=== PATIENT | male | born 1935 | race Caucasian/White ===

== ENCOUNTER 2017-07-21 14:27 | Inpatient (IN) | payer OTHER ==
[2017-07-21] MEDS ORDERED: SODIUM CHLORIDE 1,000 ML IV STA (14:43)
--- NOTE | 2017-07-21 14:44 | PDOC ---
History of Present Illness - General Stated Complaint: HIGH BLOOD SUGAR Time Seen by Provider: 07/21/17 14:38 History Source: EMS Exam Limitations: No Limitations - History of Present Illness Initial Comments: 07/21/17 14:42 81 y/o M with history of DM II, HTN, CAD, NSTEMI 4 years ago presenting with "high" glucose on fingerstick and AMS. "social work professor called ambulance" 07/21/17 15:08 07/21/17 15:[address] patient's PCp Dr. Debbie Velasquez to call back. Past History - Past Medical History Allergies/Adverse Reactions: Allergies Allergy/AdvReac Type Severity Reaction Status Date / Time No Known Drug Allergies Allergy Verified 09/30/13 08:39 Home Medications: Ambulatory Orders Amlodipine Besylate [Norvasc -] 5 mg PO DAILY #0 tablet 10/01/13 Aspirin [ASA -] 81 mg PO DAILY #0 tab.chew 10/01/13 Atorvastatin Ca [Lipitor] 40 mg PO HS #0 tablet 10/01/13 Clopidogrel Bisulfate [Plavix -] 75 mg PO DAILY #0 tablet 10/01/13 Heparin Infusion - 500 ml IVPB TITR #0 infus.bag 10/01/13 Insulin (Levemir) [Levemir Flexpen -] 10 units SQ HS #0 pen 10/01/13 Insulin (Novolog) [Novolog Flexpen -] 3 units SQ TIDAC #0 pen 10/01/13 Metoprolol Tartrate [Lopressor -] 25 mg PO BID #0 tab 10/01/13 Morphine Injection - [Morphine Injection 4 mg/1 mL -] 4 mg IVPUSH Q6H PRN #0 disp.syrin 10/01/13 Anemia: No Asthma: No Cancer: No Cardiac Disorders: No CVA: No COPD: No CHF: No Dementia: No Diabetes: Yes GI Disorders: No Disorders: No HTN: Yes Hypercholesterolemia: No Liver Disease: No Seizures: No Thyroid Disease: No - Suicide/Smoking/Psychosocial Hx Smoking History: Never smoked Have you smoked in the past 12 months: No Hx Alcohol Use: No Drug/Substance Use Hx: No Substance Use Type: None Hx Substance Use Treatment: No Review of Systems - Review of Systems Able to Perform ROS?: No (Altered mental status) *Physical Exam - Physical Exam General Appearance: Yes: Disheveled, Mild Distress HEENT: positive: EOMI, LIVIA Respiratory/Chest: negative: Chest Tender Cardiovascular: positive: Regular Rhythm, Regular Rate, S1, S2, Bradycardia Neurologic: positive: Confused, Disoriented. negative: Fully Oriented, Alert ED Treatment Course - LABORATORY CBC & Chemistry Diagram: 07/21/17 15:33 07/21/17 17:05 Medical Decision Making - Medical Decision Making 07/21/17 16:00 cbc, cmp, ua started the patient on fluids with labetalol for pressure control (in the 200's) 07/21/17 18:11 Glucose 498. Corrected sodium 138 07/21/17 18:13 07/21/17 18:42 BP: 216/79 HR:59 Repeated Bolus of NS and added Cardene 10mg. Will reevaluate vitals 07/21/17 19:12 Patient signed out to dr. Alexander *DC/Admit/Observation/Transfer Diagnosis at time of Disposition: Hyperglycemia, Hypertensive emergency - Referrals - Patient Instructions - Post Discharge Activity
[2017-07-21] MEDS ORDERED: LABETALOL HCL 5 MG/1 ML (100MG/20 ML VIAL) IVPUSH ONE (15:32)
[2017-07-21 15:39] LABS: BASO % 0.7 % (0-2.0); EOS % 3.4 % (0-4.5); LYMPH % 26.2 % (8-40); MCH 29.2 pg (25.7-33.7); MCHC 33.4 g/dl (32.0-35.9); MEAN CELL VOLUME 87.4 fl (80-96); MEAN PLT VOLUME 9.8 fl (7.5-11.1); MONO % 9.5 % (3.8-10.2); NEUT % 60.2 % (42.8-82.8); PLATELET COUNT 166 K/MM3 (134-434); RBC 4.46 M/mm3 (4.00-5.60); RDW 13.7 % (11.9-15.9); WHITE BLOOD COUNT 5.8 K/mm3 (4.0-10.0)
[2017-07-21] MEDS ORDERED: LABETALOL HCL 5 MG/1 ML (200MG/40ML VIAL) IVPB ONE (15:43)
[2017-07-21 15:45] LABS: VENOUS PC02 47.2 mmHg (38-52); VENOUS PH 7.36 (7.32-7.42); VENOUS PO2 28.1 mmHg (28-48)
[2017-07-21 16:00] LABS: INR 0.89 (0.82-1.09); PROTHROMBIN TIME (PATIENT) 10.1 SEC (9.98-11.88)
--- NOTE | 2017-07-21 16:02 | EKG ---
Test Reason : Blood Pressure : / mmHG Vent. Rate : 051 BPM Atrial Rate : 051 BPM P-R Int : 174 ms QRS Dur : 082 ms QT Int : 414 ms P-R-T Axes : 029 -18 083 degrees QTc Int : 381 ms SINUS BRADYCARDIA NONSPECIFIC T WAVE ABNORMALITY ABNORMAL ECG WHEN COMPARED WITH ECG OF 01-OCT-2013 09:05, ST NO LONGER DEPRESSED IN ANTEROLATERAL LEADS T WAVE INVERSION NO LONGER EVIDENT IN INFERIOR LEADS T WAVE INVERSION NO LONGER EVIDENT IN LATERAL LEADS Confirmed by ARIADNA ROPER MD ([id number]) on 07/21/2017 4:01:42 PM Referred By: Confirmed By:ARIADNA ROPER MD
[2017-07-21 16:03] LABS: ACTIVATED PTT 25.7 SECONDS (26.9-34.4)
[2017-07-21 17:04] LABS: MAGNESIUM 2.8 mg/dL (1.8-2.4)
[2017-07-21 17:14] LABS: PHOSPHOROUS 3.2 mg/dL (2.5-4.9)
[2017-07-21 18:00] LABS: ALBUMIN 3.6 g/dl (3.4-5.0); ANION GAP 5 (8-16); BILIRUBIN,TOTAL 1.3 mg/dL (0.2-1.0); BLOOD UREA NITROGEN 46 mg/dL (7-18); CALCIUM 8.4 mg/dL (8.5-10.1); CHLORIDE 100 mmol/L (98-107); CO2 27 mmol/L (21-32); CREATININE 2.5 mg/dL (0.7-1.3); POTASSIUM 5.2 mmol/L (3.5-5.1); SGOT/AST 14 U/L (15-37); SGPT/ALT 16 U/L (12-78); SODIUM 132 mmol/L (136-145); TOT PROT 6.7 g/dl (6.4-8.2)
[2017-07-21 18:01] LABS: ALK PHOS 104 U/L (45-117)
--- NOTE | 2017-07-21 18:01 | PDOC ---
Attending Attestation - Resident Resident Name: Erich Camp - ED Attending Attestation I have performed the following: I have examined & evaluated the patient, The case was reviewed & discussed with the resident, I agree w/resident's findings & plan, Exceptions are as noted - HPI HPI: 07/21/17 18:00 81-year-old male with history of hypertension presents with confusion/altered mental status in the setting of very elevated blood pressures - Physicial Exam PE: 07/21/17 18:00 Blood pressure over 200 systolic Mental status slightly improved after labetalol Neurological exam is nonfocal - Medical Decision Making 07/21/17 18:01 Patient seen and evaluated with the resident. I agree with the overall evaluation, assessment, and management with the following summary of visit: 81-year-old male with elevated blood pressures and confusion, possible encephalopathy, rule out bleed. CT head Blood pressure control Labs Admission 07/21/17 18:38 persistent elevated BP receiving iv meds. hyperglycemia without AG. GENE with Cr 2.5.
[2017-07-21 18:11] LABS: GLUCOSE,RANDOM 498 mg/dL (74-106)
[2017-07-21] MEDS ORDERED: INSULIN REGULAR HUMAN 100 UNITS/ML *VIAL IVPUSH ONE (18:21)
[2017-07-21] MEDS ORDERED: SODIUM CHLORIDE 1,000 ML IV SCH (18:30)
[2017-07-21] MEDS ORDERED: INSULIN REGULAR HUMAN 100 UNITS/ML *VIAL ONE (18:34)
[2017-07-21] MEDS ORDERED: dilTIAZem HCL 50 MG/10 ML - 10 ML VIAL IVPUSH ONE (18:42)
[2017-07-21] MEDS ORDERED: niCARdipine HCL 25 MG/10 ML - 10 ML VIAL IV ONE (18:49)
--- NOTE | 2017-07-21 19:29 | PDOC ---
*Physical Exam - Vital Signs Last Vital Signs Temp Pulse Resp BP Pulse Ox 98.4 F 57 L 18 212/76 100 07/21/17 15:28 07/21/17 18:48 07/21/17 15:28 07/21/17 18:48 07/21/17 18:48 ED Treatment Course - LABORATORY CBC & Chemistry Diagram: 07/21/17 15:33 07/21/17 17:05 - ADDITIONAL ORDERS Additional order review: Laboratory Results 07/21/17 07/21/17 07/21/17 17:05 15:33 15:33 PT with INR INR PTT (Actin FS) VBG pH POC VBG pCO2 POC VBG pO2 Mixed VBG HCO3 Sodium 132 L Potassium 5.2 H D Chloride 100 Carbon Dioxide 27 Anion Gap 5 L BUN 46 H D Creatinine 2.5 H D Creat Clearance w eGFR 24.97 Random Glucose 498 H* D Lactic Acid 1.5 Calcium 8.4 L Phosphorus Magnesium Total Bilirubin 1.3 H AST 14 L D ALT 16 D Alkaline Phosphatase 104 D Total Protein 6.7 Albumin 3.6 Blood Type Cancelled Antibody Screen Cancelled 07/21/17 07/21/17 07/21/17 15:33 15:33 15:33 PT with INR 10.10 INR 0.89 PTT (Actin FS) 25.7 L D VBG pH 7.36 POC VBG pCO2 47.2 POC VBG pO2 28.1 Mixed VBG HCO3 26.1 H Sodium Potassium Chloride Carbon Dioxide Anion Gap BUN Creatinine Creat Clearance w eGFR Random Glucose Lactic Acid Calcium Phosphorus 3.2 D Magnesium 2.8 H D Total Bilirubin AST ALT Alkaline Phosphatase Total Protein Albumin Blood Type Antibody Screen 07/21/17 15:33 PT with INR INR PTT (Actin FS) VBG pH POC VBG pCO2 POC VBG pO2 Mixed VBG HCO3 Sodium Cancelled Potassium Cancelled Chloride Cancelled Carbon Dioxide Cancelled Anion Gap Cancelled BUN Cancelled Creatinine Cancelled Creat Clearance w eGFR Cancelled Random Glucose Cancelled Lactic Acid Calcium Cancelled Phosphorus Magnesium Total Bilirubin Cancelled AST Cancelled ALT Cancelled Alkaline Phosphatase Cancelled Total Protein Cancelled Albumin Cancelled Blood Type Antibody Screen 07/21/17 15:33 RBC 4.46 MCV 87.4 MCHC 33.4 RDW 13.7 MPV 9.8 D Neutrophils % 60.2 Lymphocytes % 26.2 Monocytes % 9.5 Eosinophils % 3.4 Basophils % 0.7 - Medications Given in the ED: ED Medications Discontinued Medications Generic Name Dose Route Start Last Admin Trade Name Freq PRN Reason Stop Dose Admin Sodium Chloride 1,000 mls @ 1,000 mls/hr 07/21/17 14:43 07/21/17 15:18 Normal Saline - IV 07/21/17 15:42 1,000 mls/hr ASDIR STA Administration Insulin Human Regular 4 units 07/21/17 18:21 07/21/17 18:37 Novolin R Vial *For Ivpush Or Iv Drip Only* IVPUSH 07/21/17 18:22 4 unit ONCE ONE Administration Labetalol HCl 20 mg 07/21/17 15:32 07/21/17 15:50 Normodyne Injection - IVPUSH 07/21/17 15:33 20 mg ONCE ONE Administration *DC/Admit/Observation/Transfer Diagnosis at time of Disposition: Hyperglycemia, Hypertensive emergency - Discharge Dispostion Admit: Yes - Referrals - Patient Instructions - Post Discharge Activity
--- NOTE | 2017-07-21 19:40 | HP ---
PCP: Name unknown ([facility]) HISTORY OF PRESENT ILLNESS: Poor historian. History obtained from patients son and ED resident. Patient is an 81-year-old Dominican speaking male was brought in via 911 after his aid noticed him having "Altered Mental Status". When EMS arrived, his finger stick glucose was undetectable (likely >400). As per the patient's son, he hasn't been acting normal since few days. Patient lives alone, has health aid for few hrs during the day, walks without a cane at baseline. Son is unable to give detailed history about his medical condition and his medication list. During the interrogation, patient kept repeating he wants a nasal drop which he uses it daily for his nasal congestion. Patient complaints of headache with dizziness but no blurring of vision, visual loss. Patient denies chest pain, sob, cough, palpitation, abdominal pain, nausea or vomiting. Bowel/Bladder habit normal/ Sleep/Appetite normal as per patients son. Patient was admitted at [facility] on 09/30/13 for NSTEMI, was transferred out for cath but has no obstruction as per the note. ER course was notable for: (1) Afebrile. BP: 215/75mm Hg; P-54 bpm, blood sugar 498 (2) EKG: NSR with bradycardia (3) IV Labetolol 20mg Recent Travel: None PAST MEDICAL HISTORY: Hypertension and Diabetes diagnosed in 1956, non obstructing CAD, Early dementia, disc herniation, Vertigo PAST SURGICAL HISTORY: Unknown Social History: Smoking: Denies Alcohol: Denies Drugs: Denies Family History: Non contributory. Allergies No Known Drug Allergies Allergy (Verified 09/30/13 08:39) HOME MEDICATIONS: Home Medications Medication Instructions Recorded Amlodipine Besylate [Norvasc -] 5 mg PO DAILY #0 tablet 10/01/13 Aspirin [ASA -] 81 mg PO DAILY #0 tab.chew 10/01/13 Atorvastatin Ca [Lipitor] 40 mg PO HS #0 tablet 10/01/13 Clopidogrel Bisulfate [Plavix -] 75 mg PO DAILY #0 tablet 10/01/13 Heparin Infusion - 500 ml IVPB TITR #0 infus.bag 10/01/13 Insulin (Levemir) [Levemir Flexpen 10 units SQ HS #0 pen 10/01/13 -] Insulin (Novolog) [Novolog Flexpen 3 units SQ TIDAC #0 pen 10/01/13 -] Metoprolol Tartrate [Lopressor -] 25 mg PO BID #0 tab 10/01/13 Morphine Injection - [Morphine 4 mg IVPUSH Q6H PRN #0 disp.syrin 10/01/13 Injection 4 mg/1 mL -] REVIEW OF SYSTEMS CONSTITUTIONAL: Absent: fever, chills, diaphoresis, generalized weakness, malaise, loss of appetite, weight change HEENT: Absent: rhinorrhea, nasal congestion, throat pain, throat swelling, difficulty swallowing, mouth swelling, ear pain, eye pain, visual changes CARDIOVASCULAR: Absent: chest pain, syncope, palpitations, irregular heart rate, lightheadedness , peripheral edema RESPIRATORY: Absent: cough, shortness of breath, dyspnea with exertion, orthopnea, wheezing, stridor, hemoptysis GASTROINTESTINAL: Absent: abdominal pain, abdominal distension, nausea, vomiting, diarrhea, constipation, melena, hematochezia GENITOURINARY: Absent: dysuria, frequency, urgency, hesitancy, hematuria, flank pain, genital pain MUSCULOSKELETAL: Absent: myalgia, arthralgia, joint swelling, back pain, neck pain SKIN: Absent: rash, itching, pallor HEMATOLOGIC/IMMUNOLOGIC: Absent: easy bleeding, easy bruising, lymphadenopathy, frequent infections ENDOCRINE: Absent: unexplained weight gain, unexplained weight loss, heat intolerance, cold intolerance NEUROLOGIC: Present: headache, AMS Absent: focal weakness or paresthesias, dizziness, unsteady gait, seizure, bladder or bowel incontinence PSYCHIATRIC: Absent: anxiety, depression, suicidal or homicidal ideation, hallucinations. PHYSICAL EXAMINATION Vital Signs - 24 hr 07/21/17 07/21/17 15:28 18:48 Temperature 98.4 F Pulse Rate 54 L Pulse Rate [ 57 L Apical] Respiratory 18 Rate Blood Pressure 215/75 Blood Pressure 212/76 [Left Arm] O2 Sat by Pulse 100 100 Oximetry (%) GENERAL: Elderly male, Awake, alert, and oriented x 1, in no acute distress. HEAD: Normal with no signs of trauma. EYES: EOM intact, no pallor or icterus. EARS, NOSE, THROAT: Ears normal. Moist mucous membranes. NECK: Supple. LUNGS: B/L Breath sounds equal, clear to auscultation bilaterally. No wheezes, and no crackles. No accessory muscle use. HEART: Regular rate and rhythm, normal S1 and S2 with soft systolic murmur. ABDOMEN: Soft, nontender, not distended, normoactive bowel sounds, no guarding, no rebound, no masses. No hepatomegaly or splenomegaly. MUSCULOSKELETAL: Normal range of motion at all joints. No bony deformities or tenderness. No CVA tenderness. UPPER EXTREMITIES: 2+ pulses, warm, well-perfused. No cyanosis. No clubbing. No peripheral edema. LOWER EXTREMITIES: 2+ pulses, warm, well-perfused. No calf tenderness. No peripheral edema. NEUROLOGICAL: No facial droop, not obeying commands. Normal speech. Gait not observed. PSYCHIATRIC: Uncooperative. Good eye contact. Appropriate mood and affect. SKIN: Warm, dry, normal turgor, no rashes or lesions noted, normal capillary refill. Laboratory Results - last 24 hr 07/21/17 07/21/17 07/21/17 15:33 15:33 15:33 WBC 5.8 D RBC 4.46 Hgb 13.0 Hct 39.0 MCV 87.4 MCH 29.2 MCHC 33.4 RDW 13.7 Plt Count 166 MPV 9.8 D Neutrophils % 60.2 Lymphocytes % 26.2 Monocytes % 9.5 Eosinophils % 3.4 Basophils % 0.7 PT with INR 10.10 INR 0.89 PTT (Actin FS) 25.7 L D VBG pH POC VBG pCO2 POC VBG pO2 Mixed VBG HCO3 Sodium Cancelled Potassium Cancelled Chloride Cancelled Carbon Dioxide Cancelled Anion Gap Cancelled BUN Cancelled Creatinine Cancelled Creat Clearance w eGFR Cancelled Random Glucose Cancelled Lactic Acid Calcium Cancelled Phosphorus Magnesium Total Bilirubin Cancelled AST Cancelled ALT Cancelled Alkaline Phosphatase Cancelled Total Protein Cancelled Albumin Cancelled Blood Type Antibody Screen 07/21/17 07/21/17 07/21/17 15:33 15:33 15:33 WBC RBC Hgb Hct MCV MCH MCHC RDW Plt Count MPV Neutrophils % Lymphocytes % Monocytes % Eosinophils % Basophils % PT with INR INR PTT (Actin FS) VBG pH 7.36 POC VBG pCO2 47.2 POC VBG pO2 28.1 Mixed VBG HCO3 26.1 H Sodium Potassium Chloride Carbon Dioxide Anion Gap BUN Creatinine Creat Clearance w eGFR Random Glucose Lactic Acid 1.5 Calcium Phosphorus 3.2 D Magnesium 2.8 H D Total Bilirubin AST ALT Alkaline Phosphatase Total Protein Albumin Blood Type Antibody Screen 07/21/17 07/21/17 15:33 17:05 WBC RBC Hgb Hct MCV MCH MCHC RDW Plt Count MPV Neutrophils % Lymphocytes % Monocytes % Eosinophils % Basophils % PT with INR INR PTT (Actin FS) VBG pH POC VBG pCO2 POC VBG pO2 Mixed VBG HCO3 Sodium 132 L Potassium 5.2 H D Chloride 100 Carbon Dioxide 27 Anion Gap 5 L BUN 46 H D Creatinine 2.5 H D Creat Clearance w eGFR 24.97 Random Glucose 498 H* D Lactic Acid Calcium 8.4 L Phosphorus Magnesium Total Bilirubin 1.3 H AST 14 L D ALT 16 D Alkaline Phosphatase 104 D Total Protein 6.7 Albumin 3.6 Blood Type Cancelled Antibody Screen Cancelled ASSESSMENT/PLAN: Patient is an 81-year-old Dominican speaking male with significant past medical history of Hypertension and Diabetes diagnosed in 195, non obstructing CAD, Early dementia, disc herniation was brought in via 911 after his aid noticed him having "Altered Mental Status". # Altered mental status likely due to Hypertensive Emergency with end organ damage Aid noticed AMS prompting to call 911 was found to be hypertensive. On arrival, BP was 215/75mm Hg; P-54 bpm Has end organ damage-creatinine increased to 2.5 from his baseline and AMS. Admitted in ICU (spoke with EDWIN Thomas who accepted the patient) Was given IV Labetolol 20mg and Hydralazine 5 mg once in the ED with only slight improvement. Started IV Nicardipine drip, titrate as needed ECHO in AM. Last echo 2012: Normal, Mild to mod MR Lipid, A1c in AM Cardiology consult requested CT head without contrast pending Troponin x 1 negative---> 12:30 am. # SOBIA on CKD Creatinine 2.5, baseline creatinine on file is 1.5 Cannot give him hydration due to high blood pressure Avoid Nephrotoxic drugs. Repeat BMP in AM # Dizziness likely secondary to Hypertensive emergency # Uncontrolled blood sugar On arrival, blood sugar was 498, AG normal Continue Insulin sliding scale confirm his meds with pharmacy in AM and start Levemir Finger stick glucose monitoring Watch for hypoglycemic episodes # FEN Not on IV fluids Electrolytes to be repeated in AM Sodium controlled diet # Prophylaxis For DVT: On heparin 5000 IU TID For GI: Not indicated # Code Status: Full Code # Dispo: Admitted in ICU. Duration of stay unknown. Illness, Investigation and Plan of care explained to the patients son. He verbalized understanding. Case discussed with Dr. Brenner. Visit type - Emergency Visit Emergency Visit: Yes ED Registration Date: 07/21/17 Care time: The patient presented to the Emergency Department on the above date and was hospitalized for further evaluation of their emergent condition. - New Patient This patient is new to me today: Yes Date on this admission: 07/21/17 - Critical Care Critical Care patient: No
--- NOTE | 2017-07-21 19:46 | PN ---
Teaching Attending Note Name of Resident: Debbie Aguirre ATTENDING PHYSICIAN STATEMENT I saw and evaluated the patient. I reviewed the resident's note and discussed the case with the resident. I agree with the resident's findings and plan as documented. SUBJECTIVE: 81 yo M hx. of Dm II, HTN, CAD, NSTEMI 4 years ago who presents with high glucose. and AMS. As per chart notes the social sciences research scientist called ambulance. Pt. states he feels well and denies any chest pain, pressure or shortness of breath. Does not know why he is at the hospital. Denies any headache, fevers, or chills. OBJECTIVE: Physical: VS: Vital Signs Period Temp Pulse Resp BP Sys/Charles Pulse Ox Last 24 Hr 98.4 F 54-57 18 212-215/75-76 100-100 GEN: NAD, Resting in bed, [id number](Person/Place) HEENT: NCAT, PERRL, throat without erythema or exudates CARD: RRR S1, S2 RESP: CTAB ABD: BSx4, NTD to palpation EXT: - C/C/E CBCD WBC 5.8 K/mm3 (4.0-10.0) D 07/21/17 15:33 RBC 4.46 M/mm3 (4.00-5.60) 07/21/17 15:33 Hgb 13.0 GM/dL (11.7-16.9) 07/21/17 15:33 Hct 39.0 % (35.4-49) 07/21/17 15:33 MCV 87.4 fl (80-96) 07/21/17 15:33 MCHC 33.4 g/dl (32.0-35.9) 07/21/17 15:33 RDW 13.7 % (11.9-15.9) 07/21/17 15:33 Plt Count 166 K/MM3 (134-434) 07/21/17 15:33 MPV 9.8 fl (7.5-11.1) D 07/21/17 15:33 CMP Sodium 132 mmol/L (136-145) L 07/21/17 17:05 Potassium 5.2 mmol/L (3.5-5.1) H D 07/21/17 17:05 Chloride 100 mmol/L (98-107) 07/21/17 17:05 Carbon Dioxide 27 mmol/L (21-32) 07/21/17 17:05 Anion Gap 5 (8-16) L 07/21/17 17:05 BUN 46 mg/dL (7-18) H D 07/21/17 17:05 Creatinine 2.5 mg/dL (0.7-1.3) H D 07/21/17 17:05 Creat Clearance w eGFR 24.97 (>60) 07/21/17 17:05 Random Glucose 498 mg/dL (74-106) H* D 07/21/17 17:05 Calcium 8.4 mg/dL (8.5-10.1) L 07/21/17 17:05 Total Bilirubin 1.3 mg/dL (0.2-1.0) H 07/21/17 17:05 AST 14 U/L (15-37) L D 07/21/17 17:05 ALT 16 U/L (12-78) D 07/21/17 17:05 Alkaline Phosphatase 104 U/L (45-117) D 07/21/17 17:05 Total Protein 6.7 g/dl (6.4-8.2) 07/21/17 17:05 Albumin 3.6 g/dl (3.4-5.0) 07/21/17 17:05 CARDIAC ENZYMES Creatine Kinase 88 IU/L (39-308) 07/21/17 18:45 Troponin I < 0.02 ng/ml (0.00-0.05) D 07/21/17 18:45 Ambulatory Orders Amlodipine Besylate [Norvasc -] 5 mg PO DAILY #0 tablet 10/01/13 Aspirin [ASA -] 81 mg PO DAILY #0 tab.chew 10/01/13 Atorvastatin Ca [Lipitor] 40 mg PO HS #0 tablet 10/01/13 Clopidogrel Bisulfate [Plavix -] 75 mg PO DAILY #0 tablet 10/01/13 Heparin Infusion - 500 ml IVPB TITR #0 infus.bag 10/01/13 Insulin (Levemir) [Levemir Flexpen -] 10 units SQ HS #0 pen 10/01/13 Insulin (Novolog) [Novolog Flexpen -] 3 units SQ TIDAC #0 pen 10/01/13 Metoprolol Tartrate [Lopressor -] 25 mg PO BID #0 tab 10/01/13 Morphine Injection - [Morphine Injection 4 mg/1 mL -] 4 mg IVPUSH Q6H PRN #0 disp.syrin 10/01/13 EKG: SBrady [address] HEAD: Negative for acute process ASSESSMENT AND PLAN: 81 yo M hx. of Dm II, HTN, CAD, NSTEMI 4 years ago who presents with AMS and hyperglycemia, found to have htn emergency 1.) HTN Emergency - Nicardapine gtt - Echo - Trend Trop/ekg - Not to reduce >30% over several hrs 2.) AMS - CT HEAD- negative - Check. UA, Ucx 3.) CAD - C/W Home meds - ASA, Statin, Plavix (IF CT Head negative) 4.) SOBIA on CKD - Last Cr 1.6 - Ulytes - Avoid Nephrotoxins - Nephro consult - Renal Us 5.) Dvt PPx - Heparin [address] in ICU Accepted by Mail Teller CC Time: 40 Minutes
[2017-07-21] MEDS ORDERED: niCARdipine HCL 25 MG/10 ML AMPUL IVPB ONE ×2 (19:57→22:15)
[2017-07-21] MEDS ORDERED: hydrALAZINE HCL 20 MG/ML VIAL IVPUSH ONE (20:00)
[2017-07-21] MEDS ORDERED: hydrALAZINE HCL 20 MG/ML VIAL ONE (20:03)
[2017-07-21] MEDS ORDERED: NICARDIPINE 25 MG in DEXTROSE 5%-WATER - 240 ML IVPB SCH (20:30)
[2017-07-21] MEDS ORDERED: SODIUM CHLORIDE NASAL SPRAY 44 ML BOTTLE NS PRN (20:51)
[2017-07-21] MEDS ORDERED: ATORVASTATIN CA 40 MG TABLET (FP) PO SCH (22:00)
[2017-07-21] MEDS ORDERED: ASPIRIN 81 MG CHEWABLE TABLETS ONE (22:15)
[2017-07-21] MEDS ORDERED: CLOPIDOGREL BISULFATE 75 MG TABLET (FP) ONE (22:16)
[2017-07-21] MEDS ORDERED: ATORVASTATIN CA 40 MG TABLET (FP) ONE (22:16)
[2017-07-21] MEDS: CLOPIDOGREL BISULFATE 75 MG TABLET (FP) PO SCH (22:22)
[2017-07-21] MEDS: ASPIRIN 81 MG CHEWABLE TABLETS PO SCH (22:22)
--- NOTE | 2017-07-21 23:15 | CONSULT ---
Consult - text type - Consultation Consultation Note: Pulm/CCM Pt seen and examined CC: AMS HPI: Briefly Mr Kuldeep is an 81-year-old [place] speaking man with hx of CAD on plavix and asa, HTN who noted to have mental status changes by home health aid , prompting 911 activation. EMS noted pt to be hyperglycemic and mildly confused , and hypertensive. Patient lives alone, has health aid for few hrs during the day, walks without a cane at baseline. His Son has noted him to have AMS for last few days but is unable to give detailed history about his medical condition and his medication list. In ED pt was afebrile, slightly altered (perseverating about nasal spray), hypertensive at 215/75, with HR 60s. CT head showed no acute infarct or bleed. Multiple IV push antihypertensive meds were given with some improvement, however pt had rebound htn and pt was started on cardene gtt. Labs notabe for Cr 2.5 increased from 1.6 > 12months ago. K was 5.2. CK and Trop were negative. WBC was normal. There was no localizing signs of infection. 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 Past Medical History Cardio/Vascular CAD Social History Smoking history Never smoked Have you smoked in the past 12 No months Hx Alcohol Use No History of Substance Use None Home Medications Medication Instructions Recorded Amlodipine Besylate [Norvasc -] 5 mg PO DAILY #0 tablet 10/01/13 Aspirin [ASA -] 81 mg PO DAILY #0 tab.chew 10/01/13 Atorvastatin Ca [Lipitor] 40 mg PO HS #0 tablet 10/01/13 Clopidogrel Bisulfate [Plavix -] 75 mg PO DAILY #0 tablet 10/01/13 Heparin Infusion - 500 ml IVPB TITR #0 infus.bag 10/01/13 Insulin (Levemir) [Levemir Flexpen 10 units SQ HS #0 pen 10/01/13 -] Insulin (Novolog) [Novolog Flexpen 3 units SQ TIDAC #0 pen 10/01/13 -] Metoprolol Tartrate [Lopressor -] 25 mg PO BID #0 tab 10/01/13 Morphine Injection - [Morphine 4 mg IVPUSH Q6H PRN #0 disp.syrin 10/01/13 Injection 4 mg/1 mL -] Vital Signs Temp 98.4 F 07/21/17 15:28 Pulse 65 07/21/17 23:16 Resp 19 07/21/17 23:16 BP 166/69 07/21/17 23:16 Pulse Ox 99 07/21/17 23:16 Intake & Output 07/20/17 07/21/17 07/21/17 23:59 11:59 23:59 Weight 77.111 kg Other: Height 5 ft 6 in Body Mass Index (BMI) 27.4 Weight Measurement Method Estimated by Staff CBCD WBC 5.8 K/mm3 (4.0-10.0) D 07/21/17 15:33 RBC 4.46 M/mm3 (4.00-5.60) 07/21/17 15:33 Hgb 13.0 GM/dL (11.7-16.9) 07/21/17 15:33 Hct 39.0 % (35.4-49) 07/21/17 15:33 MCV 87.4 fl (80-96) 07/21/17 15:33 MCHC 33.4 g/dl (32.0-35.9) 07/21/17 15:33 RDW 13.7 % (11.9-15.9) 07/21/17 15:33 Plt Count 166 K/MM3 (134-434) 07/21/17 15:33 MPV 9.8 fl (7.5-11.1) D 07/21/17 15:33 CMP Sodium 132 mmol/L (136-145) L 07/21/17 17:05 Potassium 5.2 mmol/L (3.5-5.1) H D 07/21/17 17:05 Chloride 100 mmol/L (98-107) 07/21/17 17:05 Carbon Dioxide 27 mmol/L (21-32) 07/21/17 17:05 Anion Gap 5 (8-16) L 07/21/17 17:05 BUN 46 mg/dL (7-18) H D 07/21/17 17:05 Creatinine 2.5 mg/dL (0.7-1.3) H D 07/21/17 17:05 Creat Clearance w eGFR 24.97 (>60) 07/21/17 17:05 Random Glucose 498 mg/dL (74-106) H* D 07/21/17 17:05 Calcium 8.4 mg/dL (8.5-10.1) L 07/21/17 17:05 Total Bilirubin 1.3 mg/dL (0.2-1.0) H 07/21/17 17:05 AST 14 U/L (15-37) L D 07/21/17 17:05 ALT 16 U/L (12-78) D 07/21/17 17:05 Alkaline Phosphatase 104 U/L (45-117) D 07/21/17 17:05 Total Protein 6.7 g/dl (6.4-8.2) 07/21/17 17:05 Albumin 3.6 g/dl (3.4-5.0) 07/21/17 17:05 CARDIAC ENZYMES Creatine Kinase 88 IU/L (39-308) 07/21/17 18:45 Troponin I < 0.02 ng/ml (0.00-0.05) D 07/21/17 18:45 REVIEW OF SYSTEMS CONSTITUTIONAL: Absent: fever, chills, diaphoresis, generalized weakness, malaise, loss of appetite, weight change HEENT: Absent: rhinorrhea, nasal congestion, throat pain, throat swelling, difficulty swallowing, mouth swelling, ear pain, eye pain, visual changes CARDIOVASCULAR: Absent: chest pain, syncope, palpitations, irregular heart rate, lightheadedness , peripheral edema RESPIRATORY: Absent: cough, shortness of breath, dyspnea with exertion, orthopnea, wheezing, stridor, hemoptysis GASTROINTESTINAL: Absent: abdominal pain, abdominal distension, nausea, vomiting, diarrhea, constipation, melena, hematochezia GENITOURINARY: Absent: dysuria, frequency, urgency, hesitancy, hematuria, flank pain, genital pain MUSCULOSKELETAL: Absent: myalgia, arthralgia, joint swelling, back pain, neck pain SKIN: Absent: rash, itching, pallor HEMATOLOGIC/IMMUNOLOGIC: Absent: easy bleeding, easy bruising, lymphadenopathy, frequent infections ENDOCRINE: Absent: unexplained weight gain, unexplained weight loss, heat intolerance, cold intolerance NEUROLOGIC: Present: headache, AMS Absent: focal weakness or paresthesias, dizziness, unsteady gait, seizure, bladder or bowel incontinence PSYCHIATRIC: Absent: anxiety, depression, suicidal or homicidal ideation, hallucinations. PHYSICAL EXAMINATION GENERAL: Elderly male, Awake, alert, and oriented x 1, in no acute distress. ( per family this is not far from baseline) HEAD: atruamatic EYES: EOMI, NECK: Supple, no JVP LUNGS: clear anterior, no distress HEART: RRR, no mr/r/g appreciated ABDOMEN: soft, NT, + BS MUSCULOSKELETAL: WNL UPPER EXTREMITIES: 2+ pulses no edema LOWER EXTREMITIES: 2+ pulses no edema NEUROLOGICAL: no pronator drift, no facial droop, no aphasia ect. SKIN: Warm, dry, normal turgor, no rashes CXR: reviewed, no infiltrate EKG: Sinus josh, no ischemic ST changes, normal axis, intervals CT head without acute pathology. 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 William Henderson ACNP [phone] [id number] CCT
[2017-07-22 00:33] VITALS: BMI 25.6
[2017-07-22] MEDS: INSULIN SLIDING SCALE (NOVOLOG) 1 VIAL SQ SCH ×4 (00:41→17:47)
[2017-07-22] MEDS ORDERED: HEPARIN NA (PORCINE) 5,000 UNITS/ML 1ML VIAL SQ SCH (06:00)
[2017-07-22 06:14] LABS: BASO % 0.7 % (0-2.0); EOS % 5.4 % (0-4.5); HEMATOCRIT 36.6 % (35.4-49); HEMOGLOBIN 12.4 GM/dL (11.7-16.9); MCH 29.2 pg (25.7-33.7); MEAN CELL VOLUME 85.8 fl (80-96); MEAN PLT VOLUME 9.3 fl (7.5-11.1); NEUT % 66.9 % (42.8-82.8); PLATELET COUNT 172 K/MM3 (134-434); RBC 4.26 M/mm3 (4.00-5.60); RDW 13.3 % (11.9-15.9); WHITE BLOOD COUNT 6.6 K/mm3 (4.0-10.0)
[2017-07-22 06:43] LABS: ALBUMIN 3.3 g/dl (3.4-5.0); ANION GAP 12 (8-16); BLOOD UREA NITROGEN 34 mg/dL (7-18); CALCIUM 8.5 mg/dL (8.5-10.1); CHLORIDE 102 mmol/L (98-107); CO2 24 mmol/L (21-32); CREATININE 1.6 mg/dL (0.7-1.3); GLUCOSE,RANDOM 84 mg/dL (74-106); POTASSIUM 3.6 mmol/L (3.5-5.1); SGOT/AST 20 U/L (15-37); SGPT/ALT 12 U/L (12-78); SODIUM 138 mmol/L (136-145)
[2017-07-22 06:46] LABS: ALK PHOS 71 U/L (45-117); BILIRUBIN,TOTAL 1.3 mg/dL (0.2-1.0); TOT PROT 6.1 g/dl (6.4-8.2)
--- NOTE | 2017-07-22 06:57 | PN ---
Physical Exam: SUBJECTIVE: Patient seen and examined. No WALKER, chest pain/discomfort, fever or chills. OBJECTIVE: Vital Signs Period Temp Pulse Resp BP Sys/Charles Pulse Ox Last 24 Hr 98.3 F-99.2 F 54-70 14-20 132-215/65-108 98-100 GENERAL: awake, alert, aaox3 EYES: PERRLA, EOMI, sclera anicteric, conjunctiva clear ENT: oropharynx clear without exudates, mmm. LUNGS: CTAB HEART: rrr, normal s1/s2, no m/r/g ABDOMEN: Soft, ntnd, normoactive BS EXTREMITIES: 2+ pulses, wwp, no mary alice NEUROLOGICAL: CN II-XII intact. Normal speech, motor strength 5/5 in all 4 extremities, sensation intact CBC, BMP 07/22/17 05:00 07/22/17 05:00 Hepatic Panel Total Bilirubin 1.3 mg/dL (0.2-1.0) H 07/22/17 05:00 AST 20 U/L (15-37) D 07/22/17 05:00 ALT 12 U/L (12-78) D 07/22/17 05:00 Alkaline Phosphatase 71 U/L (45-117) D 07/22/17 05:00 Albumin 3.3 g/dl (3.4-5.0) L 07/22/17 05:00 Active Medications Amlodipine Besylate (Norvasc -) 5 mg PO DAILY [facility] Aspirin (Asa -) 81 mg PO DAILY [facility] Atorvastatin Calcium (Lipitor -) 40 mg PO HS [facility] Carvedilol (Coreg -) 12.5 mg PO BID [facility] Chlorhexidine Gluconate (Hibiclens For Decolonization -) 1 applic TP HS [facility] Clopidogrel Bisulfate (Plavix -) 75 mg PO DAILY [facility] Heparin Sodium (Porcine) (Heparin -) 5,000 unit SQ TID [facility] Last Admin: 07/22/17 14:00 Dose: 5,000 unit Insulin Aspart (Novolog Vial Sliding Scale -) 1 vial SQ TIDAC [facility] PRN Reason: Protocol Last Admin: 07/22/17 17:47 Dose: 4 units Insulin Detemir (Levemir Vial) 20 units SQ HS ISAMAR Mupirocin (Bactroban Ointment (For Decolonization) -) 1 applic NS BID [facility] Stop: 07/27/17 09:59 Sodium Chloride ([place] -) 2 spray NS BID PRN PRN Reason: NASAL CONGESTION ASSESSMENT/PLAN: 81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 #Hypertensive Emergency, resolved -titrate off Nicardipine gtt and switch to home Amlodipine 5mg and Coreg 12.5mg BID -continue telemetry monitoring # SOBIA likely 2/2 to hypertensive emergency, resolved and now at baseline -will d/c IVFs #DM, poorly controlled, Alc 11% -ISS & BGM TIDAC -Will add 20U levemir HS converage #CAD: c/w home ASA, Plavix, Lipitor # FEN: PO hydration / lytes wnl / Na controlled diet #DVT PPX - Heparin TID #Dispo: transfer to tele FULL code d/w Dr. Christopher Cisneros MD PGY1 - Internal Medicine Visit type - Emergency Visit Emergency Visit: No - New Patient This patient is new to me today: Yes Date on this admission: 07/22/17 - Critical Care Critical Care patient: Yes Total Critical Care Time (in minutes): 35 Critical Care Statement: The care of this patient involved high complexity decision making to prevent further life threatening deterioration of the patient 's condition and/or to evaluate & treat vital organ system(s) failure or risk of failure.
--- NOTE | 2017-07-22 08:26 | PN ---
Physical Exam: SUBJECTIVE: Patient seen and examined OBJECTIVE: Vital Signs Period Temp Pulse Resp BP Sys/Charles Pulse Ox Last 24 Hr 98.3 F-99.2 F 54-70 14-20 120-215/62-108 98-100 GENERAL: The patient is awake, alert, and fully oriented, in no acute distress. HEAD: Normal with no signs of trauma. EYES: PERRL, extraocular movements intact, sclera anicteric, conjunctiva clear. No ptosis. ENT: Ears normal, nares patent, oropharynx clear without exudates, moist mucous membranes. NECK: Trachea midline, full range of motion, supple. LUNGS: Breath sounds equal, clear to auscultation bilaterally, no wheezes, no crackles, no accessory muscle use. HEART: Regular rate and rhythm, S1, S2 without murmur, rub or gallop. ABDOMEN: Soft, nontender, nondistended, normoactive bowel sounds, no guarding, no rebound, no hepatosplenomegaly, no masses. EXTREMITIES: 2+ pulses, warm, well-perfused, no edema. NEUROLOGICAL: Cranial nerves II through XII grossly intact. Normal speech, gait not observed. PSYCH: Normal mood, normal affect. SKIN: Warm, dry, normal turgor, no rashes or lesions noted Laboratory Results - last 24 hr 07/21/17 07/21/17 07/21/17 15:33 15:33 15:33 WBC 5.8 D RBC 4.46 Hgb 13.0 Hct 39.0 MCV 87.4 MCH 29.2 MCHC 33.4 RDW 13.7 Plt Count 166 MPV 9.8 D Neutrophils % 60.2 Lymphocytes % 26.2 Monocytes % 9.5 Eosinophils % 3.4 Basophils % 0.7 PT with INR 10.10 INR 0.89 PTT (Actin FS) 25.7 L D VBG pH POC VBG pCO2 POC VBG pO2 Mixed VBG HCO3 Sodium Cancelled Potassium Cancelled Chloride Cancelled Carbon Dioxide Cancelled Anion Gap Cancelled BUN Cancelled Creatinine Cancelled Creat Clearance w eGFR Cancelled POC Glucometer Random Glucose Cancelled Lactic Acid Calcium Cancelled Phosphorus Magnesium Total Bilirubin Cancelled AST Cancelled ALT Cancelled Alkaline Phosphatase Cancelled Creatine Kinase Troponin I Total Protein Cancelled Albumin Cancelled Blood Type Antibody Screen 07/21/17 07/21/17 07/21/17 15:33 15:33 15:33 WBC RBC Hgb Hct MCV MCH MCHC RDW Plt Count MPV Neutrophils % Lymphocytes % Monocytes % Eosinophils % Basophils % PT with INR INR PTT (Actin FS) VBG pH 7.36 POC VBG pCO2 47.2 POC VBG pO2 28.1 Mixed VBG HCO3 26.1 H Sodium Potassium Chloride Carbon Dioxide Anion Gap BUN Creatinine Creat Clearance w eGFR POC Glucometer Random Glucose Lactic Acid 1.5 Calcium Phosphorus 3.2 D Magnesium 2.8 H D Total Bilirubin AST ALT Alkaline Phosphatase Creatine Kinase Troponin I Total Protein Albumin Blood Type Antibody Screen 07/21/17 07/21/17 07/21/17 15:33 17:05 18:45 WBC RBC Hgb Hct MCV MCH MCHC RDW Plt Count MPV Neutrophils % Lymphocytes % Monocytes % Eosinophils % Basophils % PT with INR INR PTT (Actin FS) VBG pH POC VBG pCO2 POC VBG pO2 Mixed VBG HCO3 Sodium 132 L Potassium 5.2 H D Chloride 100 Carbon Dioxide 27 Anion Gap 5 L BUN 46 H D Creatinine 2.5 H D Creat Clearance w eGFR 24.97 POC Glucometer Random Glucose 498 H* D Lactic Acid Calcium 8.4 L Phosphorus Magnesium Total Bilirubin 1.3 H AST 14 L D ALT 16 D Alkaline Phosphatase 104 D Creatine Kinase 88 Troponin I < 0.02 D Total Protein 6.7 Albumin 3.6 Blood Type Cancelled Antibody Screen Cancelled 07/22/17 07/22/17 07/22/17 00:13 05:00 05:00 WBC 6.6 RBC 4.26 Hgb 12.4 Hct 36.6 MCV 85.8 MCH 29.2 MCHC 34.0 RDW 13.3 Plt Count 172 MPV 9.3 Neutrophils % 66.9 Lymphocytes % 19.0 D Monocytes % 8.0 Eosinophils % 5.4 H Basophils % 0.7 PT with INR INR PTT (Actin FS) VBG pH POC VBG pCO2 POC VBG pO2 Mixed VBG HCO3 Sodium 138 Potassium 3.6 D Chloride 102 Carbon Dioxide 24 Anion Gap 12 BUN 34 H D Creatinine 1.6 H D Creat Clearance w eGFR 41.80 POC Glucometer [phone] Random Glucose 84 D Lactic Acid Calcium 8.5 Phosphorus Magnesium Total Bilirubin 1.3 H AST 20 D ALT 12 D Alkaline Phosphatase 71 D Creatine Kinase Troponin I Total Protein 6.1 L Albumin 3.3 L Blood Type Antibody Screen 07/22/17 06:33 WBC RBC Hgb Hct MCV MCH MCHC RDW Plt Count MPV Neutrophils % Lymphocytes % Monocytes % Eosinophils % Basophils % PT with INR INR PTT (Actin FS) VBG pH POC VBG pCO2 POC VBG pO2 Mixed VBG HCO3 Sodium Potassium Chloride Carbon Dioxide Anion Gap BUN Creatinine Creat Clearance w eGFR POC Glucometer [phone] Random Glucose Lactic Acid Calcium Phosphorus Magnesium Total Bilirubin AST ALT Alkaline Phosphatase Creatine Kinase Troponin I Total Protein Albumin Blood Type Antibody Screen Active Medications Generic Name Dose Route Start Last Admin Trade Name Renatoq PRN Reason Stop Dose Admin Aspirin 81 mg 07/21/17 20:30 07/21/17 22:22 Asa - PO 81 mg DAILY ISAMAR Administration Atorvastatin Calcium 40 mg 07/21/17 22:00 07/21/17 22:22 Lipitor - PO 40 mg HS ISAMAR Administration Chlorhexidine Gluconate 1 applic 07/22/17 22:00 Hibiclens For Decolonization - TP HS [facility]AR Clopidogrel Bisulfate 75 mg 07/21/17 20:30 07/21/17 22:22 Plavix - PO 75 mg DAILY ISAMAR Administration Heparin Sodium (Porcine) 5,000 unit 07/22/17 06:00 07/22/17 06:40 Heparin - SQ 5,000 unit TID ISAMAR Administration Sodium Chloride 1,000 mls @ 100 mls/hr 07/21/17 18:30 07/21/17 18:46 Normal Saline - IV 100 mls/hr ASDIR ISAMAR Administration Nicardipine HCl 25 mg/ 250 mls @ 25 mls/hr 07/21/17 20:30 07/22/17 02:11 Dextrose IVPB 1 mg/hr TITR ISAMAR 10 mls/hr Protocol Titration 2.5 MG/HR Insulin Aspart 1 vial 07/21/17 22:00 07/22/17 06:40 Novolog Vial Sliding Scale - SQ Not Given ACHS [facility] Protocol Mupirocin 1 applic 07/22/17 10:00 Bactroban Ointment (For Decolonization) - NS 07/27/17 09:59 BID ISAMAR Sodium Chloride 2 spray 07/21/17 20:51 [place] Nasal [place] - NS BID PRN NASAL CONGESTION ASSESSMENT/PLAN: 81 year old Citizen Of [place] speaking man with hx of DM, CAD on plavix and asa, HTN presenting to hyperglycemic, mildly confused, and hypertensive to the ED admitted to the ICU for hypertensive emergency currently with pressures WNL and no focal neurologic deficit and a normal mental status. Neuro: Confusion: reported to be altered on presentation, likely due to hypertension - per palliative care nurse practitioner at bedside, he is now at his baseline - Has a few hours of home health aid daily - no focal sign so not likely stroke CV: HTN Emergency: Presented with pressures 215 systolics. Cause unsure but patient did have high sugars. Has a home health aid who helps administer medications but he has some baseline confusion so would investigate if non-compliance is the driving factor. - resolved on cardeine drip - transition to PO meds today - troponemia resolved Renal: SOBIA: - likely secondary to HTN - resolving - CTM GI: - Elevated t-bili, possibly due to HTN Endo: DM: - SSI FEN: - Sodium controlled diet Dispo: - No longer requires anti-htn drip so can be transferred to tele unit Visit type - Emergency Visit Emergency Visit: No - New Patient This patient is new to me today: Yes Date on this admission: 07/22/17 - Critical Care Critical Care patient: Yes Total Critical Care Time (in minutes): 35 Critical Care Statement: The care of this patient involved high complexity decision making to prevent further life threatening deterioration of the patient 's condition and/or to evaluate & treat vital organ system(s) failure or risk of failure. - Discharge Referral Referred to [facility] No
[2017-07-22] MEDS: CLOPIDOGREL BISULFATE 75 MG TABLET (FP) PO SCH (09:58)
[2017-07-22] MEDS: ASPIRIN 81 MG CHEWABLE TABLETS PO SCH (09:59)
[2017-07-22] MEDS ORDERED: METOPROLOL TARTRATE 25 MG TABLET (FP) PO SCH (10:00)
[2017-07-22] MEDS ORDERED: amLODIPine BESYLATE 10 MG TABLET (FP) PO SCH (10:00)
[2017-07-22] MEDS ORDERED: MUPIROCIN 2% TOPICAL OINTMENT FOR DECOLONIZATION NS SCH ×2 (10:00→22:00)
[2017-07-22] MEDS ORDERED: amLODIPine BESYLATE 5 MG TABLET (FP) PO SCH (10:58)
[2017-07-22] MEDS ORDERED: METOPROLOL TARTRATE 25 MG TABLET (FP) ONE (11:01)
[2017-07-22] MEDS ORDERED: amLODIPine BESYLATE 5 MG TABLET (FP) ONE (11:02)
[2017-07-22 11:19] LABS: URINE APPEARANCE CLEAR; URINE BILIRUBIN NEGATIVE (NEGATIVE); URINE BLOOD NEGATIVE (NEGATIVE); URINE COLOR STRAW; URINE GLUCOSE (UA) 2+ (NEGATIVE); URINE KETONE NEGATIVE (NEGATIVE); URINE LEUK ESTERASE NEGATIVE (NEGATIVE); URINE NITRITE NEGATIVE (NEGATIVE); URINE UROBILINOGEN NEGATIVE mg/dL (0.2-1.0)
[2017-07-22 11:25] LABS: URINE PROTEIN 1+ (NEGATIVE)
--- NOTE | 2017-07-22 11:49 | PN ---
Teaching Attending Note Name of Resident: Davey Richards ATTENDING PHYSICIAN STATEMENT I saw and evaluated the patient. I reviewed the resident's note and discussed the case with the resident. I agree with the resident's findings and plan as documented. SUBJECTIVE: Patient seen and examined in the ICU. Awake and alert. Remains on IV Cardene for BP control. Reports breathing is better today. Intake & Output 07/19/17 07/20/17 07/21/17 07/22/17 23:59 23:59 23:59 23:59 Intake Total 100 Output Total 700 Balance -600 Weight 170 lb 149 lb 4.047 oz Active Medications Amlodipine Besylate (Norvasc -) 5 mg PO DAILY REPLACED BY [facility] Last Admin: 07/22/17 11:07 Dose: 5 mg Aspirin (Asa -) 81 mg PO DAILY REPLACED BY [facility] Last Admin: 07/22/17 09:59 Dose: 81 mg Atorvastatin Calcium (Lipitor -) 40 mg PO HS REPLACED BY [facility] Last Admin: 07/21/17 22:22 Dose: 40 mg Chlorhexidine Gluconate (Hibiclens For Decolonization -) 1 applic TP HS REPLACED BY [facility] Clopidogrel Bisulfate (Plavix -) 75 mg PO DAILY REPLACED BY [facility] Last Admin: 07/22/17 09:58 Dose: 75 mg Heparin Sodium (Porcine) (Heparin -) 5,000 unit SQ TID REPLACED BY [facility] Last Admin: 07/22/17 06:40 Dose: 5,000 unit Nicardipine HCl 25 mg/ (Dextrose) 250 mls @ 25 mls/hr IVPB TITR ISAMAR; 2.5 MG/HR PRN Reason: Protocol Last Titration: 07/22/17 02:11 Dose: 1 mg/hr, 10 mls/hr Insulin Aspart (Novolog Vial Sliding Scale -) 1 vial SQ ACHS ISAMAR PRN Reason: Protocol Last Admin: 07/22/17 11:06 Dose: 10 units Metoprolol Tartrate (Lopressor -) 12.5 mg PO DAILY REPLACED BY [facility] Last Admin: 07/22/17 11:05 Dose: 12.5 mg Mupirocin (Bactroban Ointment (For Decolonization) -) 1 applic NS BID ISAMAR Stop: 07/27/17 09:59 Last Admin: 07/22/17 09:57 Dose: 1 applic Sodium Chloride ([place] Nasal [place] -) 2 spray NS BID PRN PRN Reason: NASAL CONGESTION GENERAL: Awake, alert, oriented, in no acute distress HEAD: atruamatic EYES: EOMI, NECK: Supple, no JVP LUNGS: clear anterior HEART: RRR, (-) ESM ABDOMEN: soft, NT, + BS MUSCULOSKELETAL: WNL UPPER EXTREMITIES: 2+ pulses no edema LOWER EXTREMITIES: 2+ pulses no edema NEUROLOGICAL: Non-focal SKIN: Warm, dry, normal turgor, no rashes Laboratory Results - last 24 hr 07/21/17 07/21/17 07/21/17 15:33 15:33 15:33 WBC 5.8 D RBC 4.46 Hgb 13.0 Hct 39.0 MCV 87.4 MCH 29.2 MCHC 33.4 RDW 13.7 Plt Count 166 MPV 9.8 D Neutrophils % 60.2 Lymphocytes % 26.2 Monocytes % 9.5 Eosinophils % 3.4 Basophils % 0.7 PT with INR 10.10 INR 0.89 PTT (Actin FS) 25.7 L D VBG pH POC VBG pCO2 POC VBG pO2 Mixed VBG HCO3 Sodium Cancelled Potassium Cancelled Chloride Cancelled Carbon Dioxide Cancelled Anion Gap Cancelled BUN Cancelled Creatinine Cancelled Creat Clearance w eGFR Cancelled POC Glucometer Random Glucose Cancelled Hemoglobin A1c % Lactic Acid Calcium Cancelled Phosphorus Magnesium Total Bilirubin Cancelled AST Cancelled ALT Cancelled Alkaline Phosphatase Cancelled Creatine Kinase Troponin I Total Protein Cancelled Albumin Cancelled Urine Color Urine Appearance Urine pH Ur Specific [place] Urine Protein Urine Glucose (UA) Urine Ketones Urine Blood Urine Nitrite Urine Bilirubin Urine Urobilinogen Ur Leukocyte Esterase Urine WBC (Auto) Urine RBC (Auto) Blood Type Antibody Screen 07/21/17 07/21/17 07/21/17 15:33 15:33 15:33 WBC RBC Hgb Hct MCV MCH MCHC RDW Plt Count MPV Neutrophils % Lymphocytes % Monocytes % Eosinophils % Basophils % PT with INR INR PTT (Actin FS) VBG pH 7.36 POC VBG pCO2 47.2 POC VBG pO2 28.1 Mixed VBG HCO3 26.1 H Sodium Potassium Chloride Carbon Dioxide Anion Gap BUN Creatinine Creat Clearance w eGFR POC Glucometer Random Glucose Hemoglobin A1c % Lactic Acid 1.5 Calcium Phosphorus 3.2 D Magnesium 2.8 H D Total Bilirubin AST ALT Alkaline Phosphatase Creatine Kinase Troponin I Total Protein Albumin Urine Color Urine Appearance Urine pH Ur Specific [place] Urine Protein Urine Glucose (UA) Urine Ketones Urine Blood Urine Nitrite Urine Bilirubin Urine Urobilinogen Ur Leukocyte Esterase Urine WBC (Auto) Urine RBC (Auto) Blood Type Antibody Screen 07/21/17 07/21/17 07/21/17 15:33 17:05 18:45 WBC RBC Hgb Hct MCV MCH MCHC RDW Plt Count MPV Neutrophils % Lymphocytes % Monocytes % Eosinophils % Basophils % PT with INR INR PTT (Actin FS) VBG pH POC VBG pCO2 POC VBG pO2 Mixed VBG HCO3 Sodium 132 L Potassium 5.2 H D Chloride 100 Carbon Dioxide 27 Anion Gap 5 L BUN 46 H D Creatinine 2.5 H D Creat Clearance w eGFR 24.97 POC Glucometer Random Glucose 498 H* D Hemoglobin A1c % Lactic Acid Calcium 8.4 L Phosphorus Magnesium Total Bilirubin 1.3 H AST 14 L D ALT 16 D Alkaline Phosphatase 104 D Creatine Kinase 88 Troponin I < 0.02 D Total Protein 6.7 Albumin 3.6 Urine Color Urine Appearance Urine pH Ur Specific [place] Urine Protein Urine Glucose (UA) Urine Ketones Urine Blood Urine Nitrite Urine Bilirubin Urine Urobilinogen Ur Leukocyte Esterase Urine WBC (Auto) Urine RBC (Auto) Blood Type Cancelled Antibody Screen Cancelled 07/22/17 07/22/17 07/22/17 00:13 00:30 05:00 WBC 6.6 RBC 4.26 Hgb 12.4 Hct 36.6 MCV 85.8 MCH 29.2 MCHC 34.0 RDW 13.3 Plt Count 172 MPV 9.3 Neutrophils % 66.9 Lymphocytes % 19.0 D Monocytes % 8.0 Eosinophils % 5.4 H Basophils % 0.7 PT with INR INR PTT (Actin FS) VBG pH POC VBG pCO2 POC VBG pO2 Mixed VBG HCO3 Sodium Potassium Chloride Carbon Dioxide Anion Gap BUN Creatinine Creat Clearance w eGFR POC Glucometer [id number] Random Glucose Hemoglobin A1c % Lactic Acid Calcium Phosphorus Magnesium Total Bilirubin AST ALT Alkaline Phosphatase Creatine Kinase Troponin I Total Protein Albumin Urine Color Straw Urine Appearance Clear Urine pH 8.0 D Ur Specific [place] 1.011 Urine Protein 1+ H Urine Glucose (UA) 2+ H Urine Ketones Negative Urine Blood Negative Urine Nitrite Negative Urine Bilirubin Negative Urine Urobilinogen Negative Ur Leukocyte Esterase Negative Urine WBC (Auto) <1 Urine RBC (Auto) 1 Blood Type Antibody Screen 07/22/17 07/22/17 07/22/17 05:00 05:00 06:33 WBC RBC Hgb Hct MCV MCH MCHC RDW Plt Count MPV Neutrophils % Lymphocytes % Monocytes % Eosinophils % Basophils % PT with INR INR PTT (Actin FS) VBG pH POC VBG pCO2 POC VBG pO2 Mixed VBG HCO3 Sodium 138 Potassium 3.6 D Chloride 102 Carbon Dioxide 24 Anion Gap 12 BUN 34 H D Creatinine 1.6 H D Creat Clearance w eGFR 41.80 POC Glucometer [phone] Random Glucose 84 D Hemoglobin A1c % 11.4 H D Lactic Acid Calcium 8.5 Phosphorus Magnesium Total Bilirubin 1.3 H AST 20 D ALT 12 D Alkaline Phosphatase 71 D Creatine Kinase Troponin I Total Protein 6.1 L Albumin 3.3 L Urine Color Urine Appearance Urine pH Ur Specific [place] Urine Protein Urine Glucose (UA) Urine Ketones Urine Blood Urine Nitrite Urine Bilirubin Urine Urobilinogen Ur Leukocyte Esterase Urine WBC (Auto) Urine RBC (Auto) Blood Type Antibody Screen 07/22/17 10:51 WBC RBC Hgb Hct MCV MCH MCHC RDW Plt Count MPV Neutrophils % Lymphocytes % Monocytes % Eosinophils % Basophils % PT with INR INR PTT (Actin FS) VBG pH POC VBG pCO2 POC VBG pO2 Mixed VBG HCO3 Sodium Potassium Chloride Carbon Dioxide Anion Gap BUN Creatinine Creat Clearance w eGFR POC Glucometer [phone] Random Glucose Hemoglobin A1c % Lactic Acid Calcium Phosphorus Magnesium Total Bilirubin AST ALT Alkaline Phosphatase Creatine Kinase Troponin I Total Protein Albumin Urine Color Urine Appearance Urine pH Ur Specific [place] Urine Protein Urine Glucose (UA) Urine Ketones Urine Blood Urine Nitrite Urine Bilirubin Urine Urobilinogen Ur Leukocyte Esterase Urine WBC (Auto) Urine RBC (Auto) Blood Type Antibody Screen ASSESSMENT/PLAN: Hypertensive Emergency Evidence of end organ damage Hypertension DM CAD History of early dementia Taper Cardene Titrate PO home meds Follow renal function ECHO Cardiology evaluation Follow LFTs Cardiac Telemetry monitoring Dr Joyce Critical care time spent in reviewing chart, evaluating patient and formulating plan - 36 minutes.
--- NOTE | 2017-07-22 12:21 | CON.CARD ---
Cardiology Consult (text) - Consultation Consultation Note: cc: elevated bp hpi: 81 m hx cad s/p nstemi and pci (09/2013, doni rca, doni om1; residual 50-60 mrca, 30-50 d1), dm, htn, hld, ckd, venous insuff/le edema here with elevated bp. 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 Found elevated bp and started nicardipine gtt. Pt denies cp, sob, palps, dizzy, loc, pnd, orthopnea, le edema (improved lately). Sees dr chan for cardio. pmh: per hpi psh: nc social: no tob fam: no premature cad, scd ros: per hpi; no nvd, fever, cough, velazquez, vision changes wt loss, muscle pain, gib , hematuria meds: Home Medications Medication Instructions Recorded Amlodipine Besylate [Norvasc -] 5 mg PO DAILY #0 tablet 10/01/13 Aspirin [ASA -] 81 mg PO DAILY #0 tab.chew 10/01/13 Atorvastatin Ca [Lipitor] 40 mg PO HS #0 tablet 10/01/13 Clopidogrel Bisulfate [Plavix -] 75 mg PO DAILY #0 tablet 10/01/13 Heparin Infusion - 500 ml IVPB TITR #0 infus.bag 10/01/13 Insulin (Levemir) [Levemir Flexpen 10 units SQ HS #0 pen 10/01/13 -] Insulin (Novolog) [Novolog Flexpen 3 units SQ TIDAC #0 pen 10/01/13 -] Metoprolol Tartrate [Lopressor -] 25 mg PO BID #0 tab 10/01/13 Morphine Injection - [Morphine 4 mg IVPUSH Q6H PRN #0 disp.syrin 10/01/13 Injection 4 mg/1 mL -] pe: Vital Signs Period Temp Pulse Resp BP Sys/Charles Pulse Ox Last 24 Hr 97.9 F-99.2 F 54-70 14-22 120-215/59-108 98-100 nad no jvd rrr s1s2 no mrg cta bl nl eff aaox3 trace le edema, no c/c abd nt nd pos bs no jaundice diaphoresis pos dp pt no carotid bruits Laboratory Last Values WBC 6.6 K/mm3 (4.0-10.0) 07/22/17 05:00 RBC 4.26 M/mm3 (4.00-5.60) 07/22/17 05:00 Hgb 12.4 GM/dL (11.7-16.9) 07/22/17 05:00 Hct 36.6 % (35.4-49) 07/22/17 05:00 MCV 85.8 fl (80-96) 07/22/17 05:00 MCH 29.2 pg (25.7-33.7) 07/22/17 05:00 MCHC 34.0 g/dl (32.0-35.9) 07/22/17 05:00 RDW 13.3 % (11.9-15.9) 07/22/17 05:00 Plt Count 172 K/MM3 (134-434) 07/22/17 05:00 MPV 9.3 fl (7.5-11.1) 07/22/17 05:00 Neutrophils % 66.9 % (42.8-82.8) 07/22/17 05:00 Lymphocytes % 19.0 % (8-40) D 07/22/17 05:00 Monocytes % 8.0 % (3.8-10.2) 07/22/17 05:00 Eosinophils % 5.4 % (0-4.5) H 07/22/17 05:00 Basophils % 0.7 % (0-2.0) 07/22/17 05:00 PT with INR 10.10 SEC (9.98-11.88) 07/21/17 15:33 INR 0.89 (0.82-1.09) 07/21/17 15:33 PTT (Actin FS) 25.7 SECONDS (26.9-34.4) L D 07/21/17 15:33 VBG pH 7.36 (7.32-7.42) 07/21/17 15:33 POC VBG pCO2 47.2 mmHg (38-52) 07/21/17 15:33 POC VBG pO2 28.1 mmHg (28-48) 07/21/17 15:33 Mixed VBG HCO3 26.1 meq/L (19-25) H 07/21/17 15:33 Sodium 138 mmol/L (136-145) 07/22/17 05:00 Potassium 3.6 mmol/L (3.5-5.1) D 07/22/17 05:00 Chloride 102 mmol/L (98-107) 07/22/17 05:00 Carbon Dioxide 24 mmol/L (21-32) 07/22/17 05:00 Anion Gap 12 (8-16) 07/22/17 05:00 BUN 34 mg/dL (7-18) H D 07/22/17 05:00 Creatinine 1.6 mg/dL (0.7-1.3) H D 07/22/17 05:00 Creat Clearance w eGFR 41.80 (>60) 07/22/17 05:00 POC Glucometer 365.36217 UNITS (80-120) 07/22/17 10:51 Random Glucose 84 mg/dL (74-106) D 07/22/17 05:00 Hemoglobin A1c % 11.4 % (4.8-6.0) H D 07/22/17 05:00 Lactic Acid 1.5 mmol/L (0.4-2.0) 07/21/17 15:33 Calcium 8.5 mg/dL (8.5-10.1) 07/22/17 05:00 Phosphorus 3.2 mg/dL (2.5-4.9) D 07/21/17 15:33 Magnesium 2.8 mg/dL (1.8-2.4) H D 07/21/17 15:33 Total Bilirubin 1.3 mg/dL (0.2-1.0) H 07/22/17 05:00 AST 20 U/L (15-37) D 07/22/17 05:00 ALT 12 U/L (12-78) D 07/22/17 05:00 Alkaline Phosphatase 71 U/L (45-117) D 07/22/17 05:00 Creatine Kinase 88 IU/L (39-308) 07/21/17 18:45 Troponin I < 0.02 ng/ml (0.00-0.05) D 07/21/17 18:45 Total Protein 6.1 g/dl (6.4-8.2) L 07/22/17 05:00 Albumin 3.3 g/dl (3.4-5.0) L 07/22/17 05:00 Urine Color Straw 07/22/17 00:30 Urine Appearance Clear 07/22/17 00:30 Urine pH 8.0 (5.0-8.0) D 07/22/17 00:30 Ur Specific [place] 1.011 (1.001-1.035) 07/22/17 00:30 Urine Protein 1+ (NEGATIVE) H 07/22/17 00:30 Urine Glucose (UA) 2+ (NEGATIVE) H 07/22/17 00:30 Urine Ketones Negative (NEGATIVE) 07/22/17 00:30 Urine Blood Negative (NEGATIVE) 07/22/17 00:30 Urine Nitrite Negative (NEGATIVE) 07/22/17 00:30 Urine Bilirubin Negative (NEGATIVE) 07/22/17 00:30 Urine Urobilinogen Negative mg/dL (0.2-1.0) 07/22/17 00:30 Ur Leukocyte Esterase Negative (NEGATIVE) 07/22/17 00:30 Urine WBC (Auto) <1 /hpf (3-5) 07/22/17 00:30 Urine RBC (Auto) 1 /hpf (0-3) 07/22/17 00:30 Blood Type Cancelled 07/21/17 15:33 Antibody Screen Cancelled 07/21/17 15:33 ecg: sr, nl intervals, no ischemic changes cxr: clear lungs mibi 06/2015: no ischemia echo 01/2017: nl lv/rv, iasa, mild ar renal duplex 07/2014: no anat tele: sr a/p: 81 m hx cad s/p nstemi and pci (09/2013, doni rca, doni om1; residual 50-60 mrca, 30-50 d1), dm, htn, hld, ckd, venous insuff/le edema here with elevated bp. htn: -improved after nicardipine gtt. Continue norvasc and coreg (12.5 bid was last home dose) and taper off gtt as po meds set in (did not yet get this AM). cad s/p remote mi/pci: -stable no signs acs -cont bb, statin, asa hld: -cont home atorva renard/ckd: -cr improved with ivfs/bp control, near baseline now le edema: -stable
[2017-07-22] MEDS ORDERED: SODIUM CHLORIDE NASAL SPRAY 44 ML BOTTLE NS PRN (12:24)
[2017-07-22] MEDS: HEPARIN NA (PORCINE) 5,000 UNITS/ML 1ML VIAL SQ SCH ×2 (14:00→23:41)
[2017-07-22 14:01] LABS: MAGNESIUM 2.1 mg/dL (1.8-2.4); PHOSPHOROUS 2.4 mg/dL (2.5-4.9)
[2017-07-22 15:14] LABS: URINE APPEARANCE CLEAR; URINE BILIRUBIN NEGATIVE (NEGATIVE); URINE BLOOD NEGATIVE (NEGATIVE); URINE COLOR LTYELLOW; URINE GLUCOSE (UA) 3+ (NEGATIVE); URINE KETONE TRACE (NEGATIVE); URINE LEUK ESTERASE TRACE (NEGATIVE); URINE NITRITE NEGATIVE (NEGATIVE); URINE UROBILINOGEN NEGATIVE mg/dL (0.2-1.0)
[2017-07-22 15:23] LABS: URINE PROTEIN 1+ (NEGATIVE)
[2017-07-22 15:31] LABS: URINE CREATININE 62.4 mg/dL (20-370)
[2017-07-22 15:35] LABS: EPI CELLS RARE /HPF (FEW)
--- NOTE | 2017-07-22 16:02 | PN ---
Teaching Attending Note Name of Resident: Isabella Cisneros ATTENDING PHYSICIAN STATEMENT I saw and evaluated the patient. I reviewed the resident's note and discussed the case with the resident. I agree with the resident's findings and plan as documented. SUBJECTIVE: No fever or chills. no cp , or WALKER . nO SOB . reports non compliance withmeds OBJECTIVE: NAD, Awake , alert , knows location, age . CV: RRR, no MRG Lungs: CTAB Ext : no edema neuro: no facial droop, EOMI, round equal pupils reactive to light, tongue and uvula at mid line. strength 5/5 in upper and lwoer ext proximally nad distally, sensation to light touch , NL . unable to assess reflexes ASSESSMENT AND PLAN: 81 y/o man with h/o HTN, DM , CAD/sp NSTEMI, and other medical problems who presented with AMS and was found to have hypertensive emergency 1- HTN emergency. improved BP on Cardene gtt - Taper gtt off and start BB and norvasc - ecEo reviewed, diastolic dysfunction and LVH - monitor on tele 2- SOBIA: due to HTN emergency, repsonded to IVF. - ocnt oral hydration - cr at base line 3- DM: he dose not remember his meds. A1c 11 - cont SSI . - will add HS insulin 4- CAD : cont Asa and BB EKG reviewed. will confirm meds tx to tele
[2017-07-22] MEDS ORDERED: INSULIN SLIDING SCALE (NOVOLOG) 1 VIAL SQ SCH (16:30)
--- NOTE | 2017-07-22 17:30 | CON.NEP ---
Consult Consult Specialty:: Nephrology Referred by:: Dr. White Reason for Consultation:: SOBIA/Hypertensive Emergency - History of Present Illness Chief Complaint: AMS History of Present Illness: This is a 81 year old gentleman with PMhx of Hypertension, CAD s/p NSTEMI, DM, CKD who presented with AMS and found to have hypertensive emergency with SOBIA. MS appears to back at baseline now. Pt does report a WALKER. BP controlled with Nicardipine gtt. No chest pain, abd pain. Pt was noted to have a high Cr on last admission several years ago. Denies any flank pain, kidney stones. Not on SEFERINO/ARB at home. - History Source History Provided By: Patient Limitations to Obtaining History: No Limitations - Past Medical History Cardio/Vascular: Yes: CAD Renal/: Yes: Renal Inusuff - Alcohol/Substance Use Hx Alcohol Use: No History of Substance Use: reports: None - Smoking History Smoking history: Never smoked Have you smoked in the past 12 months: No Home Medications - Allergies Allergies/Adverse Reactions: Allergies Allergy/AdvReac Type Severity Reaction Status Date / Time No Known Drug Allergies Allergy Verified 09/30/13 08:39 - Home Medications Home Medications: Ambulatory Orders Amlodipine Besylate [Norvasc -] 5 mg PO DAILY #0 tablet 10/01/13 Aspirin [ASA -] 81 mg PO DAILY #0 tab.chew 10/01/13 Atorvastatin Ca [Lipitor] 40 mg PO HS #0 tablet 10/01/13 Clopidogrel Bisulfate [Plavix -] 75 mg PO DAILY #0 tablet 10/01/13 Heparin Infusion - 500 ml IVPB TITR #0 infus.bag 10/01/13 Insulin (Levemir) [Levemir Flexpen -] 10 units SQ HS #0 pen 10/01/13 Insulin (Novolog) [Novolog Flexpen -] 3 units SQ TIDAC #0 pen 10/01/13 Metoprolol Tartrate [Lopressor -] 25 mg PO BID #0 tab 10/01/13 Morphine Injection - [Morphine Injection 4 mg/1 mL -] 4 mg IVPUSH Q6H PRN #0 disp.syrin 10/01/13 Family Disease History - Family Disease History Family Disease History: Diabetes: Mother, Brother Review of Systems - Review of Systems Constitutional: reports: No Symptoms Eyes: reports: No Symptoms HENT: reports: No Symptoms Neck: reports: No Symptoms Cardiovascular: reports: No Symptoms Respiratory: reports: No Symptoms Gastrointestinal: reports: No Symptoms Genitourinary: reports: No Symptoms Integumentary: reports: No Symptoms Neurological: reports: Headache, Other (headache) Nephrology Consult - Height Height: 5 ft 4 in - Weight Weight: 67.7 kg - BMI Body Mass Index (BMI): 25.6 - Lab Results CBC,BMP: CBC, BMP 07/22/17 05:00 07/22/17 05:00 Anion Gap: Anion Gap Anion Gap 12 (8-16) 07/22/17 05:00 - Imaging Chest X-ray: Report Reviewed - Physical Examination Vital Signs: Vital Signs Temperature 98.0 F 07/22/17 14:00 Pulse Rate 71 07/22/17 16:00 Respiratory Rate 28 H 07/22/17 16:00 Blood Pressure 128/51 07/22/17 16:00 O2 Sat by Pulse Oximetry (%) 98 07/22/17 07:56 Constitutional: Yes: No Distress, Calm Eyes: Yes: Conjunctiva Clear HENT: Yes: Atraumatic Neck: Yes: Supple Cardiovascular: Yes: Regular Rate and Rhythm. No: Murmur, Rub Respiratory: Yes: Regular, CTA Bilaterally. No: Rales, Rhonchi Gastrointestinal: Yes: Normal Bowel Sounds, Soft. No: Tenderness Renal/: No: Bladder Distention Extremities: No: Cold, Cool, Cyanosis Edema: No Peripheral Pulses WNL: Yes Neurological: Yes: Alert, Oriented Assessment/Plan 81 year old gentleman with PMhx of Hypertension, CAD s/p NSTEMI, DM, CKD who presented with AMS and found to have hypertensive emergency with SOBIA. MS appears to back at baseline now. 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
[2017-07-22] MEDS ORDERED: methylPREDNISolone NA SUCC 125 MG/2 ML VIAL ONE (18:04)
--- NOTE | 2017-07-22 19:26 | PN ---
Progress Note (short form) - Note Progress Note: Aspirin 81 MG TABS, once daily 0 days, 0 refills Atorvastatin Calcium 20MG Oral Tablet once daily 0 days, 0 refills Metoprolol Succinate ER 100MG Oral Tablet Extended Release 24 Hour TB24, once daily 0 days, 0 refills Omeprazole 20MG Oral Capsule Delayed Release CPDR, twice a day 0 days, 0 refills Quinapril HCl 20MG Oral Tablet twice a day 0 days, 0 refills CONTROL IMPROVED PREVIOUSLY AFTER I CHANGED METOPR TO CARVEDILOL. HOWEVER THE DURATION OF MED COMPLIANCE THEN IS NOT KNOWN, EVENTUALLY CAME BACK HERE ON METOPROLOL--EITHER PT ERROR (FREQ MED ERRORS) OR DID NOT COMMUNICATE THE CHANGE TO DR NORMAN, PMD. NOT CONTROLLED 06/09/17 (184/80). STOPPED METOPR 100 QD, CHANGED TO CARVEDILOL 12.5 BID 06/14 per pmd bp was 149/58 at her office. Chronic renal insufficiency CREAT 1.5-2.0;
[2017-07-22] MEDS ORDERED: ATORVASTATIN CA 40 MG TABLET (FP) PO SCH (22:00)
[2017-07-22] MEDS ORDERED: CHLORHEXIDINE GLUCONATE 4% CLEANSER FOR DECOLONIZATION TP SCH ×2 (22:00)
[2017-07-22] MEDS ORDERED: INSULIN DETEMIR 100 UNITS/ML MDV SQ SCH (22:00)
[2017-07-22] MEDS ORDERED: LORazepam 2 MG/ML SDV VIAL IM ONE (22:45)
[2017-07-23] MEDS ORDERED: SODIUM CHLORIDE NASAL SPRAY 44 ML BOTTLE NS PRN (01:54)
[2017-07-23] MEDS: INSULIN SLIDING SCALE (NOVOLOG) 1 VIAL SQ SCH ×4 (06:35→17:29)
[2017-07-23] MEDS: HEPARIN NA (PORCINE) 5,000 UNITS/ML 1ML VIAL SQ SCH ×3 (06:35→22:08)
[2017-07-23 09:29] LABS: EOS % 4.8 % (0-4.5); HEMATOCRIT 38.5 % (35.4-49); LYMPH % 25.6 % (8-40); MCH 28.8 pg (25.7-33.7); MCHC 33.8 g/dl (32.0-35.9); MEAN CELL VOLUME 85.1 fl (80-96); MEAN PLT VOLUME 8.3 fl (7.5-11.1); MONO % 8.5 % (3.8-10.2); NEUT % 60.1 % (42.8-82.8); PLATELET COUNT 172 K/MM3 (134-434); RBC 4.52 M/mm3 (4.00-5.60); RDW 13.5 % (11.9-15.9); WHITE BLOOD COUNT 5.8 K/mm3 (4.0-10.0)
[2017-07-23 09:55] LABS: ALBUMIN 3.5 g/dl (3.4-5.0); ANION GAP 10 (8-16); BILIRUBIN,TOTAL 1.4 mg/dL (0.2-1.0); BLOOD UREA NITROGEN 31 mg/dL (7-18); CALCIUM 8.2 mg/dL (8.5-10.1); CHLORIDE 102 mmol/L (98-107); CO2 22 mmol/L (21-32); CREATININE 1.7 mg/dL (0.7-1.3); POTASSIUM 4.1 mmol/L (3.5-5.1); SGOT/AST 21 U/L (15-37); SGPT/ALT 16 U/L (12-78); SODIUM 134 mmol/L (136-145); TOT PROT 6.6 g/dl (6.4-8.2)
[2017-07-23] MEDS ORDERED: METOPROLOL TARTRATE 25 MG TABLET (FP) PO SCH (10:00)
[2017-07-23] MEDS ORDERED: CARVEDILOL 12.5 MG TABLET (FP) PO SCH (10:00)
[2017-07-23] MEDS ORDERED: amLODIPine BESYLATE 5 MG TABLET (FP) PO SCH ×2 (10:00)
[2017-07-23] MEDS ORDERED: ASPIRIN 81 MG CHEWABLE TABLETS PO SCH (10:00)
[2017-07-23] MEDS ORDERED: MUPIROCIN 2% TOPICAL OINTMENT FOR DECOLONIZATION NS SCH (10:00)
[2017-07-23] MEDS ORDERED: CLOPIDOGREL BISULFATE 75 MG TABLET (FP) PO SCH (10:00)
[2017-07-23 10:02] LABS: ALK PHOS 83 U/L (45-117)
[2017-07-23] MEDS: CARVEDILOL 12.5 MG TABLET (FP) PO SCH ×2 (10:05→22:06)
[2017-07-23] MEDS: CLOPIDOGREL BISULFATE 75 MG TABLET (FP) PO SCH (10:05)
[2017-07-23] MEDS: ASPIRIN 81 MG CHEWABLE TABLETS PO SCH (10:06)
[2017-07-23 11:03] LABS: GLUCOSE,RANDOM 368 mg/dL (74-106)
[2017-07-23] MEDS ORDERED: amLODIPine BESYLATE 5 MG TABLET (FP) PO ONE (11:47)
--- NOTE | 2017-07-23 11:51 | PN ---
Progress Note (short form) - Note Progress Note: Renal follow up for SOBIA/Hypertensive emergency Pt seen and examined at the bedside pt is very upset and combative refused examination BP has been better but not at gaol yet Vital Signs Temperature 97.8 F 07/23/17 08:00 Pulse Rate 67 07/23/17 08:00 Respiratory Rate 18 07/23/17 09:00 Blood Pressure 148/72 07/23/17 08:00 O2 Sat by Pulse Oximetry (%) 98 07/23/17 09:00 Intake & Output 07/20/17 07/21/17 07/22/17 07/23/17 23:59 23:59 23:59 23:59 Intake Total 500 Output Total 1900 Balance -1400 Weight 77.111 kg 67.7 kg Refused Examination CBC, BMP 07/23/17 09:00 07/23/17 09:00 Current Medications Amlodipine Besylate (Norvasc -) 5 mg PO ONCE ONE Stop: 07/23/17 11:48 Amlodipine Besylate (Norvasc -) 10 mg PO DAILY [facility] Aspirin (Asa -) 81 mg PO DAILY [facility] Last Admin: 07/23/17 10:06 Dose: 81 mg Atorvastatin Calcium (Lipitor -) 40 mg PO HS [facility] Carvedilol (Coreg -) 12.5 mg PO BID [facility] Last Admin: 07/23/17 10:05 Dose: 12.5 mg Clopidogrel Bisulfate (Plavix -) 75 mg PO DAILY [facility] Last Admin: 07/23/17 10:05 Dose: 75 mg Heparin Sodium (Porcine) (Heparin -) 5,000 unit SQ TID [facility] Last Admin: 07/23/17 06:35 Dose: Not Given Insulin Aspart (Novolog Vial Sliding Scale -) 1 vial SQ TIDAC [facility] PRN Reason: Protocol Last Admin: 07/23/17 06:35 Dose: Not Given Insulin Detemir (Levemir Vial) 20 units SQ BIDI [facility] Insulin Detemir (Levemir Vial) 20 units SQ ONCE ONE Stop: 07/23/17 11:12 Sodium Chloride ([place] Nasal [place] -) 2 spray NS BID PRN PRN Reason: NASAL CONGESTION 81 year old gentleman with PMhx of Hypertension, CAD s/p NSTEMI, DM, CKD who presented with AMS and found to have hypertensive emergency with SOBIA. MS appears to back at baseline now. #Hypertensive emergency with acute on chronic renal insufficiency Renal function improved to presumed baseline BP is improved but now goal < 140/90 Will increase Amlodipine to 10mg Daily continue Coreg 12.5mg BID discussed with Dr. Avelar Trend BUN/Cr Dose all meds for CrCl less then 45 avoid nsaids, IV contrast may benefit from SEFERINO/ARB but can plan to start once renal function stable or as outpatient Renal artery Doppler, Renal US pending Renin/Adlosterone ratio pending #Pseudohyponatremia corrected Na is WNL Juan José Galvan DO
[2017-07-23] MEDS ORDERED: INSULIN DETEMIR 100 UNITS/ML MDV SQ ONE (12:30)
--- NOTE | 2017-07-23 12:37 | PN ---
Physical Exam: SUBJECTIVE: Patient seen and examined. Last night was combative, urinating on floor, refusing telemetry monitoring and required andrea vest. Patient this morning was upset, but denies any pain. No headache or chest pain. OBJECTIVE: Vital Signs Period Temp Pulse Resp BP Sys/Charles Pulse Ox Last 24 Hr 97.6 F-98.0 F 60-71 18-28 111-156/51-74 98 GENERAL: awake, alert, aaox3, upset EYES: sclera anicteric, conjunctiva clear ENT: oropharynx clear without exudates, mmm LUNGS: CTAB HEART: rrr, normal s1/s2, no m/r/g ABDOMEN: Soft, ntnd, normoactive BS EXTREMITIES: 2+ pulses, wwp, no mary alice NEUROLOGICAL: CN II-XII grossly intact. Normal speech CBC, BMP 07/23/17 09:00 07/23/17 09:00 Active Medications Amlodipine Besylate (Norvasc -) 10 mg PO DAILY [facility] Aspirin (Asa -) 81 mg PO DAILY [facility] Last Admin: 07/23/17 10:06 Dose: 81 mg Atorvastatin Calcium (Lipitor -) 40 mg PO HS [facility] Carvedilol (Coreg -) 12.5 mg PO BID [facility] Last Admin: 07/23/17 10:05 Dose: 12.5 mg Clopidogrel Bisulfate (Plavix -) 75 mg PO DAILY [facility] Last Admin: 07/23/17 10:05 Dose: 75 mg Heparin Sodium (Porcine) (Heparin -) 5,000 unit SQ TID [facility] Last Admin: 07/23/17 06:35 Dose: Not Given Insulin Aspart (Novolog Vial Sliding Scale -) 1 vial SQ TIDAC [facility] PRN Reason: Protocol Last Admin: 07/23/17 12:46 Dose: Not Given Insulin Detemir (Levemir Vial) 20 units SQ BIDI [facility] Sodium Chloride ([place] Nasal [place] -) 2 spray NS BID PRN PRN Reason: NASAL CONGESTION ASSESSMENT/PLAN: 81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 #Hypertensive Emergency, resolved, likely 2/2 to medication non-compliance #HTN, BP still above goal -Renal/Cardiology following - c/w home Coreg 12.5 BID + increase home Amlodipine 10mg qd # SOBIA on CKD, resolved, likely 2/2 to hypertensive emergency -f/u Renal U/S with Dopplers to r/o secondary causes of HTN -f/u Urine studies and Renin/Aric ratio #DM, poorly controlled, Alc 11% -BG high this morning, will increase Levemir coverage to home dose of 20U BID + ISS TIDAC #CAD: c/w home ASA, Plavix, Lipitor # FEN: PO hydration / lytes wnl / Na controlled diet #DVT PPX - Heparin TID #PT evaluation today for d/c planning #Dispo: tele FULL code d/w Dr. Christopher Cisneros MD PGY1 - Internal Medicine Visit type - Emergency Visit Emergency Visit: No - New Patient This patient is new to me today: No - Critical Care Critical Care patient: No
--- NOTE | 2017-07-23 13:35 | PN ---
Progress Note, Physician Chief Complaint: HTN urgency History of Present Illness: was agitated this am, now sedated, in andrea. denies cp, sob, palpitations, leg swelling - Current Medication List Current Medications: Active Medications Amlodipine Besylate (Norvasc -) 10 mg PO DAILY [facility] Aspirin (Asa -) 81 mg PO DAILY [facility] Last Admin: 07/23/17 10:06 Dose: 81 mg Atorvastatin Calcium (Lipitor -) 40 mg PO HS [facility] Carvedilol (Coreg -) 12.5 mg PO BID [facility] Last Admin: 07/23/17 10:05 Dose: 12.5 mg Clopidogrel Bisulfate (Plavix -) 75 mg PO DAILY [facility] Last Admin: 07/23/17 10:05 Dose: 75 mg Heparin Sodium (Porcine) (Heparin -) 5,000 unit SQ TID [facility] Last Admin: 07/23/17 06:35 Dose: Not Given Insulin Aspart (Novolog Vial Sliding Scale -) 1 vial SQ TIDAC [facility] PRN Reason: Protocol Last Admin: 07/23/17 12:46 Dose: Not Given Insulin Detemir (Levemir Vial) 20 units SQ BIDI [facility] Sodium Chloride ([place] Nasal [place] -) 2 spray NS BID PRN PRN Reason: NASAL CONGESTION - Objective Vital Signs: Vital Signs Temperature 97.8 F 07/23/17 08:00 Pulse Rate 67 07/23/17 08:00 Respiratory Rate 18 07/23/17 09:00 Blood Pressure 148/72 07/23/17 08:00 O2 Sat by Pulse Oximetry (%) 98 07/23/17 09:00 Labs: CBC, BMP 07/23/17 09:00 07/23/17 09:00 INR, PTT INR 0.89 (0.82-1.09) 07/21/17 15:33 Assessment/Plan ecg: sr, nl intervals, no ischemic changes cxr: clear lungs mibi 06/2015: no ischemia echo 01/2017: nl lv/rv, iasa, mild ar renal duplex 07/2014: no anat tele: sr a/p: 81 m hx cad s/p nstemi and pci (09/2013, doni rca, doni om1; residual 50-60 mrca, 30-50 d1), dm, htn, hld, ckd, venous insuff/le edema here with elevated bp. htn: -BP FLUCTUATES OFTEN AT O.V.S; -BP CONTROL IMPROVED PREVIOUSLY AFTER I CHANGED METOPR TO CARVEDILOL, BUT AT SOME POINT SWITCHED BACK LIKELY PT CONFUSION. -BP NOT CONTROLLED 06/09/17 IN OFFICE (184/80). STOPPED METOPR 100 QD, CHANGED TO CARVEDILOL 12.5 BID -SAW PMD SHORTLY THEREAFTER AND WAS 149/85. PER D/W PMD (DR NORMAN, [facility]), PT WITH MED NONADHERENCE AND SHE IS WORKING ON HOME SERVICES TO MAXIMIZE COMPLIANCE. -SUSPECT PRESENT BP SPIKE RELATED TO SAME. -improved after nicardipine gtt. -remains well controlled: continue norvasc and coreg -consider add back SEFERINO (see below) cad s/p remote mi/pci: -stable no signs acs -cont bb, statin, asa hld: -cont home atorva renard/ckd: -note: baseline creatinine 1.5-2.0 as outpt, despite on SEFERINO (quinapril 20mg qd) -cr initially worse, now back at baseline. -resume low dose SEFERINO if ok with renal le edema: -stable no indication for telemetry--d/c'd
--- NOTE | 2017-07-23 14:08 | PN ---
Teaching Attending Note Name of Resident: Isabella Cisneros ATTENDING PHYSICIAN STATEMENT I saw and evaluated the patient. I reviewed the resident's note and discussed the case with the resident. I agree with the resident's findings and plan as documented. SUBJECTIVE: was agitated last night , this am agitated too andplaced invest. he refused exam and interview OBJECTIVE: in bed, with vest. screaming and yelling. no facial droop ASSESSMENT AND PLAN: 81 y/o man with h/o HTN, DM , CAD s/p NSTEMI, and other medical problems who presented with AMS and was found to have hypertensive emergency 1- HTN emergency. BP imporved , but now SBP 160 as he refused his am Norvasc - will give norvasc now , 10 mg - cont coreg - hopefully tomorrow can start quinapril , after d/w renal. ( maybe decrease norvasc dose or stop ) - w/u for secondary HTN in progress 2- SOBIA: due to HTN emergency. stabl ecr ( base line 1.5-2) - off IVF - monitor renal function 3- DM:. A1c 11 sugar in 400s. - give 20 of levemir BID ( refused earlier ) - give SSI 4- Acute delirium: conservative management . avoid bonzos 5- CAD : cont Asa and BB HLOC need PT eval
[2017-07-23] MEDS ORDERED: amLODIPine BESYLATE 10 MG TABLET (FP) PO ONE (15:30)
[2017-07-23] MEDS ORDERED: INSULIN DETEMIR 100 UNITS/ML MDV SQ SCH (16:30)
[2017-07-23] MEDS ORDERED: CHLORHEXIDINE GLUCONATE 4% CLEANSER FOR DECOLONIZATION TP SCH (22:00)
[2017-07-23] MEDS: ATORVASTATIN CA 40 MG TABLET (FP) PO SCH (22:06)
[2017-07-23] MEDS: INSULIN DETEMIR 100 UNITS/ML MDV SQ SCH (22:07)
[2017-07-24] MEDS: HEPARIN NA (PORCINE) 5,000 UNITS/ML 1ML VIAL SQ SCH ×3 (05:54→21:43)
[2017-07-24] MEDS: INSULIN SLIDING SCALE (NOVOLOG) 1 VIAL SQ SCH ×3 (06:03→17:24)
[2017-07-24] MEDS: INSULIN DETEMIR 100 UNITS/ML MDV SQ SCH (06:12)
[2017-07-24 07:57] LABS: ANION GAP 9 (8-16); BLOOD UREA NITROGEN 34 mg/dL (7-18); CALCIUM 8.9 mg/dL (8.5-10.1); CHLORIDE 104 mmol/L (98-107); CO2 26 mmol/L (21-32); GLUCOSE,RANDOM 60 mg/dL (74-106); MAGNESIUM 1.9 mg/dL (1.8-2.4); POTASSIUM 3.7 mmol/L (3.5-5.1); SODIUM 139 mmol/L (136-145)
[2017-07-24 07:59] LABS: CREATININE 1.5 mg/dL (0.7-1.3); PHOSPHOROUS 3.3 mg/dL (2.5-4.9)
--- NOTE | 2017-07-24 08:54 | PN ---
Progress Note (short form) - Note Progress Note: Renal follow up for SOBIA/Hypertensive emergency Pt seen and examined at the bedside awake and alert no acute complaints denies any sob, chest pain bp better controlled Vital Signs Temperature 98.2 F 07/24/17 06:00 Pulse Rate 58 L 07/24/17 06:00 Respiratory Rate 18 07/24/17 06:00 Blood Pressure 120/64 07/24/17 06:00 O2 Sat by Pulse Oximetry (%) 97 07/23/17 21:00 NAD Dec BS lung bases trace LE edema CBC, BMP 07/23/17 09:00 07/24/17 05:05 Current Medications Amlodipine Besylate (Norvasc -) 5 mg PO DAILY [facility] Aspirin (Asa -) 81 mg PO DAILY [facility] Last Admin: 07/23/17 10:06 Dose: 81 mg Atorvastatin Calcium (Lipitor -) 40 mg PO HS [facility] Last Admin: 07/23/17 22:06 Dose: 40 mg Carvedilol (Coreg -) 12.5 mg PO BID [facility] Last Admin: 07/23/17 22:06 Dose: 12.5 mg Clopidogrel Bisulfate (Plavix -) 75 mg PO DAILY [facility] Last Admin: 07/23/17 10:05 Dose: 75 mg Heparin Sodium (Porcine) (Heparin -) 5,000 unit SQ TID [facility] Last Admin: 07/24/17 05:54 Dose: 5,000 unit Insulin Aspart (Novolog Vial Sliding Scale -) 1 vial SQ TIDAC [facility] PRN Reason: Protocol Last Admin: 07/24/17 06:03 Dose: Not Given Insulin Detemir (Levemir Vial) 20 units SQ BID@0700,2200 [facility] Last Admin: 07/24/17 06:12 Dose: Not Given Quinapril HCl (Accupril -) 5 mg PO DAILY [facility] Sodium Chloride ([place] Nasal [place] -) 2 spray NS BID PRN PRN Reason: NASAL CONGESTION 81 year old gentleman with PMhx of Hypertension, CAD s/p NSTEMI, DM, CKD who presented with AMS and found to have hypertensive emergency with SOBIA. MS appears to back at baseline now. #Hypertensive emergency with acute on chronic renal insufficiency Renal function stable at baseline will start Quuinapril 5mg today (was on ACEi at home per cardiology) continue Coreg and Amlodpine (reduced to 5mg as pt to be started on ACEi today) given good BP control with current meds likely pt was non-compliant at home Renin/Aldosterone ratio pending Renal US pending Juan José Galvan DO
--- NOTE | 2017-07-24 09:19 | PN ---
Progress Note, Physician Chief Complaint: HTN urgency History of Present Illness: calm denies cp, sob, palp, dizzy - Current Medication List Current Medications: Active Medications Amlodipine Besylate (Norvasc -) 5 mg PO DAILY [facility] Aspirin (Asa -) 81 mg PO DAILY [facility] Last Admin: 07/23/17 10:06 Dose: 81 mg Atorvastatin Calcium (Lipitor -) 40 mg PO HS [facility] Last Admin: 07/23/17 22:06 Dose: 40 mg Carvedilol (Coreg -) 12.5 mg PO BID [facility] Last Admin: 07/23/17 22:06 Dose: 12.5 mg Clopidogrel Bisulfate (Plavix -) 75 mg PO DAILY [facility] Last Admin: 07/23/17 10:05 Dose: 75 mg Heparin Sodium (Porcine) (Heparin -) 5,000 unit SQ TID [facility] Last Admin: 07/24/17 05:54 Dose: 5,000 unit Insulin Aspart (Novolog Vial Sliding Scale -) 1 vial SQ TIDAC [facility] PRN Reason: Protocol Last Admin: 07/24/17 06:03 Dose: Not Given Insulin Detemir (Levemir Vial) 20 units SQ BID@0700,2200 [facility] Last Admin: 07/24/17 06:12 Dose: Not Given Quinapril HCl (Accupril -) 5 mg PO DAILY [facility] Sodium Chloride ([place] Nasal [place] -) 2 spray NS BID PRN PRN Reason: NASAL CONGESTION - Objective Vital Signs: Vital Signs Temperature 98.6 F 07/24/17 09:00 Pulse Rate 63 07/24/17 09:00 Respiratory Rate 18 07/24/17 09:00 Blood Pressure 138/74 07/24/17 09:00 O2 Sat by Pulse Oximetry (%) 97 07/23/17 21:00 Constitutional: Yes: Well Nourished, No Distress Cardiovascular: Yes: Regular Rate and Rhythm, S1, S2. No: Gallop, Murmur Respiratory: Yes: Regular, CTA Bilaterally. No: Accessory Muscle Use, Rales, Wheezes Extremities: No: Cold Edema: No Neurological: Yes: Alert. No: Seizure Psychiatric: No: Agitated Labs: CBC, BMP 07/23/17 09:00 07/24/17 05:05 INR, PTT INR 0.89 (0.82-1.09) 07/21/17 15:33 Assessment/Plan ecg: sr, nl intervals, no ischemic changes cxr: clear lungs mibi 06/2015: no ischemia echo 01/2017: nl lv/rv, iasa, mild ar renal duplex 07/2014: no anat tele: sr a/p: 81 m hx cad s/p nstemi and pci (09/2013, doni rca, doni om1; residual 50-60 mrca, 30-50 d1), dm, htn, hld, ckd, venous insuff/le edema here with elevated bp. htn: -BP FLUCTUATES OFTEN AT O.V.S; -BP CONTROL IMPROVED PREVIOUSLY AFTER I CHANGED METOPR TO CARVEDILOL, BUT AT SOME POINT SWITCHED BACK LIKELY PT CONFUSION. -BP NOT CONTROLLED 06/09/17 IN OFFICE (184/80). STOPPED METOPR 100 QD, CHANGED TO CARVEDILOL 12.5 BID -SAW PMD SHORTLY THEREAFTER AND WAS 149/85. PER D/W PMD (DR NORMAN, [facility]), PT WITH MED NONADHERENCE AND SHE IS WORKING ON HOME SERVICES TO MAXIMIZE COMPLIANCE. -SUSPECT PRESENT BP SPIKE RELATED TO SAME. primary team confirmed with pt pharmacy he has not filled quinapril in long time. -improved after nicardipine gtt. -remains well controlled: continue norvasc (low dose--watch for worsening edema) , cont coreg -d/w'd with dr heredia, will resume SEFERINO at lower dose. cad s/p remote mi/pci: -stable no signs acs -cont bb, statin, asa hld: -cont home atorva renard/ckd: -note: baseline creatinine 1.5-2.0 as outpt, despite on SEFERINO (quinapril 20mg qd) -cr initially worse, now back at baseline. le edema: -stable no indication for telemetry--d/c'd ok for d/c from cv p.o.v.
[2017-07-24] MEDS ORDERED: amLODIPine BESYLATE 5 MG TABLET (FP) PO SCH (10:00)
[2017-07-24] MEDS ORDERED: amLODIPine BESYLATE 10 MG TABLET (FP) PO SCH (10:00)
[2017-07-24] MEDS: CLOPIDOGREL BISULFATE 75 MG TABLET (FP) PO SCH (10:05)
[2017-07-24] MEDS: ASPIRIN 81 MG CHEWABLE TABLETS PO SCH (10:05)
[2017-07-24] MEDS: CARVEDILOL 12.5 MG TABLET (FP) PO SCH ×2 (10:05→21:43)
[2017-07-24] MEDS: QUINAPRIL HCL 5 MG TABLET (FP) PO SCH (11:05)
--- NOTE | 2017-07-24 14:30 | PN ---
Progress Note (short form) - Note Progress Note: Subjective: no pain , feels better . per Rn no more agitation Objective: Vital Signs: Last Vital Signs Temp Pulse Resp BP Pulse Ox 98.3 F 67 20 94/56 97 07/24/17 14:00 07/24/17 14:00 07/24/17 14:00 07/24/17 14:00 07/23/17 21:00 Laboratory Results - last 24 hr 07/23/17 07/23/17 07/23/17 14:08 17:18 22:10 Sodium Potassium Chloride Carbon Dioxide Anion Gap BUN Creatinine POC Glucometer 466 318 134 Random Glucose Calcium Phosphorus Magnesium 07/24/17 07/24/17 07/24/17 05:05 05:57 06:50 Sodium 139 Potassium 3.7 Chloride 104 Carbon Dioxide 26 Anion Gap 9 BUN 34 H Creatinine 1.5 H POC Glucometer 75 127 Random Glucose 60 L D Calcium 8.9 Phosphorus 3.3 D Magnesium 1.9 Physical Exam: NAd , awake and cooperative Cv: RRR Lung s: CTAB Abd: soft, NT, ND , NL BS EXt: no edema Assessment/Plan: 81 y/o man with h/o HTN, DM , CAD s/p NSTEMI, and other medical problems who presented with AMS and was found to have hypertensive emergency 1- HTN emergency. BP imporved , but now hypotensive after introducing ACEI ( SBP in 90s ) . - dc norvasc - cont quinapril and coreg - monitor - w/u for secondary HTN in progress 2- SOBIA: due to HTN emergency. improved ( base line 1.5-2) - off IVF - monitor renal function 3- DM:A1c 11. hypoglyce this am. - change levemir to 20 HS only. can increase evening dose if needed. - give SSI 4- Acute delirium: resolved .conservative management . avoid bonzos 5- CAD : cont Asa and BB HLOC will need rehab placement Visit type - Emergency Visit Emergency Visit: Yes ED Registration Date: 07/21/17 Care time: The patient presented to the Emergency Department on the above date and was hospitalized for further evaluation of their emergent condition. - New Patient This patient is new to me today: No - Critical Care Critical Care patient: No
[2017-07-24] MEDS: ATORVASTATIN CA 40 MG TABLET (FP) PO SCH (21:43)
[2017-07-24] MEDS ORDERED: INSULIN DETEMIR 100 UNITS/ML MDV SQ SCH (22:00)
[2017-07-25] MEDS ORDERED: INSULIN DETEMIR 100 UNITS/ML MDV SQ ONE ×2 (06:15→12:02)
[2017-07-25] MEDS: HEPARIN NA (PORCINE) 5,000 UNITS/ML 1ML VIAL SQ SCH ×3 (06:19→22:29)
[2017-07-25] MEDS: INSULIN SLIDING SCALE (NOVOLOG) 1 VIAL SQ SCH ×3 (06:19→17:35)
[2017-07-25 09:06] LABS: CHLORIDE 101 mmol/L (98-107); POTASSIUM 4.2 mmol/L (3.5-5.1); SODIUM 136 mmol/L (136-145)
[2017-07-25 09:27] LABS: ANION GAP 12 (8-16); BLOOD UREA NITROGEN 39 mg/dL (7-18); CALCIUM 7.8 mg/dL (8.5-10.1); CO2 23 mmol/L (21-32); CREATININE 2.2 mg/dL (0.7-1.3); MAGNESIUM 2.1 mg/dL (1.8-2.4); PHOSPHOROUS 3.8 mg/dL (2.5-4.9)
[2017-07-25 09:39] LABS: GLUCOSE,RANDOM 499 mg/dL (74-106)
[2017-07-25] MEDS ORDERED: PT OWN MED DRAWER 7, Y5N ONE (09:59)
[2017-07-25] MEDS: ASPIRIN 81 MG CHEWABLE TABLETS PO SCH ×2 (11:47→15:15)
[2017-07-25] MEDS: CLOPIDOGREL BISULFATE 75 MG TABLET (FP) PO SCH ×2 (11:48→15:16)
[2017-07-25] MEDS: CARVEDILOL 12.5 MG TABLET (FP) PO SCH ×3 (11:48→22:29)
[2017-07-25] MEDS: QUINAPRIL HCL 5 MG TABLET (FP) PO SCH (11:48)
--- NOTE | 2017-07-25 12:12 | PN ---
Progress Note (short form) - Note Progress Note: Renal follow up for SOBIA/Hypertensive emergency Pt seen and examined at the bedside awake and alert complains of pain in his legs no sob, chest pain, N/V/D had 1 episode of relative hypotension yesterday Vital Signs Temperature 98.1 F 07/25/17 06:00 Pulse Rate 72 07/25/17 06:00 Respiratory Rate 18 07/25/17 06:00 Blood Pressure 128/64 07/25/17 06:00 O2 Sat by Pulse Oximetry (%) 96 07/24/17 21:00 Intake & Output 07/22/17 07/23/17 07/24/17 07/25/17 23:59 23:59 23:59 23:59 Intake Total 500 10 250 150 Output Total 1900 800 400 Balance -1400 -790 -150 150 Weight 67.7 kg 73.754 kg 75.568 kg NAD Dec BS lung bases trace LE edema CBC, BMP 07/23/17 09:00 07/25/17 06:20 Laboratory Tests 07/23/17 07/25/17 09:00 06:20 Calcium 8.2 L 7.8 L Phosphorus 3.8 Magnesium 2.1 Albumin 3.5 Current Medications Aspirin (Asa -) 81 mg PO DAILY [facility] Last Admin: 07/25/17 11:47 Dose: Not Given Atorvastatin Calcium (Lipitor -) 40 mg PO HS [facility] Last Admin: 07/24/17 21:43 Dose: Not Given Carvedilol (Coreg -) 12.5 mg PO BID [facility] Last Admin: 07/25/17 11:48 Dose: Not Given Clopidogrel Bisulfate (Plavix -) 75 mg PO DAILY [facility] Last Admin: 07/25/17 11:48 Dose: Not Given Heparin Sodium (Porcine) (Heparin -) 5,000 unit SQ TID [facility] Last Admin: 07/25/17 06:19 Dose: 5,000 unit Insulin Aspart (Novolog Vial Sliding Scale -) 1 vial SQ TIDAC [facility] PRN Reason: Protocol Last Admin: 07/25/17 11:47 Dose: 6 units Insulin Detemir (Levemir Vial) 20 units SQ HS [facility] Last Admin: 07/24/17 21:43 Dose: Not Given Sodium Chloride ([place] Nasal [place] -) 2 spray NS BID PRN PRN Reason: NASAL CONGESTION 81 year old gentleman with PMhx of Hypertension, CAD s/p NSTEMI, DM, CKD who presented with AMS and found to have hypertensive emergency with SOBIA. MS appears to back at baseline now. #Hypertensive emergency with acute on chronic renal insufficiency BP better controlled but Cr frandy to 2.2 today ? if related to ACEi given yesterday or from aggressive BP control resulting in renal hypoprofusion hold ACEi (todays dose not given) check Renal Artery Doppler (approval obtained from Dr. Rosas) to r/o renal artery stenosis given acute change in Cr on SEFERINO and hypertensive emergency trend BP with goal ~140/90 avoid nephrotoxins trend BUN/Cr no IVF at this time as pt appears evolemic Juan José Galvan DO
[2017-07-25] MEDS: amLODIPine BESYLATE 5 MG TABLET (FP) PO SCH (15:14)
--- NOTE | 2017-07-25 15:41 | PN ---
Progress Note, Physician Chief Complaint: htn urgency History of Present Illness: no cp, sob, palpitations, syncope - Current Medication List Current Medications: Active Medications Amlodipine Besylate (Norvasc -) 5 mg PO DAILY [facility] Last Admin: 07/25/17 15:14 Dose: 5 mg Aspirin (Asa -) 81 mg PO DAILY [facility] Last Admin: 07/25/17 15:15 Dose: 81 mg Atorvastatin Calcium (Lipitor -) 40 mg PO HS [facility] Last Admin: 07/24/17 21:43 Dose: Not Given Carvedilol (Coreg -) 12.5 mg PO BID [facility] Last Admin: 07/25/17 15:14 Dose: 12.5 mg Clopidogrel Bisulfate (Plavix -) 75 mg PO DAILY [facility] Last Admin: 07/25/17 15:16 Dose: 75 mg Heparin Sodium (Porcine) (Heparin -) 5,000 unit SQ TID [facility] Last Admin: 07/25/17 13:01 Dose: Not Given Insulin Aspart (Novolog Vial Sliding Scale -) 1 vial SQ TIDAC [facility] PRN Reason: Protocol Last Admin: 07/25/17 11:47 Dose: 6 units Insulin Detemir (Levemir Vial) 25 units SQ AM [facility] Sodium Chloride ([place] Nasal [place] -) 2 spray NS BID PRN PRN Reason: NASAL CONGESTION - Objective Vital Signs: Vital Signs Temperature 98.2 F 07/25/17 14:20 Pulse Rate 66 07/25/17 14:20 Respiratory Rate 18 07/25/17 14:20 Blood Pressure 148/65 07/25/17 14:20 O2 Sat by Pulse Oximetry (%) 96 07/24/17 21:00 Constitutional: Yes: Well Nourished, No Distress, Calm Cardiovascular: Yes: Regular Rate and Rhythm, S1, S2. No: Gallop, Murmur Respiratory: Yes: Regular, CTA Bilaterally. No: Accessory Muscle Use, Rales, Wheezes Extremities: No: Cold Edema: No Neurological: Yes: Alert. No: Seizure Psychiatric: No: Agitated Labs: CBC, BMP 07/23/17 09:00 07/25/17 06:20 INR, PTT INR 0.89 (0.82-1.09) 07/21/17 15:33 Assessment/Plan ecg: sr, nl intervals, no ischemic changes cxr: clear lungs mibi 06/2015: no ischemia echo 01/2017: nl lv/rv, iasa, mild ar renal duplex 07/2014: no anat tele: sr a/p: 81 m hx cad s/p nstemi and pci (09/2013, doni rca, doni om1; residual 50-60 mrca, 30-50 d1), dm, htn, hld, ckd, venous insuff/le edema here with elevated bp. hypertensive urgency: -sec to med noncompliance, similar issues at home being addressed by pt PMD -remains well controlled: continue norvasc 5 (started here), coreg -creat bumped signif after low dose quinapril given (lower dose than prior home regimen)--? underyling RA stenosis. -SEFERINO d/c'd. observe creat trend. -check renal artery dopplers (would not revascularize unless bp control suboptimal despite meds, or renal fxn progressively worsens (his creat has been stable at longstanding baseline) cad s/p remote mi/pci: -stable no signs acs -cont bb, statin, asa hld: -cont home atorva renard/ckd: -note: baseline creatinine 1.5-2.0 as outpt, despite on SEFERINO (quinapril 20mg qd) -cr initially worse, now back at baseline. le edema: -stable no indication for telemetry--d/c'd ok for d/c from cv p.o.v.
--- NOTE | 2017-07-25 17:46 | PN ---
Physical Exam: SUBJECTIVE: Patient seen and examined at bedside. Denies any current chest pain , SOB, nausea, vomiting, diarrhea, fevers, chills. OBJECTIVE: Vital Signs Period Temp Pulse Resp BP Sys/Charles Pulse Ox Last 24 Hr 97.8 F-98.4 F 63-72 18-20 120-148/56-65 96-97 GENERAL: The patient is awake, alert, and fully oriented, in no acute distress. HEAD: Normal with no signs of trauma. EYES: PERRL, extraocular movements intact, sclera anicteric, conjunctiva clear. No ptosis. LUNGS: Breath sounds equal, clear to auscultation bilaterally, no wheezes, no crackles, no accessory muscle use. HEART: Regular rate and rhythm, S1, S2 without murmur, rub or gallop. ABDOMEN: Soft, nontender, nondistended, normoactive bowel sounds, no guarding, no rebound, no hepatosplenomegaly, no masses. PSYCH: Normal mood, normal affect. SKIN: Warm, dry, normal turgor, no rashes or lesions noted Laboratory Results - last 24 hr 07/24/17 07/24/17 07/25/17 11:30 17:22 05:55 Sodium Potassium Chloride Carbon Dioxide Anion Gap BUN Creatinine POC Glucometer 403 343 531 Random Glucose Calcium Phosphorus Magnesium 07/25/17 07/25/17 06:20 11:42 Sodium 136 Potassium 4.2 Chloride 101 Carbon Dioxide 23 Anion Gap 12 BUN 39 H Creatinine 2.2 H D POC Glucometer 300 Random Glucose 499 H* D Calcium 7.8 L Phosphorus 3.8 Magnesium 2.1 Active Medications Generic Name Dose Route Start Last Admin Trade Name Renatoq PRN Reason Stop Dose Admin Amlodipine Besylate 5 mg 07/25/17 14:15 07/25/17 15:14 Norvasc - PO 5 mg DAILY [facility] Administration Aspirin 81 mg 07/23/17 10:00 07/25/17 15:15 Asa - PO 81 mg DAILY [facility] Administration Atorvastatin Calcium 40 mg 07/23/17 22:00 07/24/17 21:43 Lipitor - PO Not Given HS [facility] Carvedilol 12.5 mg 07/23/17 10:00 07/25/17 15:14 Coreg - PO 12.5 mg BID [facility] Administration Clopidogrel Bisulfate 75 mg 07/23/17 10:00 07/25/17 15:16 Plavix - PO 75 mg DAILY [facility] Administration Heparin Sodium (Porcine) 5,000 unit 07/23/17 06:00 07/25/17 13:01 Heparin - SQ Not Given TID [facility] Insulin Aspart 1 vial 07/22/17 17:15 07/25/17 17:35 Novolog Vial Sliding Scale - SQ 8 units TIDAC [facility] Administration Protocol Insulin Detemir 25 units 07/26/17 07:00 Levemir Vial SQ AM [facility] Sodium Chloride 2 spray 07/23/17 01:54 [place] Nasal [place] - NS BID PRN NASAL CONGESTION ASSESSMENT/PLAN: 81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 #Hypertensive Emergency: resolved, likely 2/2 to medication non-compliance -BP normal today at 128/64 -continue coreg 12.5 BID -hold quinapril -resume norvasc 5 QD #SOBIA on CKD: resolved, likely 2/2 to hypertensive emergency -f/u Renal U/S with Dopplers to r/o secondary causes of HTN tomorrow #Diabetes Mellitus: poorly controlled, Alc 11% -levemir 25U am -ISS #Coronary Artery Disease: -continue home ASA, Plavix, Lipitor #FEN: -No standing fluids -replete lytes in AM -Na controlled diet #Prophylaxis -Heparin 5000U SubQ TID #Disposition: -monitor on telemetry -PT evaluation for D/C planning Visit type - Emergency Visit Emergency Visit: No - New Patient This patient is new to me today: Yes Date on this admission: 07/25/17 - Critical Care Critical Care patient: No
--- NOTE | 2017-07-25 18:21 | PN ---
Teaching Attending Note Name of Resident: Herman Monroy ATTENDING PHYSICIAN STATEMENT I saw and evaluated the patient. I reviewed the resident's note and discussed the case with the resident. I agree with the resident's findings and plan as documented. SUBJECTIVE: No fever or chills. has no CP or SOB . refused his insulin last night and this am sugar is elevated OBJECTIVE: NAd, awake and cooperative Cv: RRR Lungs: CTAB EXt: no edema Assessment/Plan: 81 y/o man with h/o HTN, DM , CAD s/p NSTEMI, and other medical problems who presented with AMS and was found to have hypertensive emergency 1- HTN emergency. cr increased to 2.2 on quinapril. - dc quinapril, and resume norvasc . monitor renal function - cont coreg - w/u for secondary HTN in progress ( doppler, renin /angiotensin ) 2- SOBIA: due to HTN emergency. monitor with the current changes 3- DM:A1c 11. severe hyperglycemia this am due to refusing his insulinlast night - give 25 units of levemir each am -cont SSI 4- Acute delirium: resolved . avoid bonzos 5- CAD : cont Asa and BB HLOC
[2017-07-25] MEDS: ATORVASTATIN CA 40 MG TABLET (FP) PO SCH (22:29)
[2017-07-26] MEDS: INSULIN DETEMIR 100 UNITS/ML MDV SQ SCH ×2 (06:42→08:52)
[2017-07-26] MEDS: INSULIN SLIDING SCALE (NOVOLOG) 1 VIAL SQ SCH ×4 (06:49→17:35)
[2017-07-26] MEDS: HEPARIN NA (PORCINE) 5,000 UNITS/ML 1ML VIAL SQ SCH ×3 (06:50→22:09)
[2017-07-26 07:18] LABS: HEMATOCRIT 33.1 % (35.4-49); HEMOGLOBIN 11.1 GM/dL (11.7-16.9); MCH 29.1 pg (25.7-33.7); MCHC 33.7 g/dl (32.0-35.9); MEAN CELL VOLUME 86.5 fl (80-96); MEAN PLT VOLUME 9.1 fl (7.5-11.1); PLATELET COUNT 151 K/MM3 (134-434); RBC 3.82 M/mm3 (4.00-5.60); RDW 13.8 % (11.9-15.9); WHITE BLOOD COUNT 9.1 K/mm3 (4.0-10.0)
[2017-07-26 07:38] LABS: ANION GAP 10 (8-16); BLOOD UREA NITROGEN 38 mg/dL (7-18); CALCIUM 7.6 mg/dL (8.5-10.1); CHLORIDE 106 mmol/L (98-107); CO2 22 mmol/L (21-32); CREATININE 1.6 mg/dL (0.7-1.3); GLUCOSE,RANDOM 229 mg/dL (74-106); POTASSIUM 4.2 mmol/L (3.5-5.1); SODIUM 138 mmol/L (136-145)
[2017-07-26] MEDS: ASPIRIN 81 MG CHEWABLE TABLETS PO SCH (10:37)
[2017-07-26] MEDS: CLOPIDOGREL BISULFATE 75 MG TABLET (FP) PO SCH (10:37)
[2017-07-26] MEDS: amLODIPine BESYLATE 5 MG TABLET (FP) PO SCH (10:37)
[2017-07-26] MEDS: CARVEDILOL 12.5 MG TABLET (FP) PO SCH ×2 (10:37→22:09)
--- NOTE | 2017-07-26 13:15 | PN ---
Progress Note (short form) - Note Progress Note: Chief Complaint: htn urgency History of Present Illness: accupril stopped yesterday. Refused am coreg, asa, plavix yesterday. no cp, sob, palpitations, syncope Current Medications Amlodipine Besylate (Norvasc -) 5 mg PO DAILY [facility] Last Admin: 07/26/17 10:37 Dose: 5 mg Aspirin (Asa -) 81 mg PO DAILY [facility] Last Admin: 07/26/17 10:37 Dose: 81 mg Atorvastatin Calcium (Lipitor -) 40 mg PO HS [facility] Last Admin: 07/25/17 22:29 Dose: 40 mg Carvedilol (Coreg -) 12.5 mg PO BID [facility] Last Admin: 07/26/17 10:37 Dose: 12.5 mg Clopidogrel Bisulfate (Plavix -) 75 mg PO DAILY [facility] Last Admin: 07/26/17 10:37 Dose: 75 mg Heparin Sodium (Porcine) (Heparin -) 5,000 unit SQ TID [facility] Last Admin: 07/26/17 06:50 Dose: 5,000 unit Insulin Aspart (Novolog Vial Sliding Scale -) 1 vial SQ TIDAC [facility] PRN Reason: Protocol Last Admin: 07/26/17 10:37 Dose: 4 units Insulin Detemir (Levemir Vial) 25 units SQ AM [facility] Last Admin: 07/26/17 08:52 Dose: 25 units Sodium Chloride ([place] Nasal [place] -) 2 spray NS BID PRN PRN Reason: NASAL CONGESTION - Objective Vital Signs: Vital Signs - 24 hr 07/25/17 07/25/17 07/25/17 14:20 17:00 20:05 Temperature 98.2 F 98.8 F 97.2 F L Pulse Rate 66 57 L 65 Respiratory 18 18 18 Rate Blood Pressure 148/65 138/63 154/77 O2 Sat by Pulse Oximetry (%) 07/25/17 07/26/17 07/26/17 21:00 01:00 05:46 Temperature 98.4 F 98.3 F Pulse Rate 60 60 Respiratory 18 18 Rate Blood Pressure 146/70 144/61 O2 Sat by Pulse 97 Oximetry (%) Constitutional: Yes: Well Nourished, No Distress, Calm Cardiovascular: Yes: Regular Rate and Rhythm, S1, S2. No: Gallop, Murmur Respiratory: Yes: Regular, CTA Bilaterally. No: Accessory Muscle Use, Rales, Wheezes Extremities: No: Cold Edema: No Neurological: Yes: Alert. No: Seizure Psychiatric: No: Agitated Labs: CBC, BMP 07/26/17 05:20 07/26/17 05:20 Assessment/Plan ecg: sr, nl intervals, no ischemic changes cxr: clear lungs mibi 06/2015: no ischemia echo 07/2017: 1+ lvh. hyperdynamic lv function. impaired relaxation. nl rv size/fn. 1+ ar. 1+tr. echo 01/2017: nl lv/rv, iasa, mild ar renal u/s 07/2017: bilateral renal cysts. no acute renal pathology. limited doppler study but no evidence of renal artery stenosis. renal duplex 07/2014: no anat prior tele: sr a/p: 81 m hx cad s/p nstemi and pci (09/2013, doni rca, doni om1; residual 50-60 mrca, 30-50 d1), dm, htn, hld, ckd, venous insuff/le edema here with elevated bp. hypertensive urgency: -sec to med noncompliance, similar issues at home being addressed by pt PMD -overall well controlled: continue norvasc 5 (started here), coreg -creat bumped signif after low dose quinapril given (lower dose than prior home regimen)--? underyling RA stenosis. --> SEFERINO d/c'd 07/25. observe creat trend --> improving. --> check renal artery dopplers (would not revascularize unless bp control suboptimal despite meds, or renal fxn progressively worsens (his creat has been stable at longstanding baseline) --> limited doppler study, but no evidence of stenosis. cad s/p remote mi/pci: -stable no signs acs -cont bb, statin, asa, plavix. - 07/26 hgb trended down a bit on dapt. reviewed office notes. on asa alone as outpatient --> will d/c plavix. hld: -cont home atorva renard/ckd: -note: baseline creatinine 1.5-2.0 as outpt, despite on SEFERINO (quinapril 20mg qd) -cr initially worse, now back at baseline. le edema: -stable no indication for telemetry--d/c'd ok for d/c from cv p.o.v.
--- NOTE | 2017-07-26 15:17 | PN ---
Progress Note (short form) - Note Progress Note: Renal follow up for SOBIA/Hypertensive emergency Pt seen and examined at the bedside awake and alert no acute complaints denies any CP, sob making urine Vital Signs Temperature 99.1 F 07/26/17 13:50 Pulse Rate 62 07/26/17 13:50 Respiratory Rate 18 07/26/17 13:50 Blood Pressure 151/62 07/26/17 13:50 O2 Sat by Pulse Oximetry (%) 97 07/26/17 09:00 Intake & Output 07/23/17 07/24/17 07/25/17 07/26/17 23:59 23:59 23:59 23:59 Intake Total 10 250 510 500 Output Total 800 791 953 0792 Balance -790 -150 110 -800 Weight 73.754 kg 75.568 kg 76.204 kg NAD CTA no LE edema CBC, BMP 07/26/17 05:20 07/26/17 05:20 Current Medications Amlodipine Besylate (Norvasc -) 5 mg PO DAILY [facility] Last Admin: 07/26/17 10:37 Dose: 5 mg Aspirin (Asa -) 81 mg PO DAILY [facility] Last Admin: 07/26/17 10:37 Dose: 81 mg Atorvastatin Calcium (Lipitor -) 40 mg PO HS [facility] Last Admin: 07/25/17 22:29 Dose: 40 mg Carvedilol (Coreg -) 12.5 mg PO BID [facility] Last Admin: 07/26/17 10:37 Dose: 12.5 mg Clopidogrel Bisulfate (Plavix -) 75 mg PO DAILY [facility] Last Admin: 07/26/17 10:37 Dose: 75 mg Heparin Sodium (Porcine) (Heparin -) 5,000 unit SQ TID [facility] Last Admin: 07/26/17 14:39 Dose: 5,000 unit Insulin Aspart (Novolog Vial Sliding Scale -) 1 vial SQ TIDAC [facility] PRN Reason: Protocol Last Admin: 07/26/17 14:39 Dose: 10 units Insulin Detemir (Levemir Vial) 25 units SQ AM [facility] Last Admin: 07/26/17 08:52 Dose: 25 units Sodium Chloride ([place] Nasal [place] -) 2 spray NS BID PRN PRN Reason: NASAL CONGESTION 81 year old gentleman with PMhx of Hypertension, CAD s/p NSTEMI, DM, CKD who presented with AMS and found to have hypertensive emergency with SOBIA. MS appears to back at baseline now. #Hypertensive emergency with acute on chronic renal insufficiency BP improved pt did not tolerate ACEi as Cr frandy to 2.2, renal function improved today with withholding of ACEi Renal Artery Doppler w/o evidence of LUIS US of kidneys showed numerus cysts and 2 large cysts b/l unlikely to have PCKD given age and relatively preserved kidney function will increase amlodipine to 10mg Daily can once again attempt a trial of ACEi at a lower dose once renal function returns to baseline Juan José Galvan DO
--- NOTE | 2017-07-26 18:16 | PN ---
Physical Exam: SUBJECTIVE: Patient seen and examined at bedside. Denies any acute complaints. No chest pain, SOB, nausea, vomiting, diarrhea, fevers, chills. OBJECTIVE: Vital Signs Period Temp Pulse Resp BP Sys/Charles Pulse Ox Last 24 Hr 97.2 F-99.1 F 60-70 18-18 133-154/61-77 97-97 GENERAL: The patient is awake, alert, and fully oriented, in no acute distress. HEAD: Normal with no signs of trauma. LUNGS: Breath sounds equal, clear to auscultation bilaterally, no wheezes, no crackles, no accessory muscle use. HEART: Regular rate and rhythm, S1, S2 without murmur, rub or gallop. ABDOMEN: Soft, nontender, nondistended, normoactive bowel sounds, no guarding, no rebound, no hepatosplenomegaly, no masses. SKIN: Warm, dry, normal turgor, no rashes or lesions noted Laboratory Results - last 24 hr 07/23/17 07/26/17 07/26/17 09:00 05:20 05:20 WBC 9.1 D RBC 3.82 L Hgb 11.1 L D Hct 33.1 L MCV 86.5 MCH 29.1 MCHC 33.7 RDW 13.8 Plt Count 151 MPV 9.1 Sodium 138 Potassium 4.2 Chloride 106 Carbon Dioxide 22 Anion Gap 10 BUN 38 H Creatinine 1.6 H D POC Glucometer Random Glucose 229 H D Calcium 7.6 L Phosphorus 3.0 D Magnesium 2.0 Aldosterone < 1.0 07/26/17 07/26/17 07/26/17 05:58 10:27 11:57 WBC RBC Hgb Hct MCV MCH MCHC RDW Plt Count MPV Sodium Potassium Chloride Carbon Dioxide Anion Gap BUN Creatinine POC Glucometer 275 250 371 Random Glucose Calcium Phosphorus Magnesium Aldosterone 07/26/17 07/26/17 14:35 15:45 WBC RBC Hgb Hct MCV MCH MCHC RDW Plt Count MPV Sodium Potassium Chloride Carbon Dioxide Anion Gap BUN Creatinine POC Glucometer 442 380 Random Glucose Calcium Phosphorus Magnesium Aldosterone Active Medications Generic Name Dose Route Start Last Admin Trade Name Freq PRN Reason Stop Dose Admin Amlodipine Besylate 5 mg 07/25/17 14:15 07/26/17 10:37 Norvasc - PO 5 mg DAILY [facility]AR Administration Aspirin 81 mg 07/23/17 10:00 07/26/17 10:37 Asa - PO 81 mg DAILY [facility] Administration Atorvastatin Calcium 40 mg 07/23/17 22:00 07/25/17 22:29 Lipitor - PO 40 mg HS [facility]AR Administration Carvedilol 12.5 mg 07/23/17 10:00 07/26/17 10:37 Coreg - PO 12.5 mg BID [facility]AR Administration Clopidogrel Bisulfate 75 mg 07/23/17 10:00 07/26/17 10:37 Plavix - PO 75 mg DAILY [facility] Administration Heparin Sodium (Porcine) 5,000 unit 07/23/17 06:00 07/26/17 14:39 Heparin - SQ 5,000 unit TID [facility]AR Administration Insulin Aspart 1 vial 07/22/17 17:15 07/26/17 17:35 Novolog Vial Sliding Scale - SQ 10 units TIDAC [facility] Administration Protocol Insulin Detemir 25 units 07/26/17 07:00 07/26/17 08:52 Levemir Vial SQ 25 units AM [facility] Administration Sodium Chloride 2 spray 07/23/17 01:54 [place] Nasal [place] - NS BID PRN NASAL CONGESTION ASSESSMENT/PLAN: 81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 #Hypertensive Emergency: resolved, likely 2/2 to medication non-compliance -BP normal today -continue coreg 12.5 BID -increase amlodipine to 10 -resume norvasc 5 QD #SOBIA on CKD: resolved, likely 2/2 to hypertensive emergency -renal us negative for any acute pathology #Diabetes Mellitus: poorly controlled, Alc 11% -levemir 25U am -ISS #Coronary Artery Disease: -continue home ASA, Plavix, Lipitor #FEN: -No standing fluids -replete lytes in AM -Na controlled diet #Prophylaxis -Heparin 5000U SubQ TID #Disposition: -can DC telemetry -D/C planning -> to NH or SNF likely Visit type - Emergency Visit Emergency Visit: No - New Patient This patient is new to me today: No - Critical Care Critical Care patient: No
[2017-07-26] MEDS: amLODIPine BESYLATE 10 MG TABLET (FP) PO SCH (18:43)
--- NOTE | 2017-07-26 20:04 | PN ---
Teaching Attending Note Name of Resident: Herman Monroy ATTENDING PHYSICIAN STATEMENT I saw and evaluated the patient. I reviewed the resident's note and discussed the case with the resident. I agree with the resident's findings and plan as documented. SUBJECTIVE: No fever or chils , no pain. OBJECTIVE: NAd, awake and cooperative Cv: RRR Lungs: CTAB EXt: no edema Assessment/Plan: 81 y/o man with h/o HTN, DM , CAD s/p NSTEMI, and other medical problems who presented with AMS and was found to have hypertensive emergency 1- HTN emergency. resolved .BP improved - off quinapril due to increase in cr - cont coreg and increased dose of Norvasc - doppler with renal cysts but no renal artery stenosis. - renin /aldosterone stillpending 2- SOBIA: due to HTN emergency. improved 3- DM:A1c 11. - cont 25 units of levemir each am ( at home was supposed to be on 20 BID, but became hypoglycemic. at dc will need only once a day insulin ) - cont SSI 4- Acute delirium: resolved . avoid bonzos 5- CAD : cont Asa and BB clinically ready for Dc, Need rehab, sister is objecting. CM is trying to help with longer hour of help at home
[2017-07-26] MEDS: ATORVASTATIN CA 40 MG TABLET (FP) PO SCH (22:09)
[2017-07-27] MEDS: HEPARIN NA (PORCINE) 5,000 UNITS/ML 1ML VIAL SQ SCH ×2 (06:38→14:22)
[2017-07-27] MEDS: INSULIN SLIDING SCALE (NOVOLOG) 1 VIAL SQ SCH ×3 (06:38→16:36)
[2017-07-27] MEDS: INSULIN DETEMIR 100 UNITS/ML MDV SQ SCH (06:39)
--- NOTE | 2017-07-27 07:05 | PN ---
Physical Exam: SUBJECTIVE: Patient seen and examined at bedside. Patient denies chest pain, n/v /d, fevers, chills. OBJECTIVE: Vital Signs Period Temp Pulse Resp BP Sys/Charles Pulse Ox Last 24 Hr 98.2 F-99.1 F 59-73 18-20 133-151/59-77 97-97 GENERAL: The patient is awake, alert, and fully oriented, in no acute distress. HEAD: Normal with no signs of trauma. LUNGS: Breath sounds equal, clear to auscultation bilaterally, no wheezes, no crackles, no accessory muscle use. HEART: Regular rate and rhythm, S1, S2 without murmur, rub or gallop. ABDOMEN: Soft, nontender, nondistended, normoactive bowel sounds, no guarding, no rebound, no hepatosplenomegaly, no masses. SKIN: Warm, dry, normal turgor, no rashes or lesions noted Laboratory Results - last 24 hr 07/23/17 07/26/17 07/26/17 09:00 05:20 05:20 WBC 9.1 D RBC 3.82 L Hgb 11.1 L D Hct 33.1 L MCV 86.5 MCH 29.1 MCHC 33.7 RDW 13.8 Plt Count 151 MPV 9.1 Sodium 138 Potassium 4.2 Chloride 106 Carbon Dioxide 22 Anion Gap 10 BUN 38 H Creatinine 1.6 H D POC Glucometer Random Glucose 229 H D Calcium 7.6 L Phosphorus 3.0 D Magnesium 2.0 Aldosterone < 1.0 07/26/17 07/26/17 07/26/17 10:27 11:57 14:35 WBC RBC Hgb Hct MCV MCH MCHC RDW Plt Count MPV Sodium Potassium Chloride Carbon Dioxide Anion Gap BUN Creatinine POC Glucometer 250 371 442 Random Glucose Calcium Phosphorus Magnesium Aldosterone 07/26/17 07/26/17 07/27/17 15:45 22:09 05:56 WBC RBC Hgb Hct MCV MCH MCHC RDW Plt Count MPV Sodium Potassium Chloride Carbon Dioxide Anion Gap BUN Creatinine POC Glucometer 380 325 269 Random Glucose Calcium Phosphorus Magnesium Aldosterone Active Medications Generic Name Dose Route Start Last Admin Trade Name Freq PRN Reason Stop Dose Admin Amlodipine Besylate 10 mg 07/26/17 18:30 07/26/17 18:43 Norvasc - PO 10 mg DAILY [facility] Administration Aspirin 81 mg 07/23/17 10:00 07/26/17 10:37 Asa - PO 81 mg DAILY [facility] Administration Atorvastatin Calcium 40 mg 07/23/17 22:00 07/26/17 22:09 Lipitor - PO 40 mg HS [facility]AR Administration Carvedilol 12.5 mg 07/23/17 10:00 07/26/17 22:09 Coreg - PO 12.5 mg BID [facility] Administration Heparin Sodium (Porcine) 5,000 unit 07/23/17 06:00 07/27/17 06:38 Heparin - SQ 5,000 unit TID [facility]AR Administration Insulin Aspart 1 vial 07/22/17 17:15 07/27/17 06:38 Novolog Vial Sliding Scale - SQ 6 units TIDAC [facility] Administration Protocol Insulin Detemir 25 units 07/26/17 07:00 07/27/17 06:39 Levemir Vial SQ 25 units AM [facility] Administration Sodium Chloride 2 spray 07/23/17 01:54 [place] Nasal [place] - NS BID PRN NASAL CONGESTION ASSESSMENT/PLAN: 81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 #Hypertensive Emergency: resolved, likely 2/2 to medication non-compliance -continue coreg 12.5 BID -continue amlodipine 10 #SOBIA on CKD: resolved, likely 2/2 to hypertensive emergency -renal us negative for any acute pathology #Diabetes Mellitus: poorly controlled, Alc 11% -levemir 25U am -ISS 6U given in AM #Coronary Artery Disease: -continue home ASA, Plavix, Lipitor #FEN: -No standing fluids -replete lytes in AM -Na controlled diet #Prophylaxis -Heparin 5000U SubQ TID #Disposition: -D/C planning Visit type - Emergency Visit Emergency Visit: No - New Patient This patient is new to me today: No - Critical Care Critical Care patient: No
[2017-07-27 07:35] LABS: HEMATOCRIT 34.5 % (35.4-49); HEMOGLOBIN 11.6 GM/dL (11.7-16.9); MCHC 33.7 g/dl (32.0-35.9); MEAN CELL VOLUME 86.1 fl (80-96); MEAN PLT VOLUME 8.8 fl (7.5-11.1); PLATELET COUNT 176 K/MM3 (134-434); RDW 13.7 % (11.9-15.9); WHITE BLOOD COUNT 7.1 K/mm3 (4.0-10.0)
[2017-07-27 07:41] LABS: ANION GAP 9 (8-16); BLOOD UREA NITROGEN 37 mg/dL (7-18); CALCIUM 8.3 mg/dL (8.5-10.1); CHLORIDE 106 mmol/L (98-107); CO2 23 mmol/L (21-32); CREATININE 1.7 mg/dL (0.7-1.3); GLUCOSE,RANDOM 251 mg/dL (74-106); MAGNESIUM 2.1 mg/dL (1.8-2.4); PHOSPHOROUS 3.1 mg/dL (2.5-4.9); POTASSIUM 4.5 mmol/L (3.5-5.1); SODIUM 138 mmol/L (136-145)
[2017-07-27] MEDS: ASPIRIN 81 MG CHEWABLE TABLETS PO SCH (09:09)
[2017-07-27] MEDS: CARVEDILOL 12.5 MG TABLET (FP) PO SCH (09:09)
[2017-07-27] MEDS: amLODIPine BESYLATE 10 MG TABLET (FP) PO SCH (09:10)
[2017-07-27 10:24] VITALS: TEMP 98
--- NOTE | 2017-07-27 11:54 | PN ---
Progress Note (short form) - Note Progress Note: Chief Complaint: htn urgency History of Present Illness: no cp, sob, palpitations, syncope Current Medications Generic Name Dose Route Start Last Admin Trade Name Saji PRN Reason Stop Dose Admin Amlodipine Besylate 10 mg 07/26/17 18:30 07/27/17 09:10 Norvasc - PO 10 mg DAILY [facility] Administration Aspirin 81 mg 07/23/17 10:00 07/27/17 09:09 Asa - PO 81 mg DAILY [facility] Administration Atorvastatin Calcium 40 mg 07/23/17 22:00 07/26/17 22:09 Lipitor - PO 40 mg HS [facility]AR Administration Carvedilol 12.5 mg 07/23/17 10:00 07/27/17 09:09 Coreg - PO 12.5 mg BID [facility]AR Administration Heparin Sodium (Porcine) 5,000 unit 07/23/17 06:00 07/27/17 06:38 Heparin - SQ 5,000 unit TID ISAMAR Administration Insulin Aspart 1 vial 07/22/17 17:15 07/27/17 11:33 Novolog Vial Sliding Scale - SQ 4 units TIDAC ISAMAR Administration Protocol Insulin Detemir 25 units 07/26/17 07:00 07/27/17 06:39 Levemir Vial SQ 25 units AM [facility]AR Administration Sodium Chloride 2 spray 07/23/17 01:54 [place] Nasal [place] - NS BID PRN NASAL CONGESTION - Objective Vital Signs: Vital Signs Period Temp Pulse Resp BP Sys/Charles Pulse Ox Last 24 Hr 98 F-99.1 F 59-76 18-20 112-151/50-77 97-98 Constitutional: Yes: Well Nourished, No Distress, Calm Cardiovascular: Yes: Regular Rate and Rhythm, S1, S2. No: Gallop, Murmur Respiratory: Yes: Regular, CTA Bilaterally. No: Accessory Muscle Use, Rales, Wheezes Extremities: No: Cold Edema: No Neurological: Yes: Alert. No: Seizure Psychiatric: No: Agitated Labs: CBC, BMP 07/27/17 06:25 07/27/17 06:25 ecg: sr, nl intervals, no ischemic changes cxr: clear lungs mibi 06/2015: no ischemia echo 07/2017: 1+ lvh. hyperdynamic lv function. impaired relaxation. nl rv size/fn. 1+ ar. 1+tr. echo 01/2017: nl lv/rv, iasa, mild ar renal u/s 07/2017: bilateral renal cysts. no acute renal pathology. limited doppler study but no evidence of renal artery stenosis. renal duplex 07/2014: no anat a/p: 81 m hx cad s/p nstemi and pci (09/2013, doni rca, doni om1; residual 50-60 mrca, 30-50 d1), dm, htn, hld, ckd, venous insuff/le edema here with elevated bp. hypertensive urgency: -sec to med noncompliance, similar issues at home being addressed by pt PMD -overall well controlled: continue norvasc 5 (started here), coreg -creat bumped signif after low dose quinapril given (lower dose than prior home regimen)--? underyling RA stenosis. --> SEFERINO d/c'd 07/25. observe creat trend --> improving. --> check renal artery dopplers (would not revascularize unless bp control suboptimal despite meds, or renal fxn progressively worsens (his creat has been stable at longstanding baseline) --> limited doppler study, but no evidence of stenosis. cad s/p remote mi/pci: -stable no signs acs -cont bb, statin, asa, plavix. - 07/26 hgb trended down a bit on dapt. reviewed office notes. on asa alone as outpatient --> will d/c plavix. hld: -cont home atorva renard/ckd: -note: baseline creatinine 1.5-2.0 as outpt, despite on SEFERINO (quinapril 20mg qd) -cr initially worse, now back at baseline. le edema: -stable ok for d/c from cv p.o.v.
[2017-07-27 14:42] VITALS: BP 111/75; PULSE 67
--- NOTE | 2017-07-27 14:46 | DS ---
Physical Exam: SUBJECTIVE: Patient seen and examined at bedside. Patient denies chest pain, n/v /d, fevers, chills. OBJECTIVE: Vital Signs Period Temp Pulse Resp BP Sys/Charles Pulse Ox Last 24 Hr 98.2 F-99.1 F 59-73 18-20 133-151/59-77 97-97 Physical Exam: GENERAL: The patient is awake, alert, and fully oriented, in no acute distress. HEAD: Normal with no signs of trauma. LUNGS: Breath sounds equal, clear to auscultation bilaterally, no wheezes, no crackles, no accessory muscle use. HEART: Regular rate and rhythm, S1, S2 without murmur, rub or gallop. ABDOMEN: Soft, nontender, nondistended, normoactive bowel sounds, no guarding, no rebound, no hepatosplenomegaly, no masses. SKIN: Warm, dry, normal turgor, no rashes or lesions noted LABS Laboratory Results - last 24 hr 07/26/17 07/26/17 07/26/17 14:35 15:45 22:09 WBC RBC Hgb Hct MCV MCH MCHC RDW Plt Count MPV Sodium Potassium Chloride Carbon Dioxide Anion Gap BUN Creatinine POC Glucometer 442 380 325 Random Glucose Calcium Phosphorus Magnesium 07/27/17 07/27/17 07/27/17 05:56 06:25 06:25 WBC 7.1 RBC 4.00 Hgb 11.6 L Hct 34.5 L MCV 86.1 MCH 29.0 MCHC 33.7 RDW 13.7 Plt Count 176 MPV 8.8 Sodium 138 Potassium 4.5 Chloride 106 Carbon Dioxide 23 Anion Gap 9 BUN 37 H Creatinine 1.7 H POC Glucometer 269 Random Glucose 251 H Calcium 8.3 L Phosphorus 3.1 Magnesium 2.1 07/27/17 11:32 WBC RBC Hgb Hct MCV MCH MCHC RDW Plt Count MPV Sodium Potassium Chloride Carbon Dioxide Anion Gap BUN Creatinine POC Glucometer 245 Random Glucose Calcium Phosphorus Magnesium HOSPITAL COURSE: Date of Admission:07/21/17 81 year old male with brought in to the hospital after his home security professional noticed that "Altered Mental Status". When EMS arrived, his finger stick glucose was undetectable (likely >400). As per the patient's son, he hasn't been acting normal since few days. In the ED, patient was found to be in hypertensive emergency with a BP of 215/75. He was found to be in SOBIA with an elevated creatinine as well. Patient was treated with carvedilol and amlodipine, that which he takes at home. Patient improved over the course of a few days. His BP was still on the high end, so his amlodipine was increased to 10mg. Patient was discharged on 07/27/17 with instructions to follow with his PCP, tower equipment repairer Dr. Avelar, and retail seasonal specialist Dr. Galvan. Date of Discharge: 07/27/17 Minutes to complete discharge: 35 Discharge Summary Reason For Visit: HYPERGLYCEMIA, HYPERTENSIVE EMERGENCY Current Active Problems Hyperglycemia (Acute) Hypertensive emergency (Acute) Condition: Stable - Instructions Diet, Activity, Other Instructions: You were admitted to the hospital for the treatment of hypertensive emergency, meaning your blood pressure was dangerously elevated. Medical Recommendations: 1. Take Coreg (carvedilol) 12.5mg twice a day 2. Take Amlodipine (norvasc) 10mg once a day (this is two times the dose you were getting before) 3. Continue all of your diabetic medications at home 4. Continue your home aspirin, plavix (clopidogrel), and lipitor (atorvostatin) 4. Follow with your primary care physician within 1 week of discharge 5. Make an appointment with the tower equipment repairer Dr. Avelar within 2 weeks of discharge 6. Make an appointment with the retail seasonal specialist (kidney specialist), Dr. Galvan, within 2 weeks of discharge If you experience chest pain, shortness of breath, severe headache, please return to the emergency room for evaluation. Referrals: Anirudh Avelar MD [Staff Physician] - 2 Weeks Juan José Galvan MD [Staff Physician] - 2 Weeks Disposition: HOME - Home Medications Comprehensive Discharge Medication List: Ambulatory Orders Aspirin [ASA -] 81 mg PO DAILY #0 tab.chew 10/01/13 Clopidogrel Bisulfate [Plavix -] 75 mg PO DAILY #0 tablet 10/01/13 Atorvastatin Ca [Lipitor] 20 mg PO HS 07/23/17 Carvedilol 12.5 mg PO BID 07/23/17 Insulin Glargine,Hum.rec.anlog [Lantus] 20 unit SQ BID 07/23/17 Meclizine HCl 12.5 mg PO TID 07/23/17 Amlodipine Besylate [Norvasc -] 10 mg PO DAILY #30 tablet 07/27/17 This patient is new to me today: No Emergency Visit: No Critical Care patient: No - Discharge Referral [facility]erred to [facility] No
--- NOTE | 2017-07-27 14:48 | PN ---
Progress Note (short form) - Note Progress Note: Renal follow up for SOBIA/Hypertensive emergency Pt seen and examined at the bedside has some dizziness when walking no sob, chest pain, abd pain Vital Signs Temperature 98 F 07/27/17 14:40 Pulse Rate 67 07/27/17 14:40 Respiratory Rate 20 07/27/17 14:40 Blood Pressure 111/75 07/27/17 14:40 O2 Sat by Pulse Oximetry (%) 98 07/27/17 09:00 Intake & Output 07/24/17 07/25/17 07/26/17 07/27/17 23:59 23:59 23:59 23:59 Intake Total 250 510 750 200 Output Total 076 798 7989 600 Balance -150 110 -1550 -400 Weight 73.754 kg 75.568 kg 76.204 kg 76.748 kg NAD CTA no LE edema CBC, BMP 07/27/17 06:25 07/27/17 06:25 Current Medications Amlodipine Besylate (Norvasc -) 10 mg PO DAILY [facility] Last Admin: 07/27/17 09:10 Dose: 10 mg Aspirin (Asa -) 81 mg PO DAILY [facility] Last Admin: 07/27/17 09:09 Dose: 81 mg Atorvastatin Calcium (Lipitor -) 40 mg PO HS [facility] Last Admin: 07/26/17 22:09 Dose: 40 mg Carvedilol (Coreg -) 12.5 mg PO BID [facility] Last Admin: 07/27/17 09:09 Dose: 12.5 mg Heparin Sodium (Porcine) (Heparin -) 5,000 unit SQ TID [facility] Last Admin: 07/27/17 14:22 Dose: 5,000 unit Insulin Aspart (Novolog Vial Sliding Scale -) 1 vial SQ TIDAC [facility] PRN Reason: Protocol Last Admin: 07/27/17 11:33 Dose: 4 units Insulin Detemir (Levemir Vial) 25 units SQ AM [facility] Last Admin: 07/27/17 06:39 Dose: 25 units Sodium Chloride ([place] -) 2 spray NS BID PRN PRN Reason: NASAL CONGESTION 81 year old gentleman with PMhx of Hypertension, CAD s/p NSTEMI, DM, CKD who presented with AMS and found to have hypertensive emergency with SOBIA. MS appears to back at baseline now. #Hypertensive emergency with acute on chronic renal insufficiency BP improved, Cr stable and at baseline off ACEi b/c of rapid rise in Cr, can reattempt to start as outpatient renal artery doppler negative stable for discharge check BMP as outpatient in 1-2 weeks Juan José Galvan DO
[2017-07-27 16:21] LABS: RENIN ACTIVITY(PRA) 0.587 ng/mL/hr (0.167-5.380)
--- NOTE | 2017-07-27 18:45 | PN ---
Teaching Attending Note Name of Resident: Herman Monroy ATTENDING PHYSICIAN STATEMENT I saw and evaluated the patient. I reviewed the resident's note and discussed the case with the resident. I agree with the resident's findings and plan as documented. SUBJECTIVE: OBJECTIVE: Vital Signs Temperature 98 F 07/27/17 14:40 Pulse Rate 67 07/27/17 14:40 Respiratory Rate 20 07/27/17 14:40 Blood Pressure 111/75 07/27/17 14:40 O2 Sat by Pulse Oximetry (%) 98 07/27/17 09:00 CBCD WBC 7.1 K/mm3 (4.0-10.0) 07/27/17 06:25 RBC 4.00 M/mm3 (4.00-5.60) 07/27/17 06:25 Hgb 11.6 GM/dL (11.7-16.9) L 07/27/17 06:25 Hct 34.5 % (35.4-49) L 07/27/17 06:25 MCV 86.1 fl (80-96) 07/27/17 06:25 MCHC 33.7 g/dl (32.0-35.9) 07/27/17 06:25 RDW 13.7 % (11.9-15.9) 07/27/17 06:25 Plt Count 176 K/MM3 (134-434) 07/27/17 06:25 MPV 8.8 fl (7.5-11.1) 07/27/17 06:25 CMP Sodium 138 mmol/L (136-145) 07/27/17 06:25 Potassium 4.5 mmol/L (3.5-5.1) 07/27/17 06:25 Chloride 106 mmol/L (98-107) 07/27/17 06:25 Carbon Dioxide 23 mmol/L (21-32) 07/27/17 06:25 Anion Gap 9 (8-16) 07/27/17 06:25 BUN 37 mg/dL (7-18) H 07/27/17 06:25 Creatinine 1.7 mg/dL (0.7-1.3) H 07/27/17 06:25 Creat Clearance w eGFR 38.97 (>60) 07/23/17 09:00 Random Glucose 251 mg/dL (74-106) H 07/27/17 06:25 Calcium 8.3 mg/dL (8.5-10.1) L 07/27/17 06:25 Total Bilirubin 1.4 mg/dL (0.2-1.0) H 07/23/17 09:00 AST 21 U/L (15-37) 07/23/17 09:00 ALT 16 U/L (12-78) D 07/23/17 09:00 Alkaline Phosphatase 83 U/L (45-117) 07/23/17 09:00 Total Protein 6.6 g/dl (6.4-8.2) 07/23/17 09:00 Albumin 3.5 g/dl (3.4-5.0) 07/23/17 09:00 CARDIAC ENZYMES Creatine Kinase 88 IU/L (39-308) 07/21/17 18:45 Troponin I < 0.02 ng/ml (0.00-0.05) 07/23/17 09:00 Current Medications Generic Name Dose Route Start Last Admin Trade Name Freq PRN Reason Stop Dose Admin Amlodipine Besylate 10 mg 07/26/17 18:30 07/27/17 09:10 Norvasc - PO 10 mg DAILY [facility] Administration Aspirin 81 mg 07/23/17 10:00 07/27/17 09:09 Asa - PO 81 mg DAILY [facility] Administration Atorvastatin Calcium 40 mg 07/23/17 22:00 07/26/17 22:09 Lipitor - PO 40 mg HS [facility] Administration Carvedilol 12.5 mg 07/23/17 10:00 07/27/17 09:09 Coreg - PO 12.5 mg BID [facility] Administration Heparin Sodium (Porcine) 5,000 unit 07/23/17 06:00 07/27/17 14:22 Heparin - SQ 5,000 unit TID [facility] Administration Insulin Aspart 1 vial 07/22/17 17:15 07/27/17 16:36 Novolog Vial Sliding Scale - SQ 8 units TIDAC [facility] Administration Protocol Insulin Detemir 25 units 07/26/17 07:00 07/27/17 06:39 Levemir Vial SQ 25 units AM [facility] Administration Sodium Chloride 2 spray 07/23/17 01:54 [place] Nasal [place] - NS BID PRN NASAL CONGESTION Home Medications Medication Instructions Recorded Aspirin [ASA -] 81 mg PO DAILY #0 tab.chew 10/01/13 Clopidogrel Bisulfate [Plavix -] 75 mg PO DAILY #0 tablet 10/01/13 Atorvastatin Ca [Lipitor] 20 mg PO HS 07/23/17 Carvedilol 12.5 mg PO BID 07/23/17 Insulin Glargine,Hum.rec.anlog 20 unit SQ BID 07/23/17 [Lantus] Meclizine HCl 12.5 mg PO TID 07/23/17 Amlodipine Besylate [Norvasc -] 10 mg PO DAILY #30 tablet 07/27/17 ASSESSMENT AND PLAN: 81 y/o man with h/o HTN, DM , CAD s/p NSTEMI, and other medical problems who presented with AMS and was found to have hypertensive emergency # HTN emergency. resolved .BP improved - off quinapril due to increase in cr - cont coreg and increased dose of Norvasc - doppler with renal cysts but no renal artery stenosis. - renin /aldosterone stillpending # SOBIA: due to HTN emergency. improved # DM:A1c 11. - cont 25 units of levemir each am ( at home was supposed to be on 20 BID, but became hypoglycemic. at dc will need only once a day insulin - cont SSI # Acute delirium: resolved . avoid bonzos # CAD : cont Asa and BB clinically ready for Dc, Need rehab, sister is objecting. CM is trying to help with longer hour of help at home
== END 2017-07-27 17:55 | disposition home or self-care (01) | DRG 305 ==
LOC: JER 14:27 → JERBED 19:29 → UNDOADMIN 20:07 → JERBED 07-22 00:07 → JICU 07-22 00:07 → J4W 07-22 18:35
PROVIDERS: ADMIT Internal Medicine; ATTEND Internal Medicine
DX: I16.0 Hypertensive urgency (principal); N17.9 Acute kidney failure, unspecified; E87.1 Hypo-osmolality and hyponatremia; I67.4 Hypertensive encephalopathy; I25.10 Atherosclerotic heart disease of native coronary artery without angina pectoris; I25.2 Old myocardial infarction; R00.1 Bradycardia, unspecified; R42 Dizziness and giddiness; I12.9 Hypertensive chronic kidney disease with stage 1 through stage 4 chronic kidney disease, or unspecified chronic kidney disease; N18.9 Chronic kidney disease, unspecified; E78.5 Hyperlipidemia, unspecified; E11.65 Type 2 diabetes mellitus with hyperglycemia; I87.2 Venous insufficiency (chronic) (peripheral); Z91.14 Patient's other noncompliance with medication regimen; R41.0 Disorientation, unspecified
CPT/HCPCS: 36415; 70450-TC; 71045-TC; 76775-TC; 80048; 80053; 81003; 81015; 82088; 82436; 82550; 82570; 82803; 82962; 83036; 83605; 83615; 83735; 84100; 84133; 84156; 84244; 84300; 84484; 84540; 85025; 85027; 85610; 85730; 87086; 93005; 93010; 93306-TC; 93975; 97116-GP; 97161-GP; 99283-25; J1644

== ENCOUNTER 2019-01-20 12:49 | Inpatient (IN) | payer OTHER ==
[2019-01-20 13:14] VITALS: BMI 34.0
[2019-01-20 14:21] LABS: BASO % 0.8 % (0-2.0); EOS % 3.1 % (0-4.5); HEMATOCRIT 34.7 % (35.4-49); HEMOGLOBIN 11.8 GM/dL (11.7-16.9); MCH 28.5 pg (25.7-33.7); MEAN PLT VOLUME 7.7 fl (7.5-11.1); NEUT % 64.1 % (42.8-82.8); RBC 4.14 M/mm3 (4.00-5.60); RDW 14.1 % (11.9-15.9); WHITE BLOOD COUNT 6.7 K/mm3 (4.0-10.0)
[2019-01-20 14:40] LABS: ALBUMIN 3.4 g/dl (3.4-5.0); ALK PHOS 85 U/L (45-117); ANION GAP 6 MMOL/L (8-16); BLOOD UREA NITROGEN 38.2 mg/dL (7-18); CALCIUM 8.2 mg/dL (8.5-10.1); CHLORIDE 105 mmol/L (98-107); CO2 27 mmol/L (21-32); CREATININE 2.2 mg/dL (0.55-1.3); MAGNESIUM 2.2 mg/dL (1.8-2.4); POTASSIUM 4.1 mmol/L (3.5-5.1); SGOT/AST 22 U/L (15-37); SGPT/ALT 15 U/L (13-61); SODIUM 138 mmol/L (136-145); TOT PROT 6.7 g/dl (6.4-8.2)
[2019-01-20 14:42] LABS: INR 0.92 (0.83-1.09); PROTHROMBIN TIME (PATIENT) 10.8 SEC (9.7-13.0)
[2019-01-20 14:43] LABS: PLATELET COUNT 236 K/MM3 (134-434)
[2019-01-20 14:48] LABS: GLUCOSE,RANDOM 303 mg/dL (74-106)
--- NOTE | 2019-01-20 14:49 | PDOC ---
History of Present Illness <Florence Sutton - Last Filed: 01/20/19 17:38> - General History Source: Patient, Other (son) Exam Limitations: No Limitations - History of Present Illness Initial Comments: 01/20/19 14:04 83-year-old male presents to the ED status post fall yesterday. As per son he received a phone call from the manager home this morning that the patient had fallen last night while walking by himself after the home health assistant left. Patient states unable to recall the episode but states was dizzy prior to the fall and unsure if he hit his head on the wall. Patient takes aspirin daily and currently denies any dizziness or headache. Patient is complaining of left knee pain worsened with movement and ambulation. Patient is followed by Dr. alexander, ob/gyn doctor and Dr. Grier, primary care physician. Occurred: reports: yesterday Severity: reports: moderate Pain Location: reports: lower extremity Method of Injury: Yes: fall Modifying Factors: improves with: None Loss of Consciousness: no loss of consciousness Associated Symptoms (Fall): other <Renita Mishra - Last Filed: 01/21/19 13:31> - General Chief Complaint: Injury Stated Complaint: FALL, LEFT LEG PAIN Time Seen by Provider: 01/20/19 13:28 Past History <LesleyFlorence - Last Filed: 01/20/19 17:38> - Travel Traveled outside of the country in the last 30 days: No Close contact w/someone who was outside of country & ill: No - Past Medical History Anemia: No Asthma: No Cancer: No Cardiac Disorders: No CVA: No COPD: No CHF: No Dementia: No Diabetes: Yes GI Disorders: No Disorders: No HTN: Yes Hypercholesterolemia: No Liver Disease: No Seizures: No Thyroid Disease: No - Suicide/Smoking/Psychosocial Hx Smoking History: Never smoked Have you smoked in the past 12 months: No Information on smoking cessation initiated: No Hx Alcohol Use: No Drug/Substance Use Hx: No Substance Use Type: None Hx Substance Use Treatment: No Patient Lives Alone: Yes Lives with/in: lives alone <Renita Mishra - Last Filed: 01/21/19 13:31> - Past Medical History Allergies/Adverse Reactions: Allergies Allergy/AdvReac Type Severity Reaction Status Date / Time No Known Drug Allergies Allergy Verified 01/20/19 13:10 Home Medications: Ambulatory Orders Aspirin [ASA -] 81 mg PO DAILY #0 tab.chew 10/01/13 Atorvastatin Ca [Lipitor] 20 mg PO HS 07/23/17 Meclizine HCl 12.5 mg PO TID 07/23/17 Amlodipine Besylate [Norvasc -] 10 mg PO DAILY #30 tablet 07/27/17 Furosemide 80 mg PO DAILY 01/20/19 Metoprolol Succinate 50 mg PO DAILY 01/20/19 Omeprazole 20 mg PO DAILY 01/20/19 Sodium Bicarbonate 650 mg PO TID 01/20/19 Review of Systems - Review of Systems Able to Perform ROS?: Yes Constitutional: No: Symptoms Reported HEENTM: No: Symptoms Reported Respiratory: No: Symptoms reported Cardiac (ROS): Yes: Lightheadedness ABD/GI: No: Symptoms Reported : No: Symptoms Reported Musculoskeletal: Yes: Joint Pain Integumentary: Yes: Bruising Neurological: Yes: Dizziness. No: Headache Endocrine: No: Symptoms Reported Hematologic/Lymphatic: No: Symptoms Reported <Renita Mishra - Last Filed: 01/21/19 13:31> *Physical Exam - Vital Signs Last Vital Signs Temp Pulse Resp BP Pulse Ox 98.9 F 64 20 131/59 L 97 01/20/19 13:10 01/20/19 13:10 01/20/19 13:10 01/20/19 13:10 01/20/19 13:10 <Florence Sutton - Last Filed: 01/20/19 17:38> - Vital Signs Last Vital Signs Temp Pulse Resp BP Pulse Ox 98.9 F 64 131 H 131/59 L 97 01/20/19 13:10 01/20/19 13:10 01/20/19 13:10 01/20/19 13:10 01/20/19 13:10 - Physical Exam General Appearance: Yes: Nourished, Appropriately Dressed. No: Apparent Distress HEENT: positive: EOMI, LIVIA, TMs Normal, Pharynx Normal. negative: Pale Conjunctivae Neck: positive: Supple, Tender midline (c6-7) Respiratory/Chest: positive: Lungs Clear, Normal Breath Sounds. negative: Chest Tender, Respiratory Distress, Accessory Muscle Use Cardiovascular: positive: Regular Rhythm, Regular Rate. negative: Murmur Gastrointestinal/Abdominal: positive: Soft. negative: Tenderness Musculoskeletal: negative: CVA Tenderness, Vertebral Tenderness Extremity: positive: Normal Capillary Refill, Pedal Edema (3+pitting riana) Integumentary: positive: Ecchymosis (to lateral aspect of left patella. area w/ gen tenderness) Neurologic: positive: Motor Strength 5/5 (ambulatory with assistance) <Renita Mishra - Last Filed: 01/21/19 13:31> Heart Score/ECG Review - ECG Intrepretation Rhythm: Regular Rhythm (Sinus bradycardia at 58. Normal EKG with no ST elevation depression. Intervals are regular.) <Renita Mishra - Last Filed: 01/21/19 13:31> ED Treatment Course - LABORATORY CBC & Chemistry Diagram: 01/20/19 14:10 01/20/19 14:10 - ADDITIONAL ORDERS Additional order review: Laboratory Results 01/20/19 01/20/19 01/20/19 15:12 14:13 14:10 PT with INR INR Sodium 138 Potassium 4.1 Chloride 105 Carbon Dioxide 27 Anion Gap 6 L BUN 38.2 H Creatinine 2.2 H Est GFR (CKD-EPI)AfAm 31.18 Est GFR (CKD-EPI)NonAf 26.90 Random Glucose 303 H* Calcium 8.2 L Magnesium 2.2 Total Bilirubin 1.0 AST 22 ALT 15 Alkaline Phosphatase 85 Creatine Kinase 114 Troponin I < 0.02 Total Protein 6.7 Albumin 3.4 Urine Color Yellow Urine Appearance Clear Urine pH 5.5 D Ur Specific [place] 1.012 Urine Protein 1+ H Urine Glucose (UA) 1+ H Urine Ketones Negative Urine Blood Negative Urine Nitrite Negative Urine Bilirubin Negative Urine Urobilinogen 0.2 Ur Leukocyte Esterase Negative Urine WBC (Auto) 0 Urine RBC (Auto) 1 Urine Casts (Auto) 4 U Epithel Cells (Auto) 0.3 Urine Bacteria (Auto) 3.0 Blood Type O POSITIVE Antibody Screen Negative 01/20/19 14:10 PT with INR 10.80 INR 0.92 Sodium Potassium Chloride Carbon Dioxide Anion Gap BUN Creatinine Est GFR (CKD-EPI)AfAm Est GFR (CKD-EPI)NonAf Random Glucose Calcium Magnesium Total Bilirubin AST ALT Alkaline Phosphatase Creatine Kinase Troponin I Total Protein Albumin Urine Color Urine Appearance Urine pH Ur Specific [place] Urine Protein Urine Glucose (UA) Urine Ketones Urine Blood Urine Nitrite Urine Bilirubin Urine Urobilinogen Ur Leukocyte Esterase Urine WBC (Auto) Urine RBC (Auto) Urine Casts (Auto) U Epithel Cells (Auto) Urine Bacteria (Auto) Blood Type Antibody Screen 01/20/19 14:10 RBC 4.14 MCV 84.0 MCHC 34.0 RDW 14.1 MPV 7.7 D Neutrophils % 64.1 Lymphocytes % 23.0 Monocytes % 9.0 Eosinophils % 3.1 Basophils % 0.8 - Medications Given in the ED: ED Medications Discontinued Medications Generic Name Dose Route Start Last Admin Trade Name Freq PRN Reason Stop Dose Admin Sodium Chloride 500 mls @ 500 mls/hr 01/20/19 15:41 01/20/19 16:00 Normal Saline - IV 01/20/19 16:40 500 mls/hr ASDIR STA Administration <Florence Sutton - Last Filed: 01/20/19 17:38> - LABORATORY CBC & Chemistry Diagram: 01/21/19 06:36 01/21/19 06:36 - ADDITIONAL ORDERS Additional order review: Laboratory Results 01/20/19 01/20/19 14:10 14:10 PT with INR 10.80 INR 0.92 Sodium 138 Potassium 4.1 Chloride 105 Carbon Dioxide 27 Anion Gap 6 L BUN 38.2 H Creatinine 2.2 H Est GFR (CKD-EPI)AfAm 31.18 Est GFR (CKD-EPI)NonAf 26.90 Calcium 8.2 L Magnesium 2.2 Total Bilirubin 1.0 AST 22 ALT 15 Alkaline Phosphatase 85 Creatine Kinase 114 Troponin I < 0.02 Total Protein 6.7 Albumin 3.4 01/20/19 14:10 RBC 4.14 MCV 84.0 MCHC 34.0 RDW 14.1 MPV 7.7 D Neutrophils % 64.1 Lymphocytes % 23.0 Monocytes % 9.0 Eosinophils % 3.1 Basophils % 0.8 - RADIOLOGY Radiology Studies Ordered: Category Date Time Status CERVICAL SPINE CT W/O CONTR [CT] Stat CT Scan 01/20/19 13:[address] WITHOUT CONTRAST [CT] Stat CT Scan 01/20/19 13:43 Ordered CHEST - PA [RAD] Stat Radiology 01/20/19 13:44 Completed KNEE 2 POS-LEFT [RAD] Stat Radiology 01/20/19 13:45 Completed <Renita Mishra - Last Filed: 01/21/19 13:31> Medical Decision Making - Medical Decision Making 01/20/19 13:57 CC: status post fall secondary to dizziness landing on his knee and unsure if he struck his head. Patient is on aspirin daily. Pt currently complaining of pain to left knee . no headache no dizziness presently Exam: Vital signs stable. Patient with cervical tenderness to C6-C7 along with ecchymosis and tenderness to the left patella. Plan : Knee x-ray, EKG, labs, head CT, cervical CT, cervical collar C-spine precautions chest x-ray and urine. 01/20/19 15:01 Laboratory Tests 07/25/17 07/26/17 07/27/17 06:20 05:20 06:25 WBC Hgb Hct Absolute Neuts (auto) Sodium Potassium Chloride Carbon Dioxide Anion Gap BUN Creatinine 2.2 H D 1.6 H D 1.7 H Random Glucose Calcium Magnesium AST ALT Troponin I 01/20/19 01/20/19 14:10 14:10 WBC 6.7 Hgb 11.8 Hct 34.7 L Absolute Neuts (auto) 4.3 Sodium 138 Potassium 4.1 Chloride 105 Carbon Dioxide 27 Anion Gap 6 L BUN 38.2 H Creatinine 2.2 H Random Glucose 303 H* Calcium 8.2 L Magnesium 2.2 AST 22 ALT 15 Troponin I < 0.02 01/20/19 15:01 Knee X-ray shows mild effusion without subluxation or fracture. Chest x-ray negative for acute pathology. Head CT and cervical CT pending 01/20/19 15:31 CT of the head and neck are negative for acute fracture or intracranial bleed or subluxation. 01/20/19 15:44 Due to mild elevation in his creatinine level and presyncopal episode a call has been placed the patient's ob/gyn doctor Dr. Alexander and awaiting callback <Renita Mishra - Last Filed: 01/21/19 13:31> *DC/Admit/Observation/Transfer - Discharge Dispostion Decision to Admit order: Yes <Florence Sutton - Last Filed: 01/20/19 17:38> <Renita Mishra - Last Filed: 01/21/19 13:31> Diagnosis at time of Disposition: Syncope Qualifiers: Syncope type: unspecified Qualified Code(s): R55 - Syncope and collapse - Discharge Dispostion Condition at time of disposition: Stable
[2019-01-20] MEDS ORDERED: SODIUM CHLORIDE 500 ML IV STA ×2 (15:41→17:49)
--- NOTE | 2019-01-20 15:43 | PDOC ---
*Physical Exam - Vital Signs Last Vital Signs Temp Pulse Resp BP Pulse Ox 98.9 F 64 20 131/59 L 97 01/20/19 13:10 01/20/19 13:10 01/20/19 13:10 01/20/19 13:10 01/20/19 13:10 ED Treatment Course - LABORATORY CBC & Chemistry Diagram: 01/21/19 06:36 01/21/19 06:36 - ADDITIONAL ORDERS Additional order review: Laboratory Results 01/20/19 01/20/19 01/20/19 14:13 14:10 14:10 PT with INR 10.80 INR 0.92 Sodium 138 Potassium 4.1 Chloride 105 Carbon Dioxide 27 Anion Gap 6 L BUN 38.2 H Creatinine 2.2 H Est GFR (CKD-EPI)AfAm 31.18 Est GFR (CKD-EPI)NonAf 26.90 Random Glucose 303 H* Calcium 8.2 L Magnesium 2.2 Total Bilirubin 1.0 AST 22 ALT 15 Alkaline Phosphatase 85 Creatine Kinase 114 Troponin I < 0.02 Total Protein 6.7 Albumin 3.4 Blood Type O POSITIVE Antibody Screen Negative 01/20/19 14:10 RBC 4.14 MCV 84.0 MCHC 34.0 RDW 14.1 MPV 7.7 D Neutrophils % 64.1 Lymphocytes % 23.0 Monocytes % 9.0 Eosinophils % 3.1 Basophils % 0.8 Medical Decision Making - Medical Decision Making 01/20/19 15:41 The patient was seen and evaluated in conjunction with EDWIN Mishra under my direct supervision, ancillary studies were reviewed. I independently interviewed and evaluated the patient and I agree with the plan as outlined by EDWIN Mishra. *DC/Admit/Observation/Transfer Diagnosis at time of Disposition: Syncope - Discharge Dispostion Disposition: AGAINST MEDICAL ADVICE Condition at time of disposition: Guarded - Referrals - Patient Instructions - Post Discharge Activity
[2019-01-20 15:58] LABS: EPI CELLS 0.3 /HPF (0-5/HPF); HYALINE CASTS 4 /lpf (0-8); PH,URINE 5.5 (5.0-8.0); URINE APPEARANCE CLEAR; URINE BILIRUBIN NEGATIVE (NEGATIVE); URINE COLOR YELLOW; URINE GLUCOSE (UA) 1+ (NEGATIVE); URINE KETONE NEGATIVE (NEGATIVE); URINE LEUK ESTERASE NEGATIVE (NEGATIVE); URINE NITRITE NEGATIVE (NEGATIVE); URINE PROTEIN 1+ (NEGATIVE); URINE RBC 1 /hpf (0-4); URINE UROBILINOGEN 0.2 mg/dL (0.2-1.0); URINE WBC 0 /hpf (0-5)
--- NOTE | 2019-01-20 16:10 | EKG ---
Test Reason : Blood Pressure : / mmHG Vent. Rate : 058 BPM Atrial Rate : 058 BPM P-R Int : 196 ms QRS Dur : 080 ms QT Int : 440 ms P-R-T Axes : 037 -10 029 degrees QTc Int : 431 ms SINUS BRADYCARDIA OTHERWISE NORMAL ECG WHEN COMPARED WITH ECG OF 21-JUL-2017 15:06, NONSPECIFIC T WAVE ABNORMALITY, WORSE IN ANTERIOR LEADS NONSPECIFIC T WAVE ABNORMALITY NO LONGER EVIDENT IN LATERAL LEADS Confirmed by [facility] GREEN, VIRGINIE ([id number]) on 01/20/2019 4:10:22 PM Referred By: Confirmed By:VIRGINIE RAWLS MD
[2019-01-20] MEDS ORDERED: SODIUM CHLORIDE 1,000 ML IV SCH (16:45)
--- NOTE | 2019-01-20 16:51 | HP ---
CHIEF COMPLAINT: S/p fall/ syncope PCP: Dr. Grier HISTORY OF PRESENT ILLNESS: 83-year-old man presents status post fall yesterday. As per son he received a phone call from the home care nurse this morning the patient had fallen last night while walking by himself after the caregiver services home left. Patient states unable to recall the episode but states was dizzy prior to the fall and unsure if he hit his head. ER course was notable for: (1) head CT (2) Cspine CT (3) cxr Recent Travel: no PAST MEDICAL HISTORY:: Hypertension and Diabetes diagnosed in 1956, non obstructing CAD, Early dementia, disc herniation, Vertigo PAST SURGICAL HISTORY:no Social History: Smoking:no Alcohol:no Drugs: no Family History: Diabetes: Mother, Brother Allergies No Known Drug Allergies Allergy (Verified 01/20/19 13:10) HOME MEDICATIONS: Home Medications Medication Instructions Recorded Aspirin [ASA -] 81 mg PO DAILY #0 tab.chew 10/01/13 Atorvastatin Ca [Lipitor] 20 mg PO HS 07/23/17 Meclizine HCl 12.5 mg PO TID 07/23/17 Amlodipine Besylate [Norvasc -] 10 mg PO DAILY #30 tablet 07/27/17 Furosemide 80 mg PO DAILY 01/20/19 Metoprolol Succinate [Toprol Xl] 50 mg PO DAILY 01/20/19 Omeprazole 20 mg PO DAILY 01/20/19 Sodium Bicarbonate 650 mg PO TID 01/20/19 REVIEW OF SYSTEMS CONSTITUTIONAL: Absent: fever, chills, diaphoresis, generalized weakness, malaise, loss of appetite, weight change HEENT: Absent: rhinorrhea, nasal congestion, throat pain, throat swelling, difficulty swallowing, mouth swelling, ear pain, eye pain, visual changes CARDIOVASCULAR: Absent: chest pain, syncope, palpitations, irregular heart rate, , peripheral edema present -lightheadedness RESPIRATORY: Absent: cough, shortness of breath, dyspnea with exertion, orthopnea, wheezing, stridor, hemoptysis GASTROINTESTINAL: Absent: abdominal pain, abdominal distension, nausea, vomiting, diarrhea, constipation, melena, hematochezia GENITOURINARY: Absent: dysuria, frequency, urgency, hesitancy, hematuria, flank pain, genital pain MUSCULOSKELETAL: Absent: myalgia, joint swelling, back pain, neck pain present- arthralgia, SKIN: Absent: rash, itching, pallor HEMATOLOGIC/IMMUNOLOGIC: Absent: easy bleeding, easy bruising, lymphadenopathy, frequent infections ENDOCRINE: Absent: unexplained weight gain, unexplained weight loss, heat intolerance, cold intolerance NEUROLOGIC: Absent: headache, focal weakness or paresthesias seizure, mental status changes , bladder or bowel incontinence present - , dizziness, unsteady gait, PSYCHIATRIC: Absent: anxiety, depression, suicidal or homicidal ideation, hallucinations. PHYSICAL EXAMINATION Vital Signs - 24 hr 01/20/19 13:10 Temperature 98.9 F Pulse Rate 64 Respiratory 20 Rate Blood Pressure 131/59 L O2 Sat by Pulse 97 Oximetry (%) GENERAL: Awake, alert, and fully oriented, in no acute distress. HEAD: Normal with no signs of trauma. EYES: Pupils equal, round and reactive to light, extraocular movements intact, sclera anicteric, conjunctiva clear. No lid lag. EARS, NOSE, THROAT: Ears normal, nares patent, oropharynx clear without exudates. Moist mucous membranes. NECK: Normal range of motion, supple without lymphadenopathy, JVD, or masses. LUNGS: Breath sounds equal, clear to auscultation bilaterally. No wheezes, and no crackles. No accessory muscle use. HEART: Regular rate and rhythm, normal S1 and S2 without murmur, rub or gallop. ABDOMEN: Soft, nontender, not distended, normoactive bowel sounds, no guarding, no rebound, no masses. MUSCULOSKELETAL: Normal range of motion at all joints. No bony deformities or tenderness. No CVA tenderness. UPPER EXTREMITIES: 2+ pulses, warm, well-perfused. No cyanosis. No clubbing. No peripheral edema. LOWER EXTREMITIES: left knee tender to palpation NEUROLOGICAL: Cranial nerves II-XII intact. Normal speech. PSYCHIATRIC: Cooperative. Good eye contact. Appropriate mood and affect. SKIN: Warm, dry, normal turgor, no rashes or lesions noted, normal capillary refill. Laboratory Results - last 24 hr 01/20/19 01/20/19 01/20/19 14:10 14:10 14:10 WBC 6.7 RBC 4.14 Hgb 11.8 Hct 34.7 L MCV 84.0 MCH 28.5 MCHC 34.0 RDW 14.1 Plt Count 236 D MPV 7.7 D Absolute Neuts (auto) 4.3 Neutrophils % 64.1 Lymphocytes % 23.0 Monocytes % 9.0 Eosinophils % 3.1 Basophils % 0.8 Nucleated RBC % 0 PT with INR 10.80 INR 0.92 Sodium 138 Potassium 4.1 Chloride 105 Carbon Dioxide 27 Anion Gap 6 L BUN 38.2 H Creatinine 2.2 H Est GFR (CKD-EPI)AfAm 31.18 Est GFR (CKD-EPI)NonAf 26.90 Random Glucose 303 H* Calcium 8.2 L Magnesium 2.2 Total Bilirubin 1.0 AST 22 ALT 15 Alkaline Phosphatase 85 Creatine Kinase 114 Troponin I < 0.02 Total Protein 6.7 Albumin 3.4 Urine Color Urine Appearance Urine pH Ur Specific [place] Urine Protein Urine Glucose (UA) Urine Ketones Urine Blood Urine Nitrite Urine Bilirubin Urine Urobilinogen Ur Leukocyte Esterase Urine WBC (Auto) Urine RBC (Auto) Urine Casts (Auto) U Epithel Cells (Auto) Urine Bacteria (Auto) Blood Type Antibody Screen 01/20/19 01/20/19 14:13 15:12 WBC RBC Hgb Hct MCV MCH MCHC RDW Plt Count MPV Absolute Neuts (auto) Neutrophils % Lymphocytes % Monocytes % Eosinophils % Basophils % Nucleated RBC % PT with INR INR Sodium Potassium Chloride Carbon Dioxide Anion Gap BUN Creatinine Est GFR (CKD-EPI)AfAm Est GFR (CKD-EPI)NonAf Random Glucose Calcium Magnesium Total Bilirubin AST ALT Alkaline Phosphatase Creatine Kinase Troponin I Total Protein Albumin Urine Color Yellow Urine Appearance Clear Urine pH 5.5 D Ur Specific [place] 1.012 Urine Protein 1+ H Urine Glucose (UA) 1+ H Urine Ketones Negative Urine Blood Negative Urine Nitrite Negative Urine Bilirubin Negative Urine Urobilinogen 0.2 Ur Leukocyte Esterase Negative Urine WBC (Auto) 0 Urine RBC (Auto) 1 Urine Casts (Auto) 4 U Epithel Cells (Auto) 0.3 Urine Bacteria (Auto) 3.0 Blood Type O POSITIVE Antibody Screen Negative Imaging reviewed Knee X-ray shows mild effusion without subluxation or fracture. Chest x-ray negative for acute pathology. Head CT and cervical CT pending CT of the head and neck are negative for acute fracture or intracranial bleed or subluxation. ekg- Sinus bradycardia at 58 ASSESSMENT/PLAN: #Syncope/mechanical fall, Head CT/c-spine CT neg for any fractures. EKG just showed sinus bradycardia. May be from bblocker medication adverse effect. Initial trop was negative. Sy ncope may also be secondary to volume depletion from uncontrolled hyperglycemia. -tele-observation -bed rest/fall precautions -d/c metoprolol for now (symptomatic sinus bradycardia) - hold of furosemide PO for now -check orthostatics -trend troponin -echo -physical therapy eval -mild IV fluid hydration -cardiology evaluation #HTN- -amlodipine 10mg po daily #DM - uncontrolled -novolog sliding scale -lantus 10 units qhs for now -check a1c -atorvastatin #CKD -c/w home sodium bicarb po DVT -heparin sc Visit type - Emergency Visit Emergency Visit: Yes Care time: The patient presented to the Emergency Department on the above date and was hospitalized for further evaluation of their emergent condition. - New Patient This patient is new to me today: Yes Date on this admission: 01/20/19 - Critical Care Critical Care patient: No
[2019-01-20] MEDS ORDERED: INSULIN (LEVEMIR) 100 UNITS/ML UNITS SQ SCH (22:00)
[2019-01-20] MEDS ORDERED: ATORVASTATIN CA 20 MG TABLET (FP) PO SCH (22:00)
[2019-01-20] MEDS ORDERED: ATORVASTATIN CA 20 MG TABLET (FP) ONE (22:20)
[2019-01-20] MEDS ORDERED: MECLIZINE HCL 12.5 MG TABLET ONE (22:21)
[2019-01-20] MEDS ORDERED: HEPARIN NA (PORCINE) 5,000 UNITS/ML 1ML VIAL ONE (22:21)
[2019-01-20] MEDS ORDERED: INSULIN (LEVEMIR) 100 UNITS/ML UNITS SQ ONE (22:22)
[2019-01-20] MEDS: MECLIZINE HCL 12.5 MG TABLET PO SCH (22:34)
[2019-01-20] MEDS: HEPARIN NA (PORCINE) 5,000 UNITS/ML 1ML VIAL SQ SCH (22:34)
[2019-01-20] MEDS: INSULIN SLIDING SCALE (NOVOLOG) 1 VIAL SQ SCH (22:35)
[2019-01-20] MEDS: SODIUM BICARBONATE 325 MG TABLET PO SCH (22:41)
[2019-01-21] MEDS ORDERED: MECLIZINE HCL 12.5 MG TABLET ONE (06:27)
[2019-01-21] MEDS ORDERED: INSULIN (NOVOLOG) ASPART 100 UNITS/ML 10ML VIAL ONE (06:28)
[2019-01-21] MEDS: INSULIN SLIDING SCALE (NOVOLOG) 1 VIAL SQ SCH ×3 (06:34→17:19)
[2019-01-21] MEDS: MECLIZINE HCL 12.5 MG TABLET PO SCH ×2 (06:34→17:01)
[2019-01-21] MEDS: SODIUM BICARBONATE 325 MG TABLET PO SCH (06:47)
[2019-01-21] MEDS: SODIUM BICARBONATE 650 MG TABLET PO SCH ×2 (06:47→17:01)
[2019-01-21 07:09] LABS: HEMATOCRIT 37.1 % (35.4-49); HEMOGLOBIN 12.8 GM/dL (11.7-16.9); MCH 28.8 pg (25.7-33.7); MCHC 34.5 g/dl (32.0-35.9); MEAN CELL VOLUME 83.5 fl (80-96); MEAN PLT VOLUME 7.7 fl (7.5-11.1); PLATELET COUNT 243 K/MM3 (134-434); RBC 4.44 M/mm3 (4.00-5.60); RDW 14.3 % (11.9-15.9); WHITE BLOOD COUNT 6.7 K/mm3 (4.0-10.0)
[2019-01-21 07:32] LABS: ANION GAP 5 MMOL/L (8-16); BLOOD UREA NITROGEN 28.6 mg/dL (7-18); CALCIUM 8.6 mg/dL (8.5-10.1); CHLORIDE 108 mmol/L (98-107); CO2 27 mmol/L (21-32); CREATININE 1.7 mg/dL (0.55-1.3); GLUCOSE,RANDOM 118 mg/dL (74-106); MAGNESIUM 2.1 mg/dL (1.8-2.4); POTASSIUM 3.6 mmol/L (3.5-5.1); SODIUM 140 mmol/L (136-145)
[2019-01-21] MEDS: HEPARIN NA (PORCINE) 5,000 UNITS/ML 1ML VIAL SQ SCH (09:59)
[2019-01-21] MEDS ORDERED: ASPIRIN 81 MG CHEWABLE TABLETS PO SCH (10:00)
[2019-01-21] MEDS ORDERED: PATIENT'S OWN MEDICATION (NON-FORMULARY) (Omeprazole [Omeprazole] 20 MG) PO SCH (10:00)
[2019-01-21] MEDS ORDERED: FUROSEMIDE 40 MG TABLET (FP) PO SCH (10:00)
[2019-01-21] MEDS ORDERED: amLODIPine BESYLATE 10 MG TABLET (FP) PO SCH (10:00)
[2019-01-21] MEDS ORDERED: FUROSEMIDE 80 MG PO SCH (10:00)
[2019-01-21] MEDS ORDERED: PANTOPRAZOLE 20 MG TABLET (FP) PO SCH (10:00)
--- NOTE | 2019-01-21 11:25 | CON.CARD ---
Cardiology Consult (text) - Consultation Consultation Note: cc: fall hpi: 83 m hx cad s/p nstemi and pci (09/2013, doni rca, doni om1; residual 50-60 mrca, 30-50 d1), dm, htn, hld, ckd, venous insuff/le edema, vertigo here s/p fall. Was at home at night after acute dialysis registered nurse left and was going to bathroom and fell. He does not remember details of event. Denies cp, sob palps dizzy loc pnd orthopnea. Le edema has been stable. Sees dr chan for cardio. pmh: per hpi psh: nc social: no tob fam: no premature cad, scd ros: per hpi; all others nl meds: Current Medications Generic Name Dose Route Start Last Admin Trade Name Freq PRN Reason Stop Dose Admin Amlodipine Besylate 10 mg 01/21/19 10:00 01/21/19 09:59 Norvasc - PO 10 mg DAILY ISAMAR Administration Aspirin 81 mg 01/21/19 10:00 01/21/19 09:58 Asa - PO 81 mg DAILY ISAMAR Administration Atorvastatin Calcium 20 mg 01/20/19 22:00 01/20/19 22:35 Lipitor - PO 20 mg HS ISAMAR Administration Furosemide 80 mg 01/21/19 10:00 01/21/19 09:59 Lasix - PO 80 mg DAILY ISAMAR Administration Heparin Sodium (Porcine) 5,000 unit 01/20/19 22:00 01/21/19 09:59 Heparin - SQ 5,000 unit BID ISAMAR Administration Sodium Chloride 1,000 mls @ 75 mls/hr 01/20/19 16:45 01/20/19 20:30 Normal Saline - IV 75 mls/hr ASDIR ISAMAR Administration Insulin Aspart 1 vial 01/20/19 22:00 01/21/19 11:22 Novolog Vial Sliding Scale - SQ 2 unit ACHS ISAMAR Administration Protocol Insulin Detemir 10 units 01/20/19 22:00 01/20/19 22:34 Levemir Vial SQ 10 unit HS ISAMAR Administration Meclizine HCl 12.5 mg 01/20/19 22:00 01/21/19 06:34 Antivert - PO 12.5 mg TID ISAMAR Administration Metoprolol Succinate 50 mg 01/21/19 10:00 01/21/19 09:59 Toprol Xl - PO 50 mg DAILY ISAMAR Administration Pantoprazole Sodium 20 mg 01/21/19 10:00 01/21/19 09:59 Protonix - PO 20 mg DAILY ISAMAR Administration Sodium Bicarbonate 650 mg 01/21/19 06:45 01/21/19 06:47 Sodium Bicarbonate - PO 650 mg TID ISAMAR Administration pe: Vital Signs Period Temp Pulse Resp BP Sys/Charles Pulse Ox Last 24 Hr 97.8 F-98.9 F 63-76 16-20 131-175/59-77 97-98 nad no jvd rrr s1s2 no mrg cta bl nl eff aaox3 trace le edema, no c/c abd nt nd pos bs no jaundice diaphoresis pos dp pt no carotid bruits Laboratory Last Values WBC 6.7 K/mm3 (4.0-10.0) 01/21/19 06:36 RBC 4.44 M/mm3 (4.00-5.60) 01/21/19 06:36 Hgb 12.8 GM/dL (11.7-16.9) 01/21/19 06:36 Hct 37.1 % (35.4-49) 01/21/19 06:36 MCV 83.5 fl (80-96) 01/21/19 06:36 MCH 28.8 pg (25.7-33.7) 01/21/19 06:36 MCHC 34.5 g/dl (32.0-35.9) 01/21/19 06:36 RDW 14.3 % (11.9-15.9) 01/21/19 06:36 Plt Count 243 K/MM3 (134-434) 01/21/19 06:36 MPV 7.7 fl (7.5-11.1) 01/21/19 06:36 Absolute Neuts (auto) 4.3 K/mm3 (1.5-8.0) 01/20/19 14:10 Neutrophils % 64.1 % (42.8-82.8) 01/20/19 14:10 Lymphocytes % 23.0 % (8-40) 01/20/19 14:10 Monocytes % 9.0 % (3.8-10.2) 01/20/19 14:10 Eosinophils % 3.1 % (0-4.5) 01/20/19 14:10 Basophils % 0.8 % (0-2.0) 01/20/19 14:10 Nucleated RBC % 0 % (0-0) 01/20/19 14:10 PT with INR 10.80 SEC (9.7-13.0) 01/20/19 14:10 INR 0.92 (0.83-1.09) 01/20/19 14:10 Sodium 140 mmol/L (136-145) 01/21/19 06:36 Potassium 3.6 mmol/L (3.5-5.1) 01/21/19 06:36 Chloride 108 mmol/L (98-107) H 01/21/19 06:36 Carbon Dioxide 27 mmol/L (21-32) 01/21/19 06:36 Anion Gap 5 MMOL/L (8-16) L 01/21/19 06:36 BUN 28.6 mg/dL (7-18) H 01/21/19 06:36 Creatinine 1.7 mg/dL (0.55-1.3) H 01/21/19 06:36 Est GFR (CKD-EPI)AfAm 42.58 01/21/19 06:36 Est GFR (CKD-EPI)NonAf 36.74 01/21/19 06:36 Random Glucose 118 mg/dL (74-106) H 01/21/19 06:36 Calcium 8.6 mg/dL (8.5-10.1) 01/21/19 06:36 Magnesium 2.1 mg/dL (1.8-2.4) 01/21/19 06:36 Total Bilirubin 1.0 mg/dL (0.2-1) 01/20/19 14:10 AST 22 U/L (15-37) 01/20/19 14:10 ALT 15 U/L (13-61) 01/20/19 14:10 Alkaline Phosphatase 85 U/L (45-117) 01/20/19 14:10 Creatine Kinase 103 U/L (26-308) 01/21/19 06:36 Troponin I < 0.02 ng/ml (0.00-0.05) 01/21/19 06:36 Total Protein 6.7 g/dl (6.4-8.2) 01/20/19 14:10 Albumin 3.4 g/dl (3.4-5.0) 01/20/19 14:10 Urine Color Yellow 01/20/19 15:12 Urine Appearance Clear 01/20/19 15:12 Urine pH 5.5 (5.0-8.0) D 01/20/19 15:12 Ur Specific [place] 1.012 (1.010-1.035) 01/20/19 15:12 Urine Protein 1+ (NEGATIVE) H 01/20/19 15:12 Urine Glucose (UA) 1+ (NEGATIVE) H 01/20/19 15:12 Urine Ketones Negative (NEGATIVE) 01/20/19 15:12 Urine Blood Negative (NEGATIVE) 01/20/19 15:12 Urine Nitrite Negative (NEGATIVE) 01/20/19 15:12 Urine Bilirubin Negative (NEGATIVE) 01/20/19 15:12 Urine Urobilinogen 0.2 mg/dL (0.2-1.0) 01/20/19 15:12 Ur Leukocyte Esterase Negative (NEGATIVE) 01/20/19 15:12 Urine WBC (Auto) 0 /hpf (0-5) 01/20/19 15:12 Urine RBC (Auto) 1 /hpf (0-4) 01/20/19 15:12 Urine Casts (Auto) 4 /lpf (0-8) 01/20/19 15:12 U Epithel Cells (Auto) 0.3 /HPF (0-5/HPF) 01/20/19 15:12 Urine Bacteria (Auto) 3.0 /hpf (NEGATIVE) 01/20/19 15:12 Blood Type O POSITIVE 01/20/19 14:13 Antibody Screen Negative 01/20/19 14:13 ecg: sr, nl intervals, no ischemic changes cxr: clear lungs mibi 06/2015: no ischemia echo 07/2017: 1+ lvh. hyperdynamic lv function. impaired relaxation. nl rv size/fn. 1+ ar. 1+tr. echo 01/2017: nl lv/rv, iasa, mild ar renal u/s 07/2017: bilateral renal cysts. no acute renal pathology. limited doppler study but no evidence of renal artery stenosis. renal duplex 07/2014: no anat a/p: 83 m hx cad s/p nstemi and pci (09/2013, doni rca, doni om1; residual 50-60 mrca, 30-50 d1), dm, htn, hld, ckd, venous insuff/le edema, vertigo here s/p fall. unwitnessed fall: -no signs acs, chf, arrhythmia -appeared vol depleted on labs and after ivfs feels well and renard improved, possible etiology of fall -check ortho vitals -check echo -pt eval -tele benign in er, can now dc tele cad s/p remote mi/pci: -stable no signs acs -cont bb, statin, asa hld: -cont statin htn: -cont home meds renrad/ckd: -cr initially worse, now back at baseline after some ivfs le edema: -stable on home lasix
[2019-01-21 13:38] VITALS: TEMP 98.1
[2019-01-21] MEDS ORDERED: LIDOCAINE 5% TOPICAL PATCH TP SCH (14:45)
--- NOTE | 2019-01-21 15:04 | PN ---
Progress Note, Physician - Current Medication List Current Medications: Active Medications Amlodipine Besylate (Norvasc -) 10 mg PO DAILY [facility]ENDING SALE TO [facility] Last Admin: 01/21/19 09:59 Dose: 10 mg Aspirin (Asa -) 81 mg PO DAILY [facility]END[facility] Last Admin: 01/21/19 09:58 Dose: 81 mg Atorvastatin Calcium (Lipitor -) 20 mg PO HS [facility]END[facility] S[facility] Last Admin: 01/20/19 22:35 Dose: 20 mg Furosemide (Lasix -) 80 mg PO DAILY [facility] Last Admin: 01/21/19 09:59 Dose: 80 mg Heparin Sodium (Porcine) (Heparin -) 5,000 unit SQ BID [facility] Last Admin: 01/21/19 09:59 Dose: 5,000 unit Sodium Chloride (Normal Saline -) 1,000 mls @ 75 mls/hr IV ASDIR PENDING SALE TO [facility] Last Admin: 01/20/19 20:30 Dose: 75 mls/hr Insulin Aspart (Novolog Vial Sliding Scale -) 1 vial SQ [facility]; Protocol Last Admin: 01/21/19 11:22 Dose: 2 unit Insulin Detemir (Levemir Vial) 10 units SQ [facility] Last Admin: 01/20/19 22:34 Dose: 10 unit Lidocaine (Lidoderm Patch -) 1 patch TP DAILY [facility] Meclizine HCl (Antivert -) 12.5 mg PO TID [facility]END[facility] S[facility] Last Admin: 01/21/19 06:34 Dose: 12.5 mg Metoprolol Succinate (Toprol Xl -) 50 mg PO DAILY [facility] Last Admin: 01/21/19 09:59 Dose: 50 mg Miscellaneous (Lidoderm Patch Removal) 1 each MC DAILY@2200 [facility] Pantoprazole Sodium (Protonix -) 20 mg PO DAILY [facility] Last Admin: 01/21/19 09:59 Dose: 20 mg Sodium Bicarbonate (Sodium Bicarbonate -) 650 mg PO TID PENDING SALE [facility] Last Admin: 01/21/19 06:47 Dose: 650 mg - Objective Vital Signs: Vital Signs Temperature 98.1 F 01/21/19 13:34 Pulse Rate 68 01/21/19 13:34 Respiratory Rate 18 01/21/19 13:34 Blood Pressure 154/70 01/21/19 13:34 O2 Sat by Pulse Oximetry (%) 97 01/21/19 11:15 Labs: CBC, BMP 01/21/19 06:36 01/21/19 06:36 INR, PTT INR 0.92 (0.83-1.09) 01/20/19 14:10
--- NOTE | 2019-01-21 16:03 | FALL ---
Fall Exam - Event Witnessed fall: Yes Location of Fall: Patient Room Fall from: While ambulating - Pre-Fall Mental Status: Alert, Oriented Current Medications: Current Medications Generic Name Dose Route Start Last Admin Trade Name Saji PRN Reason Stop Dose Admin Amlodipine Besylate 10 mg 01/21/19 10:00 01/21/19 09:59 Norvasc - PO 10 mg DAILY ISAMAR Administration Aspirin 81 mg 01/21/19 10:00 01/21/19 09:58 Asa - PO 81 mg DAILY ISAMAR Administration Atorvastatin Calcium 20 mg 01/20/19 22:00 01/20/19 22:35 Lipitor - PO 20 mg HS ISAMAR Administration Furosemide 80 mg 01/21/19 10:00 01/21/19 09:59 Lasix - PO 80 mg DAILY ISAMAR Administration Heparin Sodium (Porcine) 5,000 unit 01/20/19 22:00 01/21/19 09:59 Heparin - SQ 5,000 unit BID ISAMAR Administration Sodium Chloride 1,000 mls @ 75 mls/hr 01/20/19 16:45 01/20/19 20:30 Normal Saline - IV 75 mls/hr ASDIR ISAMAR Administration Insulin Aspart 1 vial 01/20/19 22:00 01/21/19 11:22 Novolog Vial Sliding Scale - SQ 2 unit ACHS ISAMAR Administration Protocol Insulin Detemir 10 units 01/20/19 22:00 01/20/19 22:34 Levemir Vial SQ 10 unit HS ISAMAR Administration Lidocaine 1 patch 01/21/19 14:45 Lidoderm Patch - TP DAILY ISAMAR Meclizine HCl 12.5 mg 01/20/19 22:00 01/21/19 06:34 Antivert - PO 12.5 mg TID ISAMAR Administration Metoprolol Succinate 50 mg 01/21/19 10:00 01/21/19 09:59 Toprol Xl - PO 50 mg DAILY ISAMAR Administration Miscellaneous 1 each 01/21/19 22:00 Lidoderm Patch Removal MC DAILY@2200 ISAMAR Pantoprazole Sodium 20 mg 01/21/19 10:00 01/21/19 09:59 Protonix - PO 20 mg DAILY ISAMAR Administration Sodium Bicarbonate 650 mg 01/21/19 06:45 01/21/19 06:47 Sodium Bicarbonate - PO 650 mg TID ISAMAR Administration - Post-Fall Patient Outcome: No Injury, Pain Only Treatment: Analgesia Vital Signs: Vital Signs Temperature 98.1 F 01/21/19 13:34 Pulse Rate 68 01/21/19 13:34 Respiratory Rate 18 01/21/19 13:34 Blood Pressure 154/70 01/21/19 13:34 O2 Sat by Pulse Oximetry (%) 97 01/21/19 11:15 LOC Post-Fall: Unchanged Identify factors for HIGH RISK for Head Injury: Pt on anticoagulant Critical Care Total Critical Care Time (in minutes): 45 Critical Care Statement: The care of this patient involved high complexity decision making to prevent further life threatening deterioration of the patient 's condition and/or to evaluate & treat vital organ system(s) failure or risk of failure.
[2019-01-21] MEDS ORDERED: LORazepam 2 MG/ML SDV VIAL IVPUSH ONE (16:54)
[2019-01-21 17:42] VITALS: BP 150/80; PULSE 84
--- NOTE | 2019-01-21 18:17 | DS ---
Physical Exam: SUBJECTIVE: Patient seen and examined at the bedside. patient anxious and experienced delirium once his [employer] left for the day he attempted to get out of bed and I was able to place him back to bed and asked him to call if he was going to get oob to bathroom. Apx 20 mins later, patient again attempted to get out of bed and had a witnessed fall (witnessed by nursing supervisor [employer] [place]). patient did not his his head but since he is on heparin I followed protocol #[address] was generated. Patient refused head CT and became agitated in radiology and did not allow head CT to be performed a condition 10 was called to radiology. Therefore, will not order a coccyx xray as he is refusing imaging and becomes uncooperative and extremely agitated with any tests. I called son and discussed fall and patient anxiety. per son, patient develops delirium when hospitalized and he prefers to come and take him home. He feels that his fathers's behaviour would escalate through the night. Son wants to take his father to Dr. Avelar for an echocardiogram and agrees to take him to an orthopedic to follow up on left knee swelling. [employer] informed me that patient has frequent falls at home and has [employer] daily from 9am-2pm, after 2pm, patient is home by himself. Risks of leaving AMA discussed with son, who signed AMA paperwork in my presence. OBJECTIVE: Vital Signs Period Temp Pulse Resp BP Sys/Charles Pulse Ox Last 24 Hr 97.8 F-98.9 F 63-84 16-20 142-175/65-80 97-100 PHYSICAL EXAM GENERAL: The patient is awake, alert, agitated and anxious. given ativan 0.25mg for agitated with son's permission. HEAD: Normal with no signs of trauma. EYES: PERRL, extraocular movements intact, sclera anicteric, conjunctiva clear. ENT: Ears normal, nares patent, oropharynx clear without exudates, moist mucous membranes. NECK: Trachea midline, full range of motion, supple. LUNGS: Breath sounds equal, clear to auscultation bilaterally, no wheezes, no crackles, no accessory muscle use. HEART: Regular rate and rhythm, ABDOMEN: Soft, nontender, nondistended, normoactive bowel sounds, no guarding, no rebound, no hepatosplenomegaly, no masses. EXTREMITIES: left knee swollen, no fracture, pt to be seen by ortho as an outpatient. NEUROLOGICAL: Normal speech, fall risk PSYCH: agitated, combative LABS Laboratory Results - last 24 hr 01/21/19 01/21/19 06:36 06:36 WBC 6.7 RBC 4.44 Hgb 12.8 Hct 37.1 MCV 83.5 MCH 28.8 MCHC 34.5 RDW 14.3 Plt Count 243 MPV 7.7 Sodium 140 Potassium 3.6 Chloride 108 H Carbon Dioxide 27 Anion Gap 5 L BUN 28.6 H Creatinine 1.7 H Est GFR (CKD-EPI)AfAm 42.58 Est GFR (CKD-EPI)NonAf 36.74 Random Glucose 118 H Calcium 8.6 Magnesium 2.1 Creatine Kinase 103 Troponin I < 0.02 HOSPITAL COURSE: Date of Admission:01/20/19 Date of Discharge: 01/21/19 patient anxious and experienced delirium once his [employer] left for the day he attempted to get out of bed and I was able to place him back to bed and asked him to call if he was going to get oob to bathroom. Apx 20 mins later, patient again attempted to get out of bed and had a witnessed fall (witnessed by nursing supervisor ordn[employer] [place]). patient did not his his head but since he is on heparin I followed protocol #[address] was generated. Patient refused head CT and became agitated in radiology and did not allow head CT to be performed a condition 10 was called to radiology. Therefore, will not order a coccyx xray as he is refusing imaging and becomes uncooperative and extremely agitated with any tests. I called son and discussed fall and patient anxiety. per son, patient develops delirium when hospitalized and he prefers to come and take him home. He feels that his fathers's behaviour would escalate through the night. Son wants to take his father to Dr. Avelar for an echocardiogram and agrees to take him to an orthopedic to follow up on left knee swelling. [employer] informed me that patient has frequent falls at home and has [employer] daily from 9am-2pm, after 2pm, patient is home by himself. Risks of leaving AMA discussed with son, who signed AMA paperwork in my presence. Minutes to complete discharge: 60 Discharge Summary Reason For Visit: HYPERGLYCEMIA,SYNCOPE Current Active Problems Syncope (Acute) Condition: Guarded - Instructions Diet, Activity, Other Instructions: Please follow up with Dr. Avelar for an echocardiogram Please follow up with orthopedics for left knee swelling. Referrals: Anirudh Avelar MD [Staff Physician] - Adam Cross DO [Staff Physician] - (make appointment for left knee swelling ) Disposition: AGAINST MEDICAL ADVICE - Home Medications Comprehensive Discharge Medication List: Ambulatory Orders Aspirin [ASA -] 81 mg PO DAILY #0 tab.chew 10/01/13 Atorvastatin Ca [Lipitor] 20 mg PO HS 07/23/17 Meclizine HCl 12.5 mg PO TID 07/23/17 Amlodipine Besylate [Norvasc -] 10 mg PO DAILY #30 tablet 07/27/17 Furosemide 80 mg PO DAILY 01/20/19 Metoprolol Succinate 50 mg PO DAILY 01/20/19 Omeprazole 20 mg PO DAILY 01/20/19 Sodium Bicarbonate 650 mg PO TID 01/20/19 This patient is new to me today: Yes Date on this admission: 01/21/19 Emergency Visit: Yes ED Registration Date: 01/20/19 Care time: The patient presented to the Emergency Department on the above date and was hospitalized for further evaluation of their emergent condition. Critical Care patient: No - Discharge Referral Referred to [facility] No
[2019-01-21] MEDS ORDERED: LIDOCAINE PATCH REMOVAL MC SCH (22:00)
== END 2019-01-21 18:39 | disposition left against medical advice (07) | DRG 638 ==
LOC: JER 12:49 → JERBED 17:39 → J5S 01-21 15:16
PROVIDERS: ADMIT Internal Medicine; ATTEND Nurse Practitioner Family
DX: E11.65 Type 2 diabetes mellitus with hyperglycemia (principal); N17.9 Acute kidney failure, unspecified; R55 Syncope and collapse; I25.10 Atherosclerotic heart disease of native coronary artery without angina pectoris; F03.90 Unspecified dementia, unspecified severity, without behavioral disturbance, psychotic disturbance, mood disturbance, and anxiety; E86.9 Volume depletion, unspecified; E11.22 Type 2 diabetes mellitus with diabetic chronic kidney disease; I12.9 Hypertensive chronic kidney disease with stage 1 through stage 4 chronic kidney disease, or unspecified chronic kidney disease; N18.9 Chronic kidney disease, unspecified; I25.2 Old myocardial infarction; E78.5 Hyperlipidemia, unspecified; Z95.5 Presence of coronary angioplasty implant and graft; R29.6 Repeated falls; F41.9 Anxiety disorder, unspecified; R45.1 Restlessness and agitation
CPT/HCPCS: 36415; 70450-TC; 71045-TC-FY; 72125-TC; 73560-TC-LT-FY; 80048; 80053; 81003; 82550; 82962; 83735; 84484; 85025; 85027; 85610; 86850; 86900; 86901; 87086; 93005; 93010; 99285-25; J1644; J7030

== ENCOUNTER 2020-04-17 11:06 | Inpatient (IN) | payer OTHER ==
--- NOTE | 2020-04-17 11:55 | PDOC ---
History of Present Illness - General Chief Complaint: Injury Stated Complaint: FALL Time Seen by Provider: 04/17/20 11:45 History Source: Patient Exam Limitations: No Limitations - History of Present Illness Initial Comments: 04/17/20 11:46 84YOM with h/o DM, HTN, prior syncope with admission here at [facility], CKD, and "a heart condition" who was BIBEMS after being found down on the floor at his residence (where he lives alone), suspected to have been on the floor for at least 3 hours. The patient has memory problems per his sister, who accompanies him to the ED, and the patient himself is a poor historian. He does state that it was still dark outside at the time he fell. He notes having tried to call family members from the floor and had difficulty getting through. When he finally contacted the son, the son called 911. The patient noted left hip pain and left knee pain, otherwise denies any symptoms. Past History - Medical History Allergies/Adverse Reactions: Allergies Allergy/AdvReac Type Severity Reaction Status Date / Time No Known Drug Allergies Allergy Verified 01/20/19 13:10 Home Medications: Ambulatory Orders Aspirin [ASA -] 81 mg PO DAILY #0 tab.chew 10/01/13 Atorvastatin Ca [Lipitor] 20 mg PO HS 07/23/17 Meclizine HCl 12.5 mg PO TID 07/23/17 Amlodipine Besylate [Norvasc -] 10 mg PO DAILY #30 tablet 07/27/17 Furosemide 80 mg PO DAILY 01/20/19 Metoprolol Succinate 50 mg PO DAILY 01/20/19 Omeprazole 20 mg PO DAILY 01/20/19 Sodium Bicarbonate 650 mg PO TID 01/20/19 Anemia: No Asthma: No Cancer: No Cardiac Disorders: No CVA: No COPD: No CHF: No Dementia: No Diabetes: Yes GI Disorders: No Disorders: No HTN: Yes Hypercholesterolemia: No Liver Disease: No Seizures: No Thyroid Disease: No - Psycho-Social/Smoking History Smoking History: Never smoked Have you smoked in the past 12 months: No - Substance Abuse Hx (Audit-C & DAST Scrn) How often the patient has a drink containing alcohol: Never Score: In Men: 4 or > Positive; In Women: 3 or > Positive: 0 Screen Result (Pos requires Nsg. Audit-10AR): Negative In the last yr the pt used illegal drug/Rx for NonMed reason: No Score: Yes response is considered Positive: 0 Screen Result (Positive result requires Nsg. DAST-10): Negative Review of Systems - Review of Systems Able to Perform ROS?: Yes Comments:: 04/17/20 13:03 GEN: no fever, chills, generalized weakness, or malaise HEENT: no ear pain, eye pain, throat pain or swelling, nosebleed, vision change, or loose teeth SKIN: no cuts, abrasions, or bruises CV: no chest pain, palpitations, or LOC RESP: no cough or SOB GI: no abdominal pain, nausea, vomiting, or black/bloody stool : no hematuria or flank pain/bruising MSK: +left hip and knee pain, otherwise no muscle weakness, muscle pain, joint pain, or joint swelling NECK/BACK: no neck pain, back pain, or trauma reported NEURO: no headache, seizure, numbness, tingling, focal weakness, or incontinence PSYCH: +memory problems per sister, no suicidality, homicidality, or substance use *Physical Exam - Vital Signs Last Vital Signs Temp Pulse Resp BP Pulse Ox 98.3 F 80 19 150/68 98 04/17/20 11:25 04/17/20 11:25 04/17/20 11:25 04/17/20 11:25 04/17/20 11:25 - Physical Exam 04/17/20 13:04 GENERAL: elderly, nontoxic-appearing, no distress, answers questions appropriately, obese, accompanied by sister at bedside who assist in history, family states Pt is A/O per baseline and mentating at baseline, primarily Lao-speaking HEENT: no obvious facial deformity, no cephalohematoma, no scalp laceration, no raccoon eyes, no proptosis, PERRLA, EOMI without pain, no nasal septal hematoma, no obvious CSF rhinorrhea, no epistaxis, no jaw malocclusion, no loose teeth, no dang sign, no hemotympanum, no obvious CSF otorrhea, moist mucous membranes NECK/BACK: no midline ttp, no spinal stepoff or deformity, no hematoma, full RO M, neck supple CARDIOVASCULAR: regular rate/rhythm, no MGR, strong peripheral pulses, capillary refill <2 seconds, extremities wwp, no edema LUNGS/RESPIRATORY: no respiratory distress, CTAB GI/ABDOMEN: protuberant but nondistended, symmetric [id number], normoactive BS, soft, no ttp, no midline pulsatile masses : no CVA tenderness MSK/EXTREMITIES: left lateral hip tenderness to palpation and left anterior knee tenderness to palpation, no thigh hematoma, no bruising, patient able to lift left leg off the stretcher but states exacerbates the hip pain, no acute- appearing muscle atrophy, no acute deformity DERM/SKIN: warm and dry, no pallor, no jaundice, no rash, no pathologic- appearing bruising, no skin breakdown, no cuts, no lesions NEUROLOGICAL: GCS 15, CN II-XII grossly intact, 5/5 strength proximally and distally, no facial droop Heart Score/ECG Review #1 Sinus rhythm, rate 74, normal axis and intervals, q waves which were present on prior EKG, TWI in V3 and TWF in V4 which were present on prior EKG, no other ST- T changes ED Treatment Course - LABORATORY CBC & Chemistry Diagram: 04/17/20 13:28 04/17/20 13:28 - ADDITIONAL ORDERS Additional order review: Laboratory Results 04/17/20 11:29 POC Glucometer 172 04/17/20 11:29 POC Glucometer 172 Medical Decision Making - Medical Decision Making 04/17/20 12:15 Elderly Pt p/w GLF, possibly precipitated by syncope or pre-syncope, now with subsequent left hip pain. Initial Vital Signs Temp Pulse Resp BP Pulse Ox 98.3 F 80 19 150/68 98 04/17/20 11:25 04/17/20 11:25 04/17/20 11:25 04/17/20 11:25 04/17/20 11:25 DDX IBNLT: hip/pelvis/femur fxr, less likely hip dislocation, possible sprain/strain, contusion, etc. Patient also likely suffered a syncopal or pre- syncopal episode, and was on the ground for at least RAD/KNEE 3 POS-LEFT Left knee: Fall. Pain. 3 views of the knee reveal arthritic changes but no sign of fracture or subluxation and no sign sign of blastic or lytic changes. There is a small fabella suggested. Swelling, foreign body or sof t tissue air is not seen. If symptoms persist, further imaging may be of help. Impression: Arthritic changes. No acute pathology appreciated. RAD/PELVIS Chest: Fall. Pain. Single view of the pelvis reveals slight rotation on the left but no sign of a gross fracture or subluxation and no sign of bl astic or lytic changes. Significant arthritic changes are not seen. The SI joints are patent. There are pelvic phlebolith. If symptoms persist or there is decreased range of motion , then further imaging with CT and orthopedic consultation may be of help. RAD/CHEST PA LAT Chest: Fall. Pain. Single AP view of the chest reveals a large heart, unfolded aorta, weak inspiration with clear lungs and no sign of infiltrate or failure. The angles are sharp. The bones and soft tissues are intact. An acute process is not seen. Since 01/20/2019 there is no change of an adverse nature. If symptoms persist, further imaging may be of help. Provider Orders Category Date Time Status Decision to Admit to Hospital Routine Admission 04/17/20 12:[address] WITHOUT CONTRAST [CT] Stat CT Scan 04/17/20 13:[address] WITHOUT CONTRAST [CT] Stat CT Scan 04/17/20 13:16 Ordered EKG [ELECTROCARDIOGRAM] [CARD] Stat Cardiology 04/17/20 12:05 Ordered Cardiac Monitoring Continuous Care 04/17/20 11:53 Active EKG needed NOW Care 04/17/20 12:05 Completed Add On Test Stat Lab 04/17/20 14:41 Ordered CBC WITH DIFFERENTIAL Stat Lab 04/17/20 13:28 Completed COMP METABOLIC PANEL Stat Lab 04/17/20 13:28 Completed MAGNESIUM Stat Lab 04/17/20 13:28 Completed PHOSPHOROUS Stat Lab 04/17/20 13:28 Completed POC GLUCOSE TESTING Routine Lab 04/17/20 11:29 Completed UA ([facility]) ONLY Stat Lab 04/17/20 13:28 Completed Acetaminophen Injection [Ofirmev Injection -] Medication 04/17/20 12:10 Discontinued 1,000 mg IVPB ONCE ONE Acetaminophen Injection [Ofirmev Injection -] 100 ml Medication 04/17/20 12:34 Discontinued IVPB UD URINE CULTURE Stat Micro 04/17/20 13:28 Received CHEST PA & LAT [RAD] Stat Radiology 04/17/20 11:48 Completed KNEE 3 POS-LEFT [RAD] Stat Radiology 04/17/20 12:10 Completed PELVIS [RAD] Stat Radiology 04/17/20 11:48 Completed Medications Discontinued Medications Generic Name Dose Route Start Last Admin Trade Name Saji PRN Reason Stop Dose Admin Acetaminophen 1,000 mg 04/17/20 12:10 04/17/20 12:35 Ofirmev Injection - IVPB 04/17/20 12:11 1,000 mg ONCE ONE Administration Acetaminophen Confirm 04/17/20 12:34 Ofirmev Injection - Administered 04/17/20 12:35 Dose 100 mls @ ud IVPB .STK-MED ONE Lab Results WBC 10.8 K/mm3 (4.0-10.0) H 04/17/20 13:28 RBC 4.59 M/mm3 (4.00-5.60) 04/17/20 13:28 Hgb 12.5 GM/dL (11.7-16.9) 04/17/20 13:28 Hct 38.6 % (35.4-49) 04/17/20 13:28 MCV 84.1 fl (80-96) 04/17/20 13:28 MCH 27.3 pg (25.7-33.7) 04/17/20 13:28 MCHC 32.5 g/dl (32.0-35.9) 04/17/20 13:28 RDW 14.0 % (11.9-15.9) 04/17/20 13:28 Plt Count 267 K/MM3 (134-434) 04/17/20 13:28 MPV 7.8 fl (7.5-11.1) 04/17/20 13:28 Absolute Neuts (auto) 9.1 K/mm3 (1.5-8.0) H 04/17/20 13:28 Neutrophils % 84.3 % (42.8-82.8) H D 04/17/20 13:28 Lymphocytes % 8.9 % (8-40) D 04/17/20 13:28 Monocytes % 6.2 % (3.8-10.2) 04/17/20 13:28 Eosinophils % 0.1 % (0-4.5) D 04/17/20 13:28 Basophils % 0.5 % (0-2.0) 04/17/20 13:28 Nucleated RBC % 0 % (0-0) 04/17/20 13:28 Sodium 139 mmol/L (136-145) 04/17/20 13:28 Potassium 4.4 mmol/L (3.5-5.1) 04/17/20 13:28 Chloride 106 mmol/L (98-107) 04/17/20 13:28 Carbon Dioxide 27 mmol/L (21-32) 04/17/20 13:28 Anion Gap 6 MMOL/L (8-16) L 04/17/20 13:28 BUN 60.8 mg/dL (7-18) H 04/17/20 13:28 Creatinine 2.1 mg/dL (0.55-1.3) H 04/17/20 13:28 Est GFR (CKD-EPI)AfAm 32.75 04/17/20 13:28 Est GFR (CKD-EPI)NonAf 28.26 04/17/20 13:28 POC Glucometer 172 UNITS (80-120) 04/17/20 11:29 Random Glucose 163 mg/dL (74-106) H 04/17/20 13:28 Calcium 9.1 mg/dL (8.5-10.1) 04/17/20 13:28 Phosphorus 2.7 mg/dL (2.5-4.9) 04/17/20 13:28 Magnesium 2.6 mg/dL (1.8-2.4) H 04/17/20 13:28 Total Bilirubin 0.8 mg/dL (0.2-1) 04/17/20 13:28 AST 52 U/L (15-37) H 04/17/20 13:28 ALT 23 U/L (13-61) 04/17/20 13:28 Alkaline Phosphatase 84 U/L (45-117) 04/17/20 13:28 Total Protein 7.6 g/dl (6.4-8.2) 04/17/20 13:28 Albumin 3.8 g/dl (3.4-5.0) 04/17/20 13:28 Urine Color Yellow 04/17/20 13:28 Urine Appearance Clear 04/17/20 13:28 Urine pH 6.0 (5.0-8.0) 04/17/20 13:28 Ur Specific [place] 1.014 (1.010-1.035) 04/17/20 13:28 Urine Protein 2+ (NEGATIVE) H 04/17/20 13:28 Urine Glucose (UA) Negative (NEGATIVE) 04/17/20 13:28 Urine Ketones Negative (NEGATIVE) 04/17/20 13:28 Urine Blood 3+ (NEGATIVE) H 04/17/20 13:28 Urine Nitrite Negative (NEGATIVE) 04/17/20 13:28 Urine Bilirubin Negative (NEGATIVE) 04/17/20 13:28 Urine Urobilinogen 0.2 mg/dL (0.2-1.0) 04/17/20 13:28 Ur Leukocyte Esterase Negative (NEGATIVE) 04/17/20 13:28 Urine WBC (Auto) 1 /uL (0-25.8) 04/17/20 13:28 Urine RBC (Auto) 15 /uL (0-23.9) 04/17/20 13:28 Urine Casts (Auto) 0 /uL (0-3.1) 04/17/20 13:28 U Epithel Cells (Auto) 1 /uL (0-25.1) 04/17/20 13:28 Urine Bacteria (Auto) 11 /uL (0-1359) 04/17/20 13:28 CT/PELVIS CT WITHOUT CONTRAST Patient Name: OSIRIS JOHNSON Accession Number: [id number] :[id number] Gender: Male Procedure: PELVIS CT WITHOUT CONTRAST INDICATION: 84 years Male trauma TECHNIQUE: CT scan of the abdomen/pelvis was performed from the infrarenal abdomen through the symphysis pubis. Enteric contrast: Not administered IV contrast: Not administered COMPARISON: No prior examinations are available for comparison. FINDINGS/DISCUSSION: Left kidney: Partially visualized. 6.8 cm cystic structure identified in the left lower quadrant appears to represent a cortical cyst, however assessment is limited by collimation of the kidney. 2 cortical cysts are demonstrated at the left lower pole measuring 2.2 cm and 1.8 cm. Retroperitoneum: Unremarkable. Peritoneum: No free fluid or air. No lymphadenopathy. Bowel: Partially visualized. No evidence of obstruction. Normal appendix. No bowel wall thickening. Pelvis: No free pelvic fluid. No bulky iliac or inguinal adenopathy. Urinary bladder: Unremarkable. Prostate: Normal in size. Seminal vesicles: Symmetric. Bones: Osseous structures are intact. Generalized osteopenia. Joints: Bilateral hip joints are preserved. Partially visualized lower lumbar spine suggests multilevel degenerative disc disease and facet arthropathy. Soft tissues: Atherosclerotic calcifications are demonstrated. IMPRESSION: No acute osseous findings. Generalized osteopenia. Multilevel degenerative disc disease. Partially visualized 6.8 cm cystic structure in the left lower quadrant appears to represent a cortical cysts, however assessment is limited by collimation of the left kidney. CT/HEAD CT WITHOUT CONTRAST Status post fall. Possible syncope CT scan of the head without intravenous contrast Compared to prior CT of the head dated 01/20/2019 There is moderate atrophy, ventricular dilatation and periventricular chronic microvascular ischemic disease changes. No mass lesion, gross CT evidence of acute infarct or intracranial hemorrhage are identified. There is no shift of the midline structures. The craniocervical junction appears unremarkable. Mild deviation of the nasal septum towards the right. Minimal mucoperiosteal thickening in the ethmoid air cells, posteriorly. Calcification of the cavernous carotid arteries are present. The mastoid air cells are well aerated and the calvarium is intact IMPRESSION: Moderate atrophy and periventricular chronic microvascular ischemic disease changes without CT evidence of acute intracranial pathology. Patient requiring admission for likely syncope, weakness. Microblog sent. 04/17/20 16:[address] Calle, patient admitted to Dr. Osman, telemetry. Last Vital Signs Temp Pulse Resp BP Pulse Ox 98.3 F 58 L 17 178/69 H 100 04/17/20 11:25 04/17/20 17:11 04/17/20 17:11 04/17/20 17:11 04/17/20 17:11 Discharge - Discharge Information Problems reviewed: Yes Clinical Impression/Diagnosis: Fall from ground level, Elevated creatine kinase level CKD (chronic kidney disease) Qualifiers: Chronic kidney disease stage: unspecified stage Qualified Code(s): N18.9 - Chronic kidney disease, unspecified Syncope Qualifiers: Syncope type: unspecified Qualified Code(s): R55 - Syncope and collapse Condition: Guarded - Admission Yes - Follow up/Referral - Patient Discharge Instructions - Post Discharge Activity
[2020-04-17] MEDS ORDERED: ACETAMINOPHEN 1000 MG/100 ML VIAL (NON FORMULARY) IVPB ONE (12:10)
[2020-04-17] MEDS ORDERED: ACETAMINOPHEN INJECTION 100 ML IVPB ONE (12:34)
[2020-04-17 13:46] LABS: BASO % 0.5 % (0-2.0); EOS % 0.1 % (0-4.5); HEMATOCRIT 38.6 % (35.4-49); HEMOGLOBIN 12.5 GM/dL (11.7-16.9); LYMPH % 8.9 % (8-40); MCH 27.3 pg (25.7-33.7); MCHC 32.5 g/dl (32.0-35.9); MEAN CELL VOLUME 84.1 fl (80-96); MEAN PLT VOLUME 7.8 fl (7.5-11.1); MONO % 6.2 % (3.8-10.2); NEUT % 84.3 % (42.8-82.8); PLATELET COUNT 267 K/MM3 (134-434); RBC 4.59 M/mm3 (4.00-5.60); WHITE BLOOD COUNT 10.8 K/mm3 (4.0-10.0)
[2020-04-17 13:53] LABS: EPI CELLS 1 /uL (0-25.1); HYALINE CASTS 0 /uL (0-3.1); URINE APPEARANCE CLEAR; URINE BACTERIA 11 /uL (0-1359); URINE BILIRUBIN NEGATIVE (NEGATIVE); URINE COLOR YELLOW; URINE GLUCOSE (UA) NEGATIVE (NEGATIVE); URINE KETONE NEGATIVE (NEGATIVE); URINE LEUK ESTERASE NEGATIVE (NEGATIVE); URINE NITRITE NEGATIVE (NEGATIVE); URINE PROTEIN 2+ (NEGATIVE); URINE RBC 15 /uL (0-23.9); URINE UROBILINOGEN 0.2 mg/dL (0.2-1.0); URINE WBC 1 /uL (0-25.8)
[2020-04-17 13:56] LABS: ALBUMIN 3.8 g/dl (3.4-5.0); BILIRUBIN,TOTAL 0.8 mg/dL (0.2-1); BLOOD UREA NITROGEN 60.8 mg/dL (7-18); CALCIUM 9.1 mg/dL (8.5-10.1); CREATININE 2.1 mg/dL (0.55-1.3); MAGNESIUM 2.6 mg/dL (1.8-2.4); PHOSPHOROUS 2.7 mg/dL (2.5-4.9); POTASSIUM 4.4 mmol/L (3.5-5.1); TOT PROT 7.6 g/dl (6.4-8.2)
[2020-04-17] MEDS ORDERED: SODIUM CHLORIDE 1,000 ML IV SCH (18:00)
--- NOTE | 2020-04-17 18:10 | HP ---
CHIEF COMPLAINT: syncope, fall PCP: Dr. Grier HISTORY OF PRESENT ILLNESS: 84 y/o M with PMX of DM, HTN, Syncope, CKD, a 'heart condition,' memory loss, dizziness, b/l leg weakness presenting to the ED after being found on the floor at his home for an unknown period of time by his son. Patient is a poor histor hong and HPI was taken from the patient's sister. Patient lives alone in [place] with a home health aid. Patient fell at home but cannot remember how he fell and does not remember any precipitating symptoms. Patient only endorses that it was dark outside when he fell and endorsed L hip and knee pain. Patient's sister thinks that the patient may have been on the floor for at least 3 hours after he fall. Patient's sister stated that the patient has had a gradual decline in memory and function over the last few years without any obvious inciting factor. Sister would like for patient to go to rehab after his hospital course. States that Denies chest pain, nausea, vomiting, abdominal pain, changes in vision. GCS-15. ER course was notable for: (1) EKG- NSR, rate 74, normal axis and intervals, q waves which were present on prior EKG, TWI in V3 and TWF in V4 which were present on prior EKG, no other ST- T changesQTc-430 (2)RAD/KNEE 3 POS-LEFT Left knee: Impression: Arthritic changes. No acute pathology appreciated. (3)RAD/PELVIS Chest: no sign of a gross fracture or subluxation (4)CXR-no acute changes from last CXR (5)Pelvis CT-no acute osseous findings (6)Head CT-no acute intracranial pathology Recent Travel: none PAST MEDICAL HISTORY: DM, HTN, Syncope, CKD, 'heart condition,' dizziness, memory loss PAST SURGICAL HISTORY: none Social History: Smoking: denies Alcohol:denies Drugs: denies FAMILY HISTORY: Mother: DM Dad: HTN Allergies Pineapple (Itchiness) (Verified 01/20/19 13:10) HOME MEDICATIONS: Home Medications Medication Instructions Recorded Aspirin [ASA -] 81 mg PO DAILY #0 tab.chew 10/01/13 Atorvastatin Ca [Lipitor] 20 mg PO HS 07/23/17 Meclizine HCl 12.5 mg PO TID 07/23/17 Amlodipine Besylate [Norvasc -] 10 mg PO DAILY #30 tablet 07/27/17 Furosemide 80 mg PO DAILY 01/20/19 Metoprolol Succinate 50 mg PO DAILY 01/20/19 Omeprazole 20 mg PO DAILY 01/20/19 Sodium Bicarbonate 650 mg PO TID 01/20/19 REVIEW OF SYSTEMS CONSTITUTIONAL: +generalize weakness, +malaise Absent: fever, chills, diaphoresis, loss of appetite, weight change HEENT: Absent: rhinorrhea, nasal congestion, throat pain, throat swelling, difficulty swallowing, mouth swelling, ear pain, eye pain, visual changes CARDIOVASCULAR: +syncope Absent: chest pain, palpitations, irregular heart rate, lightheadedness, peripheral edema RESPIRATORY: Absent: cough, shortness of breath, dyspnea with exertion, orthopnea, wheezing, stridor, hemoptysis GASTROINTESTINAL: Absent: abdominal pain, abdominal distension, nausea, vomiting, diarrhea, constipation, melena, hematochezia GENITOURINARY: Absent: dysuria, frequency, urgency, hesitancy, hematuria, flank pain, genital pain MUSCULOSKELETAL: Absent: myalgia, arthralgia, joint swelling, back pain, neck pain SKIN: Absent: rash, itching, pallor HEMATOLOGIC/IMMUNOLOGIC: Absent: easy bleeding, easy bruising, lymphadenopathy, frequent infections ENDOCRINE: Absent: unexplained weight gain, unexplained weight loss, heat intolerance, cold intolerance NEUROLOGIC: +dizziness, +weakness in legs Absent: headache, focal weakness or paresthesias, unsteady gait, seizure, mental status changes, bladder or bowel incontinence PSYCHIATRIC: Absent: anxiety, depression, suicidal or homicidal ideation, hallucinations. PHYSICAL EXAMINATION Vital Signs - 24 hr 04/17/20 04/17/20 11:25 17:11 Temperature 98.3 F Pulse Rate 80 Pulse Rate [ 58 L Right] Respiratory 19 17 Rate Blood Pressure 150/68 Blood Pressure 178/69 H [Right Arm] O2 Sat by Pulse 98 100 Oximetry (%) GENERAL: AAOx3 but mildly demented; obese male HEENT: NCAT, PERRLA, EOMI, sclera anicteric, conjunctiva clear NECK: Normal ROM, supple, no lymphadenopathy, JVD, or masses LUNGS: CTAB. No distress, speaks in full sentences. No increased work of breathing. HEART: RRR, normal S1 S2, no M/R/G, peripheral pulses 2+ and equal b/l ABDOMEN: Soft and distended with questionable positive fluid wave. No guarding or rebound. No hepatomegaly or splenomegaly. MSK: ROM WNL; + L hip and L Knee pain reproducible with palpation EXTREMITIES: Normal inspection. 1+ edema on b/l legs. No clubbing or cyanosis. NEUROLOGICAL: CN II-XII intact. Normal speech. Gait not assessed. No sensory or neurological deficits observed. SKIN: bruising noted on left arm Laboratory Results - last 24 hr CBC, BMP 04/17/20 13:28 04/17/20 13:28 04/17/20 04/17/20 04/17/20 11:29 13:28 13:28 WBC 10.8 H RBC 4.59 Hgb 12.5 Hct 38.6 MCV 84.1 MCH 27.3 MCHC 32.5 RDW 14.0 Plt Count 267 MPV 7.8 Absolute Neuts (auto) 9.1 H Neutrophils % 84.3 H D Lymphocytes % 8.9 D Monocytes % 6.2 Eosinophils % 0.1 D Basophils % 0.5 Nucleated RBC % 0 Sodium Potassium Chloride Carbon Dioxide Anion Gap BUN Creatinine Est GFR (CKD-EPI)AfAm Est GFR (CKD-EPI)NonAf POC Glucometer 172 Random Glucose Calcium Phosphorus Magnesium Total Bilirubin AST ALT Alkaline Phosphatase Creatine Kinase Creatine Kinase Index CK-MB (CK-2) Troponin I Total Protein Albumin Urine Color Yellow Urine Appearance Clear Urine pH 6.0 Ur Specific [place] 1.014 Urine Protein 2+ H Urine Glucose (UA) Negative Urine Ketones Negative Urine Blood 3+ H Urine Nitrite Negative Urine Bilirubin Negative Urine Urobilinogen 0.2 Ur Leukocyte Esterase Negative Urine WBC (Auto) 1 Urine RBC (Auto) 15 Urine Casts (Auto) 0 U Epithel Cells (Auto) 1 Urine Bacteria (Auto) 11 04/17/20 13:28 WBC RBC Hgb Hct MCV MCH MCHC RDW Plt Count MPV Absolute Neuts (auto) Neutrophils % Lymphocytes % Monocytes % Eosinophils % Basophils % Nucleated RBC % Sodium 139 Potassium 4.4 Chloride 106 Carbon Dioxide 27 Anion Gap 6 L BUN 60.8 H Creatinine 2.1 H Est GFR (CKD-EPI)AfAm 32.75 Est GFR (CKD-EPI)NonAf 28.26 POC Glucometer Random Glucose 163 H Calcium 9.1 Phosphorus 2.7 Magnesium 2.6 H Total Bilirubin 0.8 AST 52 H ALT 23 Alkaline Phosphatase 84 Creatine Kinase 1437 H Creatine Kinase Index 1.1 CK-MB (CK-2) 16.5 H Troponin I 0.03 Total Protein 7.6 Albumin 3.8 Urine Color Urine Appearance Urine pH Ur Specific [place] Urine Protein Urine Glucose (UA) Urine Ketones Urine Blood Urine Nitrite Urine Bilirubin Urine Urobilinogen Ur Leukocyte Esterase Urine WBC (Auto) Urine RBC (Auto) Urine Casts (Auto) U Epithel Cells (Auto) Urine Bacteria (Auto) ASSESSMENT/PLAN: 84 y/o M with PMX DM, HTN, syncope, CKD, 'heart condition," dizziness, b/l leg weakness, memory loss presenting to [facility] ED after an unwitnessed fall at his home and being on the floor for 3 hours. Admitted for syncope. #Mechanical Fall vs Syncope -Head CT-no acute intracranial pathology -Pelvis CT-no acute osseous findings -Knee and Pelvis XR- negative for acute fracture -echocardiogram ordered to r/o CV causes of syncope; f/u results -carotid US ordered to r/o CV causes of syncop; f/u results -cardio: Dr. Palomares was consulted as pt was seen by him previously -UA ordered to rule out infectious causes -inital trop negative; f/u repeat trops -RPR, B12, Folate, BNP ordered -fall precautions in place -check orthostatics -PT consulted -telemonitoring #Possible Acute Rhabdomyolysis -CK elevated at 1437 -repeat CK ordered for AM - c/w gentle hydration #SOBIA on CKD -Cr today is 2.1; baseline around 1.8 as per pt sister -trend Cr -started gentle hydration -renal consulted; f/u reccs -bladder scan ordered; f/u results -UA electrolytes ordered -restarted home bicarb #Ascites -abdomen appeared distended with questionable fluid wave -abdominal US ordered; f/u results #HTN -Norvasc held due to b/l leg swelling -Lasix held due to SOBIA -Metoprolol resumed -pharmacy did not answer; patient needs to be med rec'ed in the AM #HLD -Statin held due to high CK -lipid profile ordered; f/u results #DM -uncontrolled as per sister -ISS w/ BGM -A1c ordered #FEN -NS @ 100 mls/hr until the AM -monitor lytes; replete PRN -diabetic sodium controlled diet #Ppx -DVT: Heparin SQ TID dispo: admit to tele and start SNF placement planning Family Medical History Family History: As Documented Visit type - Medication Review Med list reviewed for High Risk Meds patients 65 and older: Yes - Emergency Visit Emergency Visit: Yes ED Registration Date: 04/17/20 Care time: The patient presented to the Emergency Department on the above date and was hospitalized for further evaluation of their emergent condition. - New Patient This patient is new to me today: Yes Date on this admission: 04/18/20 - Critical Care Critical Care patient: No ATTENDING PHYSICIAN STATEMENT I saw and evaluated the patient. I reviewed the resident's note and discussed the case with the resident. I agree with the resident's findings and plan as documented. SUBJECTIVE: OBJECTIVE: ASSESSMENT AND PLAN:
[2020-04-17] MEDS: SODIUM BICARBONATE 650 MG TABLET PO SCH (21:34)
[2020-04-17] MEDS: HEPARIN NA (PORCINE) 5,000 UNITS/ML 1ML VIAL SQ SCH (21:34)
[2020-04-17] MEDS: MECLIZINE HCL 12.5 MG TABLET PO SCH (21:34)
[2020-04-17] MEDS: INSULIN SLIDING SCALE (NOVOLOG) 1 VIAL SQ SCH (21:40)
[2020-04-17 22:26] VITALS: BMI 30.7
[2020-04-18 01:45] LABS: EPI CELLS 2 /uL (0-25.1); HYALINE CASTS 0 /uL (0-3.1); PH,URINE 6.5 (5.0-8.0); URINE APPEARANCE CLEAR; URINE BACTERIA 12 /uL (0-1359); URINE BILIRUBIN NEGATIVE (NEGATIVE); URINE COLOR YELLOW; URINE GLUCOSE (UA) 2+ (NEGATIVE); URINE KETONE NEGATIVE (NEGATIVE); URINE LEUK ESTERASE NEGATIVE (NEGATIVE); URINE NITRITE NEGATIVE (NEGATIVE); URINE PROTEIN 2+ (NEGATIVE); URINE RBC 16 /uL (0-23.9); URINE WBC 1 /uL (0-25.8)
[2020-04-18] MEDS: MECLIZINE HCL 12.5 MG TABLET PO SCH ×4 (05:07→21:57)
[2020-04-18] MEDS: HEPARIN NA (PORCINE) 5,000 UNITS/ML 1ML VIAL SQ SCH ×4 (05:07→21:58)
[2020-04-18] MEDS: SODIUM BICARBONATE 650 MG TABLET PO SCH ×4 (05:08→21:59)
--- NOTE | 2020-04-18 05:24 | CON.CARD ---
Consult Consult Specialty:: Cardiology Referred by:: Dr Mendieta Reason for Consultation:: fall/poss syncope - History of Present Illness Chief Complaint: found on floor History of Present Illness: 84YOM with h/o DM, HTN, prior syncope with admission here at [facility], CKD, and "a heart condition" who was BIBEMS after being found down on the floor at his residence (where he lives alone), suspected to have been on the floor for at least 3 hours. The patient has memory problems per his sister, who accompanies him to the ED, and the patient himself is a poor historian. He does state that it was still dark outside at the time he fell. He notes having tried to call family members from the floor and had difficulty getting through. When he finally contacted the son, the son called 911. The patient noted left hip pain and left knee pain, otherwise denies any symptoms. Patient cannot provide hx, so it was obtained from the EMR. Labs indicated likely pre renal picture. ECG: NSR 74bpm. Leftward axis. Poor R wave progression. - History Source History Provided By: Medical Record - Past Medical History Cardio/Vascular: Yes: CAD Renal/: Yes: Renal Inusuff - Alcohol/Substance Use Hx Alcohol Use: No History of Substance Use: reports: None - Smoking History Smoking history: Never smoked Have you smoked in the past 12 months: No Home Medications - Allergies Allergies/Adverse Reactions: Allergies Allergy/AdvReac Type Severity Reaction Status Date / Time No Known Drug Allergies Allergy Verified 01/20/19 13:10 - Home Medications Home Medications: Ambulatory Orders Aspirin [ASA -] 81 mg PO DAILY #0 tab.chew 10/01/13 Atorvastatin Ca [Lipitor] 20 mg PO HS 07/23/17 Meclizine HCl 12.5 mg PO TID 07/23/17 Amlodipine Besylate [Norvasc -] 10 mg PO DAILY #30 tablet 07/27/17 Furosemide 80 mg PO DAILY 01/20/19 Metoprolol Succinate 50 mg PO DAILY 01/20/19 Omeprazole 20 mg PO DAILY 01/20/19 Sodium Bicarbonate 650 mg PO TID 01/20/19 Family Medical History Family History: Unremarkable (not pertinent to this presentation) Review of Systems - Review of Systems Constitutional: reports: No Symptoms Eyes: reports: No Symptoms HENT: reports: No Symptoms Neck: reports: No Symptoms Cardiovascular: reports: No Symptoms Respiratory: reports: No Symptoms Gastrointestinal: reports: No Symptoms Genitourinary: reports: No Symptoms Breasts: reports: No Symptoms Reported Musculoskeletal: reports: No Symptoms Integumentary: reports: No Symptoms Neurological: reports: No Symptoms Endocrine: reports: No Symptoms Hematology/Lymphatic: reports: No Symptoms Psychiatric: reports: No Symptoms - Risk Factors Known Risk Factors: Yes: Age, Hypertension, Other (Known CAD) Vital Signs: Vital Signs Temperature 97.7 F 04/18/20 05:06 Pulse Rate 74 04/18/20 05:06 Respiratory Rate 18 04/18/20 05:06 Blood Pressure 187/79 H 04/18/20 05:06 O2 Sat by Pulse Oximetry (%) 96 04/18/20 05:06 Constitutional: Yes: No Distress Eyes: Yes: Conjunctiva Clear Respiratory: Yes: CTA Bilaterally Gastrointestinal: Yes: Soft (nt) Cardiovascular: Yes: Regular Rate and Rhythm JVD: No Carotid Bruit: No Heart Sounds: Yes: S1, S2 (rrr) Edema: No Peripheral Pulses WNL: Yes Neurological: Yes: Alert, Oriented ...Motor Strength: WNL - Other Data Labs, Other Data: CBC, BMP 04/17/20 13:28 04/17/20 13:28 Troponin, BNP 04/17/20 04/17/20 04/18/20 13:28 18:01 01:10 Troponin I 0.03 0.12 H 0.12 H Troponin, BNP 04/17/20 04/17/20 04/18/20 13:28 18:01 01:10 Troponin I 0.03 0.12 H 0.12 H Laboratory Tests 04/17/20 04/17/20 04/17/20 13:28 13:28 18:01 WBC 10.8 H Hgb 12.5 Hct 38.6 Plt Count 267 PT with INR Sodium Potassium BUN 60.8 H Creatinine 2.1 H Magnesium Iron Direct Bilirubin AST Creatine Kinase 2299 H Creatine Kinase Index 0.7 Troponin I 0.12 H TSH 04/18/20 04/18/20 04/18/20 01:10 06:15 06:15 WBC Pending Hgb Pending Hct Pending Plt Count Pending PT with INR 10.90 Sodium Potassium BUN Creatinine Magnesium Iron Direct Bilirubin AST Creatine Kinase Creatine Kinase Index Troponin I 0.12 H TSH 04/18/20 06:15 WBC Hgb Hct Plt Count PT with INR Sodium 144 Potassium 4.0 BUN 47.3 H Creatinine 1.6 H Magnesium 2.5 H Iron 40 L Direct Bilirubin 0.3 H AST 93 H Creatine Kinase Creatine Kinase Index Troponin I TSH 1.22 Echo: Pending Prior Cardiac Procedures: Cardiac Catheterization, PTCA with Stent Ejection Fraction %: LVEF > or = 40 % Imaging - Results Chest X-ray: Report Reviewed Cat Scan: Report Reviewed EKG: Image Reviewed Assessment/Plan DATA: echo 07/2017: 1+ lvh. hyperdynamic lv function. impaired relaxation. nl rv size/fn. 1+ ar. 1+tr. echo 01/2017: nl lv/rv, iasa, mild ar renal u/s 07/2017: bilateral renal cysts. no acute renal pathology. limited doppler study but no evidence of renal artery stenosis. renal duplex 07/2014: no anat IMP/PLAN: a/p: 84 m hx cad s/p nstemi and pci (09/2013, doni rca, doni om1; residual 50-60 mrca, 30-50 d1), dm, htn, hld, ckd, venous insuff/le edema, vertigo here s/p fall. unwitnessed fall: mechanical vs syncope -no signs acs, chf, arrhythmia -appears vol depleted on labs -Hold Lasix -check ortho vitals -repeat echo -pt eval -tele benign thus far cad s/p remote mi/pci: -stable no signs acs -cont bb, statin, asa -Borderline flat equivocally elevated TnI with negative index, does not represent ACS. And with elevated CKs out of proportion to TnI, more likely represents rhabdo picture with SOBIA on a multifactorial basis (volume depletion contributing) hld: -cont statin htn: -cont home meds sobia/ckd: combo of volume depletion/rhabdo -as per PMD le edema: chronic, now resolved. On basis of chronic diastolic CHF -hold lasix
[2020-04-18] MEDS: INSULIN SLIDING SCALE (NOVOLOG) 1 VIAL SQ SCH ×4 (06:05→22:37)
[2020-04-18] MEDS: amLODIPine BESYLATE 10 MG TABLET (FP) PO SCH (06:11)
[2020-04-18 07:22] LABS: INR 0.92 (0.83-1.09); PROTHROMBIN TIME (PATIENT) 10.9 SEC (9.7-13.0)
[2020-04-18 07:36] LABS: ALBUMIN 3.5 g/dl (3.4-5.0); BILIRUBIN,DIRECT 0.3 mg/dL (0.0-0.2); BLOOD UREA NITROGEN 47.3 mg/dL (7-18); CALCIUM 8.6 mg/dL (8.5-10.1); CREATININE 1.6 mg/dL (0.55-1.3); MAGNESIUM 2.5 mg/dL (1.8-2.4); N-TERMINAL BNP 325.9 pg/ml (5-450); PHOSPHOROUS 2.7 mg/dL (2.5-4.9); TOT PROT 7.1 g/dl (6.4-8.2)
[2020-04-18 07:42] LABS: BASO % 0.6 % (0-2.0); EOS % 2.7 % (0-4.5); HEMOGLOBIN 13.4 GM/dL (11.7-16.9); LYMPH % 15.5 % (8-40); MCH 28.4 pg (25.7-33.7); MCHC 33.5 g/dl (32.0-35.9); MEAN CELL VOLUME 84.7 fl (80-96); MEAN PLT VOLUME 7.8 fl (7.5-11.1); MONO % 6.9 % (3.8-10.2); NEUT % 74.3 % (42.8-82.8); PLATELET COUNT 239 K/MM3 (134-434); RBC 4.73 M/mm3 (4.00-5.60); WHITE BLOOD COUNT 7.3 K/mm3 (4.0-10.0)
--- NOTE | 2020-04-18 09:12 | PN ---
Teaching Attending Note Name of Resident: Tariq Mendieta ATTENDING PHYSICIAN STATEMENT I saw and evaluated the patient. I reviewed the resident's note and discussed the case with the resident. I agree with the resident's findings and plan as documented. SUBJECTIVE: Patient seen and examined at bedside, admitted for ?syncopal v.s. mechanical fall, rhabdo, VSS. OBJECTIVE GA AAOx1, sister at bedside, mild distress HEENT no JVD, dry MM, neck supple, eyes cross midline Chest DECREASED BS at bases CVS s1, S2+, VIRA+ Abd obese, soft, ?ascites Ext no LE edema, dry extremities Gait not observed Vital Signs (72 hours) 04/17/20 04/17/20 04/17/20 11:25 17:11 20:16 Temperature 98.3 F 98.3 F Pulse Rate 80 Pulse Rate [ 58 L 60 Right] Respiratory 19 17 16 Rate Blood Pressure 150/68 Blood Pressure 178/69 H 169/67 [Right Arm] O2 Sat by Pulse 98 100 99 Oximetry (%) 04/17/20 04/17/20 04/18/20 20:52 22:12 01:18 Temperature 98.8 F 98.8 F 98.2 F Pulse Rate 67 67 59 L Pulse Rate [ Right] Respiratory 18 18 18 Rate Blood Pressure 169/77 169/77 170/66 Blood Pressure [Right Arm] O2 Sat by Pulse 98 98 98 Oximetry (%) 04/18/20 05:06 Temperature 97.7 F Pulse Rate 74 Pulse Rate [ Right] Respiratory 18 Rate Blood Pressure 187/79 H Blood Pressure [Right Arm] O2 Sat by Pulse 96 Oximetry (%) Laboratory Results - last 24 hr 04/17/20 04/17/20 04/17/20 11:29 13:28 13:28 WBC 10.8 H RBC 4.59 Hgb 12.5 Hct 38.6 MCV 84.1 MCH 27.3 MCHC 32.5 RDW 14.0 Plt Count 267 MPV 7.8 Absolute Neuts (auto) 9.1 H Neutrophils % 84.3 H D Lymphocytes % 8.9 D Monocytes % 6.2 Eosinophils % 0.1 D Basophils % 0.5 Nucleated RBC % 0 PT with INR INR Sodium Potassium Chloride Carbon Dioxide Anion Gap BUN Creatinine Est GFR (CKD-EPI)AfAm Est GFR (CKD-EPI)NonAf POC Glucometer 172 Random Glucose Hemoglobin A1c % Calcium Phosphorus Magnesium Iron Total Bilirubin Direct Bilirubin AST ALT Alkaline Phosphatase Creatine Kinase Creatine Kinase Index CK-MB (CK-2) Troponin I B-Natriuretic Peptide Total Protein Albumin Triglycerides Cholesterol Total LDL Cholesterol HDL Cholesterol Vitamin B12 Serum Folate TSH Resin T3 Uptake Urine Color Yellow Urine Appearance Clear Urine pH 6.0 Ur Specific [place] 1.014 Urine Protein 2+ H Urine Glucose (UA) Negative Urine Ketones Negative Urine Blood 3+ H Urine Nitrite Negative Urine Bilirubin Negative Urine Urobilinogen 0.2 Ur Leukocyte Esterase Negative Urine WBC (Auto) 1 Urine RBC (Auto) 15 Urine Casts (Auto) 0 U Epithel Cells (Auto) 1 Urine Bacteria (Auto) 11 Ur Random Sodium Ur Random Potassium Ur Random Chloride Syphilis Serology 04/17/20 04/17/20 04/17/20 13:28 18:01 20:05 WBC RBC Hgb Hct MCV MCH MCHC RDW Plt Count MPV Absolute Neuts (auto) Neutrophils % Lymphocytes % Monocytes % Eosinophils % Basophils % Nucleated RBC % PT with INR INR Sodium 139 Potassium 4.4 Chloride 106 Carbon Dioxide 27 Anion Gap 6 L BUN 60.8 H Creatinine 2.1 H Est GFR (CKD-EPI)AfAm 32.75 Est GFR (CKD-EPI)NonAf 28.26 POC Glucometer Random Glucose 163 H Hemoglobin A1c % Calcium 9.1 Phosphorus 2.7 Magnesium 2.6 H Iron Total Bilirubin 0.8 Direct Bilirubin AST 52 H ALT 23 Alkaline Phosphatase 84 Creatine Kinase 1437 H 2299 H Creatine Kinase Index 1.1 0.7 CK-MB (CK-2) 16.5 H 16.8 H Troponin I 0.03 0.12 H B-Natriuretic Peptide Total Protein 7.6 Albumin 3.8 Triglycerides Cholesterol Total LDL Cholesterol HDL Cholesterol Vitamin B12 Serum Folate TSH Resin T3 Uptake 35.3 Urine Color Urine Appearance Urine pH Ur Specific [place] Urine Protein Urine Glucose (UA) Urine Ketones Urine Blood Urine Nitrite Urine Bilirubin Urine Urobilinogen Ur Leukocyte Esterase Urine WBC (Auto) Urine RBC (Auto) Urine Casts (Auto) U Epithel Cells (Auto) Urine Bacteria (Auto) Ur Random Sodium Ur Random Potassium Ur Random Chloride Syphilis Serology Non-reactive 04/17/20 04/18/20 04/18/20 21:29 01:10 01:10 WBC RBC Hgb Hct MCV MCH MCHC RDW Plt Count MPV Absolute Neuts (auto) Neutrophils % Lymphocytes % Monocytes % Eosinophils % Basophils % Nucleated RBC % PT with INR INR Sodium Potassium Chloride Carbon Dioxide Anion Gap BUN Creatinine Est GFR (CKD-EPI)AfAm Est GFR (CKD-EPI)NonAf POC Glucometer 277 Random Glucose Hemoglobin A1c % Calcium Phosphorus Magnesium Iron Total Bilirubin Direct Bilirubin AST ALT Alkaline Phosphatase Creatine Kinase Creatine Kinase Index CK-MB (CK-2) Troponin I 0.12 H B-Natriuretic Peptide Total Protein Albumin Triglycerides Cholesterol Total LDL Cholesterol HDL Cholesterol Vitamin B12 Serum Folate TSH Resin T3 Uptake Urine Color Yellow Urine Appearance Clear Urine pH 6.5 Ur Specific [place] 1.017 Urine Protein 2+ H Urine Glucose (UA) 2+ H Urine Ketones Negative Urine Blood 2+ H Urine Nitrite Negative Urine Bilirubin Negative Urine Urobilinogen 1.0 Ur Leukocyte Esterase Negative Urine WBC (Auto) 1 Urine RBC (Auto) 16 Urine Casts (Auto) 0 U Epithel Cells (Auto) 2 Urine Bacteria (Auto) 12 Ur Random Sodium Ur Random Potassium Ur Random Chloride Syphilis Serology 04/18/20 04/18/20 04/18/20 01:10 05:47 06:15 WBC 7.3 RBC 4.73 Hgb 13.4 Hct 40.0 MCV 84.7 MCH 28.4 MCHC 33.5 RDW 14.0 Plt Count 239 MPV 7.8 Absolute Neuts (auto) 5.4 Neutrophils % 74.3 Lymphocytes % 15.5 D Monocytes % 6.9 Eosinophils % 2.7 D Basophils % 0.6 Nucleated RBC % 0 PT with INR INR Sodium Potassium Chloride Carbon Dioxide Anion Gap BUN Creatinine Est GFR (CKD-EPI)AfAm Est GFR (CKD-EPI)NonAf POC Glucometer 122 Random Glucose Hemoglobin A1c % Calcium Phosphorus Magnesium Iron Total Bilirubin Direct Bilirubin AST ALT Alkaline Phosphatase Creatine Kinase Creatine Kinase Index CK-MB (CK-2) Troponin I B-Natriuretic Peptide Total Protein Albumin Triglycerides Cholesterol Total LDL Cholesterol HDL Cholesterol Vitamin B12 Serum Folate TSH Resin T3 Uptake Urine Color Urine Appearance Urine pH Ur Specific [place] Urine Protein Urine Glucose (UA) Urine Ketones Urine Blood Urine Nitrite Urine Bilirubin Urine Urobilinogen Ur Leukocyte Esterase Urine WBC (Auto) Urine RBC (Auto) Urine Casts (Auto) U Epithel Cells (Auto) Urine Bacteria (Auto) Ur Random Sodium 79 Ur Random Potassium 23.0 L Ur Random Chloride 69 L Syphilis Serology 04/18/20 04/18/20 04/18/20 06:15 06:15 06:15 WBC RBC Hgb Hct MCV MCH MCHC RDW Plt Count MPV Absolute Neuts (auto) Neutrophils % Lymphocytes % Monocytes % Eosinophils % Basophils % Nucleated RBC % PT with INR 10.90 INR 0.92 Sodium 144 Potassium 4.0 Chloride 111 H Carbon Dioxide 25 Anion Gap 8 BUN 47.3 H Creatinine 1.6 H Est GFR (CKD-EPI)AfAm 45.50 Est GFR (CKD-EPI)NonAf 39.26 POC Glucometer Random Glucose 120 H Hemoglobin A1c % 9.2 H Calcium 8.6 Phosphorus 2.7 Magnesium 2.5 H Iron 40 L Total Bilirubin 1.0 Direct Bilirubin 0.3 H AST 93 H ALT 28 Alkaline Phosphatase 88 Creatine Kinase 2425 H Creatine Kinase Index 0.5 CK-MB (CK-2) 12.9 H Troponin I B-Natriuretic Peptide 325.9 Total Protein 7.1 Albumin 3.5 Triglycerides 100 Cholesterol 130 Total LDL Cholesterol 55 HDL Cholesterol 67 H Vitamin B12 1347 H Serum Folate 12 TSH 1.22 Resin T3 Uptake Urine Color Urine Appearance Urine pH Ur Specific [place] Urine Protein Urine Glucose (UA) Urine Ketones Urine Blood Urine Nitrite Urine Bilirubin Urine Urobilinogen Ur Leukocyte Esterase Urine WBC (Auto) Urine RBC (Auto) Urine Casts (Auto) U Epithel Cells (Auto) Urine Bacteria (Auto) Ur Random Sodium Ur Random Potassium Ur Random Chloride Syphilis Serology Home Medications Medication Instructions Recorded Aspirin [ASA -] 81 mg PO DAILY #0 tab.chew 10/01/13 Atorvastatin Ca [Lipitor] 20 mg PO HS 07/23/17 Meclizine HCl 12.5 mg PO TID 07/23/17 Amlodipine Besylate [Norvasc -] 10 mg PO DAILY #30 tablet 07/27/17 Furosemide 80 mg PO DAILY 01/20/19 Metoprolol Succinate 50 mg PO DAILY 01/20/19 Omeprazole 20 mg PO DAILY 01/20/19 Sodium Bicarbonate 650 mg PO TID 01/20/19 Current Medications Generic Name Dose Route Start Last Admin Trade Name Freq PRN Reason Stop Dose Admin Amlodipine Besylate 10 mg 04/18/20 05:55 04/18/20 06:11 Norvasc - PO 10 mg DAILY ISAMAR Administration Aspirin 81 mg 04/18/20 10:00 Asa - PO DAILY [facility]1983 Heparin Sodium (Porcine) 5,000 unit 04/17/20 22:00 04/18/20 05:07 Heparin - SQ 5,000 unit TID ISAMAR Administration Insulin Aspart 1 vial 04/17/20 22:00 04/18/20 06:05 Novolog Vial Sliding Scale - SQ Not Given ACHS [facility], 1928[facility]1983 Protocol Meclizine HCl 12.5 mg 04/17/20 22:00 04/18/20 05:07 Antivert - PO 12.5 mg TID ISAMAR Administration Metoprolol Tartrate 50 mg 04/18/20 10:00 Lopressor - PO DAILY [facility]1983 Pantoprazole Sodium 20 mg 04/18/20 10:00 Protonix - PO DAILY [facility]1983 Sodium Bicarbonate 650 mg 04/17/20 22:00 04/18/20 05:08 Sodium Bicarbonate - PO 650 mg TID ISAMAR Administration ASSESSMENT AND PLAN: 84 M Mechanical v.s. syncopal fall Rhabdomyolysis SOBIA HTN HLD Obesity HFpEF h/o syncope Vertigo GERD Plan: Hold Lasix, obtain orthostatics Gentle IV fluids, trend CRE Hold BP meds if BP <130mmHg Cardiology evaluation Tele monitoring SW referral for SNF placement PT evaluation DVT ppx: Heparin SC
[2020-04-18] MEDS: METOPROLOL TARTRATE 50 MG TABLET (FP) PO SCH (09:46)
[2020-04-18] MEDS: PANTOPRAZOLE 20 MG TABLET PO SCH (09:46)
[2020-04-18] MEDS ORDERED: ASPIRIN 81 MG CHEWABLE TABLETS PO SCH (10:00)
[2020-04-18] MEDS ORDERED: PATIENT'S OWN MEDICATION (NON-FORMULARY) (Omeprazole [Omeprazole] 20 MG) PO SCH (10:00)
--- NOTE | 2020-04-18 10:37 | EKG ---
Test Reason : Blood Pressure : / mmHG Vent. Rate : 074 BPM Atrial Rate : 074 BPM P-R Int : 184 ms QRS Dur : 074 ms QT Int : 388 ms P-R-T Axes : 041 -14 035 degrees QTc Int : 430 ms POOR DATA QUALITY, INTERPRETATION MAY BE ADVERSELY AFFECTED NORMAL SINUS RHYTHM CANNOT RULE OUT ANTERIOR INFARCT , AGE UNDETERMINED ABNORMAL ECG WHEN COMPARED WITH ECG OF 20-JAN-2019 13:47, NO SIGNIFICANT CHANGE WAS FOUND Confirmed by BRITTANY DOW MD ([id number]) on 04/18/2020 10:37:41 AM Referred By: Confirmed By:BRITTANY DOW MD
--- NOTE | 2020-04-18 12:13 | ECHO ---
Version: 1 Name: OSIRIS JOHNSON Exam: Adult Echocardiogram Study Date: 04/18/2020, 11:15 AM Age: 84 Years MMode/2D Measurements & Calculations IVSd: 1.43 cm LVIDs: 3.2 cm LVIDd: 4.2 cm LVPWd: 1.24 cm LAV (MOD-bp): 52.1 ml LVOT diam: 2.03 cm Ao root diam: 3.4 cm LA dimension: 2.7 cm Doppler Measurements & Calculations MV E max kendrick: 67.4 cm/sec Med E/e': 14.1 MV A max kendrick: 89.2 cm/sec Med Peak E' Kendrick: 4.8 cm/sec MV E/A: 0.76 Lat E/e': 8.9 Lat Peak E' Kendrick: 7.6 cm/sec MR max P.9 mmHg Ao max P.7 mmHg Ao V2 max: 108.6 cm/sec AI P1/2t: 760.4 msec Left Ventricle Left ventricular systolic function is normal. Ejection Fraction = 55-60%. The transmitral spectral D oppler flow pattern is suggestive of impaired LV relaxation. Right Ventricle The right ventricle is normal in size and function. Atria Normal left and right atrial size and function. Mitral Valve The mitral valve is grossly normal. There is no mitral valve stenosis. There is mild mitral regurgit ation. Tricuspid Valve The tricuspid valve is normal in structure and function. There is mild tricuspid regurgitation. Aortic Valve No hemodynamically significant valvular aortic stenosis. Mild aortic regurgitation. Pulmonic Valve The pulmonic valve is not well seen, but is grossly normal. There is no pulmonic valvular stenosis. Trace to mild pulmonic valvular regurgitation. Great Vessels The aortic root is normal size. Pericardium/Pleura There is no pericardial effusion. Summary Statements Left ventricular systolic function is normal. Ejection Fraction = 55-60%. The transmitral spectral Doppler flow pattern is suggestive of impaired LV relaxation. The right ventricle is normal in size and function. There is mild mitral regurgitation. There is mild tricuspid regurgitation. Mild aortic regurgitation. There is no pericardial effusion. MD Rodney *Dee 04/18/2020, 12:12 PM Ordering Physician: Tariq Mendieta Performed By: Leah Parkinson
[2020-04-18] MEDS: SODIUM CHLORIDE 1,000 ML IV SCH (13:25)
--- NOTE | 2020-04-18 15:05 | PN ---
Teaching Attending Note Name of Resident: Tariq Mendieta ATTENDING PHYSICIAN STATEMENT I saw and evaluated the patient. I reviewed the resident's note and discussed the case with the resident. I agree with the resident's findings and plan as documented. SUBJECTIVE: No complaints. OBJECTIVE: Afebrile, hemodynamically stable. AAO x 2. Follows commands. Last Vital Signs Temp Pulse Resp BP Pulse Ox 98 F 75 18 174/82 H 99 04/18/20 09:00 04/18/20 09:00 04/18/20 09:00 04/18/20 09:00 04/18/20 09:00 HEENT - Normocephalic. Heart - S1, S2, RRR Lungs - clear to auscultation Abdomen - soft, non-tender. High BMI. Bowel Sounds normal. Extremities - Mild edema, venous stasis, no calf tenderness. Neuro - AAO x 2. Tone/Power normal. Laboratory Results - last 24 hr 04/17/20 04/17/20 04/17/20 13:28 18:01 20:05 WBC RBC Hgb Hct MCV MCH MCHC RDW Plt Count MPV Absolute Neuts (auto) Neutrophils % Lymphocytes % Monocytes % Eosinophils % Basophils % Nucleated RBC % PT with INR INR Sodium 139 Potassium 4.4 Chloride 106 Carbon Dioxide 27 Anion Gap 6 L BUN 60.8 H Creatinine 2.1 H Est GFR (CKD-EPI)AfAm 32.75 Est GFR (CKD-EPI)NonAf 28.26 POC Glucometer Random Glucose 163 H Hemoglobin A1c % Calcium 9.1 Phosphorus 2.7 Magnesium 2.6 H Iron Total Bilirubin 0.8 Direct Bilirubin AST 52 H ALT 23 Alkaline Phosphatase 84 Creatine Kinase 1437 H 2299 H Creatine Kinase Index 1.1 0.7 CK-MB (CK-2) 16.5 H 16.8 H Troponin I 0.03 0.12 H B-Natriuretic Peptide Total Protein 7.6 Albumin 3.8 Triglycerides Cholesterol Total LDL Cholesterol HDL Cholesterol Vitamin B12 Serum Folate TSH Resin T3 Uptake 35.3 Urine Color Urine Appearance Urine pH Ur Specific [place] Urine Protein Urine Glucose (UA) Urine Ketones Urine Blood Urine Nitrite Urine Bilirubin Urine Urobilinogen Ur Leukocyte Esterase Urine WBC (Auto) Urine RBC (Auto) Urine Casts (Auto) U Epithel Cells (Auto) Urine Bacteria (Auto) Ur Random Creatinine Ur Random Sodium Ur Random Potassium Ur Random Chloride Syphilis Serology Non-reactive 04/17/20 04/18/20 04/18/20 21:29 01:10 01:10 WBC RBC Hgb Hct MCV MCH MCHC RDW Plt Count MPV Absolute Neuts (auto) Neutrophils % Lymphocytes % Monocytes % Eosinophils % Basophils % Nucleated RBC % PT with INR INR Sodium Potassium Chloride Carbon Dioxide Anion Gap BUN Creatinine Est GFR (CKD-EPI)AfAm Est GFR (CKD-EPI)NonAf POC Glucometer 277 Random Glucose Hemoglobin A1c % Calcium Phosphorus Magnesium Iron Total Bilirubin Direct Bilirubin AST ALT Alkaline Phosphatase Creatine Kinase Creatine Kinase Index CK-MB (CK-2) Troponin I 0.12 H B-Natriuretic Peptide Total Protein Albumin Triglycerides Cholesterol Total LDL Cholesterol HDL Cholesterol Vitamin B12 Serum Folate TSH Resin T3 Uptake Urine Color Yellow Urine Appearance Clear Urine pH 6.5 Ur Specific [place] 1.017 Urine Protein 2+ H Urine Glucose (UA) 2+ H Urine Ketones Negative Urine Blood 2+ H Urine Nitrite Negative Urine Bilirubin Negative Urine Urobilinogen 1.0 Ur Leukocyte Esterase Negative Urine WBC (Auto) 1 Urine RBC (Auto) 16 Urine Casts (Auto) 0 U Epithel Cells (Auto) 2 Urine Bacteria (Auto) 12 Ur Random Creatinine Ur Random Sodium Ur Random Potassium Ur Random Chloride Syphilis Serology 04/18/20 04/18/20 04/18/20 01:10 05:47 06:15 WBC 7.3 RBC 4.73 Hgb 13.4 Hct 40.0 MCV 84.7 MCH 28.4 MCHC 33.5 RDW 14.0 Plt Count 239 MPV 7.8 Absolute Neuts (auto) 5.4 Neutrophils % 74.3 Lymphocytes % 15.5 D Monocytes % 6.9 Eosinophils % 2.7 D Basophils % 0.6 Nucleated RBC % 0 PT with INR INR Sodium Potassium Chloride Carbon Dioxide Anion Gap BUN Creatinine Est GFR (CKD-EPI)AfAm Est GFR (CKD-EPI)NonAf POC Glucometer 122 Random Glucose Hemoglobin A1c % Calcium Phosphorus Magnesium Iron Total Bilirubin Direct Bilirubin AST ALT Alkaline Phosphatase Creatine Kinase Creatine Kinase Index CK-MB (CK-2) Troponin I B-Natriuretic Peptide Total Protein Albumin Triglycerides Cholesterol Total LDL Cholesterol HDL Cholesterol Vitamin B12 Serum Folate TSH Resin T3 Uptake Urine Color Urine Appearance Urine pH Ur Specific [place] Urine Protein Urine Glucose (UA) Urine Ketones Urine Blood Urine Nitrite Urine Bilirubin Urine Urobilinogen Ur Leukocyte Esterase Urine WBC (Auto) Urine RBC (Auto) Urine Casts (Auto) U Epithel Cells (Auto) Urine Bacteria (Auto) Ur Random Creatinine Ur Random Sodium 79 Ur Random Potassium 23.0 L Ur Random Chloride 69 L Syphilis Serology 04/18/20 04/18/20 04/18/20 06:15 06:15 06:15 WBC RBC Hgb Hct MCV MCH MCHC RDW Plt Count MPV Absolute Neuts (auto) Neutrophils % Lymphocytes % Monocytes % Eosinophils % Basophils % Nucleated RBC % PT with INR 10.90 INR 0.92 Sodium 144 Potassium 4.0 Chloride 111 H Carbon Dioxide 25 Anion Gap 8 BUN 47.3 H Creatinine 1.6 H Est GFR (CKD-EPI)AfAm 45.50 Est GFR (CKD-EPI)NonAf 39.26 POC Glucometer Random Glucose 120 H Hemoglobin A1c % 9.2 H Calcium 8.6 Phosphorus 2.7 Magnesium 2.5 H Iron 40 L Total Bilirubin 1.0 Direct Bilirubin 0.3 H AST 93 H ALT 28 Alkaline Phosphatase 88 Creatine Kinase 2425 H Creatine Kinase Index 0.5 CK-MB (CK-2) 12.9 H Troponin I 0.09 H B-Natriuretic Peptide 325.9 Total Protein 7.1 Albumin 3.5 Triglycerides 100 Cholesterol 130 Total LDL Cholesterol 55 HDL Cholesterol 67 H Vitamin B12 1347 H Serum Folate 12 TSH 1.22 Resin T3 Uptake Urine Color Urine Appearance Urine pH Ur Specific [place] Urine Protein Urine Glucose (UA) Urine Ketones Urine Blood Urine Nitrite Urine Bilirubin Urine Urobilinogen Ur Leukocyte Esterase Urine WBC (Auto) Urine RBC (Auto) Urine Casts (Auto) U Epithel Cells (Auto) Urine Bacteria (Auto) Ur Random Creatinine Ur Random Sodium Ur Random Potassium Ur Random Chloride Syphilis Serology 04/18/20 04/18/20 10:47 11:05 WBC RBC Hgb Hct MCV MCH MCHC RDW Plt Count MPV Absolute Neuts (auto) Neutrophils % Lymphocytes % Monocytes % Eosinophils % Basophils % Nucleated RBC % PT with INR INR Sodium Potassium Chloride Carbon Dioxide Anion Gap BUN Creatinine Est GFR (CKD-EPI)AfAm Est GFR (CKD-EPI)NonAf POC Glucometer 142 Random Glucose Hemoglobin A1c % Calcium Phosphorus Magnesium Iron Total Bilirubin Direct Bilirubin AST ALT Alkaline Phosphatase Creatine Kinase Creatine Kinase Index CK-MB (CK-2) Troponin I B-Natriuretic Peptide Total Protein Albumin Triglycerides Cholesterol Total LDL Cholesterol HDL Cholesterol Vitamin B12 Serum Folate TSH Resin T3 Uptake Urine Color Urine Appearance Urine pH Ur Specific [place] Urine Protein Urine Glucose (UA) Urine Ketones Urine Blood Urine Nitrite Urine Bilirubin Urine Urobilinogen Ur Leukocyte Esterase Urine WBC (Auto) Urine RBC (Auto) Urine Casts (Auto) U Epithel Cells (Auto) Urine Bacteria (Auto) Ur Random Creatinine 70.0 Ur Random Sodium Ur Random Potassium Ur Random Chloride Syphilis Serology Current Medications Generic Name Dose Route Start Last Admin Trade Name Renatoq PRN Reason Stop Dose Admin Amlodipine Besylate 10 mg 04/18/20 05:55 04/18/20 06:11 Norvasc - PO 10 mg DAILY ISAMAR Administration Heparin Sodium (Porcine) 5,000 unit 04/17/20 22:00 04/18/20 14:18 Heparin - SQ 5,000 unit TID ISAMAR Administration Sodium Chloride 1,000 mls @ 100 mls/hr 04/18/20 12:30 04/18/20 13:25 Normal Saline - IV 100 mls/hr ASDIR ISAMAR Administration Insulin Aspart 1 vial 04/17/20 22:00 04/18/20 11:13 Novolog Vial Sliding Scale - SQ Not Given ACHS [facility] Protocol Meclizine HCl 12.5 mg 04/17/20 22:00 04/18/20 14:18 Antivert - PO 12.5 mg TID ISAMAR Administration Metoprolol Tartrate 50 mg 04/18/20 10:00 04/18/20 09:46 Lopressor - PO 50 mg DAILY ISAMAR Administration Pantoprazole Sodium 20 mg 04/18/20 10:00 04/18/20 09:46 Protonix - PO 20 mg DAILY ISAMAR Administration Sodium Bicarbonate 650 mg 04/17/20 22:00 04/18/20 14:18 Sodium Bicarbonate - PO 650 mg TID ISAMAR Administration Home Medications Medication Instructions Recorded Atorvastatin Ca [Lipitor] 20 mg PO HS 07/23/17 Meclizine HCl 12.5 mg PO TID 07/23/17 Amlodipine Besylate [Norvasc -] 10 mg PO DAILY #30 tablet 07/27/17 Furosemide 40 mg PO TID 01/20/19 Metoprolol Succinate 50 mg PO DAILY 01/20/19 Omeprazole 20 mg PO DAILY 01/20/19 Sodium Bicarbonate 325 mg PO TID 01/20/19 Aspirin 81 mg PO 04/18/20 Dulaglutide [Trulicity] 1.5 mg SQ WEEKLY 04/18/20 Insulin Glargine,Hum.rec.anlog 55 unit SQ DAILY 04/18/20 [Lantus] ASSESSMENT AND PLAN: 84 year old male with history of DM 2, HTN, HLD, CAD s/p NSTEMI PCI/Stent, chronic venous insufficiency, Syncope, CKD 3, Hx Vertigo, progressive memory loss, was found lying on the floor of his home, unable to recall events surrounding fall/collapse. 1. Acute Rhabdomyolysis - unclear fall versus Pre-syncope/Syncope as patient unable to remember ismael-episode events. CPK down from 2425 Gentle IV hydration, Lasix held, monitor CPK 2. Possible Pre-Syncope/Syncope ? with preceding lightheadedness, Hx of BPPV CT head - mild atrophy, periventricular ischemic chnages Carotid Duplex - no hemodynamically significant stenosis Denies CP - ECG no acute findings (old T wave changes) Echo - normal EF, impaired LV relaxation No Telemonitoring events Likely mildly dehydrated - continue IV fluids and Meclizine. 3. Elevated Troponin - secondary to Rhabdo ECG - no acute changes Evaluated by Cardiology - does not appear to have ACS, no further work up needed at this time. 4. L knee discomfort Xrays show no bony imjury PT eval. 5. Progressive Memory Loss, likely underlying Dementia CT head as above RPR non-reactive TSH 12 B12 level 1347 6. SOBIA on CKD 3 - resolved with IV hydration. Creat now back to baseline. Continue NaBicarb. Nephrology consulted. 7. Chronic Diastolic CHF, no evidence of acute decompensaion. Impaired LV relaxation on Echo. Lasix held for now in favor of gentle hydration for acute rhabdo. 8. HTN - Continued on Metoprolol, Norvasc. 9. DM 2 - Trulicity, Glargine held. Maintain on Novolog sliding scale. 10. HLD - Statin held due to elevated CPK. 11. Renal Cysts on US, incidental finding - for out-patient Urology referral. 12. 0.5 cm Gallbladder Polyp, incidental finding on Abdo US - for GI out-patient referral. Radiology recommends 3-6 month repeat imaging. 13. CAD s/p PCI/Stent - Continue Aspirin, BB. Statin currently held due to Rhabdo. DVT Px - Heparin SQ Dispo - needs SNF referral. PT eval requested.
--- NOTE | 2020-04-18 16:03 | CON.NEP ---
Consult Consult Specialty:: Nephrology Referred by:: Medicine Reason for Consultation:: CKD - History of Present Illness Chief Complaint: Fall History of Present Illness: This is a 84 year old male with history of CKD (baseline Cr ~1.5-1.7 based on prior recorded labs), hypertension, DM presented s/p being found on the floor by his son. Seen and examined at the bedside. Awake and alert. He denies any pain, shortness of breath, nausea, vomiting or diarrhea. Denies any flank pain. Cannot recall events that lead him to fall or end up on the ground. Denies any dark colored urine. No fever, chills. - History Source History Provided By: Patient Limitations to Obtaining History: Clinical Condition - Past Medical History Cardio/Vascular: Yes: CAD Renal/: Yes: Renal Inusuff - Alcohol/Substance Use Hx Alcohol Use: No History of Substance Use: reports: None - Smoking History Smoking history: Never smoked Have you smoked in the past 12 months: No Home Medications - Allergies Allergies/Adverse Reactions: Allergies Allergy/AdvReac Type Severity Reaction Status Date / Time No Known Drug Allergies Allergy Verified 01/20/19 13:10 - Home Medications Home Medications: Ambulatory Orders Atorvastatin Ca [Lipitor] 20 mg PO HS 07/23/17 Meclizine HCl 12.5 mg PO TID 07/23/17 Amlodipine Besylate [Norvasc -] 10 mg PO DAILY #30 tablet 07/27/17 Furosemide 40 mg PO TID 01/20/19 Metoprolol Succinate 50 mg PO DAILY 01/20/19 Omeprazole 20 mg PO DAILY 01/20/19 Sodium Bicarbonate 325 mg PO TID 01/20/19 Aspirin 81 mg PO 04/18/20 Dulaglutide [Trulicity] 1.5 mg SQ WEEKLY 04/18/20 Insulin Glargine,Hum.rec.anlog [Lantus] 55 unit SQ DAILY 04/18/20 Family Medical History Family History: Unremarkable (not pertinent to this presentation) Review of Systems - Review of Systems Constitutional: reports: No Symptoms Eyes: reports: No Symptoms HENT: reports: No Symptoms Respiratory: reports: No Symptoms Gastrointestinal: reports: No Symptoms Genitourinary: reports: No Symptoms Musculoskeletal: reports: No Symptoms Neurological: reports: No Symptoms Nephrology Consult - Height Height: 5 ft 8 in - Weight Weight: 91.807 kg - BMI Body Mass Index (BMI): 30.7 - Lab Results CBC,BMP: CBC, BMP 04/18/20 06:15 04/18/20 06:15 Anion Gap: Anion Gap Anion Gap 8 MMOL/L (8-16) 04/18/20 06:15 - Imaging Cat Scan: Report Reviewed Ultrasound: Report Reviewed - Physical Examination Vital Signs: Vital Signs Temperature 982 F H 04/18/20 14:10 Pulse Rate 64 04/18/20 14:10 Respiratory Rate 18 04/18/20 14:10 Blood Pressure 150/75 04/18/20 14:10 O2 Sat by Pulse Oximetry (%) 99 04/18/20 09:00 Constitutional: Yes: No Distress, Calm Neck: Yes: Supple Cardiovascular: Yes: Regular Rate and Rhythm Respiratory: Yes: CTA Bilaterally Gastrointestinal: No: Tenderness Renal/: No: CVA Tenderness - Left, CVA Tenderness - Right Extremities: No: Cold, Cool, Cyanosis Edema: Yes Edema: LLE: Trace, RLE: Trace Assessment/Plan 84 year old male with history of CKD (baseline Cr ~1.5-1.7 based on prior recorded labs), hypertension, DM presented s/p being found on the floor by his son. 1. CKD stage 3 2. Syncope 3. Rhabdomyolysis 4. Hypertension 5. DM 6. Proteinuria 7. Acquired renal cystic disease 8. Metabolic acidosis Renal function stable based on prior recorded values in the hospital. There is no overt electrolyte or acid/base disturbance Continue isotonic saline x 24 hours FeNa was 1.2% - indeterminate Trend renal function and electrolytes daily CK noted to be ~2000, risk of renal injury less likely if less then 5000. Trend CK levels daily Renal cyst noted on US and CT, no evidence of mass or hydronephrosis. Continue syncope work up as per primary team Thank you Will follow Juan José Galvan DO
--- NOTE | 2020-04-18 16:03 | PN ---
Physical Exam: SUBJECTIVE: Patient seen and examined OBJECTIVE: Vital Signs Period Temp Pulse Resp BP Sys/Charles Pulse Ox Last 24 Hr 97.7 F-982 F 58-75 16-18 150-187/66-82 96-100 GENERAL: The patient is awake, alert, and fully oriented, in no acute distress. HEAD: Normal with no signs of trauma. EYES: PERRL, extraocular movements intact, sclera anicteric, conjunctiva clear. No ptosis. ENT: Ears normal, nares patent, oropharynx clear without exudates, moist mucous membranes. NECK: Trachea midline, full range of motion, supple. LUNGS: Breath sounds equal, clear to auscultation bilaterally, no wheezes, no crackles, no accessory muscle use. HEART: Regular rate and rhythm, S1, S2 without murmur, rub or gallop. ABDOMEN: Soft, nontender, nondistended, normoactive bowel sounds, no guarding, no rebound, no hepatosplenomegaly, no masses. EXTREMITIES: 2+ pulses, warm, well-perfused, no edema. NEUROLOGICAL: Cranial nerves II through XII grossly intact. Normal speech, gait not observed. PSYCH: Normal mood, normal affect. SKIN: Warm, dry, normal turgor, no rashes or lesions noted Laboratory Results - last 24 hr 04/17/20 04/17/20 04/17/20 18:01 20:05 21:29 WBC RBC Hgb Hct MCV MCH MCHC RDW Plt Count MPV Absolute Neuts (auto) Neutrophils % Lymphocytes % Monocytes % Eosinophils % Basophils % Nucleated RBC % PT with INR INR Sodium Potassium Chloride Carbon Dioxide Anion Gap BUN Creatinine Est GFR (CKD-EPI)AfAm Est GFR (CKD-EPI)NonAf POC Glucometer 277 Random Glucose Hemoglobin A1c % Calcium Phosphorus Magnesium Iron Total Bilirubin Direct Bilirubin AST ALT Alkaline Phosphatase Creatine Kinase 2299 H Creatine Kinase Index 0.7 CK-MB (CK-2) 16.8 H Troponin I 0.12 H B-Natriuretic Peptide Total Protein Albumin Triglycerides Cholesterol Total LDL Cholesterol HDL Cholesterol Vitamin B12 Serum Folate TSH Resin T3 Uptake 35.3 Urine Color Urine Appearance Urine pH Ur Specific [place] Urine Protein Urine Glucose (UA) Urine Ketones Urine Blood Urine Nitrite Urine Bilirubin Urine Urobilinogen Ur Leukocyte Esterase Urine WBC (Auto) Urine RBC (Auto) Urine Casts (Auto) U Epithel Cells (Auto) Urine Bacteria (Auto) Ur Random Creatinine Ur Random Sodium Ur Random Potassium Ur Random Chloride Syphilis Serology Non-reactive 04/18/20 04/18/20 04/18/20 01:10 01:10 01:10 WBC RBC Hgb Hct MCV MCH MCHC RDW Plt Count MPV Absolute Neuts (auto) Neutrophils % Lymphocytes % Monocytes % Eosinophils % Basophils % Nucleated RBC % PT with INR INR Sodium Potassium Chloride Carbon Dioxide Anion Gap BUN Creatinine Est GFR (CKD-EPI)AfAm Est GFR (CKD-EPI)NonAf POC Glucometer Random Glucose Hemoglobin A1c % Calcium Phosphorus Magnesium Iron Total Bilirubin Direct Bilirubin AST ALT Alkaline Phosphatase Creatine Kinase Creatine Kinase Index CK-MB (CK-2) Troponin I 0.12 H B-Natriuretic Peptide Total Protein Albumin Triglycerides Cholesterol Total LDL Cholesterol HDL Cholesterol Vitamin B12 Serum Folate TSH Resin T3 Uptake Urine Color Yellow Urine Appearance Clear Urine pH 6.5 Ur Specific [place] 1.017 Urine Protein 2+ H Urine Glucose (UA) 2+ H Urine Ketones Negative Urine Blood 2+ H Urine Nitrite Negative Urine Bilirubin Negative Urine Urobilinogen 1.0 Ur Leukocyte Esterase Negative Urine WBC (Auto) 1 Urine RBC (Auto) 16 Urine Casts (Auto) 0 U Epithel Cells (Auto) 2 Urine Bacteria (Auto) 12 Ur Random Creatinine Ur Random Sodium 79 Ur Random Potassium 23.0 L Ur Random Chloride 69 L Syphilis Serology 04/18/20 04/18/20 04/18/20 05:47 06:15 06:15 WBC 7.3 RBC 4.73 Hgb 13.4 Hct 40.0 MCV 84.7 MCH 28.4 MCHC 33.5 RDW 14.0 Plt Count 239 MPV 7.8 Absolute Neuts (auto) 5.4 Neutrophils % 74.3 Lymphocytes % 15.5 D Monocytes % 6.9 Eosinophils % 2.7 D Basophils % 0.6 Nucleated RBC % 0 PT with INR 10.90 INR 0.92 Sodium Potassium Chloride Carbon Dioxide Anion Gap BUN Creatinine Est GFR (CKD-EPI)AfAm Est GFR (CKD-EPI)NonAf POC Glucometer 122 Random Glucose Hemoglobin A1c % Calcium Phosphorus Magnesium Iron Total Bilirubin Direct Bilirubin AST ALT Alkaline Phosphatase Creatine Kinase Creatine Kinase Index CK-MB (CK-2) Troponin I B-Natriuretic Peptide Total Protein Albumin Triglycerides Cholesterol Total LDL Cholesterol HDL Cholesterol Vitamin B12 Serum Folate TSH Resin T3 Uptake Urine Color Urine Appearance Urine pH Ur Specific [place] Urine Protein Urine Glucose (UA) Urine Ketones Urine Blood Urine Nitrite Urine Bilirubin Urine Urobilinogen Ur Leukocyte Esterase Urine WBC (Auto) Urine RBC (Auto) Urine Casts (Auto) U Epithel Cells (Auto) Urine Bacteria (Auto) Ur Random Creatinine Ur Random Sodium Ur Random Potassium Ur Random Chloride Syphilis Serology 04/18/20 04/18/20 04/18/20 06:15 06:15 10:47 WBC RBC Hgb Hct MCV MCH MCHC RDW Plt Count MPV Absolute Neuts (auto) Neutrophils % Lymphocytes % Monocytes % Eosinophils % Basophils % Nucleated RBC % PT with INR INR Sodium 144 Potassium 4.0 Chloride 111 H Carbon Dioxide 25 Anion Gap 8 BUN 47.3 H Creatinine 1.6 H Est GFR (CKD-EPI)AfAm 45.50 Est GFR (CKD-EPI)NonAf 39.26 POC Glucometer 142 Random Glucose 120 H Hemoglobin A1c % 9.2 H Calcium 8.6 Phosphorus 2.7 Magnesium 2.5 H Iron 40 L Total Bilirubin 1.0 Direct Bilirubin 0.3 H AST 93 H ALT 28 Alkaline Phosphatase 88 Creatine Kinase 2425 H Creatine Kinase Index 0.5 CK-MB (CK-2) 12.9 H Troponin I 0.09 H B-Natriuretic Peptide 325.9 Total Protein 7.1 Albumin 3.5 Triglycerides 100 Cholesterol 130 Total LDL Cholesterol 55 HDL Cholesterol 67 H Vitamin B12 1347 H Serum Folate 12 TSH 1.22 Resin T3 Uptake Urine Color Urine Appearance Urine pH Ur Specific [place] Urine Protein Urine Glucose (UA) Urine Ketones Urine Blood Urine Nitrite Urine Bilirubin Urine Urobilinogen Ur Leukocyte Esterase Urine WBC (Auto) Urine RBC (Auto) Urine Casts (Auto) U Epithel Cells (Auto) Urine Bacteria (Auto) Ur Random Creatinine Ur Random Sodium Ur Random Potassium Ur Random Chloride Syphilis Serology 04/18/20 11:05 WBC RBC Hgb Hct MCV MCH MCHC RDW Plt Count MPV Absolute Neuts (auto) Neutrophils % Lymphocytes % Monocytes % Eosinophils % Basophils % Nucleated RBC % PT with INR INR Sodium Potassium Chloride Carbon Dioxide Anion Gap BUN Creatinine Est GFR (CKD-EPI)AfAm Est GFR (CKD-EPI)NonAf POC Glucometer Random Glucose Hemoglobin A1c % Calcium Phosphorus Magnesium Iron Total Bilirubin Direct Bilirubin AST ALT Alkaline Phosphatase Creatine Kinase Creatine Kinase Index CK-MB (CK-2) Troponin I B-Natriuretic Peptide Total Protein Albumin Triglycerides Cholesterol Total LDL Cholesterol HDL Cholesterol Vitamin B12 Serum Folate TSH Resin T3 Uptake Urine Color Urine Appearance Urine pH Ur Specific [place] Urine Protein Urine Glucose (UA) Urine Ketones Urine Blood Urine Nitrite Urine Bilirubin Urine Urobilinogen Ur Leukocyte Esterase Urine WBC (Auto) Urine RBC (Auto) Urine Casts (Auto) U Epithel Cells (Auto) Urine Bacteria (Auto) Ur Random Creatinine 70.0 Ur Random Sodium Ur Random Potassium Ur Random Chloride Syphilis Serology Active Medications Generic Name Dose Route Start Last Admin Trade Name Freq PRN Reason Stop Dose Admin Amlodipine Besylate 10 mg 04/18/20 05:55 04/18/20 06:11 Norvasc - PO 10 mg DAILY ISAMAR Administration Heparin Sodium (Porcine) 5,000 unit 04/17/20 22:00 04/18/20 14:18 Heparin - SQ 5,000 unit TID ISAMAR Administration Sodium Chloride 1,000 mls @ 100 mls/hr 04/18/20 12:30 04/18/20 13:25 Normal Saline - IV 100 mls/hr ASDIR ISAMAR Administration Insulin Aspart 1 vial 04/17/20 22:00 04/18/20 11:13 Novolog Vial Sliding Scale - SQ Not Given ACHS [facility] Protocol Meclizine HCl 12.5 mg 04/17/20 22:00 04/18/20 14:18 Antivert - PO 12.5 mg TID ISAMAR Administration Metoprolol Tartrate 50 mg 04/18/20 10:00 04/18/20 09:46 Lopressor - PO 50 mg DAILY ISAMAR Administration Pantoprazole Sodium 20 mg 04/18/20 10:00 04/18/20 09:46 Protonix - PO 20 mg DAILY ISAMAR Administration Sodium Bicarbonate 650 mg 04/17/20 22:00 04/18/20 14:18 Sodium Bicarbonate - PO 650 mg TID ISAMAR Administration ASSESSMENT/PLAN: ATTENDING PHYSICIAN STATEMENT I saw and evaluated the patient. I reviewed the resident's note and discussed the case with the resident. I agree with the resident's findings and plan as documented. SUBJECTIVE: OBJECTIVE: ASSESSMENT AND PLAN:
--- NOTE | 2020-04-18 16:37 | PN ---
Physical Exam: SUBJECTIVE: Patient seen and examined at bedside. OBJECTIVE: Vital Signs Period Temp Pulse Resp BP Sys/Charles Pulse Ox Last 24 Hr 97.7 F-982 F 58-75 16-18 150-187/66-82 96-100 GENERAL: AAOx3 but mildly demented; obese male HEENT: NCAT, PERRLA, EOMI, sclera anicteric, conjunctiva clear NECK: Normal ROM, supple, no lymphadenopathy, JVD, or masses LUNGS: CTAB. No distress, speaks in full sentences. No increased work of breathing. HEART: RRR, normal S1 S2, no M/R/G, peripheral pulses 2+ and equal b/l ABDOMEN: Soft and distended. No guarding or rebound. No hepatomegaly or splenomegaly. MSK: ROM WNL; + L hip and L Knee pain reproducible with palpation EXTREMITIES: Normal inspection. 1+ edema on b/l legs. No clubbing or cyanosis. NEUROLOGICAL: CN II-XII intact. Normal speech. Gait not assessed. No sensory or neurological deficits observed. SKIN: bruising noted on left arm Laboratory Results - last 24 hr CBC, BMP 04/18/20 06:15 04/18/20 06:15 04/17/20 04/17/20 04/17/20 18:01 20:05 21:29 WBC RBC Hgb Hct MCV MCH MCHC RDW Plt Count MPV Absolute Neuts (auto) Neutrophils % Lymphocytes % Monocytes % Eosinophils % Basophils % Nucleated RBC % PT with INR INR Sodium Potassium Chloride Carbon Dioxide Anion Gap BUN Creatinine Est GFR (CKD-EPI)AfAm Est GFR (CKD-EPI)NonAf POC Glucometer 277 Random Glucose Hemoglobin A1c % Calcium Phosphorus Magnesium Iron Total Bilirubin Direct Bilirubin AST ALT Alkaline Phosphatase Creatine Kinase 2299 H Creatine Kinase Index 0.7 CK-MB (CK-2) 16.8 H Troponin I 0.12 H B-Natriuretic Peptide Total Protein Albumin Triglycerides Cholesterol Total LDL Cholesterol HDL Cholesterol Vitamin B12 Serum Folate TSH Resin T3 Uptake 35.3 Urine Color Urine Appearance Urine pH Ur Specific [place] Urine Protein Urine Glucose (UA) Urine Ketones Urine Blood Urine Nitrite Urine Bilirubin Urine Urobilinogen Ur Leukocyte Esterase Urine WBC (Auto) Urine RBC (Auto) Urine Casts (Auto) U Epithel Cells (Auto) Urine Bacteria (Auto) Ur Random Creatinine Ur Random Sodium Ur Random Potassium Ur Random Chloride Syphilis Serology Non-reactive 04/18/20 04/18/20 04/18/20 01:10 01:10 01:10 WBC RBC Hgb Hct MCV MCH MCHC RDW Plt Count MPV Absolute Neuts (auto) Neutrophils % Lymphocytes % Monocytes % Eosinophils % Basophils % Nucleated RBC % PT with INR INR Sodium Potassium Chloride Carbon Dioxide Anion Gap BUN Creatinine Est GFR (CKD-EPI)AfAm Est GFR (CKD-EPI)NonAf POC Glucometer Random Glucose Hemoglobin A1c % Calcium Phosphorus Magnesium Iron Total Bilirubin Direct Bilirubin AST ALT Alkaline Phosphatase Creatine Kinase Creatine Kinase Index CK-MB (CK-2) Troponin I 0.12 H B-Natriuretic Peptide Total Protein Albumin Triglycerides Cholesterol Total LDL Cholesterol HDL Cholesterol Vitamin B12 Serum Folate TSH Resin T3 Uptake Urine Color Yellow Urine Appearance Clear Urine pH 6.5 Ur Specific [place] 1.017 Urine Protein 2+ H Urine Glucose (UA) 2+ H Urine Ketones Negative Urine Blood 2+ H Urine Nitrite Negative Urine Bilirubin Negative Urine Urobilinogen 1.0 Ur Leukocyte Esterase Negative Urine WBC (Auto) 1 Urine RBC (Auto) 16 Urine Casts (Auto) 0 U Epithel Cells (Auto) 2 Urine Bacteria (Auto) 12 Ur Random Creatinine Ur Random Sodium 79 Ur Random Potassium 23.0 L Ur Random Chloride 69 L Syphilis Serology 04/18/20 04/18/20 04/18/20 05:47 06:15 06:15 WBC 7.3 RBC 4.73 Hgb 13.4 Hct 40.0 MCV 84.7 MCH 28.4 MCHC 33.5 RDW 14.0 Plt Count 239 MPV 7.8 Absolute Neuts (auto) 5.4 Neutrophils % 74.3 Lymphocytes % 15.5 D Monocytes % 6.9 Eosinophils % 2.7 D Basophils % 0.6 Nucleated RBC % 0 PT with INR 10.90 INR 0.92 Sodium Potassium Chloride Carbon Dioxide Anion Gap BUN Creatinine Est GFR (CKD-EPI)AfAm Est GFR (CKD-EPI)NonAf POC Glucometer 122 Random Glucose Hemoglobin A1c % Calcium Phosphorus Magnesium Iron Total Bilirubin Direct Bilirubin AST ALT Alkaline Phosphatase Creatine Kinase Creatine Kinase Index CK-MB (CK-2) Troponin I B-Natriuretic Peptide Total Protein Albumin Triglycerides Cholesterol Total LDL Cholesterol HDL Cholesterol Vitamin B12 Serum Folate TSH Resin T3 Uptake Urine Color Urine Appearance Urine pH Ur Specific [place] Urine Protein Urine Glucose (UA) Urine Ketones Urine Blood Urine Nitrite Urine Bilirubin Urine Urobilinogen Ur Leukocyte Esterase Urine WBC (Auto) Urine RBC (Auto) Urine Casts (Auto) U Epithel Cells (Auto) Urine Bacteria (Auto) Ur Random Creatinine Ur Random Sodium Ur Random Potassium Ur Random Chloride Syphilis Serology 04/18/20 04/18/20 04/18/20 06:15 06:15 10:47 WBC RBC Hgb Hct MCV MCH MCHC RDW Plt Count MPV Absolute Neuts (auto) Neutrophils % Lymphocytes % Monocytes % Eosinophils % Basophils % Nucleated RBC % PT with INR INR Sodium 144 Potassium 4.0 Chloride 111 H Carbon Dioxide 25 Anion Gap 8 BUN 47.3 H Creatinine 1.6 H Est GFR (CKD-EPI)AfAm 45.50 Est GFR (CKD-EPI)NonAf 39.26 POC Glucometer 142 Random Glucose 120 H Hemoglobin A1c % 9.2 H Calcium 8.6 Phosphorus 2.7 Magnesium 2.5 H Iron 40 L Total Bilirubin 1.0 Direct Bilirubin 0.3 H AST 93 H ALT 28 Alkaline Phosphatase 88 Creatine Kinase 2425 H Creatine Kinase Index 0.5 CK-MB (CK-2) 12.9 H Troponin I 0.09 H B-Natriuretic Peptide 325.9 Total Protein 7.1 Albumin 3.5 Triglycerides 100 Cholesterol 130 Total LDL Cholesterol 55 HDL Cholesterol 67 H Vitamin B12 1347 H Serum Folate 12 TSH 1.22 Resin T3 Uptake Urine Color Urine Appearance Urine pH Ur Specific [place] Urine Protein Urine Glucose (UA) Urine Ketones Urine Blood Urine Nitrite Urine Bilirubin Urine Urobilinogen Ur Leukocyte Esterase Urine WBC (Auto) Urine RBC (Auto) Urine Casts (Auto) U Epithel Cells (Auto) Urine Bacteria (Auto) Ur Random Creatinine Ur Random Sodium Ur Random Potassium Ur Random Chloride Syphilis Serology 04/18/20 11:05 WBC RBC Hgb Hct MCV MCH MCHC RDW Plt Count MPV Absolute Neuts (auto) Neutrophils % Lymphocytes % Monocytes % Eosinophils % Basophils % Nucleated RBC % PT with INR INR Sodium Potassium Chloride Carbon Dioxide Anion Gap BUN Creatinine Est GFR (CKD-EPI)AfAm Est GFR (CKD-EPI)NonAf POC Glucometer Random Glucose Hemoglobin A1c % Calcium Phosphorus Magnesium Iron Total Bilirubin Direct Bilirubin AST ALT Alkaline Phosphatase Creatine Kinase Creatine Kinase Index CK-MB (CK-2) Troponin I B-Natriuretic Peptide Total Protein Albumin Triglycerides Cholesterol Total LDL Cholesterol HDL Cholesterol Vitamin B12 Serum Folate TSH Resin T3 Uptake Urine Color Urine Appearance Urine pH Ur Specific [place] Urine Protein Urine Glucose (UA) Urine Ketones Urine Blood Urine Nitrite Urine Bilirubin Urine Urobilinogen Ur Leukocyte Esterase Urine WBC (Auto) Urine RBC (Auto) Urine Casts (Auto) U Epithel Cells (Auto) Urine Bacteria (Auto) Ur Random Creatinine 70.0 Ur Random Sodium Ur Random Potassium Ur Random Chloride Syphilis Serology Active Medications Generic Name Dose Route Start Last Admin Trade Name Freq PRN Reason Stop Dose Admin Amlodipine Besylate 10 mg 04/18/20 05:55 04/18/20 06:11 Norvasc - PO 10 mg DAILY ISAMAR Administration Heparin Sodium (Porcine) 5,000 unit 04/17/20 22:00 04/18/20 14:18 Heparin - SQ 5,000 unit TID ISAMAR Administration Sodium Chloride 1,000 mls @ 100 mls/hr 04/18/20 12:30 04/18/20 13:25 Normal Saline - IV 100 mls/hr ASDIR ISAMAR Administration Insulin Aspart 1 vial 04/17/20 22:00 04/18/20 11:13 Novolog Vial Sliding Scale - SQ Not Given ACHS ISAMAR Protocol Meclizine HCl 12.5 mg 04/17/20 22:00 04/18/20 14:18 Antivert - PO 12.5 mg TID ISAMAR Administration Metoprolol Tartrate 50 mg 04/18/20 10:00 04/18/20 09:46 Lopressor - PO 50 mg DAILY ISAMAR Administration Pantoprazole Sodium 20 mg 04/18/20 10:00 04/18/20 09:46 Protonix - PO 20 mg DAILY ISAMAR Administration Sodium Bicarbonate 650 mg 04/17/20 22:00 04/18/20 14:18 Sodium Bicarbonate - PO 650 mg TID ISAMAR Administration ASSESSMENT/PLAN: 84 y/o M with PMX DM, HTN, syncope, CKD, 'heart condition," dizziness, b/l leg weakness, memory loss presenting to [facility] ED after an unwitnessed fall at his home and being on the floor for 3 hours. Admitted for syncope. #Acute Rhabdomyolysis -Patient was on the ground for ~3 hours after he fell -CPK trending up at 2425 -c/w Gentle IV hydration -Lasix held due to high CPK -monitor CPK #Possible Pre-Syncope/Syncope vs Mechanical Fall -Pt does not remember how he fell and does not recall any precipitating factors -CT head - mild atrophy, periventricular ischemic chnages -Carotid Duplex - no hemodynamically significant stenosis -Echo - normal EF, impaired LV relaxation -no acute EKG changes # Elevated Troponin -likely 2/2 to Rhabdomyolysis -ECG - no acute changes -Cardio consult: does not appear to be ACS; no further workup needed #L knee discomfort -Pt endorsing L knee pain from his fall -Xrays show no osseous fractures -PT on board #Progressive Memory Loss, likely 2/2 Dementia -RPR non-reactive -TSH 12 -B12 level 1347 -Pt will need SNF at d/c #SOBIA on CKD stage 3 - resolved with IV hydration - Creat now back to baseline -c/w gentle hydration -c/w home med NaBicarb -neprho consulted; f/u reccs -renal consulted; f/u reccs #Chronic Diastolic CHF - no evidence of acute exacerbation at this visit -Lasix held for now for gentle hydration for acute rhabdo #HTN - c/w home med Metoprolol -c/w home med Norvasc. #DM -uncontrolled -A1c-9.2 -ISS w/ BGM's #HLD - Statin held due to elevated CPK. #Renal Cysts on US -incidental finding -for out-patient Urology referral. #0.5 cm Gallbladder Polyp -incidental finding on Abdo US -3-6 months repeat imaging recommended by Radiology -for GI out-patient referral #CAD s/p PCI/Stent -c/w Aspirin -c/w BB -Statin currently held due to Rhabdo #FEN -NS @ 100 mls/hr until the AM -monitor lytes; replete PRN -diabetic sodium controlled diet #Ppx -DVT: Heparin SQ TID dispo: continue to monitor in tele and SNF placement planning Visit type - Emergency Visit Emergency Visit: No - New Patient This patient is new to me today: No - Critical Care Critical Care patient: No - Discharge Referral Referred to [facility] No - Medication Review Med list reviewed for High Risk Meds patients 65 and older: Yes ATTENDING PHYSICIAN STATEMENT I saw and evaluated the patient. I reviewed the resident's note and discussed the case with the resident. I agree with the resident's findings and plan as documented. SUBJECTIVE: OBJECTIVE: ASSESSMENT AND PLAN:
[2020-04-18] MEDS ORDERED: INSULIN (NOVOLOG) ASPART 100 UNITS/ML 10ML VIAL ONE (17:20)
[2020-04-19] MEDS ORDERED: LORazepam 2 MG/ML SDV VIAL IVPUSH ONE (00:45)
[2020-04-19] MEDS: HEPARIN NA (PORCINE) 5,000 UNITS/ML 1ML VIAL SQ SCH ×3 (05:53→21:04)
[2020-04-19] MEDS: SODIUM BICARBONATE 650 MG TABLET PO SCH ×3 (05:57→21:10)
[2020-04-19] MEDS: MECLIZINE HCL 12.5 MG TABLET PO SCH ×3 (05:57→21:04)
[2020-04-19] MEDS: INSULIN SLIDING SCALE (NOVOLOG) 1 VIAL SQ SCH ×4 (06:16→21:04)
[2020-04-19 06:58] LABS: BASO % 0.4 % (0-2.0); EOS % 0.4 % (0-4.5); HEMATOCRIT 37.6 % (35.4-49); HEMOGLOBIN 12.6 GM/dL (11.7-16.9); MCH 27.8 pg (25.7-33.7); MCHC 33.4 g/dl (32.0-35.9); MEAN CELL VOLUME 83.2 fl (80-96); MEAN PLT VOLUME 7.6 fl (7.5-11.1); MONO % 6.4 % (3.8-10.2); NEUT % 80.8 % (42.8-82.8); PLATELET COUNT 256 K/MM3 (134-434); RBC 4.52 M/mm3 (4.00-5.60); RDW 13.9 % (11.9-15.9); WHITE BLOOD COUNT 9.8 K/mm3 (4.0-10.0)
[2020-04-19 07:26] LABS: ALBUMIN 3.6 g/dl (3.4-5.0); BILIRUBIN,DIRECT 0.3 mg/dL (0.0-0.2); BILIRUBIN,TOTAL 1.1 mg/dL (0.2-1); BLOOD UREA NITROGEN 40.5 mg/dL (7-18); CALCIUM 8.6 mg/dL (8.5-10.1); CREATININE 1.8 mg/dL (0.55-1.3); MAGNESIUM 2.4 mg/dL (1.8-2.4); PHOSPHOROUS 2.1 mg/dL (2.5-4.9); TOT PROT 7.3 g/dl (6.4-8.2)
[2020-04-19] MEDS ORDERED: NAPH,MB-DB/K PH,MBDB POWDER PACKET PO ONE (09:00)
[2020-04-19] MEDS: PANTOPRAZOLE 20 MG TABLET PO SCH (10:18)
[2020-04-19] MEDS: amLODIPine BESYLATE 10 MG TABLET (FP) PO SCH (10:18)
[2020-04-19] MEDS: ASPIRIN 81 MG CHEWABLE TABLETS PO SCH (10:19)
[2020-04-19] MEDS: METOPROLOL TARTRATE 50 MG TABLET (FP) PO SCH (10:19)
--- NOTE | 2020-04-19 12:49 | PN ---
Physical Exam: SUBJECTIVE: Patient seen and examined. No acute overnight events. OBJECTIVE: Vital Signs Period Temp Pulse Resp BP Sys/Charles Pulse Ox Last 24 Hr 98.1 F-982 F 64-91 18-74 150-180/75-80 96-98 GENERAL: AAOx3 in NAD HEENT: NCAT, PERRLA, EOMI, sclera anicteric, conjunctiva clear LUNGS: CTABL. No increased work of breathing. HEART: RRR, normal S1 S2, no M/R/G, peripheral pulses 2+ and equal b/l ABDOMEN: Soft, obese. No guarding or rebound. +BS. MSK: ROM WNL EXTREMITIES: Normal inspection. 1+ edema on b/l legs. NEUROLOGICAL: CN II-XII intact. Nonfocal exam. SKIN: bruising to left arm Laboratory Results - last 24 hr 04/17/20 04/18/20 04/19/20 20:15 17:17 05:38 WBC 9.8 RBC 4.52 Hgb 12.6 Hct 37.6 MCV 83.2 MCH 27.8 MCHC 33.4 RDW 13.9 Plt Count 256 MPV 7.6 Absolute Neuts (auto) 7.9 Neutrophils % 80.8 Lymphocytes % 12.0 D Monocytes % 6.4 Eosinophils % 0.4 D Basophils % 0.4 Nucleated RBC % 0 Sodium Potassium Chloride Carbon Dioxide Anion Gap BUN Creatinine Est GFR (CKD-EPI)AfAm Est GFR (CKD-EPI)NonAf POC Glucometer 188 Random Glucose Calcium Phosphorus Magnesium Total Bilirubin Direct Bilirubin AST ALT Alkaline Phosphatase Creatine Kinase Creatine Kinase Index CK-MB (CK-2) Total Protein Albumin COVID-19 (JACKI) Not detected 04/19/20 04/19/20 04/19/20 05:38 05:38 05:48 WBC RBC Hgb Hct MCV MCH MCHC RDW Plt Count MPV Absolute Neuts (auto) Neutrophils % Lymphocytes % Monocytes % Eosinophils % Basophils % Nucleated RBC % Sodium 139 Potassium 4.0 Chloride 106 Carbon Dioxide 22 Anion Gap 10 BUN 40.5 H Creatinine 1.8 H Est GFR (CKD-EPI)AfAm 39.46 Est GFR (CKD-EPI)NonAf 34.05 POC Glucometer 214 Random Glucose 229 H Calcium 8.6 Phosphorus 2.1 L Magnesium 2.4 Total Bilirubin 1.1 H Direct Bilirubin 0.3 H AST 90 H ALT 29 Alkaline Phosphatase 95 Creatine Kinase 2276 H Cancelled Creatine Kinase Index 0.2 CK-MB (CK-2) 6.8 H Total Protein 7.3 Albumin 3.6 COVID-19 (JACKI) Active Medications Generic Name Dose Route Start Last Admin Trade Name Saji PRN Reason Stop Dose Admin Amlodipine Besylate 10 mg 04/18/20 05:55 04/19/20 10:18 Norvasc - PO 10 mg DAILY ISAMAR Administration Aspirin 81 mg 04/19/20 10:00 04/19/20 10:19 Asa - PO 81 mg DAILY ISAMAR Administration Heparin Sodium (Porcine) 5,000 unit 04/17/20 22:00 04/19/20 05:53 Heparin - SQ 5,000 unit TID ISAMAR Administration Sodium Chloride 1,000 mls @ 100 mls/hr 04/18/20 12:30 04/18/20 13:25 Normal Saline - IV 100 mls/hr ASDIR ISAMAR Administration Insulin Aspart 1 vial 04/17/20 22:00 04/19/20 11:02 Novolog Vial Sliding Scale - SQ Not Given ACHS [facility] Protocol Meclizine HCl 12.5 mg 04/17/20 22:00 04/19/20 05:57 Antivert - PO Not Given TID [facility] Metoprolol Tartrate 50 mg 04/18/20 10:00 04/19/20 10:19 Lopressor - PO 50 mg DAILY ISAMAR Administration Pantoprazole Sodium 20 mg 04/18/20 10:00 04/19/20 10:18 Protonix - PO 20 mg DAILY ISAMAR Administration Sodium Bicarbonate 650 mg 04/17/20 22:00 04/19/20 05:57 Sodium Bicarbonate - PO Not Given TID [facility] ASSESSMENT/PLAN: 84 y/o M with PMX DM, HTN, syncope, CKD, 'heart condition," dizziness, b/l leg w eakness, memory loss presenting to [facility] ED after an unwitnessed fall at his home and being on the floor for 3 hours. Admitted for syncope. #Acute Rhabdomyolysis -Cont to trend CPK- downtrending slowly -c/w IVF, NS @100cc/hr -Holding Lasix in setting of volume depletion -trops have downtrended #Pre-Syncope/Syncope vs Mechanical Fall -Pt does not remember how he fell and does not recall any precipitating factors -CT head - mild atrophy, periventricular ischemic changes -Carotid Duplex - no hemodynamically significant stenosis -Echo - normal EF, impaired LV relaxation -no acute EKG changes -ECG - no acute changes -Cardio following: Dr. Josue #L knee pain -improved -Xrays show no osseous fractures -continue PT #Progressive Memory Loss, likely 2/2 Dementia -RPR non-reactive -TSH 12 -B12 level 1347 -Pt will need SNF at d/c #SOBIA on CKD stage 3 -cont IVF -trend renal labs -c/w home med NaBicarb -nephro following- Dr. Galvan #Chronic Diastolic CHF -no evidence of acute exacerbation at this visit -Lasix held for now for gentle hydration for acute rhabdo -echo 04/18: normal EF. Impaired LV relaxation. Mild MR, TR, ao. regurg #HTN -c/w home med Metoprolol -c/w home med Norvasc. #Uncontrolled DM -A1c-9.2 -ISS w/ BGM's ACHS #HLD -Holding statin in setting of rhabdo #Renal Cysts on US -incidental finding -for out-patient Urology referral. #0.5 cm Gallbladder Polyp -incidental finding on Abdo US -3-6 months repeat imaging recommended by Radiology -for GI out-patient referral #CAD s/p PCI/Stent -c/w Aspirin -c/w BB -Statin held due to Rhabdo #FEN -NS @ 100 mls/hr -monitor lytes; monitor closely & replete PRN -diabetic sodium controlled diet #Ppx -DVT: Heparin SQ TID dispo: continue to monitor in tele and SNF placement planning Visit type - Emergency Visit Emergency Visit: No - New Patient This patient is new to me today: No - Critical Care Critical Care patient: No - Medication Review Med list reviewed for High Risk Meds patients 65 and older: Yes ATTENDING PHYSICIAN STATEMENT I saw and evaluated the patient. I reviewed the resident's note and discussed the case with the resident. I agree with the resident's findings and plan as documented. SUBJECTIVE: OBJECTIVE: ASSESSMENT AND PLAN:
--- NOTE | 2020-04-19 12:57 | PN ---
Progress Note (short form) - Note Progress Note: cc: fall s: unable to obtain HPI, ROS due to mental status. appears comfortable Current Medications Generic Name Dose Route Start Last Admin Trade Name Saji PRN Reason Stop Dose Admin Amlodipine Besylate 10 mg 04/18/20 05:55 04/19/20 10:18 Norvasc - PO 10 mg DAILY ISAMAR Administration Aspirin 81 mg 04/19/20 10:00 04/19/20 10:19 Asa - PO 81 mg DAILY ISAMAR Administration Heparin Sodium (Porcine) 5,000 unit 04/17/20 22:00 04/19/20 05:53 Heparin - SQ 5,000 unit TID ISAMAR Administration Sodium Chloride 1,000 mls @ 100 mls/hr 04/18/20 12:30 04/18/20 13:25 Normal Saline - IV 100 mls/hr ASDIR ISAMAR Administration Insulin Aspart 1 vial 04/17/20 22:00 04/19/20 11:02 Novolog Vial Sliding Scale - SQ Not Given ACHS ISAMAR Protocol Meclizine HCl 12.5 mg 04/17/20 22:00 04/19/20 05:57 Antivert - PO Not Given TID ISAMAR Metoprolol Tartrate 50 mg 04/18/20 10:00 04/19/20 10:19 Lopressor - PO 50 mg DAILY ISAMAR Administration Pantoprazole Sodium 20 mg 04/18/20 10:00 04/19/20 10:18 Protonix - PO 20 mg DAILY ISAMAR Administration Sodium Bicarbonate 650 mg 04/17/20 22:00 04/19/20 05:57 Sodium Bicarbonate - PO Not Given TID ISAMAR Vital Signs Period Temp Pulse Resp BP Sys/Charles Pulse Ox Last 24 Hr 98.1 F-982 F 64-91 18-74 150-180/75-80 96-98 Constitutional: Yes: No Distress Eyes: Yes: Conjunctiva Clear Respiratory: Yes: CTA Bilaterally Gastrointestinal: Yes: Soft (nt) Cardiovascular: Yes: Regular Rate and Rhythm JVD: No Carotid Bruit: No Heart Sounds: Yes: S1, S2 (rrr) Edema: No Peripheral Pulses WNL: Yes Neurological: Yes: Alert, Oriented no jaundice, diaphoresis not agitated Laboratory Last Values WBC 9.8 K/mm3 (4.0-10.0) 04/19/20 05:38 RBC 4.52 M/mm3 (4.00-5.60) 04/19/20 05:38 Hgb 12.6 GM/dL (11.7-16.9) 04/19/20 05:38 Hct 37.6 % (35.4-49) 04/19/20 05:38 MCV 83.2 fl (80-96) 04/19/20 05:38 MCH 27.8 pg (25.7-33.7) 04/19/20 05:38 MCHC 33.4 g/dl (32.0-35.9) 04/19/20 05:38 RDW 13.9 % (11.9-15.9) 04/19/20 05:38 Plt Count 256 K/MM3 (134-434) 04/19/20 05:38 MPV 7.6 fl (7.5-11.1) 04/19/20 05:38 Absolute Neuts (auto) 7.9 K/mm3 (1.5-8.0) 04/19/20 05:38 Neutrophils % 80.8 % (42.8-82.8) 04/19/20 05:38 Lymphocytes % 12.0 % (8-40) D 04/19/20 05:38 Monocytes % 6.4 % (3.8-10.2) 04/19/20 05:38 Eosinophils % 0.4 % (0-4.5) D 04/19/20 05:38 Basophils % 0.4 % (0-2.0) 04/19/20 05:38 Nucleated RBC % 0 % (0-0) 04/19/20 05:38 PT with INR 10.90 SEC (9.7-13.0) 04/18/20 06:15 INR 0.92 (0.83-1.09) 04/18/20 06:15 Sodium 139 mmol/L (136-145) 04/19/20 05:38 Potassium 4.0 mmol/L (3.5-5.1) 04/19/20 05:38 Chloride 106 mmol/L (98-107) 04/19/20 05:38 Carbon Dioxide 22 mmol/L (21-32) 04/19/20 05:38 Anion Gap 10 MMOL/L (8-16) 04/19/20 05:38 BUN 40.5 mg/dL (7-18) H 04/19/20 05:38 Creatinine 1.8 mg/dL (0.55-1.3) H 04/19/20 05:38 Est GFR (CKD-EPI)AfAm 39.46 04/19/20 05:38 Est GFR (CKD-EPI)NonAf 34.05 04/19/20 05:38 POC Glucometer 214 UNITS (80-120) 04/19/20 05:48 Random Glucose 229 mg/dL (74-106) H 04/19/20 05:38 Hemoglobin A1c % 9.2 % (4.2-6.3) H 04/18/20 06:15 Calcium 8.6 mg/dL (8.5-10.1) 04/19/20 05:38 Phosphorus 2.1 mg/dL (2.5-4.9) L 04/19/20 05:38 Magnesium 2.4 mg/dL (1.8-2.4) 04/19/20 05:38 Iron 40 ug/dL (50-175) L 04/18/20 06:15 Total Bilirubin 1.1 mg/dL (0.2-1) H 04/19/20 05:38 Direct Bilirubin 0.3 mg/dL (0.0-0.2) H 04/19/20 05:38 AST 90 U/L (15-37) H 04/19/20 05:38 ALT 29 U/L (13-61) 04/19/20 05:38 Alkaline Phosphatase 95 U/L (45-117) 04/19/20 05:38 Creatine Kinase 2276 U/L (26-308) H 04/19/20 05:38 Creatine Kinase Cancelled 04/19/20 05:38 Creatine Kinase Index 0.2 % (0.0-5.0) 04/19/20 05:38 CK-MB (CK-2) 6.8 ng/mL (0.5-3.6) H 04/19/20 05:38 Troponin I 0.09 ng/ml (0.00-0.05) H 04/18/20 06:15 B-Natriuretic Peptide 325.9 pg/ml (5-450) 04/18/20 06:15 Total Protein 7.3 g/dl (6.4-8.2) 04/19/20 05:38 Albumin 3.6 g/dl (3.4-5.0) 04/19/20 05:38 Triglycerides 100 mg/dL (0-150) 04/18/20 06:15 Cholesterol 130 mg/dL (50-200) 04/18/20 06:15 Total LDL Cholesterol 55 mg/dL (5-100) 04/18/20 06:15 HDL Cholesterol 67 mg/dL (40-60) H 04/18/20 06:15 Vitamin B12 1347 pg/ml (193-986) H 04/18/20 06:15 Serum Folate 12 ng/mL (3.1-17.5) 04/18/20 06:15 TSH 1.22 uIU/ml (0.358-3.74) 04/18/20 06:15 Resin T3 Uptake 35.3 % (33-40) 04/17/20 18:01 Urine Color Yellow 04/18/20 01:10 Urine Appearance Clear 04/18/20 01:10 Urine pH 6.5 (5.0-8.0) 04/18/20 01:10 Ur Specific [place] 1.017 (1.010-1.035) 04/18/20 01:10 Urine Protein 2+ (NEGATIVE) H 04/18/20 01:10 Urine Glucose (UA) 2+ (NEGATIVE) H 04/18/20 01:10 Urine Ketones Negative (NEGATIVE) 04/18/20 01:10 Urine Blood 2+ (NEGATIVE) H 04/18/20 01:10 Urine Nitrite Negative (NEGATIVE) 04/18/20 01:10 Urine Bilirubin Negative (NEGATIVE) 04/18/20 01:10 Urine Urobilinogen 1.0 mg/dL (0.2-1.0) 04/18/20 01:10 Ur Leukocyte Esterase Negative (NEGATIVE) 04/18/20 01:10 Urine WBC (Auto) 1 /uL (0-25.8) 04/18/20 01:10 Urine RBC (Auto) 16 /uL (0-23.9) 04/18/20 01:10 Urine Casts (Auto) 0 /uL (0-3.1) 04/18/20 01:10 U Epithel Cells (Auto) 2 /uL (0-25.1) 04/18/20 01:10 Urine Bacteria (Auto) 12 /uL (0-1359) 04/18/20 01:10 Ur Random Creatinine 70.0 mg/dL (30-150) 04/18/20 11:05 Ur Random Sodium 79 MMOL/L (40-220) 04/18/20 01:10 Ur Random Potassium 23.0 MMOL/L (25-125) L 04/18/20 01:10 Ur Random Chloride 69 MMOL/L (110-250) L 04/18/20 01:10 Syphilis Serology Non-reactive (NONREACTIVE) 04/17/20 20:05 COVID-19 (JACKI) Not detected (Not Detected) 04/17/20 20:15 Prior Cardiac Procedures: Cardiac Catheterization, PTCA with Stent Ejection Fraction %: LVEF > or = 40 % Imaging - Results Chest X-ray: Report Reviewed Cat Scan: Report Reviewed EKG: Image Reviewed tele: sinus Assessment/Plan DATA: echo 07/2017: 1+ lvh. hyperdynamic lv function. impaired relaxation. nl rv size/fn. 1+ ar. 1+tr. echo 01/2017: nl lv/rv, iasa, mild ar renal u/s 07/2017: bilateral renal cysts. no acute renal pathology. limited doppler study but no evidence of renal artery stenosis. renal duplex 07/2014: no anat echo 04/2020 nl LV/RV function, impaired relaxation, mild MR, mild TR, mild AR IMP/PLAN: a/p: 84 m hx cad s/p nstemi and pci (09/2013, doni rca, doni om1; residual 50-60 mrca, 30-50 d1), dm, htn, hld, ckd, venous insuff/le edema, vertigo here s/p fall. unwitnessed fall: mechanical vs syncope -no signs acs, chf, arrhythmia -appears vol depleted on labs -cont holding lasix -check ortho vitals -echo unremarkable -pt eval -tele benign thus far cad s/p remote mi/pci: -stable no signs acs -cont bb, statin, asa -Borderline flat equivocally elevated TnI with negative index, does not represent ACS. And with elevated CKs out of proportion to TnI, more likely represents rhabdo picture with SOBIA on a multifactorial basis (volume depletion contributing) hld: -cont statin htn: -cont home meds sobia/ckd: combo of volume depletion/rhabdo -as per PMD le edema: chronic, now resolved. On basis of chronic diastolic CHF -hold lasix
[2020-04-19] MEDS: SODIUM CHLORIDE 1,000 ML IV SCH (13:25)
--- NOTE | 2020-04-19 13:49 | PN ---
Teaching Attending Note Name of Resident: Rizwana Roman ATTENDING PHYSICIAN STATEMENT I saw and evaluated the patient. I reviewed the resident's note and discussed the case with the resident. I agree with the resident's findings and plan as documented. SUBJECTIVE: No complaints. Restless overnight, now calm and cooperative. OBJECTIVE: Afebrile, hemodynamically stable. AAO x 2. Follows commands. Last Vital Signs Temp Pulse Resp BP Pulse Ox 98.8 F 91 H 74 H 155/80 97 04/19/20 09:00 04/19/20 09:00 04/19/20 09:00 04/19/20 09:00 04/19/20 09:00 HEENT - Normocephalic. Heart - S1, S2, RRR Lungs - clear to auscultation Abdomen - soft, non-tender. High BMI. Bowel Sounds normal. Extremities - Mild edema, venous stasis, no calf tenderness. Neuro - AAO x 2. Tone/Power normal. Laboratory Results - last 24 hr 04/17/20 04/18/20 04/19/20 20:15 17:17 05:38 WBC 9.8 RBC 4.52 Hgb 12.6 Hct 37.6 MCV 83.2 MCH 27.8 MCHC 33.4 RDW 13.9 Plt Count 256 MPV 7.6 Absolute Neuts (auto) 7.9 Neutrophils % 80.8 Lymphocytes % 12.0 D Monocytes % 6.4 Eosinophils % 0.4 D Basophils % 0.4 Nucleated RBC % 0 Sodium Potassium Chloride Carbon Dioxide Anion Gap BUN Creatinine Est GFR (CKD-EPI)AfAm Est GFR (CKD-EPI)NonAf POC Glucometer 188 Random Glucose Calcium Phosphorus Magnesium Total Bilirubin Direct Bilirubin AST ALT Alkaline Phosphatase Creatine Kinase Creatine Kinase Index CK-MB (CK-2) Total Protein Albumin COVID-19 (JACKI) Not detected 04/19/20 04/19/20 04/19/20 05:38 05:38 05:48 WBC RBC Hgb Hct MCV MCH MCHC RDW Plt Count MPV Absolute Neuts (auto) Neutrophils % Lymphocytes % Monocytes % Eosinophils % Basophils % Nucleated RBC % Sodium 139 Potassium 4.0 Chloride 106 Carbon Dioxide 22 Anion Gap 10 BUN 40.5 H Creatinine 1.8 H Est GFR (CKD-EPI)AfAm 39.46 Est GFR (CKD-EPI)NonAf 34.05 POC Glucometer 214 Random Glucose 229 H Calcium 8.6 Phosphorus 2.1 L Magnesium 2.4 Total Bilirubin 1.1 H Direct Bilirubin 0.3 H AST 90 H ALT 29 Alkaline Phosphatase 95 Creatine Kinase 2276 H Cancelled Creatine Kinase Index 0.2 CK-MB (CK-2) 6.8 H Total Protein 7.3 Albumin 3.6 COVID-19 (JACKI) Current Medications Generic Name Dose Route Start Last Admin Trade Name Renatoq PRN Reason Stop Dose Admin Amlodipine Besylate 10 mg 04/18/20 05:55 04/19/20 10:18 Norvasc - PO 10 mg DAILY ISAMAR Administration Aspirin 81 mg 04/19/20 10:00 04/19/20 10:19 Asa - PO 81 mg DAILY ISAMAR Administration Heparin Sodium (Porcine) 5,000 unit 04/17/20 22:00 04/19/20 13:25 Heparin - SQ 5,000 unit TID ISAMAR Administration Sodium Chloride 1,000 mls @ 100 mls/hr 04/18/20 12:30 04/19/20 13:25 Normal Saline - IV Not Given ASDIR [facility] Insulin Aspart 1 vial 04/17/20 22:00 04/19/20 11:02 Novolog Vial Sliding Scale - SQ Not Given ACHS [facility] Protocol Meclizine HCl 12.5 mg 04/17/20 22:00 04/19/20 13:25 Antivert - PO 12.5 mg TID ISAMAR Administration Metoprolol Tartrate 50 mg 04/18/20 10:00 04/19/20 10:19 Lopressor - PO 50 mg DAILY ISAMAR Administration Pantoprazole Sodium 20 mg 04/18/20 10:00 04/19/20 10:18 Protonix - PO 20 mg DAILY ISAMAR Administration Sodium Bicarbonate 650 mg 04/17/20 22:00 04/19/20 13:25 Sodium Bicarbonate - PO 650 mg TID ISAMAR Administration Home Medications Medication Instructions Recorded Atorvastatin Ca [Lipitor] 20 mg PO HS 07/23/17 Meclizine HCl 12.5 mg PO TID 07/23/17 Amlodipine Besylate [Norvasc -] 10 mg PO DAILY #30 tablet 07/27/17 Furosemide 40 mg PO TID 01/20/19 Metoprolol Succinate 50 mg PO DAILY 01/20/19 Omeprazole 20 mg PO DAILY 01/20/19 Sodium Bicarbonate 325 mg PO TID 07/13/19 Aspirin 81 mg PO 04/18/20 Dulaglutide [Trulicity] 1.5 mg SQ WEEKLY 04/18/20 Insulin Glargine,Hum.rec.anlog 55 unit SQ DAILY 04/18/20 [Lantus] ASSESSMENT AND PLAN: 84 year old male with history of DM 2, HTN, HLD, CAD s/p NSTEMI PCI/Stent, chronic venous insufficiency, Syncope, CKD 3, Hx Vertigo, progressive memory loss, was found lying on the floor of his home, unable to recall events surrounding fall/collapse. 1. Acute Rhabdomyolysis - unclear fall versus Pre-syncope/Syncope as patient unable to remember ismael-episode events. CPK down from 2425 to 2200 Continue gentle IV hydration, Lasix held, monitor CPK 2. Possible Pre-Syncope/Syncope ? with preceding lightheadedness, Hx of BPPV - denies lightheadedness now. CT head - mild atrophy, periventricular ischemic chnages Carotid Duplex - no hemodynamically significant stenosis Denies CP - ECG no acute findings (old T wave changes) Echo - normal EF, impaired LV relaxation No Telemonitoring events Likely mildly dehydrated - continue IV fluids and Meclizine. 3. Elevated Troponin - secondary to Rhabdo ECG - no acute changes Evaluated by Cardiology - does not appear to have ACS, no further work up needed at this time. 4. L knee discomfort Xrays show no bony injury PT eval. 5. Progressive Memory Loss, likely underlying Dementia CT head as above RPR non-reactive TSH 12 B12 level 1347 6. SOBIA on CKD 3 - resolved with IV hydration. Creat now back to baseline. Continue NaBicarb. Nephrology consulted. 7. Chronic Diastolic CHF, no evidence of acute decompensaion. Impaired LV relaxation on Echo. Lasix held for now in favor of gentle hydration for acute rhabdo. 8. HTN - Continued on Metoprolol, Norvasc. 9. DM 2 - uncontrolled, A1C 9.2. Trulicity, Glargine held. Maintain on Novolog sliding scale. 10. HLD - Statin held due to elevated CPK. 11. Renal Cysts on US, incidental finding - for out-patient Urology referral. 12. 0.5 cm Gallbladder Polyp, incidental finding on Abdo US - for GI out-patient referral. Radiology recommends 3-6 month repeat imaging. 13. CAD s/p PCI/Stent - Continue Aspirin, BB. Statin currently held due to Rhabdo. DVT Px - Heparin SQ Dispo - PT evaluated, needs SNF referral. Discussed with CM.
--- NOTE | 2020-04-19 14:04 | PN ---
Progress Note, Physician History of Present Illness: Seen and examined at the bedside awake and alert denies any shortness of breath, chest pain, abdominal pain, N/V/D on IV fluids oral intake is not great - Current Medication List Current Medications: Active Medications Amlodipine Besylate (Norvasc -) 10 mg PO DAILY [facility] Last Admin: 04/19/20 10:18 Dose: 10 mg Documented by: Aspirin (Asa -) 81 mg PO DAILY [facility] Last Admin: 04/19/20 10:19 Dose: 81 mg Documented by: Heparin Sodium (Porcine) (Heparin -) 5,000 unit SQ TID [facility] Last Admin: 04/19/20 13:25 Dose: 5,000 unit Documented by: Insulin Aspart (Novolog Vial Sliding Scale -) 1 vial SQ [facility]; Protocol Last Admin: 04/19/20 11:02 Dose: Not Given Documented by: Meclizine HCl (Antivert -) 12.5 mg PO TID [facility] Last Admin: 04/19/20 13:25 Dose: 12.5 mg Documented by: Metoprolol Tartrate (Lopressor -) 50 mg PO DAILY [facility] Last Admin: 04/19/20 10:19 Dose: 50 mg Documented by: Pantoprazole Sodium (Protonix -) 20 mg PO DAILY [facility] Last Admin: 04/19/20 10:18 Dose: 20 mg Documented by: Sodium Bicarbonate (Sodium Bicarbonate -) 650 mg PO TID [facility] Last Admin: 04/19/20 13:25 Dose: 650 mg Documented by: - Objective Vital Signs: Vital Signs Temperature 98.8 F 04/19/20 09:00 Pulse Rate 91 H 04/19/20 09:00 Respiratory Rate 74 H 04/19/20 09:00 Blood Pressure 155/80 04/19/20 09:00 O2 Sat by Pulse Oximetry (%) 97 04/19/20 09:00 Constitutional: Yes: No Distress HENT: Yes: Atraumatic Neck: Yes: Supple Gastrointestinal: Yes: Soft Extremities: No: Cyanosis Edema: Yes Edema: LLE: Trace, RLE: Trace Neurological: Yes: Alert. No: Oriented Labs: CBC, BMP 04/19/20 05:38 04/19/20 05:38 INR, PTT INR 0.92 (0.83-1.09) 04/18/20 06:15 Assessment/Plan 84 year old male with history of CKD (baseline Cr ~1.5-1.7 based on prior recorded labs), hypertension, DM presented s/p being found on the floor by his son. 1. CKD stage 3 2. Syncope 3. Rhabdomyolysis 4. Hypertension 5. DM 6. Proteinuria 7. Acquired renal cystic disease 8. Metabolic acidosis Renal function essentially stable no overt electrolyte or acid/base disturbances can decrease rate of fluids, possibly stop by tomorrow. FeNa was 1.2% - indeterminate Trend renal function and electrolytes daily CK noted to be ~2000, risk of renal injury less likely if less then 5000. Trend CK levels daily Renal cyst noted on US and CT, no evidence of mass or hydronephrosis. Continue syncope work up as per primary team Juan José Galvan DO
--- NOTE | 2020-04-19 20:34 | RAPID ---
Physical Examination Vital Signs: Vital Signs Temperature 97.8 F 04/19/20 18:00 Pulse Rate 71 04/19/20 18:00 Respiratory Rate 20 04/19/20 18:00 Blood Pressure 152/71 04/19/20 18:00 O2 Sat by Pulse Oximetry (%) 97 04/19/20 09:00 Labs: CBC, BMP 04/19/20 05:38 04/19/20 05:38 Rapid Response - Rapid Response Assessment: Rapid response called overhead. [employer] responded immediately. Pt agitated, threatening staff members, swinging arms aggressively at staff. On arrival, pt reluctant to answer questions in Irish or in Trinidadian. Unwilling to participate in physical exam or vital sign assessment. Nursing staff stated patient believes he is in his apartment. PLAN Trial of PO seroquel 12.5mg x1 as this has been nightly recurrence Psych consulted (Dr. Mcdonald) for continued management of nightly agitation [place] order placed If unwilling to take PO seroquel, will administer 0.5mg IM ativan.
[2020-04-19] MEDS ORDERED: QUEtiapine FUMARATE 25 MG TABLET PO ONE (20:38)
[2020-04-19] MEDS ORDERED: LORazepam 2 MG/ML SDV VIAL IM ONE (20:41)
[2020-04-20] MEDS: HEPARIN NA (PORCINE) 5,000 UNITS/ML 1ML VIAL SQ SCH ×3 (06:31→21:19)
[2020-04-20] MEDS: INSULIN SLIDING SCALE (NOVOLOG) 1 VIAL SQ SCH ×4 (06:31→21:19)
[2020-04-20] MEDS: SODIUM BICARBONATE 650 MG TABLET PO SCH ×3 (06:39→21:19)
[2020-04-20 06:55] LABS: HEMATOCRIT 35.1 % (35.4-49); HEMOGLOBIN 11.7 GM/dL (11.7-16.9); MCHC 33.4 g/dl (32.0-35.9); MEAN CELL VOLUME 83.6 fl (80-96); MEAN PLT VOLUME 7.8 fl (7.5-11.1); PLATELET COUNT 223 K/MM3 (134-434); RDW 14.4 % (11.9-15.9); WHITE BLOOD COUNT 7.4 K/mm3 (4.0-10.0)
[2020-04-20] MEDS: MECLIZINE HCL 12.5 MG TABLET PO SCH ×3 (06:56→21:19)
[2020-04-20 07:26] LABS: ALBUMIN 3.1 g/dl (3.4-5.0); BILIRUBIN,TOTAL 0.7 mg/dL (0.2-1); BLOOD UREA NITROGEN 44.5 mg/dL (7-18); CALCIUM 8.3 mg/dL (8.5-10.1); MAGNESIUM 2.5 mg/dL (1.8-2.4); PHOSPHOROUS 2.5 mg/dL (2.5-4.9); POTASSIUM 4.2 mmol/L (3.5-5.1); TOT PROT 6.5 g/dl (6.4-8.2)
[2020-04-20] MEDS ORDERED: SODIUM CHLORIDE 1,000 ML IV SCH (08:00)
[2020-04-20] MEDS: amLODIPine BESYLATE 10 MG TABLET (FP) PO SCH (10:52)
[2020-04-20] MEDS: METOPROLOL TARTRATE 50 MG TABLET (FP) PO SCH (10:52)
[2020-04-20] MEDS: PANTOPRAZOLE 20 MG TABLET PO SCH (10:52)
[2020-04-20] MEDS: ASPIRIN 81 MG CHEWABLE TABLETS PO SCH (10:52)
--- NOTE | 2020-04-20 12:06 | PN ---
Progress Note (short form) - Note Progress Note: SUBJECTIVE: No complaints. Restless again overnight requiring IM Ativan, now calm and cooperative. OBJECTIVE: Afebrile, hemodynamically stable. Drowsy but rousable to AAO x 2-3. Follows commands, protecting airway. Last Vital Signs Temp Pulse Resp BP Pulse Ox 98 F 56 L 18 160/80 97 04/20/20 08:49 04/20/20 08:49 04/20/20 08:49 04/20/20 08:49 04/20/20 08:49 HEENT - Normocephalic. Heart - S1, S2, soft SM Lungs - clear to auscultation Abdomen - soft, non-tender. High BMI. Bowel Sounds normal. Extremities - Mild edema, venous stasis, no calf tenderness. Neuro - AAO x 2-3. Tone/Power normal. Laboratory Results - last 24 hr 04/19/20 04/20/20 04/20/20 16:52 05:22 05:22 WBC 7.4 RBC 4.20 Hgb 11.7 Hct 35.1 L MCV 83.6 MCH 28.0 MCHC 33.4 RDW 14.4 Plt Count 223 MPV 7.8 Sodium 137 Potassium 4.2 Chloride 106 Carbon Dioxide 24 Anion Gap 7 L BUN 44.5 H Creatinine 2.0 H Est GFR (CKD-EPI)AfAm 34.74 Est GFR (CKD-EPI)NonAf 29.97 POC Glucometer 319 Random Glucose 250 H Calcium 8.3 L Phosphorus 2.5 Magnesium 2.5 H Total Bilirubin 0.7 AST 62 H ALT 24 Alkaline Phosphatase 85 Creatine Kinase 1425 H Creatine Kinase Index 0.5 CK-MB (CK-2) 8.4 H Total Protein 6.5 Albumin 3.1 L 04/20/20 05:26 WBC RBC Hgb Hct MCV MCH MCHC RDW Plt Count MPV Sodium Potassium Chloride Carbon Dioxide Anion Gap BUN Creatinine Est GFR (CKD-EPI)AfAm Est GFR (CKD-EPI)NonAf POC Glucometer 249 Random Glucose Calcium Phosphorus Magnesium Total Bilirubin AST ALT Alkaline Phosphatase Creatine Kinase Creatine Kinase Index CK-MB (CK-2) Total Protein Albumin Current Medications Generic Name Dose Route Start Last Admin Trade Name Freq PRN Reason Stop Dose Admin Amlodipine Besylate 10 mg 04/18/20 05:55 04/20/20 10:52 Norvasc - PO Not Given DAILY ISAMAR Aspirin 81 mg 04/19/20 10:00 04/20/20 10:52 Asa - PO Not Given DAILY [facility] Heparin Sodium (Porcine) 5,000 unit 04/17/20 22:00 04/20/20 06:31 Heparin - SQ 5,000 unit TID ISAMAR Administration Sodium Chloride 1,000 mls @ 75 mls/hr 04/20/20 08:00 04/20/20 09:43 Normal Saline - IV 75 mls/hr ASDIR ISAMAR Administration Insulin Aspart 1 vial 04/17/20 22:00 04/20/20 06:31 Novolog Vial Sliding Scale - SQ 4 units ACHS ISAMAR Administration Protocol Meclizine HCl 12.5 mg 04/17/20 22:00 04/20/20 06:56 Antivert - PO 12.5 mg TID ISAMAR Administration Metoprolol Tartrate 50 mg 04/18/20 10:00 04/20/20 10:52 Lopressor - PO Not Given DAILY [facility] Pantoprazole Sodium 20 mg 04/18/20 10:00 04/20/20 10:52 Protonix - PO Not Given DAILY [facility] Sodium Bicarbonate 650 mg 04/17/20 22:00 04/20/20 06:39 Sodium Bicarbonate - PO 650 mg TID [facility] Administration Home Medications Medication Instructions Recorded Atorvastatin Ca [Lipitor] 20 mg PO HS 07/23/17 Meclizine HCl 12.5 mg PO TID 07/23/17 Amlodipine Besylate [Norvasc -] 10 mg PO DAILY #30 tablet 07/27/17 Furosemide 40 mg PO TID 01/20/19 Metoprolol Succinate 50 mg PO DAILY 01/20/19 Omeprazole 20 mg PO DAILY 01/20/19 Sodium Bicarbonate 325 mg PO TID 01/20/19 Aspirin 81 mg PO DAILY 04/18/20 Dulaglutide [Trulicity] 1.5 mg SQ WEEKLY 04/18/20 Insulin Glargine,Hum.rec.anlog 55 unit SQ DAILY 04/18/20 [Lantus] ASSESSMENT AND PLAN: 84 year old male with history of DM 2, HTN, HLD, CAD s/p NSTEMI PCI/Stent, chronic venous insufficiency, Syncope, CKD 3, Hx Vertigo, progressive memory loss, was found lying on the floor of his home, unable to recall events surrounding fall/collapse. 1. Acute Rhabdomyolysis - unclear fall versus Pre-syncope/Syncope as patient unable to remember ismael-episode events. CPK down from 2425 to 1475 Continue gentle IV hydration, Lasix held, monitor CPK 2. Possible Pre-Syncope/Syncope ? with preceding lightheadedness, Hx of BPPV - denies lightheadedness now. CT head - mild atrophy, periventricular ischemic chnages Carotid Duplex - no hemodynamically significant stenosis Denies CP - ECG no acute findings (old T wave changes) Echo - normal EF, impaired LV relaxation Urine Cx negative. No Telemonitoring events Likely mildly dehydrated - continue IV fluids and Meclizine. 3. Elevated Troponin - secondary to Rhabdo ECG - no acute changes Evaluated by Cardiology - does not appear to have ACS, no further work up needed at this time. 4. L knee discomfort Xrays show no bony injury PT eval. 5. Agitation/Confusion overnight requiring IM Ativan. Hx of progressive Memory Loss, likely underlying Dementia CT head as above RPR non-reactive TSH 12 B12 level 1347 Psychiatry consulted for evaluation and recommendations. 6. SOBIA on CKD 3 - Creat appears to be at baseline. Continue NaBicarb. Nephrology following 7. Chronic Diastolic CHF, no evidence of acute decompensaion. Impaired LV relaxation on Echo. Lasix held for now in favor of gentle hydration for acute Rhabdo. 8. HTN - Continued on Metoprolol, Norvasc. 9. DM 2 - uncontrolled, A1C 9.2. Trulicity, Glargine held. Maintain on Novolog sliding scale. 10. HLD - Statin held due to elevated CPK. 11. Renal Cysts on US, incidental finding - for out-patient Urology referral. 12. 0.5 cm Gallbladder Polyp, incidental finding on Abdo US - for GI out-patient referral. Radiology recommends 3-6 month repeat imaging. 13. CAD s/p PCI/Stent - Continue Aspirin, BB. Statin currently held due to Rhabdo. DVT Px - Heparin SQ Dispo - PT evaluated, needs SNF referral. Visit type - Emergency Visit Emergency Visit: Yes ED Registration Date: 04/17/20 Care time: The patient presented to the Emergency Department on the above date and was hospitalized for further evaluation of their emergent condition. - New Patient This patient is new to me today: No - Critical Care Critical Care patient: No - Discharge Referral Referred to [facility] No - Medication Review Med list reviewed for High Risk Meds patients 65 and older: Yes
--- NOTE | 2020-04-20 12:48 | PN ---
Progress Note (short form) - Note Progress Note: cc: fall s: unable to obtain HPI, ROS due to mental status. appears comfortable Current Medications Generic Name Dose Route Start Last Admin Trade Name Saji PRN Reason Stop Dose Admin Amlodipine Besylate 10 mg 04/18/20 05:55 04/20/20 10:52 Norvasc - PO Not Given DAILY ISAMAR Aspirin 81 mg 04/19/20 10:00 04/20/20 10:52 Asa - PO Not Given DAILY ISAMAR Heparin Sodium (Porcine) 5,000 unit 04/17/20 22:00 04/20/20 06:31 Heparin - SQ 5,000 unit TID ISAMAR Administration Sodium Chloride 1,000 mls @ 75 mls/hr 04/20/20 08:00 04/20/20 09:43 Normal Saline - IV 75 mls/hr ASDIR ISMAAR Administration Insulin Aspart 1 vial 04/17/20 22:00 04/20/20 12:27 Novolog Vial Sliding Scale - SQ 2 units ACHS ISAMAR Administration Protocol Meclizine HCl 12.5 mg 04/17/20 22:00 04/20/20 06:56 Antivert - PO 12.5 mg TID ISAMAR Administration Metoprolol Tartrate 50 mg 04/18/20 10:00 04/20/20 10:52 Lopressor - PO Not Given DAILY ISAMAR Pantoprazole Sodium 20 mg 04/18/20 10:00 04/20/20 10:52 Protonix - PO Not Given DAILY ISAMAR Sodium Bicarbonate 650 mg 04/17/20 22:00 04/20/20 06:39 Sodium Bicarbonate - PO 650 mg TID ISAMAR Administration Vital Signs Period Temp Pulse Resp BP Sys/Charles Pulse Ox Last 24 Hr 97.7 F-98 F 56-85 18-20 152-163/63-80 97-100 Constitutional: Yes: No Distress Eyes: Yes: Conjunctiva Clear Respiratory: Yes: CTA Bilaterally Gastrointestinal: Yes: Soft (nt) Cardiovascular: Yes: Regular Rate and Rhythm JVD: No Carotid Bruit: No Heart Sounds: Yes: S1, S2 (rrr) Edema: No Peripheral Pulses WNL: Yes Neurological: Yes: Alert, Oriented no jaundice, diaphoresis not agitated Laboratory Last Values WBC 7.4 K/mm3 (4.0-10.0) 04/20/20 05:22 RBC 4.20 M/mm3 (4.00-5.60) 04/20/20 05:22 Hgb 11.7 GM/dL (11.7-16.9) 04/20/20 05:22 Hct 35.1 % (35.4-49) L 04/20/20 05:22 MCV 83.6 fl (80-96) 04/20/20 05:22 MCH 28.0 pg (25.7-33.7) 04/20/20 05:22 MCHC 33.4 g/dl (32.0-35.9) 04/20/20 05:22 RDW 14.4 % (11.9-15.9) 04/20/20 05:22 Plt Count 223 K/MM3 (134-434) 04/20/20 05:22 MPV 7.8 fl (7.5-11.1) 04/20/20 05:22 Absolute Neuts (auto) 7.9 K/mm3 (1.5-8.0) 04/19/20 05:38 Neutrophils % 80.8 % (42.8-82.8) 04/19/20 05:38 Lymphocytes % 12.0 % (8-40) D 04/19/20 05:38 Monocytes % 6.4 % (3.8-10.2) 04/19/20 05:38 Eosinophils % 0.4 % (0-4.5) D 04/19/20 05:38 Basophils % 0.4 % (0-2.0) 04/19/20 05:38 Nucleated RBC % 0 % (0-0) 04/19/20 05:38 PT with INR 10.90 SEC (9.7-13.0) 04/18/20 06:15 INR 0.92 (0.83-1.09) 04/18/20 06:15 Sodium 137 mmol/L (136-145) 04/20/20 05:22 Potassium 4.2 mmol/L (3.5-5.1) 04/20/20 05:22 Chloride 106 mmol/L (98-107) 04/20/20 05:22 Carbon Dioxide 24 mmol/L (21-32) 04/20/20 05:22 Anion Gap 7 MMOL/L (8-16) L 04/20/20 05:22 BUN 44.5 mg/dL (7-18) H 04/20/20 05:22 Creatinine 2.0 mg/dL (0.55-1.3) H 04/20/20 05:22 Est GFR (CKD-EPI)AfAm 34.74 04/20/20 05:22 Est GFR (CKD-EPI)NonAf 29.97 04/20/20 05:22 POC Glucometer 175 UNITS (80-120) 04/20/20 12:21 Random Glucose 250 mg/dL (74-106) H 04/20/20 05:22 Hemoglobin A1c % 9.2 % (4.2-6.3) H 04/18/20 06:15 Calcium 8.3 mg/dL (8.5-10.1) L 04/20/20 05:22 Phosphorus 2.5 mg/dL (2.5-4.9) 04/20/20 05:22 Magnesium 2.5 mg/dL (1.8-2.4) H 04/20/20 05:22 Iron 40 ug/dL (50-175) L 04/18/20 06:15 Total Bilirubin 0.7 mg/dL (0.2-1) 04/20/20 05:22 Direct Bilirubin 0.3 mg/dL (0.0-0.2) H 04/19/20 05:38 AST 62 U/L (15-37) H 04/20/20 05:22 ALT 24 U/L (13-61) 04/20/20 05:22 Alkaline Phosphatase 85 U/L (45-117) 04/20/20 05:22 Creatine Kinase 1425 U/L (26-308) H 04/20/20 05:22 Creatine Kinase Index 0.5 % (0.0-5.0) 04/20/20 05:22 CK-MB (CK-2) 8.4 ng/mL (0.5-3.6) H 04/20/20 05:22 Troponin I 0.09 ng/ml (0.00-0.05) H 04/18/20 06:15 B-Natriuretic Peptide 325.9 pg/ml (5-450) 04/18/20 06:15 Total Protein 6.5 g/dl (6.4-8.2) 04/20/20 05:22 Albumin 3.1 g/dl (3.4-5.0) L 04/20/20 05:22 Triglycerides 100 mg/dL (0-150) 04/18/20 06:15 Cholesterol 130 mg/dL (50-200) 04/18/20 06:15 Total LDL Cholesterol 55 mg/dL (5-100) 04/18/20 06:15 HDL Cholesterol 67 mg/dL (40-60) H 04/18/20 06:15 Vitamin B12 1347 pg/ml (193-986) H 04/18/20 06:15 Serum Folate 12 ng/mL (3.1-17.5) 04/18/20 06:15 TSH 1.22 uIU/ml (0.358-3.74) 04/18/20 06:15 Resin T3 Uptake 35.3 % (33-40) 04/17/20 18:01 Urine Color Yellow 04/18/20 01:10 Urine Appearance Clear 04/18/20 01:10 Urine pH 6.5 (5.0-8.0) 04/18/20 01:10 Ur Specific [place] 1.017 (1.010-1.035) 04/18/20 01:10 Urine Protein 2+ (NEGATIVE) H 04/18/20 01:10 Urine Glucose (UA) 2+ (NEGATIVE) H 04/18/20 01:10 Urine Ketones Negative (NEGATIVE) 04/18/20 01:10 Urine Blood 2+ (NEGATIVE) H 04/18/20 01:10 Urine Nitrite Negative (NEGATIVE) 04/18/20 01:10 Urine Bilirubin Negative (NEGATIVE) 04/18/20 01:10 Urine Urobilinogen 1.0 mg/dL (0.2-1.0) 04/18/20 01:10 Ur Leukocyte Esterase Negative (NEGATIVE) 04/18/20 01:10 Urine WBC (Auto) 1 /uL (0-25.8) 04/18/20 01:10 Urine RBC (Auto) 16 /uL (0-23.9) 04/18/20 01:10 Urine Casts (Auto) 0 /uL (0-3.1) 04/18/20 01:10 U Epithel Cells (Auto) 2 /uL (0-25.1) 04/18/20 01:10 Urine Bacteria (Auto) 12 /uL (0-1359) 04/18/20 01:10 Ur Random Creatinine 70.0 mg/dL (30-150) 04/18/20 11:05 Ur Random Sodium 79 MMOL/L (40-220) 04/18/20 01:10 Ur Random Potassium 23.0 MMOL/L (25-125) L 04/18/20 01:10 Ur Random Chloride 69 MMOL/L (110-250) L 04/18/20 01:10 Syphilis Serology Non-reactive (NONREACTIVE) 04/17/20 20:05 COVID-19 (JACKI) Not detected (Not Detected) 04/17/20 20:15 Prior Cardiac Procedures: Cardiac Catheterization, PTCA with Stent Ejection Fraction %: LVEF > or = 40 % Imaging - Results Chest X-ray: Report Reviewed Cat Scan: Report Reviewed EKG: Image Reviewed tele: sinus Assessment/Plan DATA: echo 07/2017: 1+ lvh. hyperdynamic lv function. impaired relaxation. nl rv size/fn. 1+ ar. 1+tr. echo 01/2017: nl lv/rv, iasa, mild ar renal u/s 07/2017: bilateral renal cysts. no acute renal pathology. limited doppler study but no evidence of renal artery stenosis. renal duplex 07/2014: no anat echo 04/2020 nl LV/RV function, impaired relaxation, mild MR, mild TR, mild AR tele: sinus IMP/PLAN: a/p: 84 m hx cad s/p nstemi and pci (09/2013, doni rca, doni om1; residual 50-60 mrca, 30-50 d1), dm, htn, hld, ckd, venous insuff/le edema, vertigo here s/p fall. unwitnessed fall: mechanical vs syncope -no signs acs, chf, arrhythmia -appears vol depleted on labs -cont holding lasix -check ortho vitals -echo unremarkable -pt eval -tele benign thus far cad s/p remote mi/pci: -stable no signs acs -cont bb, statin, asa -Borderline flat equivocally elevated TnI with negative index, does not represent ACS. And with elevated CKs out of proportion to TnI, more likely represents rhabdo picture with SOBIA on a multifactorial basis (volume depletion contributing) hld: -cont statin htn: -cont home meds sobia/ckd: combo of volume depletion/rhabdo -as per PMD le edema: chronic, now resolved. On basis of chronic diastolic CHF -cont holding aisha
--- NOTE | 2020-04-20 12:55 | CON.PSY ---
Psychiatry Consult Chief Complaint: 84 yo male admitted 04/17 s/f fall. He has multiple chronic illness including HTN, DM. Psych consult called after a rapid response last night. He was agitated, confused and restless during the incident. Requested for further managemnt and recomendations. Client has tsh 12, B12 elevated,related to reduced liver function. Symptoms: reports: Sleep Disturbance - Current Medications Current Medications: Active Medications Amlodipine Besylate (Norvasc -) 10 mg PO DAILY [facility] Last Admin: 04/20/20 10:52 Dose: Not Given Documented by: Aspirin (Asa -) 81 mg PO DAILY [facility] Last Admin: 04/20/20 10:52 Dose: Not Given Documented by: Heparin Sodium (Porcine) (Heparin -) 5,000 unit SQ TID [facility] Last Admin: 04/20/20 06:31 Dose: 5,000 unit Documented by: Sodium Chloride (Normal Saline -) 1,000 mls @ 75 mls/hr IV ASDIR [facility] Last Admin: 04/20/20 09:43 Dose: 75 mls/hr Documented by: Insulin Aspart (Novolog Vial Sliding Scale -) 1 vial SQ [facility]; Protocol Last Admin: 04/20/20 12:27 Dose: 2 units Documented by: Meclizine HCl (Antivert -) 12.5 mg PO TID [facility] Last Admin: 04/20/20 06:56 Dose: 12.5 mg Documented by: Metoprolol Tartrate (Lopressor -) 50 mg PO DAILY [facility] Last Admin: 04/20/20 10:52 Dose: Not Given Documented by: Pantoprazole Sodium (Protonix -) 20 mg PO DAILY [facility] Last Admin: 04/20/20 10:52 Dose: Not Given Documented by: Sodium Bicarbonate (Sodium Bicarbonate -) 650 mg PO TID [facility] Last Admin: 04/20/20 06:39 Dose: 650 mg Documented by: - Allergies Allergies: Allergies Allergy/AdvReac Type Severity Reaction Status Date / Time No Known Drug Allergies Allergy Verified 01/20/19 13:10 Problem List - Problems (1) Motor restlessness Code(s): R45.1 - RESTLESSNESS AND AGITATION Assessment/Plan Orientation prn lorazepam 0.5mg for severe anxiety.
[2020-04-21] MEDS: SODIUM BICARBONATE 650 MG TABLET PO SCH ×3 (06:04→21:18)
[2020-04-21] MEDS: MECLIZINE HCL 12.5 MG TABLET PO SCH ×3 (06:04→21:18)
[2020-04-21] MEDS: HEPARIN NA (PORCINE) 5,000 UNITS/ML 1ML VIAL SQ SCH ×3 (06:04→21:18)
[2020-04-21] MEDS: INSULIN SLIDING SCALE (NOVOLOG) 1 VIAL SQ SCH ×4 (06:05→21:20)
[2020-04-21] MEDS ORDERED: SODIUM CHLORIDE 1,000 ML IV SCH (08:45)
[2020-04-21] MEDS: ASPIRIN 81 MG CHEWABLE TABLETS PO SCH (09:14)
[2020-04-21] MEDS: PANTOPRAZOLE 20 MG TABLET PO SCH (09:14)
[2020-04-21] MEDS: METOPROLOL TARTRATE 50 MG TABLET (FP) PO SCH (09:14)
[2020-04-21] MEDS: amLODIPine BESYLATE 10 MG TABLET (FP) PO SCH (09:14)
--- NOTE | 2020-04-21 12:15 | PN ---
Progress Note (short form) - Note Progress Note: Progress Note: cc: fall s: no cp sob palps dizzy Current Medications Generic Name Dose Route Start Last Admin Trade Name Saji PRN Reason Stop Dose Admin Amlodipine Besylate 10 mg 04/18/20 05:55 04/21/20 09:14 Norvasc - PO 10 mg DAILY ISAMAR Administration Aspirin 81 mg 04/19/20 10:00 04/21/20 09:14 Asa - PO 81 mg DAILY ISAMAR Administration Heparin Sodium (Porcine) 5,000 unit 04/17/20 22:00 04/21/20 06:04 Heparin - SQ 5,000 unit TID ISAMAR Administration Sodium Chloride 1,000 mls @ 75 mls/hr 04/21/20 08:45 04/21/20 09:16 Normal Saline - IV 04/22/20 22:04 75 mls/hr ASDIR ISAMAR Administration Insulin Aspart 1 vial 04/17/20 22:00 04/21/20 11:15 Novolog Vial Sliding Scale - SQ 6 units ACHS ISAMAR Administration Protocol Meclizine HCl 12.5 mg 04/17/20 22:00 04/21/20 06:04 Antivert - PO 12.5 mg TID ISAMAR Administration Metoprolol Tartrate 50 mg 04/18/20 10:00 04/21/20 09:14 Lopressor - PO 50 mg DAILY ISAMAR Administration Pantoprazole Sodium 20 mg 04/18/20 10:00 04/21/20 09:14 Protonix - PO 20 mg DAILY ISAMAR Administration Sodium Bicarbonate 650 mg 04/17/20 22:00 04/21/20 06:04 Sodium Bicarbonate - PO 650 mg TID ISAMAR Administration Vital Signs Period Temp Pulse Resp BP Sys/Charles Pulse Ox Last 24 Hr 97.2 F-98.6 F 54-74 20-22 147-176/59-78 97-98 Constitutional: Yes: No Distress Eyes: Yes: Conjunctiva Clear Respiratory: Yes: CTA Bilaterally Gastrointestinal: Yes: Soft (nt) Cardiovascular: Yes: Regular Rate and Rhythm JVD: No Carotid Bruit: No Heart Sounds: Yes: S1, S2 (rrr) Edema: No Peripheral Pulses WNL: Yes Neurological: Yes: Alert no jaundice, diaphoresis not agitated Laboratory Last Values WBC 7.4 K/mm3 (4.0-10.0) 04/20/20 05:22 RBC 4.20 M/mm3 (4.00-5.60) 04/20/20 05:22 Hgb 11.7 GM/dL (11.7-16.9) 04/20/20 05:22 Hct 35.1 % (35.4-49) L 04/20/20 05:22 MCV 83.6 fl (80-96) 04/20/20 05:22 MCH 28.0 pg (25.7-33.7) 04/20/20 05:22 MCHC 33.4 g/dl (32.0-35.9) 04/20/20 05:22 RDW 14.4 % (11.9-15.9) 04/20/20 05:22 Plt Count 223 K/MM3 (134-434) 04/20/20 05:22 MPV 7.8 fl (7.5-11.1) 04/20/20 05:22 Absolute Neuts (auto) 7.9 K/mm3 (1.5-8.0) 04/19/20 05:38 Neutrophils % 80.8 % (42.8-82.8) 04/19/20 05:38 Lymphocytes % 12.0 % (8-40) D 04/19/20 05:38 Monocytes % 6.4 % (3.8-10.2) 04/19/20 05:38 Eosinophils % 0.4 % (0-4.5) D 04/19/20 05:38 Basophils % 0.4 % (0-2.0) 04/19/20 05:38 Nucleated RBC % 0 % (0-0) 04/19/20 05:38 PT with INR 10.90 SEC (9.7-13.0) 04/18/20 06:15 INR 0.92 (0.83-1.09) 04/18/20 06:15 Sodium 137 mmol/L (136-145) 04/20/20 05:22 Potassium 4.2 mmol/L (3.5-5.1) 04/20/20 05:22 Chloride 106 mmol/L (98-107) 04/20/20 05:22 Carbon Dioxide 24 mmol/L (21-32) 04/20/20 05:22 Anion Gap 7 MMOL/L (8-16) L 04/20/20 05:22 BUN 44.5 mg/dL (7-18) H 04/20/20 05:22 Creatinine 2.0 mg/dL (0.55-1.3) H 04/20/20 05:22 Est GFR (CKD-EPI)AfAm 34.74 04/20/20 05:22 Est GFR (CKD-EPI)NonAf 29.97 04/20/20 05:22 POC Glucometer 300 UNITS (80-120) 04/21/20 11:01 Random Glucose 250 mg/dL (74-106) H 04/20/20 05:22 Hemoglobin A1c % 9.2 % (4.2-6.3) H 04/18/20 06:15 Calcium 8.3 mg/dL (8.5-10.1) L 04/20/20 05:22 Phosphorus 2.5 mg/dL (2.5-4.9) 04/20/20 05:22 Magnesium 2.5 mg/dL (1.8-2.4) H 04/20/20 05:22 Iron 40 ug/dL (50-175) L 04/18/20 06:15 Total Bilirubin 0.7 mg/dL (0.2-1) 04/20/20 05:22 Direct Bilirubin 0.3 mg/dL (0.0-0.2) H 04/19/20 05:38 AST 62 U/L (15-37) H 04/20/20 05:22 ALT 24 U/L (13-61) 04/20/20 05:22 Alkaline Phosphatase 85 U/L (45-117) 04/20/20 05:22 Creatine Kinase 1425 U/L (26-308) H 04/20/20 05:22 Creatine Kinase Index 0.5 % (0.0-5.0) 04/20/20 05:22 CK-MB (CK-2) 8.4 ng/mL (0.5-3.6) H 04/20/20 05:22 Troponin I 0.09 ng/ml (0.00-0.05) H 04/18/20 06:15 B-Natriuretic Peptide 325.9 pg/ml (5-450) 04/18/20 06:15 Total Protein 6.5 g/dl (6.4-8.2) 04/20/20 05:22 Albumin 3.1 g/dl (3.4-5.0) L 04/20/20 05:22 Triglycerides 100 mg/dL (0-150) 04/18/20 06:15 Cholesterol 130 mg/dL (50-200) 04/18/20 06:15 Total LDL Cholesterol 55 mg/dL (5-100) 04/18/20 06:15 HDL Cholesterol 67 mg/dL (40-60) H 04/18/20 06:15 Vitamin B12 1347 pg/ml (193-986) H 04/18/20 06:15 Serum Folate 12 ng/mL (3.1-17.5) 04/18/20 06:15 TSH 1.22 uIU/ml (0.358-3.74) 04/18/20 06:15 Resin T3 Uptake 35.3 % (33-40) 04/17/20 18:01 Urine Color Yellow 04/18/20 01:10 Urine Appearance Clear 04/18/20 01:10 Urine pH 6.5 (5.0-8.0) 04/18/20 01:10 Ur Specific [place] 1.017 (1.010-1.035) 04/18/20 01:10 Urine Protein 2+ (NEGATIVE) H 04/18/20 01:10 Urine Glucose (UA) 2+ (NEGATIVE) H 04/18/20 01:10 Urine Ketones Negative (NEGATIVE) 04/18/20 01:10 Urine Blood 2+ (NEGATIVE) H 04/18/20 01:10 Urine Nitrite Negative (NEGATIVE) 04/18/20 01:10 Urine Bilirubin Negative (NEGATIVE) 04/18/20 01:10 Urine Urobilinogen 1.0 mg/dL (0.2-1.0) 04/18/20 01:10 Ur Leukocyte Esterase Negative (NEGATIVE) 04/18/20 01:10 Urine WBC (Auto) 1 /uL (0-25.8) 04/18/20 01:10 Urine RBC (Auto) 16 /uL (0-23.9) 04/18/20 01:10 Urine Casts (Auto) 0 /uL (0-3.1) 04/18/20 01:10 U Epithel Cells (Auto) 2 /uL (0-25.1) 04/18/20 01:10 Urine Bacteria (Auto) 12 /uL (0-1359) 04/18/20 01:10 Ur Random Creatinine 70.0 mg/dL (30-150) 04/18/20 11:05 Ur Random Sodium 79 MMOL/L (40-220) 04/18/20 01:10 Ur Random Potassium 23.0 MMOL/L (25-125) L 04/18/20 01:10 Ur Random Chloride 69 MMOL/L (110-250) L 04/18/20 01:10 Syphilis Serology Non-reactive (NONREACTIVE) 04/17/20 20:05 COVID-19 ([facility]) Not detected (Not Detected) 04/17/20 20:15 Assessment/Plan DATA: echo 07/2017: 1+ lvh. hyperdynamic lv function. impaired relaxation. nl rv size/fn. 1+ ar. 1+tr. echo 01/2017: nl lv/rv, iasa, mild ar renal u/s 07/2017: bilateral renal cysts. no acute renal pathology. limited doppler study but no evidence of renal artery stenosis. renal duplex 07/2014: no anat echo 04/2020 nl LV/RV function, impaired relaxation, mild MR, mild TR, mild AR tele: sinus IMP/PLAN: a/p: 84 m hx cad s/p nstemi and pci (09/2013, doni rca, doni om1; residual 50-60 mrca, 30-50 d1), dm, htn, hld, ckd, venous insuff/le edema, vertigo here s/p fall. unwitnessed fall: mechanical vs syncope -no signs acs, chf, arrhythmia -appears vol depleted on labs -cont holding lasix -check ortho vitals -echo unremarkable -pt eval -tele benign thus far cad s/p remote mi/pci: -stable no signs acs -cont bb, statin, asa -Borderline flat equivocally elevated TnI with negative index, does not represent ACS. And with elevated CKs out of proportion to TnI, more likely represents rhabdo picture with SOBIA on a multifactorial basis (volume depletion contributing) hld: -cont statin htn: -cont home meds sobia/ckd: combo of volume depletion/rhabdo -as per PMD le edema: chronic, now resolved. On basis of chronic diastolic CHF -cont holding lasix
[2020-04-21 12:30] LABS: BASO % 0.8 % (0-2.0); EOS % 6.9 % (0-4.5); HEMATOCRIT 35.1 % (35.4-49); HEMOGLOBIN 11.5 GM/dL (11.7-16.9); LYMPH % 19.5 % (8-40); MCH 27.7 pg (25.7-33.7); MCHC 32.7 g/dl (32.0-35.9); MEAN CELL VOLUME 84.8 fl (80-96); MEAN PLT VOLUME 7.9 fl (7.5-11.1); MONO % 6.6 % (3.8-10.2); NEUT % 66.2 % (42.8-82.8); PLATELET COUNT 218 K/MM3 (134-434); RBC 4.14 M/mm3 (4.00-5.60); RDW 14.4 % (11.9-15.9); WHITE BLOOD COUNT 5.7 K/mm3 (4.0-10.0)
--- NOTE | 2020-04-21 12:43 | PN ---
Progress Note, Physician History of Present Illness: Seen and examined at the bedside awake and alert denies any shortness of breath, chest pain, abdominal pain, N/V/D tolerating oral diet making urine - Current Medication List Current Medications: Active Medications Amlodipine Besylate (Norvasc -) 10 mg PO DAILY [facility] Last Admin: 04/21/20 09:14 Dose: 10 mg Documented by: Aspirin (Asa -) 81 mg PO DAILY [facility] Last Admin: 04/21/20 09:14 Dose: 81 mg Documented by: Heparin Sodium (Porcine) (Heparin -) 5,000 unit SQ TID [facility] Last Admin: 04/21/20 06:04 Dose: 5,000 unit Documented by: Sodium Chloride (Normal Saline -) 1,000 mls @ 75 mls/hr IV ASDIR [facility] Stop: 04/22/20 22:04 Last Admin: 04/21/20 09:16 Dose: 75 mls/hr Documented by: Insulin Aspart (Novolog Vial Sliding Scale -) [address] [facility]; Protocol Last Admin: 04/21/20 11:15 Dose: 6 units Documented by: Meclizine HCl (Antivert -) 12.5 mg PO TID [facility] Last Admin: 04/21/20 06:04 Dose: 12.5 mg Documented by: Metoprolol Tartrate (Lopressor -) 50 mg PO DAILY [facility] Last Admin: 04/21/20 09:14 Dose: 50 mg Documented by: Pantoprazole Sodium (Protonix -) 20 mg PO DAILY [facility] Last Admin: 04/21/20 09:14 Dose: 20 mg Documented by: Sodium Bicarbonate (Sodium Bicarbonate -) 650 mg PO TID [facility] Last Admin: 04/21/20 06:04 Dose: 650 mg Documented by: - Objective Vital Signs: Vital Signs Temperature 98.2 F 04/21/20 09:48 Pulse Rate 67 04/21/20 09:48 Respiratory Rate 20 04/21/20 09:48 Blood Pressure 150/69 04/21/20 09:48 O2 Sat by Pulse Oximetry (%) 98 04/21/20 09:48 Constitutional: Yes: No Distress, Calm HENT: Yes: Atraumatic Neck: Yes: Supple Cardiovascular: Yes: Regular Rate and Rhythm Respiratory: Yes: Regular Gastrointestinal: Yes: Soft Extremities: No: Cold, Cool, Cyanosis Edema: No Neurological: Yes: Alert Labs: CBC, BMP 10/12/20 11:45 INR, PTT INR 0.92 (0.83-1.09) 04/18/20 06:15 Assessment/Plan 84 year old male with history of CKD (baseline Cr ~1.5-1.7 based on prior recorded labs), hypertension, DM presented s/p being found on the floor by his son. 1. CKD stage 3 2. Syncope 3. Rhabdomyolysis 4. Hypertension 5. DM 6. Proteinuria 7. Acquired renal cystic disease 8. Metabolic acidosis Renal function essentially stable no overt electrolyte or acid/base disturbances off IV fluids FeNa was 1.2% - indeterminate Trend renal function and electrolytes daily CK levels downtrending Continue sodium bicarbonate Renal cyst noted on US and CT, no evidence of mass or hydronephrosis. Continue syncope work up as per primary team Juan José Galvan DO
[2020-04-21 12:57] LABS: ALBUMIN 2.8 g/dl (3.4-5.0); BLOOD UREA NITROGEN 40.4 mg/dL (7-18); CALCIUM 7.9 mg/dL (8.5-10.1); CREATININE 1.7 mg/dL (0.55-1.3); POTASSIUM 4.6 mmol/L (3.5-5.1)
[2020-04-21 13:00] LABS: TOT PROT 6.1 g/dl (6.4-8.2)
[2020-04-21] MEDS ORDERED: FUROSEMIDE 40 MG/4 ML INJECTABLE VIAL IVPUSH ONE (14:18)
--- NOTE | 2020-04-21 14:29 | PN ---
Teaching Attending Note Name of Resident: Tariq Mendieta ATTENDING PHYSICIAN STATEMENT I saw and evaluated the patient. I reviewed the resident's note and discussed the case with the resident. I agree with the resident's findings and plan as documented. SUBJECTIVE: No complaints. Feels better. No SOB. Calm and cooperative. OBJECTIVE: Afebrile, hemodynamically stable. AAO x 3. Follows commands, cooperative. SpO2 98% RA Last Vital Signs Temp Pulse Resp BP Pulse Ox 98.2 F 67 20 150/69 98 04/21/20 09:48 04/21/20 09:48 04/21/20 09:48 04/21/20 09:48 04/21/20 09:48 HEENT - Normocephalic. Heart - S1, S2, soft SM Lungs - mild decrease at bases with very few crackles. Abdomen - soft, non-tender. High BMI. Bowel Sounds normal. Extremities - Mild edema, venous stasis, no calf tenderness. Bruising UEs. Neuro - AAO x 3. Tone/Power normal. Laboratory Results - last 24 hr 04/20/20 04/20/20 04/21/20 18:23 21:17 05:52 WBC RBC Hgb Hct MCV MCH MCHC RDW Plt Count MPV Absolute Neuts (auto) Neutrophils % Lymphocytes % Monocytes % Eosinophils % Basophils % Nucleated RBC % Sodium Potassium Chloride Carbon Dioxide Anion Gap BUN Creatinine Est GFR (CKD-EPI)AfAm Est GFR (CKD-EPI)NonAf POC Glucometer 214 315 176 Random Glucose Calcium Total Bilirubin AST ALT Alkaline Phosphatase Creatine Kinase Creatine Kinase Index CK-MB (CK-2) Total Protein Albumin 04/21/20 04/21/20 04/21/20 11:01 11:45 11:45 WBC 5.7 RBC 4.14 Hgb 11.5 L Hct 35.1 L MCV 84.8 MCH 27.7 MCHC 32.7 RDW 14.4 Plt Count 218 MPV 7.9 Absolute Neuts (auto) 3.8 Neutrophils % 66.2 Lymphocytes % 19.5 D Monocytes % 6.6 Eosinophils % 6.9 H D Basophils % 0.8 Nucleated RBC % 0 Sodium 140 Potassium 4.6 Chloride 109 H Carbon Dioxide 27 Anion Gap 5 L BUN 40.4 H Creatinine 1.7 H Est GFR (CKD-EPI)AfAm 42.28 Est GFR (CKD-EPI)NonAf 36.48 POC Glucometer 300 Random Glucose 317 H Calcium 7.9 L Total Bilirubin 1.0 AST 45 H ALT 28 Alkaline Phosphatase 91 Creatine Kinase Creatine Kinase Index CK-MB (CK-2) Total Protein 6.1 L Albumin 2.8 L 04/21/20 11:45 WBC RBC Hgb Hct MCV MCH MCHC RDW Plt Count MPV Absolute Neuts (auto) Neutrophils % Lymphocytes % Monocytes % Eosinophils % Basophils % Nucleated RBC % Sodium Potassium Chloride Carbon Dioxide Anion Gap BUN Creatinine Est GFR (CKD-EPI)AfAm Est GFR (CKD-EPI)NonAf POC Glucometer Random Glucose Calcium Total Bilirubin AST ALT Alkaline Phosphatase Creatine Kinase 486 H Creatine Kinase Index 0.4 CK-MB (CK-2) 2.2 Total Protein Albumin Current Medications Generic Name Dose Route Start Last Admin Trade Name Freq PRN Reason Stop Dose Admin Amlodipine Besylate 10 mg 04/18/20 05:55 04/21/20 09:14 Norvasc - PO 10 mg DAILY ISAMAR Administration Aspirin 81 mg 04/19/20 10:00 04/21/20 09:14 Asa - PO 81 mg DAILY ISAMAR Administration Furosemide 40 mg 04/21/20 14:18 Lasix Injection - IVPUSH 04/21/20 14:19 ONCE ONE Heparin Sodium (Porcine) 5,000 unit 04/17/20 22:00 04/21/20 13:10 Heparin - SQ 5,000 unit TID ISAMAR Administration Insulin Aspart 1 vial 04/17/20 22:00 04/21/20 11:15 Novolog Vial Sliding Scale - SQ 6 units ACHS ISAMAR Administration Protocol Meclizine HCl 12.5 mg 04/17/20 22:00 04/21/20 13:10 Antivert - PO 12.5 mg TID ISAMAR Administration Metoprolol Tartrate 50 mg 04/18/20 10:00 04/21/20 09:14 Lopressor - PO 50 mg DAILY ISAMAR Administration Non-Formulary Medication 40 mg 04/22/20 06:00 Furosemide [Furosemide] PO TID ISAMAR Pantoprazole Sodium 20 mg 04/18/20 10:00 04/21/20 09:14 Protonix - PO 20 mg DAILY ISAMAR Administration Sodium Bicarbonate 650 mg 04/17/20 22:00 04/21/20 13:10 Sodium Bicarbonate - PO 650 mg TID ISAMAR Administration Home Medications Medication Instructions Recorded Atorvastatin Ca [Lipitor] 20 mg PO HS 07/23/17 Meclizine HCl 12.5 mg PO TID 07/23/17 Amlodipine Besylate [Norvasc -] 10 mg PO DAILY #30 tablet 07/27/17 Furosemide 40 mg PO TID 01/20/19 Metoprolol Succinate 50 mg PO DAILY 01/20/19 Omeprazole 20 mg PO DAILY 01/20/19 Sodium Bicarbonate 325 mg PO TID 01/20/19 Aspirin 81 mg PO DAILY 04/18/20 Dulaglutide [Trulicity] 1.5 mg SQ WEEKLY 04/18/20 Insulin Glargine,Hum.rec.anlog 55 unit SQ DAILY 04/18/20 [Lantus] ASSESSMENT AND PLAN: 84 year old male with history of DM 2, HTN, HLD, CAD s/p NSTEMI PCI/Stent, chronic venous insufficiency, Syncope, CKD 3, Hx Vertigo, progressive memory loss, was found lying on the floor of his home, unable to recall events marsh rrounding fall/collapse. 1. Acute Rhabdomyolysis - unclear fall versus Pre-syncope/Syncope as patient unable to remember ismael-episode events. CPK down from 2425 to 486 Hydration stopped, Lasix resumed. 2. Possible Pre-Syncope/Syncope ? with preceding lightheadedness, Hx of BPPV - denies lightheadedness now. CT head - mild atrophy, periventricular ischemic chnages Carotid Duplex - no hemodynamically significant stenosis Denies CP - ECG no acute findings (old T wave changes) Echo - normal EF, impaired LV relaxation Urine Cx negative. No Telemonitoring events PT eval - qualifies for SNF, awaiting bed/Auth 3. Elevated Troponin - secondary to Rhabdo ECG - no acute changes Evaluated by Cardiology - does not appear to have ACS, no further work up needed at this time. 4. L knee discomfort Xrays show no bony injury PT eval - recommend SNF for ongoing rehab. 5. Hx of progressive Memory Loss, likely underlying Dementia CT head as above RPR non-reactive TSH 12 B12 level 1347 Psychiatry consulted for evaluation and recommendations appreciated. 6. SOBIA on CKD 3 - Creat appears to be at baseline. Continue NaBicarb. Nephrology following 7. Chronic Diastolic CHF, no evidence of acute decompensaion. Impaired LV relaxation on Echo. Lasix resumed. 8. HTN - Continued on Metoprolol, Norvasc. 9. DM 2 - uncontrolled, A1C 9.2. Resume Trulicity, Glargine on discharge. Maintain on Novolog sliding scale as in-patient. 10. HLD - Statin held due to elevated CPK. Can resme on discharge 11. Renal Cysts on US, incidental finding - for out-patient Urology referral. 12. 0.5 cm Gallbladder Polyp, incidental finding on Abdo US - for GI out-patient referral. Radiology recommends 3-6 month repeat imaging. 13. CAD s/p PCI/Stent - Continue Aspirin, BB. Statin currently held due to Rhabdo, can resume on discharge DVT Px - Heparin SQ Dispo - PT evaluated, needs SNF, awaiting bed/authorization.
--- NOTE | 2020-04-21 14:34 | DS ---
Physical Exam: SUBJECTIVE: Patient seen and examined at bedside. No acute events overnight. OBJECTIVE: Vital Signs Period Temp Pulse Resp BP Sys/Charles Pulse Ox Last 24 Hr 97.2 F-98.6 F 56-74 20-22 147-176/59-76 97-98 PHYSICAL EXAM GENERAL: AAOx3 but mildly demented; obese male HEENT: NCAT, PERRLA, EOMI, sclera anicteric, conjunctiva clear NECK: Normal ROM, supple, no lymphadenopathy, JVD, or masses LUNGS: CTAB. No distress, speaks in full sentences. No increased work of breathing. HEART: RRR, normal S1 S2, no M/R/G, peripheral pulses 2+ and equal b/l ABDOMEN: Soft and distended. No guarding or rebound. No hepatomegaly or splenomegaly. MSK: ROM WNL; + L hip and L Knee pain reproducible with palpation EXTREMITIES: Normal inspection. 1+ edema on b/l legs. No clubbing or cyanosis. NEUROLOGICAL: CN II-XII intact. Normal speech. Gait not assessed. No sensory or neurological deficits observed. SKIN: bruising noted on left arm LABS Laboratory Results - last 24 hr CBC, BMP 04/21/20 11:45 04/21/20 11:45 04/20/20 04/20/20 04/21/20 18:23 21:17 05:52 WBC RBC Hgb Hct MCV MCH MCHC RDW Plt Count MPV Absolute Neuts (auto) Neutrophils % Lymphocytes % Monocytes % Eosinophils % Basophils % Nucleated RBC % Sodium Potassium Chloride Carbon Dioxide Anion Gap BUN Creatinine Est GFR (CKD-EPI)AfAm Est GFR (CKD-EPI)NonAf POC Glucometer 214 315 176 Random Glucose Calcium Total Bilirubin AST ALT Alkaline Phosphatase Creatine Kinase Creatine Kinase Index CK-MB (CK-2) Total Protein Albumin 04/21/20 04/21/20 04/21/20 11:01 11:45 11:45 WBC 5.7 RBC 4.14 Hgb 11.5 L Hct 35.1 L MCV 84.8 MCH 27.7 MCHC 32.7 RDW 14.4 Plt Count 218 MPV 7.9 Absolute Neuts (auto) 3.8 Neutrophils % 66.2 Lymphocytes % 19.5 D Monocytes % 6.6 Eosinophils % 6.9 H D Basophils % 0.8 Nucleated RBC % 0 Sodium 140 Potassium 4.6 Chloride 109 H Carbon Dioxide 27 Anion Gap 5 L BUN 40.4 H Creatinine 1.7 H Est GFR (CKD-EPI)AfAm 42.28 Est GFR (CKD-EPI)NonAf 36.48 POC Glucometer 300 Random Glucose 317 H Calcium 7.9 L Total Bilirubin 1.0 AST 45 H ALT 28 Alkaline Phosphatase 91 Creatine Kinase Creatine Kinase Index CK-MB (CK-2) Total Protein 6.1 L Albumin 2.8 L 04/21/20 11:45 WBC RBC Hgb Hct MCV MCH MCHC RDW Plt Count MPV Absolute Neuts (auto) Neutrophils % Lymphocytes % Monocytes % Eosinophils % Basophils % Nucleated RBC % Sodium Potassium Chloride Carbon Dioxide Anion Gap BUN Creatinine Est GFR (CKD-EPI)AfAm Est GFR (CKD-EPI)NonAf POC Glucometer Random Glucose Calcium Total Bilirubin AST ALT Alkaline Phosphatase Creatine Kinase 486 H Creatine Kinase Index 0.4 CK-MB (CK-2) 2.2 Total Protein Albumin HOSPITAL COURSE: 84 year old male with history of DM 2, HTN, HLD, CAD s/p NSTEMI PCI/Stent, chronic venous insufficiency, Syncope, CKD 3, Hx Vertigo, progressive memory loss, was found lying on the floor of his home, unable to recall events surrounding fall/collapse. Patient was found to have Acute Rhabdomyolysis - unclear fall versus Pre-syncope/Syncope as patient unable to remember ismael- episode events. CPK at admission was 2425 but went down to 486 at the time of discharge after gentle hydration. Lasix was held in favor of gentle hydration. Patient had imaging done since he fell on his head and knee but everything was negative for acute pathology. Urine cultures were negative and telemonitoring was benign through his stay. Patient had a tendency to sundown at night time and would often need andrea and ativan PRN. Patient also had mild SOBIA on CKD that resolved during his stay. Patient was discharged to a SNF at request of family. Date of Admission:04/17/20 04/17/20-EKG-NSR, cannot rule out anterior infarct 04/17/20-CR Pelvis-Single view of the pelvis reveals slight rotation on the left but no sign of a gross fracture or subluxation and no sign of blastic or lytic changes. Significant arthritic changes are not seen. The SI joints are patent. There are pelvic phlebolith. If symptoms persist or there is decreased range of motion , then further imaging with CT and orthopedic consultation may be of help. 04/17/2034-ANB-Ygrvic AP view of the chest reveals a large heart, unfolded aorta, weak inspiration with clear lungs and no sign of infiltrate or failure. The angles are sharp. The bones and soft tissues are intact. An acute process is not seen. Since 01/20/2019 there is no change of an adverse nature. If symptoms persist, further imaging may be of help. 04/17/20-L Knee XR-Impression: Arthritic changes. No acute pathology appreciated. 04/17/20-CT Head w/o contrast-Moderate atrophy and periventricular chronic microvascular ischemic disease changes without CT evidence of acute intracranial pathology. 04/17/20-CT Pelvis w/o contrast-No acute osseous findings. Generalized osteopenia. Multilevel degenerative disc disease. Partially visualized 6.8 cm cystic structure in the left lower quadrant appears to represent a cortical cysts, however assessment is limited by collimation of the left kidney. 04/17/20-US Kidney-Somewhat limited exam due to body habitus and overlapping bowel gas. No hydronephrosis is seen. Multiple bilateral renal cortical cysts are noted the most prominent measuring 11 cm in diameter. No free intraperito alfonso fluid is noted within the upper abdomen. A 0.5 cm gallbladder polyp is seen. Correlation with 3 - 6 month follow up sonography is suggested to evaluate stability. The aorta is partially obscured due to overlapping bowel gas. No obvious aneurysm is identified. 04/17/20-US Abdomen-Somewhat limited exam due to body habitus and overlapping bowel gas. No hydronephrosis is seen. Multiple bilateral renal cortical cysts are noted the most prominent measuring 11 cm in diameter. No free intraperiton eal fluid is noted within the upper abdomen. A 0.5 cm gallbladder polyp is seen. Correlation with 3 - 6 month follow up sonography is suggested to evaluate stability. The aorta is partially obscured due to overlapping bowel gas. No obvious aneurysm is identified. 04/17/20-Carotid US-The vertebral arteries appear patent with physiologic flow direction. No Doppler evidence of a high-grade carotid artery stenosis is noted. 04/18/2027-Wajhpetayjptpi-ET systolic function is normal. EF = 55-60%. transmitral spectral Doppler flow pattern is suggestive of impaired LV relaxation. RV is normal in size and function. Mild lyla and tricuspid regurgitation. Mild aortic regurgitation. No pericardial effusion. Date of Discharge: 04/21/20 Minutes to complete discharge: 36 Discharge Summary Problems reviewed: Yes Reason For Visit: SYNCOPE FALL FROM GROUND LEVEL WEAKNESS Current Active Problems CKD (chronic kidney disease) (Acute) Elevated creatine kinase level (Acute) Fall from ground level (Acute) Motor restlessness (Acute) Syncope (Acute) Condition: Stable - Instructions Diet, Activity, Other Instructions: Your visit: You were admitted to the hospital for a fall. We found that the blood level that is associated with muscle breakdown to be increased. This is most likely from your fall and being on the ground after you fell for some time. You were treated with fluids with improvement of your symptoms. Please make sure to stay hydrated so your blood levels continue to normalize. Additional Imaging Findings: -During your stay, we did an ultrasound which showed renal cysts. -During your stay, we did an ultrasound which showed a gallbladder polyp. Please have a repeat ultrasound in 3-6 months. Medications changes: -Continue to take all other home medications as prescribed. Follow up: - Please follow-up with your advertising intern Dr. Galvan, in 1 week. -Please follow-up with your tile and marble setter, Dr. Josue, in 1 week. - Visit with your Primary Care Provider, Dr. Grier in 2 weeks. Please recheck your CPK levels and routine bloodwork. -Please follow up with your urologist, Dr. Royal in 2 weeks about the renal cysts we found on your ultrasound. -Please follow-up with your track repair laborer, Dr. Goncalves in 2 weeks about the gallbladder polyp we found and to schedule a repeat ultrasound in 3-6 mon ths. Additional Instructions: -You are being discharged to rehab. -Please return to the Emergency Department if you experience worsening pain, fevers, chills, shortness of breath, or chest pain, or if you experience any worsening, new or concerning symptoms. Referrals: Kennedy Goncalves DO [Staff Physician] - (f/u for gallbladder polyp) Michelle Josue MD [Staff Physician] - 1 Week ON STAFF,NOT [Primary Care Provider] - 2 Weeks Lucio Royal MD [Staff Physician] - 2 Weeks (f/u for renal cysts on u/s) Juan José Galvan MD [Staff Physician] - 1 Week (f/u for rhabdo) Disposition: CUSTODIAL FACILITY - Home Medications Comprehensive Discharge Medication List: Ambulatory Orders Atorvastatin Ca [Lipitor] 20 mg PO HS 07/23/17 Meclizine HCl 12.5 mg PO TID 07/23/17 Amlodipine Besylate [Norvasc -] 10 mg PO DAILY #30 tablet 07/27/17 Furosemide 40 mg PO TID 01/20/19 Metoprolol Succinate 50 mg PO DAILY 01/20/19 Omeprazole 20 mg PO DAILY 01/20/19 Sodium Bicarbonate 325 mg PO TID 01/20/19 Aspirin 81 mg PO DAILY 04/18/20 Dulaglutide [Trulicity] 1.5 mg SQ WEEKLY 04/18/20 Insulin Glargine,Hum.rec.anlog [Lantus] 55 unit SQ DAILY 04/18/20 This patient is new to me today: No Emergency Visit: No Critical Care patient: No - Discharge Referral Referred to [facility] Med P.C.: No ATTENDING PHYSICIAN STATEMENT I saw and evaluated the patient. I reviewed the resident's note and discussed the case with the resident. I agree with the resident's findings and plan as documented. SUBJECTIVE: OBJECTIVE: ASSESSMENT AND PLAN:
[2020-04-21] MEDS ORDERED: INSULIN (NOVOLOG) ASPART 100 UNITS/ML 10ML VIAL ONE (21:00)
[2020-04-22] MEDS ORDERED: FUROSEMIDE 40 MG TABLET (FP) PO SCH (06:00)
[2020-04-22 06:05] VITALS: TEMP 97.4
[2020-04-22] MEDS: HEPARIN NA (PORCINE) 5,000 UNITS/ML 1ML VIAL SQ SCH (06:41)
[2020-04-22] MEDS: SODIUM BICARBONATE 650 MG TABLET PO SCH (06:41)
[2020-04-22] MEDS: MECLIZINE HCL 12.5 MG TABLET PO SCH (06:41)
[2020-04-22] MEDS: INSULIN SLIDING SCALE (NOVOLOG) 1 VIAL SQ SCH ×2 (06:41→12:10)
[2020-04-22 07:14] LABS: BASO % 0.5 % (0-2.0); HEMATOCRIT 36.6 % (35.4-49); HEMOGLOBIN 12.3 GM/dL (11.7-16.9); LYMPH % 14.1 % (8-40); MCH 28.8 pg (25.7-33.7); MCHC 33.7 g/dl (32.0-35.9); MEAN CELL VOLUME 85.4 fl (80-96); MEAN PLT VOLUME 7.6 fl (7.5-11.1); NEUT % 71.4 % (42.8-82.8); PLATELET COUNT 208 K/MM3 (134-434); RBC 4.28 M/mm3 (4.00-5.60); RDW 14.6 % (11.9-15.9); WHITE BLOOD COUNT 7.7 K/mm3 (4.0-10.0)
[2020-04-22 07:35] LABS: BLOOD UREA NITROGEN 43.6 mg/dL (7-18); CALCIUM 7.4 mg/dL (8.5-10.1); CREATININE 1.7 mg/dL (0.55-1.3); POTASSIUM 4.1 mmol/L (3.5-5.1)
[2020-04-22] MEDS: METOPROLOL TARTRATE 50 MG TABLET (FP) PO SCH (09:15)
[2020-04-22] MEDS: ASPIRIN 81 MG CHEWABLE TABLETS PO SCH (09:15)
[2020-04-22] MEDS: PANTOPRAZOLE 20 MG TABLET PO SCH (09:15)
[2020-04-22] MEDS: amLODIPine BESYLATE 10 MG TABLET (FP) PO SCH (09:15)
[2020-04-22 11:37] VITALS: BP 150/73; PULSE 64
--- NOTE | 2020-04-22 12:23 | PN ---
Physical Exam: SUBJECTIVE: Patient seen and examined at bedside. No acute events overnight. OBJECTIVE: Vital Signs Period Temp Pulse Resp BP Sys/Charles Pulse Ox Last 24 Hr 97.4 F-98 F 55-81 18-20 138-168/54-76 97-97 GENERAL: AAOx3 but mildly demented; obese male HEENT: NCAT, PERRLA, EOMI, sclera anicteric, conjunctiva clear NECK: Normal ROM, supple, no lymphadenopathy, JVD, or masses LUNGS: CTAB. No distress, speaks in full sentences. No increased work of breathing. HEART: RRR, normal S1 S2, no M/R/G, peripheral pulses 2+ and equal b/l ABDOMEN: Soft and distended. No guarding or rebound. No hepatomegaly or splenomegaly. MSK: ROM WNL; + L hip and L Knee pain reproducible with palpation EXTREMITIES: Normal inspection. 1+ edema on b/l legs. No clubbing or cyanosis. NEUROLOGICAL: CN II-XII intact. Normal speech. Gait not assessed. No sensory or neurological deficits observed. SKIN: bruising noted on left arm Laboratory Results - last 24 hr CBC, BMP 04/22/20 06:36 04/22/20 06:36 04/21/20 04/21/20 04/21/20 11:45 11:45 11:45 WBC 5.7 RBC 4.14 Hgb 11.5 L Hct 35.1 L MCV 84.8 MCH 27.7 MCHC 32.7 RDW 14.4 Plt Count 218 MPV 7.9 Absolute Neuts (auto) 3.8 Neutrophils % 66.2 Lymphocytes % 19.5 D Monocytes % 6.6 Eosinophils % 6.9 H D Basophils % 0.8 Nucleated RBC % 0 Sodium 140 Potassium 4.6 Chloride 109 H Carbon Dioxide 27 Anion Gap 5 L BUN 40.4 H Creatinine 1.7 H Est GFR (CKD-EPI)AfAm 42.28 Est GFR (CKD-EPI)NonAf 36.48 POC Glucometer Random Glucose 317 H Calcium 7.9 L Total Bilirubin 1.0 AST 45 H ALT 28 Alkaline Phosphatase 91 Creatine Kinase 486 H Creatine Kinase Index 0.4 CK-MB (CK-2) 2.2 Total Protein 6.1 L Albumin 2.8 L 04/21/20 04/21/20 04/22/20 16:43 21:20 05:42 WBC RBC Hgb Hct MCV MCH MCHC RDW Plt Count MPV Absolute Neuts (auto) Neutrophils % Lymphocytes % Monocytes % Eosinophils % Basophils % Nucleated RBC % Sodium Potassium Chloride Carbon Dioxide Anion Gap BUN Creatinine Est GFR (CKD-EPI)AfAm Est GFR (CKD-EPI)NonAf POC Glucometer 311 222 211 Random Glucose Calcium Total Bilirubin AST ALT Alkaline Phosphatase Creatine Kinase Creatine Kinase Index CK-MB (CK-2) Total Protein Albumin 04/22/20 04/22/20 04/22/20 06:36 06:36 12:01 WBC 7.7 RBC 4.28 Hgb 12.3 Hct 36.6 MCV 85.4 MCH 28.8 MCHC 33.7 RDW 14.6 Plt Count 208 MPV 7.6 Absolute Neuts (auto) 5.5 Neutrophils % 71.4 Lymphocytes % 14.1 D Monocytes % 8.0 Eosinophils % 6.0 H Basophils % 0.5 Nucleated RBC % 0 Sodium 139 Potassium 4.1 Chloride 107 Carbon Dioxide 25 Anion Gap 7 L BUN 43.6 H Creatinine 1.7 H Est GFR (CKD-EPI)AfAm 42.28 Est GFR (CKD-EPI)NonAf 36.48 POC Glucometer 338 Random Glucose 231 H Calcium 7.4 L Total Bilirubin AST ALT Alkaline Phosphatase Creatine Kinase Creatine Kinase Index CK-MB (CK-2) Total Protein Albumin Active Medications Generic Name Dose Route Start Last Admin Trade Name Freq PRN Reason Stop Dose Admin Amlodipine Besylate 10 mg 04/18/20 05:55 04/22/20 09:15 Norvasc - PO 10 mg DAILY ISAMAR Administration Aspirin 81 mg 04/19/20 10:00 04/22/20 09:15 Asa - PO 81 mg DAILY ISAMAR Administration Furosemide 40 mg 04/22/20 06:00 04/22/20 06:41 Lasix - PO 40 mg TID ISAMAR Administration Heparin Sodium (Porcine) 5,000 unit 04/17/20 22:00 04/22/20 06:41 Heparin - SQ 5,000 unit TID ISAMAR Administration Insulin Aspart 1 vial 04/17/20 22:00 04/22/20 12:10 Novolog Vial Sliding Scale - SQ 8 units ACHS ISAMAR Administration Protocol Meclizine HCl 12.5 mg 04/17/20 22:00 04/22/20 06:41 Antivert - PO 12.5 mg TID ISAMAR Administration Metoprolol Tartrate 50 mg 04/18/20 10:00 04/22/20 09:15 Lopressor - PO 50 mg DAILY ISAMAR Administration Pantoprazole Sodium 20 mg 04/18/20 10:00 04/22/20 09:15 Protonix - PO 20 mg DAILY ISAMAR Administration Sodium Bicarbonate 650 mg 04/17/20 22:00 04/22/20 06:41 Sodium Bicarbonate - PO 650 mg TID ISAMAR Administration ASSESSMENT/PLAN: 84 y/o M with PMX DM, HTN, syncope, CKD, 'heart condition," dizziness, b/l leg weakness, memory loss presenting to [facility] ED after an unwitnessed fall at his home and being on the floor for 3 hours. Admitted for syncope. #Acute Rhabdomyolysis -resolving -Cont to trend CPK- downtrending slowly -trops have downtrended #Pre-Syncope/Syncope vs Mechanical Fall -Pt does not remember how he fell and does not recall any precipitating factors -CT head - mild atrophy, periventricular ischemic changes -Carotid Duplex - no hemodynamically significant stenosis -Echo - normal EF, impaired LV relaxation -no acute EKG changes -ECG - no acute changes -Cardio following: Dr. Josue #L knee pain -improved -Xrays show no osseous fractures -continue PT #Progressive Memory Loss, likely 2/2 Dementia -RPR non-reactive -TSH 12 -B12 level 1347 -Pt will need SNF at d/c #SOBIA on CKD stage 3 -cont IVF -trend renal labs -c/w home med NaBicarb -nephro following- Dr. Galvan #Chronic Diastolic CHF -no evidence of acute exacerbation at this visit -Lasix restarted -echo 04/18: normal EF. Impaired LV relaxation. Mild MR, TR, ao. regurg #HTN -c/w home med Metoprolol -c/w home med Norvasc. #Uncontrolled DM -A1c-9.2 -ISS w/ BGM's #HLD -Holding statin in setting of rhabdo #Renal Cysts on US -incidental finding -for out-patient Urology referral. #0.5 cm Gallbladder Polyp -incidental finding on Abdo US -3-6 months repeat imaging recommended by Radiology -for GI out-patient referral #CAD s/p PCI/Stent -c/w Aspirin -c/w BB -Statin held due to Rhabdo #FEN -no standing fluids -monitor lytes; replete PRN -diabetic sodium controlled diet #Ppx -DVT: Heparin SQ TID dispo: continue to monitor in tele and SNF placement planning Visit type - Emergency Visit Emergency Visit: No - New Patient This patient is new to me today: No - Critical Care Critical Care patient: No - Discharge Referral Referred to [facility] Med P.C.: No - Medication Review Med list reviewed for High Risk Meds patients 65 and older: Yes ATTENDING PHYSICIAN STATEMENT I saw and evaluated the patient. I reviewed the resident's note and discussed the case with the resident. I agree with the resident's findings and plan as documented. SUBJECTIVE: OBJECTIVE: ASSESSMENT AND PLAN:
--- NOTE | 2020-04-22 12:47 | PN ---
Progress Note, Physician History of Present Illness: Seen and examined at the bedside awake and alert denies any shortness of breath, chest pain, abdominal pain, N/V/D tolerating oral diet making urine for possible discharge today - Current Medication List Current Medications: Active Medications Amlodipine Besylate (Norvasc -) 10 mg PO DAILY [facility] Last Admin: 04/22/20 09:15 Dose: 10 mg Documented by: Aspirin (Asa -) 81 mg PO DAILY [facility] Last Admin: 04/22/20 09:15 Dose: 81 mg Documented by: Furosemide (Lasix -) 40 mg PO TID [facility] Last Admin: 04/22/20 06:41 Dose: 40 mg Documented by: Heparin Sodium (Porcine) (Heparin -) 5,000 unit SQ TID [facility] Last Admin: 04/22/20 06:41 Dose: 5,000 unit Documented by: Insulin Aspart (Novolog Vial Sliding Scale -) 1 vial SQ [facility]; Protocol Last Admin: 04/22/20 12:10 Dose: 8 units Documented by: Meclizine HCl (Antivert -) 12.5 mg PO TID [facility] Last Admin: 04/22/20 06:41 Dose: 12.5 mg Documented by: Metoprolol Tartrate (Lopressor -) 50 mg PO DAILY [facility] Last Admin: 04/22/20 09:15 Dose: 50 mg Documented by: Pantoprazole Sodium (Protonix -) 20 mg PO DAILY [facility] Last Admin: 04/22/20 09:15 Dose: 20 mg Documented by: Sodium Bicarbonate (Sodium Bicarbonate -) 650 mg PO TID [facility] Last Admin: 04/22/20 06:41 Dose: 650 mg Documented by: - Objective Vital Signs: Vital Signs Temperature 97.4 F L 04/22/20 06:00 Pulse Rate 64 04/22/20 10:00 Respiratory Rate 18 04/22/20 10:00 Blood Pressure 150/73 04/22/20 10:00 O2 Sat by Pulse Oximetry (%) 97 04/22/20 10:00 Constitutional: Yes: No Distress Neck: Yes: Supple Cardiovascular: Yes: Regular Rate and Rhythm Respiratory: Yes: Regular, CTA Bilaterally Extremities: No: Cyanosis Labs: CBC, BMP 04/22/20 06:36 04/22/20 06:36 INR, PTT INR 0.92 (0.83-1.09) 04/18/20 06:15 Assessment/Plan 84 year old male with history of CKD (baseline Cr ~1.5-1.7 based on prior recorded labs), hypertension, DM presented s/p being found on the floor by his son. 1. CKD stage 3 2. Syncope 3. Rhabdomyolysis 4. Hypertension 5. DM 6. Proteinuria 7. Acquired renal cystic disease 8. Metabolic acidosis Renal function stable no overt electrolyte or acid/base disturbances FeNa was 1.2% - indeterminate CK levels downtrending Continue sodium bicarbonate Renal cyst noted on US and CT, no evidence of mass or hydronephrosis. discharge planning as per primary team Juan José Galvan DO
--- NOTE | 2020-04-22 13:22 | PN ---
Progress Note (short form) - Note Progress Note: cc: fall s: no cp sob palps dizzy Vital Signs Period Temp Pulse Resp BP Sys/Charles Pulse Ox Last 24 Hr 97.4 F-98 F 55-81 18-20 138-168/54-76 97-97 Constitutional: Yes: No Distress Eyes: Yes: Conjunctiva Clear Respiratory: Yes: CTA Bilaterally Gastrointestinal: Yes: Soft (nt) Cardiovascular: Yes: Regular Rate and Rhythm JVD: No Carotid Bruit: No Heart Sounds: Yes: S1, S2 (rrr) Edema: No Peripheral Pulses WNL: Yes Neurological: Yes: Alert no jaundice, diaphoresis not agitated Laboratory Last Values WBC 7.7 K/mm3 (4.0-10.0) 04/22/20 06:36 RBC 4.28 M/mm3 (4.00-5.60) 04/22/20 06:36 Hgb 12.3 GM/dL (11.7-16.9) 04/22/20 06:36 Hct 36.6 % (35.4-49) 04/22/20 06:36 MCV 85.4 fl (80-96) 04/22/20 06:36 MCH 28.8 pg (25.7-33.7) 04/22/20 06:36 MCHC 33.7 g/dl (32.0-35.9) 04/22/20 06:36 RDW 14.6 % (11.9-15.9) 04/22/20 06:36 Plt Count 208 K/MM3 (134-434) 04/22/20 06:36 MPV 7.6 fl (7.5-11.1) 04/22/20 06:36 Absolute Neuts (auto) 5.5 K/mm3 (1.5-8.0) 04/22/20 06:36 Neutrophils % 71.4 % (42.8-82.8) 04/22/20 06:36 Lymphocytes % 14.1 % (8-40) D 04/22/20 06:36 Monocytes % 8.0 % (3.8-10.2) 04/22/20 06:36 Eosinophils % 6.0 % (0-4.5) H 04/22/20 06:36 Basophils % 0.5 % (0-2.0) 04/22/20 06:36 Nucleated RBC % 0 % (0-0) 04/22/20 06:36 PT with INR 10.90 SEC (9.7-13.0) 04/18/20 06:15 INR 0.92 (0.83-1.09) 04/18/20 06:15 Sodium 139 mmol/L (136-145) 04/22/20 06:36 Potassium 4.1 mmol/L (3.5-5.1) 04/22/20 06:36 Chloride 107 mmol/L (98-107) 04/22/20 06:36 Carbon Dioxide 25 mmol/L (21-32) 04/22/20 06:36 Anion Gap 7 MMOL/L (8-16) L 04/22/20 06:36 BUN 43.6 mg/dL (7-18) H 04/22/20 06:36 Creatinine 1.7 mg/dL (0.55-1.3) H 04/22/20 06:36 Est GFR (CKD-EPI)AfAm 42.28 04/22/20 06:36 Est GFR (CKD-EPI)NonAf 36.48 04/22/20 06:36 POC Glucometer 338 UNITS (80-120) 04/22/20 12:01 Random Glucose 231 mg/dL (74-106) H 04/22/20 06:36 Hemoglobin A1c % 9.2 % (4.2-6.3) H 04/18/20 06:15 Calcium 7.4 mg/dL (8.5-10.1) L 04/22/20 06:36 Phosphorus 2.5 mg/dL (2.5-4.9) 04/20/20 05:22 Magnesium 2.5 mg/dL (1.8-2.4) H 04/20/20 05:22 Iron 40 ug/dL (50-175) L 04/18/20 06:15 Total Bilirubin 1.0 mg/dL (0.2-1) 04/21/20 11:45 Direct Bilirubin 0.3 mg/dL (0.0-0.2) H 04/19/20 05:38 AST 45 U/L (15-37) H 04/21/20 11:45 ALT 28 U/L (13-61) 04/21/20 11:45 Alkaline Phosphatase 91 U/L (45-117) 04/21/20 11:45 Creatine Kinase 348 U/L (26-308) H 04/22/20 06:36 Creatine Kinase Index 0.5 % (0.0-5.0) 04/22/20 06:36 CK-MB (CK-2) 1.8 ng/mL (0.5-3.6) 04/22/20 06:36 Troponin I 0.09 ng/ml (0.00-0.05) H 04/18/20 06:15 B-Natriuretic Peptide 325.9 pg/ml (5-450) 04/18/20 06:15 Total Protein 6.1 g/dl (6.4-8.2) L 04/21/20 11:45 Albumin 2.8 g/dl (3.4-5.0) L 04/21/20 11:45 Triglycerides 100 mg/dL (0-150) 04/18/20 06:15 Cholesterol 130 mg/dL (50-200) 04/18/20 06:15 Total LDL Cholesterol 55 mg/dL (5-100) 04/18/20 06:15 HDL Cholesterol 67 mg/dL (40-60) H 04/18/20 06:15 Vitamin B12 1347 pg/ml (193-986) H 04/18/20 06:15 Serum Folate 12 ng/mL (3.1-17.5) 04/18/20 06:15 TSH 1.22 uIU/ml (0.358-3.74) 04/18/20 06:15 Resin T3 Uptake 35.3 % (33-40) 04/17/20 18:01 Urine Color Yellow 04/18/20 01:10 Urine Appearance Clear 04/18/20 01:10 Urine pH 6.5 (5.0-8.0) 04/18/20 01:10 Ur Specific [place] 1.017 (1.010-1.035) 04/18/20 01:10 Urine Protein 2+ (NEGATIVE) H 04/18/20 01:10 Urine Glucose (UA) 2+ (NEGATIVE) H 04/18/20 01:10 Urine Ketones Negative (NEGATIVE) 04/18/20 01:10 Urine Blood 2+ (NEGATIVE) H 04/18/20 01:10 Urine Nitrite Negative (NEGATIVE) 04/18/20 01:10 Urine Bilirubin Negative (NEGATIVE) 04/18/20 01:10 Urine Urobilinogen 1.0 mg/dL (0.2-1.0) 04/18/20 01:10 Ur Leukocyte Esterase Negative (NEGATIVE) 04/18/20 01:10 Urine WBC (Auto) 1 /uL (0-25.8) 04/18/20 01:10 Urine RBC (Auto) 16 /uL (0-23.9) 04/18/20 01:10 Urine Casts (Auto) 0 /uL (0-3.1) 04/18/20 01:10 U Epithel Cells (Auto) 2 /uL (0-25.1) 04/18/20 01:10 Urine Bacteria (Auto) 12 /uL (0-1359) 04/18/20 01:10 Ur Random Creatinine 70.0 mg/dL (30-150) 04/18/20 11:05 Ur Random Sodium 79 MMOL/L (40-220) 04/18/20 01:10 Ur Random Potassium 23.0 MMOL/L (25-125) L 04/18/20 01:10 Ur Random Chloride 69 MMOL/L (110-250) L 04/18/20 01:10 Syphilis Serology Non-reactive (NONREACTIVE) 04/17/20 20:05 COVID-19 (JACKI) Not detected (Not Detected) 04/17/20 20:15 Assessment/Plan DATA: echo 07/2017: 1+ lvh. hyperdynamic lv function. impaired relaxation. nl rv size/fn. 1+ ar. 1+tr. echo 01/2017: nl lv/rv, iasa, mild ar renal u/s 07/2017: bilateral renal cysts. no acute renal pathology. limited doppler study but no evidence of renal artery stenosis. renal duplex 07/2014: no anat echo 04/2020 nl LV/RV function, impaired relaxation, mild MR, mild TR, mild AR tele: sinus IMP/PLAN: a/p: 84 m hx cad s/p nstemi and pci (09/2013, doni rca, doni om1; residual 50-60 mrca, 30-50 d1), dm, htn, hld, ckd, venous insuff/le edema, vertigo here s/p fall. unwitnessed fall: mechanical vs syncope -no signs acs, chf, arrhythmia -appears vol depleted on labs, improved -echo unremarkable -pt eval -tele benign thus far cad s/p remote mi/pci: -stable no signs acs -cont bb, statin, asa -Borderline flat equivocally elevated TnI with negative index, does not represent ACS. And with elevated CKs out of proportion to TnI, more likely represents rhabdo picture with SOBIA on a multifactorial basis (volume depletion contributing) hld: -cont statin htn: -cont home meds sobia/ckd: combo of volume depletion/rhabdo -as per PMD, renal le edema: chronic, now resolved. On basis of chronic diastolic CHF -lasix resumed
--- NOTE | 2020-04-22 23:18 | PN ---
Teaching Attending Note Name of Resident: Rizwana Solorzanojonathonsienna ATTENDING PHYSICIAN STATEMENT I saw and evaluated the patient. I reviewed the resident's note and discussed the case with the resident. I agree with the resident's findings and plan as documented. SUBJECTIVE: pt seen and examined OBJECTIVE: Last Vital Signs Temp Pulse Resp BP Pulse Ox 97.4 F L 64 18 150/73 97 04/22/20 06:00 04/22/20 10:00 04/22/20 10:00 04/22/20 10:00 04/22/20 10:00 GENERAL: Awake, alert, and fully oriented, in no acute distress. HEAD: Normal with no signs of trauma. EYES: Pupils equal, round and reactive to light, sclera anicteric, conjunctiva clear. LUNGS: Breath sounds equal, clear to auscultation bilaterally. No wheezes, and no crackles. No accessory muscle use. HEART: Regular rate and rhythm, normal S1 and S2 ABDOMEN: Soft, nontender, not distended MUSCULOSKELETAL: Normal range of motion at all joints. No bony deformities or tenderness. No CVA tenderness. UPPER EXTREMITIES: 2+ pulses, warm, well-perfused. No cyanosis. No clubbing. No peripheral edema. LOWER EXTREMITIES: 2+ pulses, warm, well-perfused. No calf tenderness. No peripheral edema. NEUROLOGICAL: Cranial nerves II-XII intact. Normal speech. CBCD WBC 7.7 K/mm3 (4.0-10.0) 04/22/20 06:36 RBC 4.28 M/mm3 (4.00-5.60) 04/22/20 06:36 Hgb 12.3 GM/dL (11.7-16.9) 04/22/20 06:36 Hct 36.6 % (35.4-49) 04/22/20 06:36 MCV 85.4 fl (80-96) 04/22/20 06:36 MCHC 33.7 g/dl (32.0-35.9) 04/22/20 06:36 RDW 14.6 % (11.9-15.9) 04/22/20 06:36 Plt Count 208 K/MM3 (134-434) 04/22/20 06:36 MPV 7.6 fl (7.5-11.1) 04/22/20 06:36 CMP Sodium 139 mmol/L (136-145) 04/22/20 06:36 Potassium 4.1 mmol/L (3.5-5.1) 04/22/20 06:36 Chloride 107 mmol/L (98-107) 04/22/20 06:36 Carbon Dioxide 25 mmol/L (21-32) 04/22/20 06:36 Anion Gap 7 MMOL/L (8-16) L 04/22/20 06:36 BUN 43.6 mg/dL (7-18) H 04/22/20 06:36 Creatinine 1.7 mg/dL (0.55-1.3) H 04/22/20 06:36 Calcium 7.4 mg/dL (8.5-10.1) L 04/22/20 06:36 Total Bilirubin 1.0 mg/dL (0.2-1) 04/21/20 11:45 AST 45 U/L (15-37) H 04/21/20 11:45 ALT 28 U/L (13-61) 04/21/20 11:45 Alkaline Phosphatase 91 U/L (45-117) 04/21/20 11:45 Total Protein 6.1 g/dl (6.4-8.2) L 04/21/20 11:45 Albumin 2.8 g/dl (3.4-5.0) L 04/21/20 11:45 ASSESSMENT AND PLAN: 84 year old male with history of DM 2, HTN, HLD, CAD s/p NSTEMI PCI/Stent, chronic venous insufficiency, Syncope, CKD 3, Hx Vertigo, progressive memory loss, was found lying on the floor of his home, unable to recall events surrounding fall/collapse. # Acute Rhabdomyolysis unclear fall versus Pre-syncope/Syncope as patient unable to remember ismael- episode events. CPK down from 2425 to 486 Hydration stopped, Lasix resumed. no radiological evidence of acute pathology PT eval - qualifies for SNF, awaiting bed/Auth early dementia SOBIA on CKD 3 HFpEF HTN DM 2 HLD Renal Cysts on US, incidental finding - for out-patient Urology referral. 0.5 cm Gallbladder Polyp, incidental finding on Abdo US - for GI out-patient referral. Radiology recommends 3-6 month repeat imaging. CAD s/p PCI/Stent DVT prophylaxis
== END 2020-04-22 12:49 | DRG 683 ==
LOC: JER 11:06 → JERBED 12:18 → J4W 20:26
PROVIDERS: ATTEND Student in an Organized Health Care Education/Training Program
DX: N17.9 Acute kidney failure, unspecified (principal); M62.82 Rhabdomyolysis; I50.30 Unspecified diastolic (congestive) heart failure; E87.2 Acidosis; R18.8 Other ascites; I13.0 Hypertensive heart and chronic kidney disease with heart failure and stage 1 through stage 4 chronic kidney disease, or unspecified chronic kidney disease; I25.10 Atherosclerotic heart disease of native coronary artery without angina pectoris; N18.30 Chronic kidney disease, stage 3 unspecified; E78.5 Hyperlipidemia, unspecified; Z95.5 Presence of coronary angioplasty implant and graft; E86.9 Volume depletion, unspecified; E11.65 Type 2 diabetes mellitus with hyperglycemia; E66.9 Obesity, unspecified; Z68.30 Body mass index [BMI] 30.0-30.9, adult; K21.9 Gastro-esophageal reflux disease without esophagitis; N28.1 Cyst of kidney, acquired
CPT/HCPCS: 36415; 70450-TC; 71046-TC-FY; 72170-TC-FY; 72192-TC; 73562-TC-LT-FY; 76700-TC; 76775-TC; 80048; 80053; 80061; 80076; 81003; 82436; 82550; 82553; 82565; 82607; 82746; 82962; 83036; 83540; 83721; 83735; 83880; 84100; 84133; 84300; 84443; 84479; 84484; 85025; 85027; 85610; 86780; 87086; 93005; 93010; 93306-TC; 93880-TC; 97116-GP; 97161-GP; 99285-25; C9803; J0131; J1644; U0003

== ENCOUNTER 2020-05-25 11:34 | Inpatient (IN) | payer OTHER ==
[2020-05-25 11:52] VITALS: BMI 29.8
[2020-05-25] MEDS ORDERED: ALBUTEROL SO4 2.5/IPRATROPIUM 0.5 INH SOL 3 ML VIAL.NEB. NEB ONE ×2 (12:03→12:16)
[2020-05-25] MEDS ORDERED: methylPREDNISolone NA SUCC 40 MG/1 ML VIAL IVPUSH ONE (12:04)
[2020-05-25] MEDS ORDERED: methylPREDNISolone NA SUCC 40 MG/1 ML VIAL ONE ×2 (13:03→22:50)
[2020-05-25 13:13] LABS: BASO % 0.9 % (0-2.0); EOS % 5.5 % (0-4.5); HEMATOCRIT 34.6 % (35.4-49); HEMOGLOBIN 11.3 GM/dL (11.7-16.9); LYMPH % 15.3 % (8-40); MCH 27.4 pg (25.7-33.7); MCHC 32.6 g/dl (32.0-35.9); MEAN PLT VOLUME 7.2 fl (7.5-11.1); MONO % 11.1 % (3.8-10.2); NEUT % 67.2 % (42.8-82.8); PLATELET COUNT 260 K/MM3 (134-434); RBC 4.12 M/mm3 (4.00-5.60); RDW 15.5 % (11.9-15.9); WHITE BLOOD COUNT 7.2 K/mm3 (4.0-10.0)
[2020-05-25 13:20] LABS: INR 0.89 (0.83-1.09)
[2020-05-25 13:22] LABS: ACTIVATED PTT 29.4 SECONDS (25.2-36.5)
[2020-05-25 13:29] LABS: POTASSIUM 4.5 mmol/L (3.5-5.1)
[2020-05-25 13:32] LABS: ALBUMIN 3.8 g/dl (3.4-5.0); BLOOD UREA NITROGEN 46.2 mg/dL (7-18); CALCIUM 8.7 mg/dL (8.5-10.1)
[2020-05-25 13:33] LABS: MAGNESIUM 2.5 mg/dL (1.8-2.4)
[2020-05-25 13:35] LABS: CREATININE 2.6 mg/dL (0.55-1.3)
[2020-05-25 13:37] LABS: BILIRUBIN,TOTAL 1.1 mg/dL (0.2-1); TOT PROT 7.3 g/dl (6.4-8.2)
[2020-05-25 13:40] LABS: N-TERMINAL BNP 474.3 pg/ml (5-450)
[2020-05-25 13:50] LABS: VENOUS BASE EXCESS -3.7 mmol/L (-2-2); VENOUS O2 SATURATION 54.8 % (70-80); VENOUS PCO2 37.4 mmHg (38-52); VENOUS PH 7.37 (7.310-7.410)
[2020-05-25] MEDS ORDERED: hydrALAZINE HCL 20 MG/ML VIAL IVPUSH ONE (16:51)
[2020-05-25] MEDS ORDERED: hydrALAZINE HCL 20 MG/ML VIAL ONE (18:13)
[2020-05-25] MEDS ORDERED: HEPARIN NA (PORCINE) 5,000 UNITS/ML 1ML VIAL ONE (18:13)
[2020-05-25] MEDS: HEPARIN NA (PORCINE) 5,000 UNITS/ML 1ML VIAL SQ SCH (18:25)
[2020-05-25] MEDS ORDERED: DICLOFENAC SODIUM 100 GM TP PRN (18:39)
[2020-05-25] MEDS ORDERED: HALOPERIDOL LACTATE 5 MG/ML ONE (21:48)
[2020-05-25] MEDS ORDERED: LORazepam 2 MG/ML SDV VIAL ONE (21:49)
[2020-05-25] MEDS ORDERED: FUROSEMIDE 20 MG TABLET (FP) PO SCH (22:00)
[2020-05-25] MEDS ORDERED: LIDOCAINE 5% TOPICAL PATCH TP SCH (22:00)
[2020-05-25] MEDS ORDERED: LIDOCAINE PATCH REMOVAL MC SCH (22:00)
[2020-05-25] MEDS ORDERED: HALOPERIDOL DECANOATE 500 MG/5ML MDV IM ONE (22:03)
[2020-05-25] MEDS: methylPREDNISolone NA SUCC 40 MG/1 ML VIAL IVPUSH SCH (22:10)
[2020-05-25] MEDS: CITALOPRAM HYDROBROMIDE 10 MG TABLET PO SCH (22:45)
[2020-05-25] MEDS: ATORVASTATIN CA 20 MG TABLET (FP) PO SCH (22:45)
[2020-05-25] MEDS: INSULIN SLIDING SCALE (NOVOLOG) 1 VIAL SQ SCH (22:45)
[2020-05-25] MEDS: MECLIZINE HCL 12.5 MG TABLET PO SCH (22:45)
[2020-05-25] MEDS: SODIUM BICARBONATE 325 MG TABLET PO SCH (22:46)
[2020-05-26] MEDS: HEPARIN NA (PORCINE) 5,000 UNITS/ML 1ML VIAL SQ SCH ×3 (02:20→19:01)
[2020-05-26] MEDS: MECLIZINE HCL 12.5 MG TABLET PO SCH ×3 (05:08→23:34)
[2020-05-26] MEDS: SODIUM BICARBONATE 325 MG TABLET PO SCH ×3 (05:09→22:54)
[2020-05-26 06:39] LABS: BASO % 0.4 % (0-2.0); HEMATOCRIT 36.3 % (35.4-49); HEMOGLOBIN 11.8 GM/dL (11.7-16.9); MCH 27.2 pg (25.7-33.7); MCHC 32.5 g/dl (32.0-35.9); MEAN CELL VOLUME 83.7 fl (80-96); MEAN PLT VOLUME 7.2 fl (7.5-11.1); MONO % 2.2 % (3.8-10.2); NEUT % 88.4 % (42.8-82.8); PLATELET COUNT 265 K/MM3 (134-434); RBC 4.34 M/mm3 (4.00-5.60); RDW 15.6 % (11.9-15.9); WHITE BLOOD COUNT 4.9 K/mm3 (4.0-10.0)
[2020-05-26 07:00] LABS: POTASSIUM 4.6 mmol/L (3.5-5.1)
[2020-05-26 07:08] LABS: ALBUMIN 3.9 g/dl (3.4-5.0); BLOOD UREA NITROGEN 46.3 mg/dL (7-18); CALCIUM 8.7 mg/dL (8.5-10.1); MAGNESIUM 2.5 mg/dL (1.8-2.4)
[2020-05-26 07:11] LABS: PHOSPHOROUS 3.9 mg/dL (2.5-4.9)
[2020-05-26 07:13] LABS: BILIRUBIN,TOTAL 1.5 mg/dL (0.2-1); TOT PROT 7.7 g/dl (6.4-8.2)
[2020-05-26] MEDS ORDERED: methylPREDNISolone NA SUCC 40 MG/1 ML VIAL ONE (08:25)
[2020-05-26] MEDS ORDERED: PANTOPRAZOLE SODIUM 40 MG VIAL ONE (08:25)
[2020-05-26] MEDS ORDERED: HEPARIN NA (PORCINE) 5,000 UNITS/ML 1ML VIAL ONE (08:25)
[2020-05-26] MEDS: INSULIN SLIDING SCALE (NOVOLOG) 1 VIAL SQ SCH ×4 (08:59→22:54)
[2020-05-26] MEDS: amLODIPine BESYLATE 10 MG TABLET (FP) PO SCH (09:00)
[2020-05-26] MEDS: PANTOPRAZOLE SODIUM 40 MG VIAL IVPUSH SCH (09:00)
[2020-05-26] MEDS: ASPIRIN 81 MG CHEWABLE TABLETS PO SCH (09:00)
[2020-05-26] MEDS: methylPREDNISolone NA SUCC 40 MG/1 ML VIAL IVPUSH SCH ×2 (09:00→22:54)
[2020-05-26] MEDS ORDERED: hydrALAZINE HCL 20 MG/ML VIAL IVPUSH ONE (10:00)
[2020-05-26] MEDS ORDERED: ACETAMINOPHEN 1000 MG/100 ML VIAL (NON FORMULARY) IVPB ONE (10:00)
[2020-05-26] MEDS ORDERED: hydrALAZINE HCL 20 MG/ML VIAL ONE (10:29)
[2020-05-26] MEDS ORDERED: ACETAMINOPHEN 325 MG TABLET (FP) ONE (10:55)
[2020-05-26] MEDS ORDERED: ALBUTEROL SO4 HFA INHALER IH ONE (10:55)
[2020-05-26] MEDS: SODIUM CHLORIDE 1,000 ML IV SCH (15:47)
[2020-05-26] MEDS: ATORVASTATIN CA 20 MG TABLET (FP) PO SCH (22:54)
[2020-05-26] MEDS: CITALOPRAM HYDROBROMIDE 10 MG TABLET PO SCH (22:54)
[2020-05-27] MEDS ORDERED: hydrALAZINE HCL 20 MG/ML VIAL IM ONE (00:51)
[2020-05-27] MEDS ORDERED: hydrALAZINE HCL 20 MG/ML VIAL IVPUSH ONE (00:57)
[2020-05-27] MEDS: HEPARIN NA (PORCINE) 5,000 UNITS/ML 1ML VIAL SQ SCH ×3 (01:13→19:23)
[2020-05-27] MEDS ORDERED: LORazepam 2 MG/ML SDV VIAL IM ONE (02:26)
[2020-05-27] MEDS: MECLIZINE HCL 12.5 MG TABLET PO SCH ×2 (05:29→15:16)
[2020-05-27] MEDS: SODIUM BICARBONATE 325 MG TABLET PO SCH ×3 (05:29→22:27)
[2020-05-27] MEDS: INSULIN SLIDING SCALE (NOVOLOG) 1 VIAL SQ SCH ×4 (06:15→22:29)
[2020-05-27 07:21] LABS: BASO % 0.1 % (0-2.0); HEMATOCRIT 31.8 % (35.4-49); HEMOGLOBIN 10.5 GM/dL (11.7-16.9); LYMPH % 1.5 % (8-40); MCH 27.3 pg (25.7-33.7); MCHC 33.1 g/dl (32.0-35.9); MEAN CELL VOLUME 82.4 fl (80-96); MEAN PLT VOLUME 7.6 fl (7.5-11.1); MONO % 3.9 % (3.8-10.2); NEUT % 94.5 % (42.8-82.8); PLATELET COUNT 291 K/MM3 (134-434); RBC 3.86 M/mm3 (4.00-5.60); RDW 15.6 % (11.9-15.9); WHITE BLOOD COUNT 13.9 K/mm3 (4.0-10.0)
[2020-05-27 07:22] LABS: POTASSIUM 4.3 mmol/L (3.5-5.1)
[2020-05-27 07:24] LABS: ALBUMIN 3.6 g/dl (3.4-5.0); BLOOD UREA NITROGEN 59.4 mg/dL (7-18); CALCIUM 8.4 mg/dL (8.5-10.1); MAGNESIUM 2.5 mg/dL (1.8-2.4)
[2020-05-27 07:27] LABS: CREATININE 2.1 mg/dL (0.55-1.3); PHOSPHOROUS 3.8 mg/dL (2.5-4.9)
[2020-05-27 07:29] LABS: BILIRUBIN,TOTAL 1.4 mg/dL (0.2-1); TOT PROT 6.8 g/dl (6.4-8.2)
[2020-05-27 08:54] LABS: ANISOCYTOSIS 0; MACROCYTOSIS 0; PLATELET ESTIMATE NORMAL
[2020-05-27] MEDS ORDERED: PT OWN MED DRAWER 7, Y5N ONE ×2 (09:41→14:58)
[2020-05-27] MEDS: PANTOPRAZOLE SODIUM 40 MG VIAL IVPUSH SCH (09:57)
[2020-05-27] MEDS: methylPREDNISolone NA SUCC 40 MG/1 ML VIAL IVPUSH SCH ×2 (09:57→22:26)
[2020-05-27] MEDS: amLODIPine BESYLATE 10 MG TABLET (FP) PO SCH (09:57)
[2020-05-27] MEDS: ASPIRIN 81 MG CHEWABLE TABLETS PO SCH (09:58)
[2020-05-27] MEDS: SODIUM CHLORIDE 1,000 ML IV SCH ×2 (11:46→15:15)
[2020-05-27] MEDS: ATORVASTATIN CA 20 MG TABLET (FP) PO SCH (22:27)
[2020-05-27] MEDS ORDERED: INSULIN (NOVOLOG) ASPART 100 UNITS/ML 10ML VIAL SQ STA (23:56)
[2020-05-28] MEDS ORDERED: NITROGLYCERIN 2% OINTMENT - 1GM PACKET TD ONE (02:11)
[2020-05-28] MEDS: HEPARIN NA (PORCINE) 5,000 UNITS/ML 1ML VIAL SQ SCH ×3 (02:18→17:15)
[2020-05-28] MEDS: SODIUM CHLORIDE 1,000 ML IV SCH (02:27)
[2020-05-28 03:31] LABS: EPI CELLS 7 /uL (0-25.1); HYALINE CASTS 1 /uL (0-3.1); PH,URINE 5.5 (5.0-8.0); URINE APPEARANCE CLEAR; URINE BACTERIA 3 /uL (0-1359); URINE BILIRUBIN NEGATIVE (NEGATIVE); URINE COLOR YELLOW; URINE GLUCOSE (UA) 3+ (NEGATIVE); URINE KETONE NEGATIVE (NEGATIVE); URINE LEUK ESTERASE NEGATIVE (NEGATIVE); URINE NITRITE NEGATIVE (NEGATIVE); URINE PROTEIN 3+ (NEGATIVE); URINE RBC 27 /uL (0-23.9); URINE WBC 4 /uL (0-25.8)
[2020-05-28] MEDS ORDERED: PT OWN MED DRAWER 7, Y5N ONE ×2 (05:41→13:35)
[2020-05-28] MEDS: SODIUM BICARBONATE 325 MG TABLET PO SCH ×3 (06:00→21:34)
[2020-05-28 06:55] LABS: HEMATOCRIT 33.9 % (35.4-49); MCH 27.2 pg (25.7-33.7); MCHC 32.5 g/dl (32.0-35.9); MEAN CELL VOLUME 83.5 fl (80-96); MEAN PLT VOLUME 7.4 fl (7.5-11.1); PLATELET COUNT 265 K/MM3 (134-434); RBC 4.05 M/mm3 (4.00-5.60); RDW 15.2 % (11.9-15.9); WHITE BLOOD COUNT 7.6 K/mm3 (4.0-10.0)
[2020-05-28] MEDS: INSULIN SLIDING SCALE (NOVOLOG) 1 VIAL SQ SCH ×4 (07:02→21:34)
[2020-05-28 07:37] LABS: POTASSIUM 4.3 mmol/L (3.5-5.1)
[2020-05-28 07:46] LABS: CALCIUM 8.3 mg/dL (8.5-10.1)
[2020-05-28 07:47] LABS: ALBUMIN 3.4 g/dl (3.4-5.0); BLOOD UREA NITROGEN 64.6 mg/dL (7-18)
[2020-05-28 07:50] LABS: MAGNESIUM 2.9 mg/dL (1.8-2.4); TOT PROT 6.9 g/dl (6.4-8.2)
[2020-05-28 07:53] LABS: BILIRUBIN,TOTAL 1.3 mg/dL (0.2-1)
[2020-05-28] MEDS: methylPREDNISolone NA SUCC 40 MG/1 ML VIAL IVPUSH SCH ×2 (10:27→21:34)
[2020-05-28] MEDS: PANTOPRAZOLE SODIUM 40 MG VIAL IVPUSH SCH (10:27)
[2020-05-28] MEDS: amLODIPine BESYLATE 10 MG TABLET (FP) PO SCH (10:27)
[2020-05-28] MEDS: CITALOPRAM HYDROBROMIDE 20 MG TABLET PO SCH (10:27)
[2020-05-28] MEDS: ASPIRIN 81 MG CHEWABLE TABLETS PO SCH (10:27)
[2020-05-28] MEDS: ALBUTEROL SO4 HFA INHALER IH PRN ×2 (14:19→21:42)
[2020-05-28] MEDS ORDERED: INSULIN (NOVOLOG) ASPART 100 UNITS/ML 10ML VIAL SQ ONE (21:33)
[2020-05-28] MEDS: ATORVASTATIN CA 20 MG TABLET (FP) PO SCH (21:34)
[2020-05-28] MEDS ORDERED: ALBUTEROL SO4 0.083% IH SOL 2.5 MG/3 ML VIAL.NEB. NEB ONE (21:52)
[2020-05-29] MEDS ORDERED: PT OWN MED DRAWER 7, Y5N ONE ×4 (00:18→20:49)
[2020-05-29] MEDS: HEPARIN NA (PORCINE) 5,000 UNITS/ML 1ML VIAL SQ SCH ×3 (02:05→17:15)
[2020-05-29] MEDS: SODIUM BICARBONATE 325 MG TABLET PO SCH ×3 (06:57→21:03)
[2020-05-29] MEDS: INSULIN SLIDING SCALE (NOVOLOG) 1 VIAL SQ SCH ×4 (06:57→21:23)
[2020-05-29 07:14] LABS: HEMOGLOBIN 10.7 GM/dL (11.7-16.9); MCH 26.9 pg (25.7-33.7); MCHC 32.3 g/dl (32.0-35.9); MEAN CELL VOLUME 83.4 fl (80-96); MEAN PLT VOLUME 7.8 fl (7.5-11.1); PLATELET COUNT 244 K/MM3 (134-434); RBC 3.96 M/mm3 (4.00-5.60); RDW 15.5 % (11.9-15.9); WHITE BLOOD COUNT 10.2 K/mm3 (4.0-10.0)
[2020-05-29 07:41] LABS: POTASSIUM 4.1 mmol/L (3.5-5.1)
[2020-05-29 07:45] LABS: CALCIUM 8.3 mg/dL (8.5-10.1)
[2020-05-29] MEDS: CITALOPRAM HYDROBROMIDE 20 MG TABLET PO SCH (10:05)
[2020-05-29] MEDS: methylPREDNISolone NA SUCC 40 MG/1 ML VIAL IVPUSH SCH ×2 (10:06→21:02)
[2020-05-29] MEDS: amLODIPine BESYLATE 10 MG TABLET (FP) PO SCH (10:07)
[2020-05-29] MEDS: PANTOPRAZOLE 40 MG TABLET PO SCH (10:07)
[2020-05-29] MEDS: ASPIRIN 81 MG CHEWABLE TABLETS PO SCH (10:07)
[2020-05-29] MEDS: APIXABAN 2.5 MG TABLET PO SCH (21:03)
[2020-05-29] MEDS: ATORVASTATIN CA 20 MG TABLET (FP) PO SCH (21:03)
[2020-05-30] MEDS: SODIUM BICARBONATE 325 MG TABLET PO SCH ×2 (05:54→14:40)
[2020-05-30] MEDS: INSULIN SLIDING SCALE (NOVOLOG) 1 VIAL SQ SCH ×3 (06:32→17:25)
[2020-05-30] MEDS: amLODIPine BESYLATE 10 MG TABLET (FP) PO SCH ×2 (08:17→09:50)
[2020-05-30] MEDS: PANTOPRAZOLE 40 MG TABLET PO SCH (09:48)
[2020-05-30] MEDS: ASPIRIN 81 MG CHEWABLE TABLETS PO SCH (09:48)
[2020-05-30] MEDS: APIXABAN 2.5 MG TABLET PO SCH (09:48)
[2020-05-30] MEDS: CITALOPRAM HYDROBROMIDE 20 MG TABLET PO SCH (09:48)
[2020-05-30] MEDS ORDERED: predniSONE 20 MG TABLET (UD) PO SCH (10:00)
[2020-05-30 13:57] VITALS: BP 168/74; TEMP 98.3
[2020-05-30] MEDS ORDERED: PT OWN MED DRAWER 7, Y5N ONE ×2 (14:06→16:23)
[2020-05-30 15:39] VITALS: PULSE 66
[2020-05-30] MEDS ORDERED: amLODIPine BESYLATE 5 MG TABLET (FP) PO ONE (16:30)
[2020-05-30] MEDS ORDERED: hydrALAZINE HCL 25 MG TABLET (FP) PO ONE (19:00)
== END 2020-05-30 19:33 | DRG 175 ==
LOC: JER 11:34 → JERBED 13:50 → J4S 05-26 22:36
PROVIDERS: ADMIT Internal Medicine; ATTEND Family Medicine
DX: I26.99 Other pulmonary embolism without acute cor pulmonale (principal); J96.01 Acute respiratory failure with hypoxia; G92 Toxic encephalopathy; N17.9 Acute kidney failure, unspecified; G93.40 Encephalopathy, unspecified; F05 Delirium due to known physiological condition; F03.90 Unspecified dementia, unspecified severity, without behavioral disturbance, psychotic disturbance, mood disturbance, and anxiety; F32.9 Major depressive disorder, single episode, unspecified; I25.10 Atherosclerotic heart disease of native coronary artery without angina pectoris; E11.9 Type 2 diabetes mellitus without complications; I16.0 Hypertensive urgency; E78.5 Hyperlipidemia, unspecified; I12.9 Hypertensive chronic kidney disease with stage 1 through stage 4 chronic kidney disease, or unspecified chronic kidney disease; N18.9 Chronic kidney disease, unspecified; E66.9 Obesity, unspecified; Z68.29 Body mass index [BMI] 29.0-29.9, adult; Z95.5 Presence of coronary angioplasty implant and graft
CPT/HCPCS: 36415; 71045-TC-FY; 80048; 80053; 81003; 82565; 82607; 82728; 82803; 82962; 83615; 83735; 83880; 84100; 84156; 84300; 84443; 84484; 85025; 85027; 85379; 85610; 85730; 86140; 86780; 87205; 93005; 93010; 94640; 94660; 99291; C9803; J1644; U0003

== ENCOUNTER 2020-07-24 13:48 | Inpatient (IN) | payer OTHER ==
[2020-07-24 14:59] LABS: BASO % 0.2 % (0-2.0); EOS % 0.4 % (0-4.5); HEMATOCRIT 33.7 % (35.4-49); LYMPH % 9.8 % (8-40); MCH 27.5 pg (25.7-33.7); MCHC 32.8 g/dl (32.0-35.9); MEAN CELL VOLUME 83.8 fl (80-96); MEAN PLT VOLUME 7.7 fl (7.5-11.1); MONO % 4.7 % (3.8-10.2); NEUT % 84.9 % (42.8-82.8); PLATELET COUNT 246 K/MM3 (134-434); RBC 4.02 M/mm3 (4.00-5.60); RDW 15.8 % (11.9-15.9); WHITE BLOOD COUNT 8.6 K/mm3 (4.0-10.0)
[2020-07-24 15:12] VITALS: BMI 27.6
[2020-07-24 15:15] LABS: INR 0.92 (0.83-1.09); PROTHROMBIN TIME (PATIENT) 11.4 SEC (9.7-13.0)
[2020-07-24 15:17] LABS: ACTIVATED PTT 28.6 SECONDS (25.2-36.5)
[2020-07-24 15:31] LABS: POTASSIUM 5.3 mmol/L (3.5-5.1)
[2020-07-24 15:34] LABS: ALBUMIN 2.3 g/dl (3.4-5.0); BLOOD UREA NITROGEN 45.8 mg/dL (7-18)
[2020-07-24 15:38] LABS: BILIRUBIN,TOTAL 0.6 mg/dL (0.2-1); TOT PROT 6.3 g/dl (6.4-8.2)
[2020-07-24 15:42] LABS: ERYTHROCYTE SEDIMENTATION RATE 96 mm/hr (0-20)
[2020-07-24] MEDS ORDERED: VANCOMYCIN 1 GM in D5W (PRE-DOCKED) 1,000 MG/250 ML IVPB ONE (15:52)
[2020-07-24] MEDS ORDERED: PIPERACILLIN/TAZOB 3.375 GM 3.375 GM in DEXTROSE 5%-WATER - 50 ML IVPB ONE (15:52)
[2020-07-24] MEDS ORDERED: LACTATED RINGERS SOLUTION 1000 ML INFUS.BAG IV ONE (15:53)
[2020-07-24] MEDS ORDERED: DEXAMETHASONE SOD PHOSPHATE 10 MG/1 ML VIAL IVPUSH ONE (16:03)
[2020-07-24 16:18] LABS: N-TERMINAL BNP 3559.6 pg/ml (5-450)
[2020-07-24] MEDS ORDERED: VANCOMYCIN 1 GRAM (PRE-DOCKED) 1,000 MG/250 ML BAG IVPB ONE (17:09)
[2020-07-24] MEDS ORDERED: PIPERACILLIN/TAZOB 3.375 GM 3.375 GM/50 ML BAG IVPB ONE (17:10)
[2020-07-24] MEDS ORDERED: DEXAMETHASONE SOD PHOSPHATE 10 MG/1 ML VIAL ONE (17:27)
[2020-07-24] MEDS ORDERED: SODIUM CHLORIDE 1,000 ML IV SCH (18:30)
[2020-07-24] MEDS ORDERED: LORazepam 2 MG/ML SDV VIAL IM ONE (20:03)
[2020-07-24] MEDS ORDERED: LORazepam 2 MG/ML SDV VIAL ONE (20:15)
[2020-07-24] MEDS: HEPARIN NA (PORCINE) 5,000 UNITS/ML 1ML VIAL SQ SCH (23:40)
[2020-07-24] MEDS: INSULIN SLIDING SCALE (NOVOLOG) 1 VIAL SQ SCH (23:41)
[2020-07-25] MEDS: HEPARIN NA (PORCINE) 5,000 UNITS/ML 1ML VIAL SQ SCH ×3 (06:42→22:23)
[2020-07-25] MEDS: INSULIN SLIDING SCALE (NOVOLOG) 1 VIAL SQ SCH ×4 (06:42→22:28)
[2020-07-25 08:16] LABS: HEMATOCRIT 32.3 % (35.4-49); HEMOGLOBIN 10.7 GM/dL (11.7-16.9); MCH 27.7 pg (25.7-33.7); MCHC 33.2 g/dl (32.0-35.9); MEAN CELL VOLUME 83.4 fl (80-96); MEAN PLT VOLUME 7.9 fl (7.5-11.1); PLATELET COUNT 254 K/MM3 (134-434); RBC 3.88 M/mm3 (4.00-5.60); WHITE BLOOD COUNT 6.8 K/mm3 (4.0-10.0)
[2020-07-25 08:40] LABS: POTASSIUM 4.9 mmol/L (3.5-5.1)
[2020-07-25 09:02] LABS: ALBUMIN 2.2 g/dl (3.4-5.0); BLOOD UREA NITROGEN 47.9 mg/dL (7-18); CALCIUM 7.9 mg/dL (8.5-10.1); MAGNESIUM 2.1 mg/dL (1.8-2.4)
[2020-07-25 09:07] LABS: BILIRUBIN,TOTAL 0.6 mg/dL (0.2-1); CREATININE 1.9 mg/dL (0.55-1.3); PHOSPHOROUS 2.3 mg/dL (2.5-4.9); TOT PROT 5.8 g/dl (6.4-8.2)
[2020-07-25 09:52] LABS: ARTERIAL BLD GAS O2 SATURATION 95.3 mmHg (95-98); ARTERIAL BLOOD GAS BASE EXCESS -5.6 mmol/L (-2-2); ARTERIAL BLOOD GAS PO2 74.2 mmHg (80-100); ARTERIAL BLOOD GAS pH 7.413 (7.350-7.450)
[2020-07-25 09:53] LABS: ALLENS TEST POSITIVE
[2020-07-25] MEDS ORDERED: ENOXAPARIN NA (PORCINE) 40 MG/0.4 ML DISP.SYRIN SQ SCH (10:00)
[2020-07-25] MEDS: DEXAMETHASONE SOD PHOSPHATE 4 MG/1 ML VIAL IVPB SCH (10:16)
[2020-07-25] MEDS ORDERED: SODIUM PHOSPHATE - 15 MM in SODIUM CHLORIDE 250 ML IVPB ONE (11:00)
[2020-07-25] MEDS ORDERED: ALBUTEROL SO4 HFA INHALER IH PRN (11:18)
[2020-07-25] MEDS ORDERED: MORPHINE SULFATE 2 MG/ML VIAL IVPUSH ONE (13:17)
[2020-07-25] MEDS: FUROSEMIDE 40 MG/4 ML INJECTABLE VIAL IVPUSH SCH (13:22)
[2020-07-25 16:55] LABS: ARTERIAL BLD GAS O2 SATURATION 97.7 mmHg (95-98); ARTERIAL BLOOD GAS BASE EXCESS -4.6 mmol/L (-2-2); ARTERIAL BLOOD GAS PO2 104.7 mmHg (80-100); ARTERIAL BLOOD GAS pH 7.363 (7.350-7.450)
[2020-07-25] MEDS ORDERED: REMDESIVIR 200 MG in SODIUM CHLORIDE 210 ML IVPB ONE (17:00)
[2020-07-25 17:02] LABS: ALLENS TEST POSITIVE
[2020-07-25 17:03] LABS: VENT RATE 24
[2020-07-25] MEDS: METOPROLOL TARTRATE 5 MG/5 ML VIAL IVPUSH SCH ×2 (18:42→22:35)
[2020-07-26] MEDS ORDERED: ENALAPRILAT DIHYDRATE 1.25 MG/1 ML VIAL IVPB ONE (03:18)
[2020-07-26] MEDS ORDERED: hydrALAZINE HCL 20 MG/ML VIAL IVPUSH ONE (03:21)
[2020-07-26] MEDS ORDERED: LABETALOL HCL 5 MG/1 ML (100MG/20 ML VIAL) IVPUSH ONE (03:25)
[2020-07-26] MEDS: METOPROLOL TARTRATE 5 MG/5 ML VIAL IVPUSH SCH ×4 (03:44→22:06)
[2020-07-26] MEDS: HEPARIN NA (PORCINE) 5,000 UNITS/ML 1ML VIAL SQ SCH ×3 (06:10→22:03)
[2020-07-26] MEDS: FUROSEMIDE 40 MG/4 ML INJECTABLE VIAL IVPUSH SCH (06:10)
[2020-07-26] MEDS: INSULIN SLIDING SCALE (NOVOLOG) 1 VIAL SQ SCH ×4 (06:38→22:03)
[2020-07-26 08:39] LABS: BASO % 0.1 % (0-2.0); HEMATOCRIT 35.1 % (35.4-49); HEMOGLOBIN 11.5 GM/dL (11.7-16.9); MCH 27.5 pg (25.7-33.7); MCHC 32.7 g/dl (32.0-35.9); MEAN CELL VOLUME 84.2 fl (80-96); MONO % 5.8 % (3.8-10.2); NEUT % 90.1 % (42.8-82.8); PLATELET COUNT 355 K/MM3 (134-434); RBC 4.16 M/mm3 (4.00-5.60); WHITE BLOOD COUNT 12.4 K/mm3 (4.0-10.0)
[2020-07-26 09:03] LABS: CALCIUM 8.5 mg/dL (8.5-10.1)
[2020-07-26 09:04] LABS: ALBUMIN 2.4 g/dl (3.4-5.0); BLOOD UREA NITROGEN 60.5 mg/dL (7-18); MAGNESIUM 2.2 mg/dL (1.8-2.4)
[2020-07-26 09:06] LABS: POTASSIUM 4.4 mmol/L (3.5-5.1)
[2020-07-26 09:08] LABS: BILIRUBIN,TOTAL 0.7 mg/dL (0.2-1); CREATININE 2.2 mg/dL (0.55-1.3); PHOSPHOROUS 4.7 mg/dL (2.5-4.9)
[2020-07-26 09:10] LABS: TOT PROT 6.4 g/dl (6.4-8.2)
[2020-07-26] MEDS ORDERED: ASPIRIN 81 MG CHEWABLE TABLETS PO SCH (10:00)
[2020-07-26] MEDS: DEXAMETHASONE SOD PHOSPHATE 4 MG/1 ML VIAL IVPB SCH (10:21)
[2020-07-26] MEDS ORDERED: MORPHINE SULFATE 2 MG/ML VIAL IM ONE (11:36)
[2020-07-26] MEDS: NITROGLYCERIN 2% OINTMENT - 1GM PACKET TD SCH ×2 (12:02→17:58)
[2020-07-26] MEDS: MORPHINE SULFATE 2 MG/ML VIAL IM PRN ×3 (14:42→22:53)
[2020-07-26 16:04] LABS: EPI CELLS >36 /uL (0-25.1); HYALINE CASTS 15 /uL (0-3.1); PH,URINE 5.5 (5.0-8.0); URINE APPEARANCE CLOUDY; URINE BILIRUBIN NEGATIVE (NEGATIVE); URINE COLOR YELLOW; URINE GLUCOSE (UA) 1+ (NEGATIVE); URINE KETONE 1+ (NEGATIVE); URINE LEUK ESTERASE NEGATIVE (NEGATIVE); URINE NITRITE NEGATIVE (NEGATIVE); URINE PROTEIN 3+ (NEGATIVE); URINE RBC 4 /uL (0-23.9); URINE UROBILINOGEN 0.2 mg/dL (0.2-1.0); URINE WBC 2 /uL (0-25.8)
[2020-07-26] MEDS ORDERED: REMDESIVIR 100 MG in SODIUM CHLORIDE 230 ML IVPB SCH (17:00)
[2020-07-26 19:36] LABS: URINE BACTERIA 0 /uL (0-1359)
[2020-07-27] MEDS: NITROGLYCERIN 2% OINTMENT - 1GM PACKET TD SCH ×6 (00:16→23:55)
[2020-07-27] MEDS: MORPHINE SULFATE 2 MG/ML VIAL IM PRN ×2 (02:49→06:49)
[2020-07-27] MEDS: METOPROLOL TARTRATE 5 MG/5 ML VIAL IVPUSH SCH ×2 (04:08→10:30)
[2020-07-27] MEDS: HEPARIN NA (PORCINE) 5,000 UNITS/ML 1ML VIAL SQ SCH (06:34)
[2020-07-27] MEDS: INSULIN SLIDING SCALE (NOVOLOG) 1 VIAL SQ SCH ×4 (06:35→22:07)
[2020-07-27 07:56] LABS: POTASSIUM 4.7 mmol/L (3.5-5.1)
[2020-07-27 07:59] LABS: CALCIUM 8.7 mg/dL (8.5-10.1)
[2020-07-27 08:00] LABS: ALBUMIN 2.4 g/dl (3.4-5.0); BLOOD UREA NITROGEN 62.5 mg/dL (7-18)
[2020-07-27 08:03] LABS: CREATININE 2.1 mg/dL (0.55-1.3)
[2020-07-27 08:04] LABS: TOT PROT 6.2 g/dl (6.4-8.2)
[2020-07-27] MEDS ORDERED: APIXABAN 2.5 MG TABLET PO SCH (10:00)
[2020-07-27] MEDS: DEXAMETHASONE SOD PHOSPHATE 4 MG/1 ML VIAL IVPB SCH (10:31)
[2020-07-27] MEDS ORDERED: SODIUM CHLORIDE 0.45% 1,000 ML IV SCH ×2 (11:15→20:03)
[2020-07-27] MEDS ORDERED: HEPARIN NA (PORCINE) 5,000 UNITS/ML 1ML VIAL IVPUSH PRN (12:33)
[2020-07-27] MEDS ORDERED: HEPARIN NA (PORCINE) 5,000 UNITS/ML 1ML VIAL SQ SCH (14:00)
[2020-07-27] MEDS: HEPARIN - 25,000 UNIT in SODIUM CHLORIDE 495 ML IV SCH (15:34)
[2020-07-27] MEDS: dilTIAZem HCL 50 MG/10 ML - 10 ML VIAL IVPUSH PRN (17:07)
[2020-07-28] MEDS: dilTIAZem HCL 50 MG/10 ML - 10 ML VIAL IVPUSH PRN (03:20)
[2020-07-28] MEDS: NITROGLYCERIN 2% OINTMENT - 1GM PACKET TD SCH ×2 (05:48→18:43)
[2020-07-28] MEDS: INSULIN SLIDING SCALE (NOVOLOG) 1 VIAL SQ SCH ×4 (06:33→22:43)
[2020-07-28 08:36] LABS: HEMATOCRIT 34.8 % (35.4-49); HEMOGLOBIN 11.5 GM/dL (11.7-16.9); LYMPH % 4.5 % (8-40); MCH 27.7 pg (25.7-33.7); MEAN CELL VOLUME 84.1 fl (80-96); MONO % 5.5 % (3.8-10.2); PLATELET COUNT 364 K/MM3 (134-434); RBC 4.14 M/mm3 (4.00-5.60); WHITE BLOOD COUNT 9.4 K/mm3 (4.0-10.0)
[2020-07-28 09:08] LABS: POTASSIUM 4.3 mmol/L (3.5-5.1)
[2020-07-28 09:10] LABS: BLOOD UREA NITROGEN 72.5 mg/dL (7-18); CALCIUM 8.3 mg/dL (8.5-10.1)
[2020-07-28 09:11] LABS: ALBUMIN 2.4 g/dl (3.4-5.0); MAGNESIUM 2.4 mg/dL (1.8-2.4)
[2020-07-28 09:13] LABS: CREATININE 2.3 mg/dL (0.55-1.3)
[2020-07-28 09:14] LABS: PHOSPHOROUS 3.5 mg/dL (2.5-4.9)
[2020-07-28 09:15] LABS: BILIRUBIN,TOTAL 0.8 mg/dL (0.2-1); TOT PROT 6.2 g/dl (6.4-8.2)
[2020-07-28] MEDS ORDERED: PT OWN MED DRAWER 7, Y5N ONE (09:40)
[2020-07-28] MEDS ORDERED: DILTIAZEM INJECTION 125 MG in SODIUM CHLORIDE 100 ML IVPB SCH (10:15)
[2020-07-28] MEDS: DEXAMETHASONE SOD PHOSPHATE 4 MG/1 ML VIAL IVPB SCH (11:18)
[2020-07-28] MEDS: LACTATED RINGERS SOLUTION 1,000 ML/1,000 ML INFUS.BAG IV SCH (13:00)
[2020-07-28] MEDS: HEPARIN - 25,000 UNIT in SODIUM CHLORIDE 495 ML IV SCH (14:00)
[2020-07-29] MEDS: NITROGLYCERIN 2% OINTMENT - 1GM PACKET TD SCH ×4 (00:06→18:05)
[2020-07-29] MEDS: INSULIN SLIDING SCALE (NOVOLOG) 1 VIAL SQ SCH ×4 (06:18→22:17)
[2020-07-29] MEDS: INSULIN (LEVEMIR) 100 UNITS/ML UNITS SQ SCH ×2 (06:18→22:18)
[2020-07-29] MEDS: LACTATED RINGERS SOLUTION 1,000 ML/1,000 ML INFUS.BAG IV SCH (10:26)
[2020-07-29] MEDS: DEXAMETHASONE SOD PHOSPHATE 4 MG/1 ML VIAL IVPB SCH (10:28)
[2020-07-29] MEDS ORDERED: DEXTROSE 5%-WATER - 1,000 ML IV SCH (12:45)
[2020-07-29] MEDS ORDERED: SODIUM BICARBONATE 8.4% - 50 MEQ in DEXTROSE 5%-WATER - 1,000 ML IV SCH (13:30)
[2020-07-29] MEDS: HEPARIN - 25,000 UNIT in SODIUM CHLORIDE 495 ML IV SCH ×2 (13:39→18:05)
[2020-07-29] MEDS ORDERED: dilTIAZem HCL 25 MG/5 ML - 5 ML VIAL IVPUSH PRN (13:51)
[2020-07-29 14:02] LABS: BASO % 0.1 % (0-2.0); HEMATOCRIT 39.9 % (35.4-49); HEMOGLOBIN 13.4 GM/dL (11.7-16.9); LYMPH % 3.6 % (8-40); MCHC 33.5 g/dl (32.0-35.9); MEAN CELL VOLUME 83.4 fl (80-96); MONO % 3.9 % (3.8-10.2); NEUT % 92.4 % (42.8-82.8); PLATELET COUNT 488 K/MM3 (134-434); RBC 4.78 M/mm3 (4.00-5.60); RDW 16.1 % (11.9-15.9)
[2020-07-29 14:24] LABS: POTASSIUM 4.1 mmol/L (3.5-5.1)
[2020-07-29 14:31] LABS: ALBUMIN 2.6 g/dl (3.4-5.0); BLOOD UREA NITROGEN 73.9 mg/dL (7-18); CALCIUM 8.8 mg/dL (8.5-10.1); MAGNESIUM 2.4 mg/dL (1.8-2.4)
[2020-07-29 14:34] LABS: PHOSPHOROUS 2.7 mg/dL (2.5-4.9)
[2020-07-29 14:35] LABS: CREATININE 2.3 mg/dL (0.55-1.3)
[2020-07-29 14:36] LABS: BILIRUBIN,TOTAL 1.8 mg/dL (0.2-1); TOT PROT 6.4 g/dl (6.4-8.2)
[2020-07-29 15:14] LABS: ANISOCYTOSIS 1+; MACROCYTOSIS 0; PLATELET ESTIMATE NORMAL
[2020-07-29] MEDS: LABETALOL HCL 5 MG/1 ML (100MG/20 ML VIAL) IVPUSH PRN (20:18)
[2020-07-30] MEDS: NITROGLYCERIN 2% OINTMENT - 1GM PACKET TD SCH ×4 (00:02→17:38)
[2020-07-30] MEDS: LABETALOL HCL 5 MG/1 ML (100MG/20 ML VIAL) IVPUSH PRN ×2 (03:11→09:57)
[2020-07-30 07:57] LABS: BASO % 0.1 % (0-2.0); HEMATOCRIT 38.6 % (35.4-49); HEMOGLOBIN 12.8 GM/dL (11.7-16.9); LYMPH % 4.5 % (8-40); MCH 27.6 pg (25.7-33.7); MCHC 33.2 g/dl (32.0-35.9); MEAN CELL VOLUME 83.3 fl (80-96); MEAN PLT VOLUME 8.3 fl (7.5-11.1); MONO % 5.7 % (3.8-10.2); NEUT % 89.7 % (42.8-82.8); PLATELET COUNT 434 K/MM3 (134-434); RBC 4.64 M/mm3 (4.00-5.60); RDW 16.3 % (11.9-15.9); WHITE BLOOD COUNT 7.8 K/mm3 (4.0-10.0)
[2020-07-30] MEDS: INSULIN (LEVEMIR) 100 UNITS/ML UNITS SQ SCH ×2 (08:07→22:33)
[2020-07-30] MEDS: INSULIN SLIDING SCALE (NOVOLOG) 1 VIAL SQ SCH ×4 (08:08→22:39)
[2020-07-30 08:12] LABS: POTASSIUM 4.2 mmol/L (3.5-5.1)
[2020-07-30 08:15] LABS: CALCIUM 8.6 mg/dL (8.5-10.1)
[2020-07-30 08:16] LABS: BLOOD UREA NITROGEN 67.5 mg/dL (7-18); MAGNESIUM 2.3 mg/dL (1.8-2.4)
[2020-07-30 08:19] LABS: CREATININE 2.1 mg/dL (0.55-1.3); PHOSPHOROUS 3.5 mg/dL (2.5-4.9)
[2020-07-30] MEDS ORDERED: Insulin (LOG) Aspart 100 UNITS/ML VIAL SQ ONE (08:57)
[2020-07-30] MEDS: DEXAMETHASONE SOD PHOSPHATE 4 MG/1 ML VIAL IVPB SCH (09:47)
[2020-07-30] MEDS: DEXTROSE 5%-WATER - 1,000 ML IV SCH ×2 (11:32→22:33)
[2020-07-30] MEDS: HEPARIN NA (PORCINE) 5,000 UNITS/ML 1ML VIAL IVPUSH PRN (12:39)
[2020-07-30] MEDS: HEPARIN - 25,000 UNIT in SODIUM CHLORIDE 495 ML IV SCH (13:00)
[2020-07-31] MEDS: NITROGLYCERIN 2% OINTMENT - 1GM PACKET TD SCH ×4 (00:02→17:21)
[2020-07-31] MEDS: INSULIN (LEVEMIR) 100 UNITS/ML UNITS SQ SCH ×2 (06:03→21:04)
[2020-07-31] MEDS: INSULIN SLIDING SCALE (NOVOLOG) 1 VIAL SQ SCH ×4 (06:05→21:03)
[2020-07-31 09:12] LABS: HEMATOCRIT 31.3 % (35.4-49); MCH 27.8 pg (25.7-33.7); MEAN CELL VOLUME 86.7 fl (80-96); MEAN PLT VOLUME 8.4 fl (7.5-11.1); PLATELET COUNT 308 K/MM3 (134-434); RBC 3.61 M/mm3 (4.00-5.60); RDW 16.1 % (11.9-15.9); WHITE BLOOD COUNT 7.7 K/mm3 (4.0-10.0)
[2020-07-31 09:53] LABS: ALBUMIN 1.7 g/dl (3.4-5.0); BILIRUBIN,TOTAL 0.8 mg/dL (0.2-1); BLOOD UREA NITROGEN 51.6 mg/dL (7-18); CREATININE 2.1 mg/dL (0.55-1.3); MAGNESIUM 1.9 mg/dL (1.8-2.4); PHOSPHOROUS 2.1 mg/dL (2.5-4.9); POTASSIUM 3.3 mmol/L (3.5-5.1); TOT PROT 4.9 g/dl (6.4-8.2)
[2020-07-31 10:10] LABS: CALCIUM 6.7 mg/dL (8.5-10.1)
[2020-07-31] MEDS: DEXAMETHASONE SOD PHOSPHATE 4 MG/1 ML VIAL IVPB SCH (10:43)
[2020-07-31] MEDS: SODIUM CHLORIDE 1,000 ML IV SCH ×2 (10:44→11:00)
[2020-07-31] MEDS ORDERED: INSULIN (LEVEMIR) 100 UNITS/ML UNITS SQ ONE (11:13)
[2020-07-31] MEDS ORDERED: ENALAPRILAT DIHYDRATE 1.25 MG/1 ML VIAL IVPB SCH (12:15)
[2020-07-31] MEDS: KCL 10 MEQ IVPB 10 MEQ/100 ML INFUS.BAG IVPB SCH ×3 (12:23→14:53)
[2020-07-31] MEDS: HEPARIN - 25,000 UNIT in SODIUM CHLORIDE 495 ML IV SCH (14:53)
[2020-07-31 15:15] LABS: CHLORIDE 119 mmol/L (98-107); POTASSIUM 4.1 mmol/L (3.5-5.1); SODIUM 150 mmol/L (136-145)
[2020-07-31 15:17] LABS: ANION GAP 4 MMOL/L (8-16); BLOOD UREA NITROGEN 55.1 mg/dL (7-18); CALCIUM 8.5 mg/dL (8.5-10.1); CO2 27 mmol/L (21-32); GLUCOSE,RANDOM 283 mg/dL (74-106)
[2020-07-31 15:40] LABS: CREATININE < 0.6 mg/dL (0.55-1.3)
[2020-07-31] MEDS: SODIUM CHLORIDE 0.45%/POT 20 MEQ/1,000 ML INFUS.BAG IV SCH (16:53)
[2020-07-31] MEDS: HEPARIN NA (PORCINE) 5,000 UNITS/ML 1ML VIAL IVPUSH PRN (21:00)
[2020-08-01] MEDS: LABETALOL HCL 5 MG/1 ML (100MG/20 ML VIAL) IVPUSH PRN ×2 (02:55→21:53)
[2020-08-01] MEDS: NITROGLYCERIN 2% OINTMENT - 1GM PACKET TD SCH ×4 (05:33→17:10)
[2020-08-01] MEDS: INSULIN SLIDING SCALE (NOVOLOG) 1 VIAL SQ SCH ×4 (06:04→21:50)
[2020-08-01] MEDS: INSULIN (LEVEMIR) 100 UNITS/ML UNITS SQ SCH ×2 (06:05→21:37)
[2020-08-01] MEDS: SODIUM CHLORIDE 0.45%/POT 20 MEQ/1,000 ML INFUS.BAG IV SCH ×2 (06:17→10:45)
[2020-08-01 07:21] LABS: HEMOGLOBIN 12.4 GM/dL (11.7-16.9); MCH 27.5 pg (25.7-33.7); MCHC 32.7 g/dl (32.0-35.9); MEAN CELL VOLUME 84.2 fl (80-96); MEAN PLT VOLUME 8.5 fl (7.5-11.1); PLATELET COUNT 344 K/MM3 (134-434); RBC 4.52 M/mm3 (4.00-5.60); WHITE BLOOD COUNT 12.4 K/mm3 (4.0-10.0)
[2020-08-01 08:17] LABS: POTASSIUM 4.4 mmol/L (3.5-5.1)
[2020-08-01 08:19] LABS: ALBUMIN 2.2 g/dl (3.4-5.0); BLOOD UREA NITROGEN 51.5 mg/dL (7-18); CALCIUM 8.2 mg/dL (8.5-10.1); MAGNESIUM 2.2 mg/dL (1.8-2.4)
[2020-08-01 08:23] LABS: CREATININE 1.8 mg/dL (0.55-1.3); PHOSPHOROUS 2.9 mg/dL (2.5-4.9)
[2020-08-01 08:24] LABS: BILIRUBIN,TOTAL 1.5 mg/dL (0.2-1); TOT PROT 5.6 g/dl (6.4-8.2)
[2020-08-01] MEDS: DEXAMETHASONE SOD PHOSPHATE 4 MG/1 ML VIAL IVPB SCH (10:44)
[2020-08-01] MEDS: LABETALOL HCL 200 MG TABLET (FP) PO SCH ×2 (10:45→21:51)
[2020-08-01] MEDS: HEPARIN - 25,000 UNIT in SODIUM CHLORIDE 495 ML IV SCH (17:00)
[2020-08-01] MEDS: POTASSIUM CHLORIDE 20 MEQ in DEXTROSE 5%-WATER - 1,000 ML IV SCH (17:09)
[2020-08-01] MEDS: MORPHINE SULFATE 2 MG/ML VIAL IVPUSH PRN (21:51)
[2020-08-02] MEDS: POTASSIUM CHLORIDE 20 MEQ in DEXTROSE 5%-WATER - 1,000 ML IV SCH (03:00)
[2020-08-02] MEDS: NITROGLYCERIN 2% OINTMENT - 1GM PACKET TD SCH ×4 (06:50→19:02)
[2020-08-02] MEDS: INSULIN SLIDING SCALE (NOVOLOG) 1 VIAL SQ SCH ×4 (07:32→23:35)
[2020-08-02] MEDS: INSULIN (LEVEMIR) 100 UNITS/ML UNITS SQ SCH ×2 (07:32→23:43)
[2020-08-02 09:52] LABS: HEMATOCRIT 36.6 % (35.4-49); HEMOGLOBIN 11.8 GM/dL (11.7-16.9); MCH 27.2 pg (25.7-33.7); MCHC 32.2 g/dl (32.0-35.9); MEAN CELL VOLUME 84.4 fl (80-96); MEAN PLT VOLUME 9.1 fl (7.5-11.1); PLATELET COUNT 318 K/MM3 (134-434); RBC 4.34 M/mm3 (4.00-5.60); RDW 16.4 % (11.9-15.9); WHITE BLOOD COUNT 14.2 K/mm3 (4.0-10.0)
[2020-08-02 11:08] LABS: CALCIUM 8.6 mg/dL (8.5-10.1)
[2020-08-02 11:09] LABS: MAGNESIUM 2.2 mg/dL (1.8-2.4)
[2020-08-02 11:10] LABS: BLOOD UREA NITROGEN 48.5 mg/dL (7-18)
[2020-08-02 11:12] LABS: CREATININE 1.9 mg/dL (0.55-1.3); PHOSPHOROUS 2.7 mg/dL (2.5-4.9)
[2020-08-02] MEDS: DEXAMETHASONE SOD PHOSPHATE 4 MG/1 ML VIAL IVPB SCH (11:14)
[2020-08-02] MEDS: MORPHINE SULFATE 2 MG/ML VIAL IVPUSH PRN (11:14)
[2020-08-02] MEDS: LABETALOL HCL 5 MG/1 ML (100MG/20 ML VIAL) IVPUSH PRN (11:14)
[2020-08-02] MEDS: LABETALOL HCL 200 MG TABLET (FP) PO SCH ×2 (11:16→23:43)
[2020-08-02] MEDS ORDERED: AMINO ACIDS 4.25%/D5W 1,000 ML IV SCH ×3 (12:00→16:00)
[2020-08-02] MEDS ORDERED: DEXTROSE 5%-WATER - 50 ML IVPB ONE ×2 (13:12→23:45)
[2020-08-02] MEDS ORDERED: PIPERACILLIN/TAZOBACTAM 2.25 GM VIAL IVPB ONE ×2 (13:12→23:45)
[2020-08-02] MEDS ORDERED: POTASSIUM CHLORIDE 20 MEQ in AMINO ACIDS 4.25%/D5W 1,000 ML IV SCH (14:36)
[2020-08-02] MEDS: POTASSIUM CHLORIDE 20 MEQ in AMINO ACIDS 4.25%/D5W 1,000 ML IV SCH (15:16)
[2020-08-02] MEDS: PIPERACILLIN/TAZOB 2.25 GM 2.25 GM in DEXTROSE 5%-WATER - 50 ML IVPB SCH ×2 (15:17→23:47)
[2020-08-02] MEDS ORDERED: ENOXAPARIN NA (PORCINE) 80 MG/0.8 ML DISP.SYRIN SQ SCH (22:00)
[2020-08-02] MEDS ORDERED: MORPHINE SULFATE 2 MG/ML VIAL IVPUSH PRN (23:53)
[2020-08-03] MEDS: LABETALOL HCL 5 MG/1 ML (100MG/20 ML VIAL) IVPUSH PRN (00:31)
[2020-08-03] MEDS: NITROGLYCERIN 2% OINTMENT - 1GM PACKET TD SCH ×4 (00:32→17:56)
[2020-08-03] MEDS: PIPERACILLIN/TAZOB 2.25 GM 2.25 GM in DEXTROSE 5%-WATER - 50 ML IVPB SCH ×3 (02:00→17:57)
[2020-08-03] MEDS: INSULIN (LEVEMIR) 100 UNITS/ML UNITS SQ SCH ×2 (06:07→21:55)
[2020-08-03] MEDS: POTASSIUM CHLORIDE 20 MEQ in AMINO ACIDS 4.25%/D5W 1,000 ML IV SCH ×2 (06:10→16:33)
[2020-08-03] MEDS: INSULIN SLIDING SCALE (NOVOLOG) 1 VIAL SQ SCH ×4 (06:11→21:55)
[2020-08-03 07:47] LABS: HEMATOCRIT 36.3 % (35.4-49); HEMOGLOBIN 11.9 GM/dL (11.7-16.9); MCH 27.5 pg (25.7-33.7); MCHC 32.7 g/dl (32.0-35.9); MEAN PLT VOLUME 9.4 fl (7.5-11.1); PLATELET COUNT 256 K/MM3 (134-434); RBC 4.32 M/mm3 (4.00-5.60); WHITE BLOOD COUNT 14.4 K/mm3 (4.0-10.0)
[2020-08-03 08:18] LABS: POTASSIUM 4.2 mmol/L (3.5-5.1)
[2020-08-03 08:22] LABS: BLOOD UREA NITROGEN 50.3 mg/dL (7-18); CALCIUM 7.9 mg/dL (8.5-10.1)
[2020-08-03 08:27] LABS: BILIRUBIN,TOTAL 1.6 mg/dL (0.2-1); TOT PROT 5.3 g/dl (6.4-8.2)
[2020-08-03] MEDS ORDERED: DEXTROSE 5%-WATER - 50 ML IVPB ONE ×2 (08:50→16:30)
[2020-08-03] MEDS ORDERED: PIPERACILLIN/TAZOBACTAM 2.25 GM VIAL IVPB ONE ×2 (08:50→16:30)
[2020-08-03] MEDS: LABETALOL HCL 200 MG TABLET (FP) PO SCH (09:16)
[2020-08-03] MEDS: DEXAMETHASONE SOD PHOSPHATE 4 MG/1 ML VIAL IVPB SCH (09:16)
[2020-08-03] MEDS ORDERED: ENOXAPARIN NA (PORCINE) 80 MG/0.8 ML DISP.SYRIN SQ SCH (10:00)
[2020-08-04] MEDS: LABETALOL HCL 200 MG TABLET (FP) PO SCH ×3 (00:16→21:34)
[2020-08-04] MEDS: NITROGLYCERIN 2% OINTMENT - 1GM PACKET TD SCH ×4 (00:16→17:16)
[2020-08-04] MEDS ORDERED: PIPERACILLIN/TAZOBACTAM 2.25 GM VIAL IVPB ONE ×3 (01:34→16:53)
[2020-08-04] MEDS ORDERED: DEXTROSE 5%-WATER - 50 ML IVPB ONE ×3 (01:35→16:53)
[2020-08-04] MEDS: POTASSIUM CHLORIDE 20 MEQ in AMINO ACIDS 4.25%/D5W 1,000 ML IV SCH ×3 (02:00→21:35)
[2020-08-04] MEDS: PIPERACILLIN/TAZOB 2.25 GM 2.25 GM in DEXTROSE 5%-WATER - 50 ML IVPB SCH ×3 (03:26→17:17)
[2020-08-04] MEDS: INSULIN (LEVEMIR) 100 UNITS/ML UNITS SQ SCH ×3 (06:45→21:34)
[2020-08-04] MEDS: INSULIN SLIDING SCALE (NOVOLOG) 1 VIAL SQ SCH ×4 (06:47→21:34)
[2020-08-04 08:31] LABS: BASO % 0.1 % (0-2.0); EOS % 0.5 % (0-4.5); HEMATOCRIT 35.1 % (35.4-49); HEMOGLOBIN 11.2 GM/dL (11.7-16.9); LYMPH % 5.9 % (8-40); MCHC 31.9 g/dl (32.0-35.9); MEAN CELL VOLUME 84.6 fl (80-96); MEAN PLT VOLUME 9.7 fl (7.5-11.1); MONO % 6.6 % (3.8-10.2); NEUT % 86.9 % (42.8-82.8); PLATELET COUNT 253 K/MM3 (134-434); RBC 4.14 M/mm3 (4.00-5.60); RDW 16.3 % (11.9-15.9); WHITE BLOOD COUNT 9.6 K/mm3 (4.0-10.0)
[2020-08-04 08:57] LABS: CALCIUM 8.2 mg/dL (8.5-10.1)
[2020-08-04 08:58] LABS: ALBUMIN 1.9 g/dl (3.4-5.0); BLOOD UREA NITROGEN 58.9 mg/dL (7-18)
[2020-08-04 09:04] LABS: BILIRUBIN,TOTAL 1.6 mg/dL (0.2-1); TOT PROT 5.1 g/dl (6.4-8.2)
[2020-08-05] MEDS: INSULIN (LEVEMIR) 100 UNITS/ML UNITS SQ SCH ×2 (00:07→07:37)
[2020-08-05] MEDS ORDERED: PIPERACILLIN/TAZOBACTAM 2.25 GM VIAL IVPB ONE ×3 (01:11→18:02)
[2020-08-05] MEDS ORDERED: DEXTROSE 5%-WATER - 50 ML IVPB ONE ×3 (01:11→18:02)
[2020-08-05] MEDS: NITROGLYCERIN 2% OINTMENT - 1GM PACKET TD SCH ×4 (01:13→17:48)
[2020-08-05] MEDS: PIPERACILLIN/TAZOB 2.25 GM 2.25 GM in DEXTROSE 5%-WATER - 50 ML IVPB SCH ×4 (01:13→18:10)
[2020-08-05] MEDS: INSULIN SLIDING SCALE (NOVOLOG) 1 VIAL SQ SCH ×3 (07:37→17:48)
[2020-08-05] MEDS: POTASSIUM CHLORIDE 20 MEQ in AMINO ACIDS 4.25%/D5W 1,000 ML IV SCH (09:56)
[2020-08-05] MEDS: LABETALOL HCL 200 MG TABLET (FP) PO SCH ×2 (09:57→12:39)
[2020-08-05] MEDS: LABETALOL HCL 5 MG/1 ML (100MG/20 ML VIAL) IVPUSH PRN (10:27)
[2020-08-05 12:24] LABS: MAGNESIUM 2.2 mg/dL (1.8-2.4)
[2020-08-05 12:33] LABS: CALCIUM 8.1 mg/dL (8.5-10.1)
[2020-08-05 12:34] LABS: BILIRUBIN,TOTAL 1.3 mg/dL (0.2-1); BLOOD UREA NITROGEN 59.6 mg/dL (7-18); TOT PROT 5.7 g/dl (6.4-8.2)
[2020-08-05 12:37] LABS: CREATININE 1.9 mg/dL (0.55-1.3); PHOSPHOROUS 2.8 mg/dL (2.5-4.9)
[2020-08-05] MEDS ORDERED: POTASSIUM CHLORIDE 20 MEQ in AMINO ACIDS 4.25%/D5W 1,000 ML IV SCH (13:41)
[2020-08-05] MEDS ORDERED: DEXTROSE 5%-WATER - 1,000 ML IV SCH (13:45)
[2020-08-05] MEDS ORDERED: DEXTROSE 50%-WATER - 25 GM/50 ML VIAL IVPUSH ONE (17:06)
[2020-08-05] MEDS ORDERED: DEXTROSE 50%-WATER 25 GM/50 ML DISP.SYRIN ONE (17:44)
[2020-08-06] MEDS: HEPARIN NA (PORCINE) 5,000 UNITS/ML 1ML VIAL SQ SCH ×4 (00:20→22:55)
[2020-08-06] MEDS: LABETALOL HCL 200 MG TABLET (FP) PO SCH ×3 (00:28→21:30)
[2020-08-06] MEDS: INSULIN SLIDING SCALE (NOVOLOG) 1 VIAL SQ SCH ×6 (00:28→23:15)
[2020-08-06] MEDS: NITROGLYCERIN 2% OINTMENT - 1GM PACKET TD SCH ×5 (00:28→23:13)
[2020-08-06] MEDS ORDERED: PIPERACILLIN/TAZOBACTAM 2.25 GM VIAL IVPB ONE ×3 (02:34→17:51)
[2020-08-06] MEDS ORDERED: DEXTROSE 5%-WATER - 50 ML IVPB ONE ×3 (02:35→17:51)
[2020-08-06] MEDS: PIPERACILLIN/TAZOB 2.25 GM 2.25 GM in DEXTROSE 5%-WATER - 50 ML IVPB SCH ×3 (02:47→18:06)
[2020-08-06] MEDS: POTASSIUM CHLORIDE 20 MEQ in AMINO ACIDS 4.25%/D5W 1,000 ML IV SCH (02:54)
[2020-08-06] MEDS ORDERED: ACETAMINOPHEN 1000 MG/100 ML VIAL (NON FORMULARY) IVPB ONE (04:40)
[2020-08-06 09:32] LABS: BASO % 0.2 % (0-2.0); EOS % 0.9 % (0-4.5); HEMATOCRIT 35.6 % (35.4-49); HEMOGLOBIN 11.6 GM/dL (11.7-16.9); LYMPH % 4.2 % (8-40); MCH 27.7 pg (25.7-33.7); MCHC 32.6 g/dl (32.0-35.9); MEAN PLT VOLUME 9.9 fl (7.5-11.1); NEUT % 90.7 % (42.8-82.8); PLATELET COUNT 221 K/MM3 (134-434); RBC 4.19 M/mm3 (4.00-5.60); RDW 16.6 % (11.9-15.9); WHITE BLOOD COUNT 14.8 K/mm3 (4.0-10.0)
[2020-08-06 09:47] LABS: POTASSIUM 4.2 mmol/L (3.5-5.1)
[2020-08-06 10:04] LABS: BLOOD UREA NITROGEN 63.2 mg/dL (7-18)
[2020-08-06 10:06] LABS: MAGNESIUM 2.1 mg/dL (1.8-2.4)
[2020-08-06 10:08] LABS: CREATININE 2.4 mg/dL (0.55-1.3)
[2020-08-06] MEDS: ACETAMINOPHEN 1000 MG/100 ML VIAL (NON FORMULARY) IVPB ONE ×2 (11:38→14:48)
[2020-08-06] MEDS ORDERED: DEXTROSE 5%-WATER - 1,000 ML IV SCH (13:32)
[2020-08-06] MEDS: INSULIN (LEVEMIR) 100 UNITS/ML UNITS SQ SCH (19:55)
[2020-08-06] MEDS ORDERED: MORPHINE SULFATE 2 MG/ML VIAL IM PRN (20:11)
[2020-08-06] MEDS: MORPHINE SULFATE 2 MG/ML VIAL IVPUSH PRN (23:14)
[2020-08-07] MEDS: PIPERACILLIN/TAZOB 2.25 GM 2.25 GM in DEXTROSE 5%-WATER - 50 ML IVPB SCH ×3 (02:18→19:30)
[2020-08-07] MEDS ORDERED: PIPERACILLIN/TAZOBACTAM 2.25 GM VIAL IVPB ONE ×3 (02:19→18:15)
[2020-08-07] MEDS ORDERED: DEXTROSE 5%-WATER - 50 ML IVPB ONE ×3 (02:20→18:16)
[2020-08-07] MEDS: MORPHINE SULFATE 2 MG/ML VIAL IVPUSH PRN ×3 (05:00→22:48)
[2020-08-07] MEDS: HEPARIN NA (PORCINE) 5,000 UNITS/ML 1ML VIAL SQ SCH ×3 (05:22→22:39)
[2020-08-07] MEDS: NITROGLYCERIN 2% OINTMENT - 1GM PACKET TD SCH ×3 (05:22→17:25)
[2020-08-07] MEDS ORDERED: MORPHINE SULFATE 2 MG/ML VIAL IVPUSH ONE (05:23)
[2020-08-07] MEDS: INSULIN (LEVEMIR) 100 UNITS/ML UNITS SQ SCH (08:04)
[2020-08-07] MEDS: INSULIN SLIDING SCALE (NOVOLOG) 1 VIAL SQ SCH ×4 (08:05→22:39)
[2020-08-07] MEDS: LABETALOL HCL 200 MG TABLET (FP) PO SCH ×2 (09:42→22:40)
[2020-08-07 11:18] LABS: HEMATOCRIT 32.4 % (35.4-49); HEMOGLOBIN 10.5 GM/dL (11.7-16.9); MCH 27.7 pg (25.7-33.7); MCHC 32.5 g/dl (32.0-35.9); MEAN CELL VOLUME 85.2 fl (80-96); MEAN PLT VOLUME 10.2 fl (7.5-11.1); PLATELET COUNT 199 K/MM3 (134-434); RDW 16.9 % (11.9-15.9); WHITE BLOOD COUNT 17.2 K/mm3 (4.0-10.0)
[2020-08-07 11:39] LABS: POTASSIUM 4.1 mmol/L (3.5-5.1)
[2020-08-07] MEDS ORDERED: MORPHINE SULFATE 2 MG/ML VIAL IVPUSH PRN (11:39)
[2020-08-07 11:41] LABS: CALCIUM 7.9 mg/dL (8.5-10.1)
[2020-08-07 11:42] LABS: BLOOD UREA NITROGEN 65.4 mg/dL (7-18); MAGNESIUM 2.2 mg/dL (1.8-2.4)
[2020-08-07 11:45] LABS: CREATININE 2.9 mg/dL (0.55-1.3); PHOSPHOROUS 3.8 mg/dL (2.5-4.9)
[2020-08-07] MEDS: DEXTROSE 5%-WATER - 1,000 ML IV SCH (12:33)
[2020-08-07] MEDS: FUROSEMIDE 40 MG/4 ML INJECTABLE VIAL IVPUSH ONE ×2 (12:34→14:43)
[2020-08-08] MEDS: NITROGLYCERIN 2% OINTMENT - 1GM PACKET TD SCH ×5 (01:02→23:39)
[2020-08-08] MEDS ORDERED: PIPERACILLIN/TAZOBACTAM 2.25 GM VIAL IVPB ONE ×3 (01:50→17:32)
[2020-08-08] MEDS ORDERED: DEXTROSE 5%-WATER - 50 ML IVPB ONE ×3 (01:51→17:32)
[2020-08-08] MEDS: PIPERACILLIN/TAZOB 2.25 GM 2.25 GM in DEXTROSE 5%-WATER - 50 ML IVPB SCH ×3 (02:01→17:35)
[2020-08-08] MEDS: INSULIN (LEVEMIR) 100 UNITS/ML UNITS SQ SCH (06:36)
[2020-08-08] MEDS: HEPARIN NA (PORCINE) 5,000 UNITS/ML 1ML VIAL SQ SCH ×3 (06:37→23:39)
[2020-08-08] MEDS: INSULIN SLIDING SCALE (NOVOLOG) 1 VIAL SQ SCH ×3 (06:54→17:30)
[2020-08-08 08:26] LABS: POTASSIUM 4.2 mmol/L (3.5-5.1)
[2020-08-08 08:27] LABS: CALCIUM 7.8 mg/dL (8.5-10.1)
[2020-08-08 08:28] LABS: BLOOD UREA NITROGEN 69.1 mg/dL (7-18)
[2020-08-08 08:31] LABS: CREATININE 3.7 mg/dL (0.55-1.3); PHOSPHOROUS 4.4 mg/dL (2.5-4.9)
[2020-08-08] MEDS: MORPHINE SULFATE 2 MG/ML VIAL IVPUSH PRN ×2 (09:37→17:35)
[2020-08-08] MEDS: LABETALOL HCL 200 MG TABLET (FP) PO SCH ×2 (09:38→23:38)
[2020-08-08] MEDS ORDERED: INSULIN (NOVOLOG) ASPART 100 UNITS/ML 10ML VIAL ONE (11:36)
[2020-08-08] MEDS: DEXTROSE 5%-WATER - 1,000 ML IV SCH (11:38)
[2020-08-08] MEDS ORDERED: SODIUM CHLORIDE 500 ML IV STA (12:11)
[2020-08-08] MEDS ORDERED: SODIUM CHLORIDE 1,000 ML IV SCH (12:15)
[2020-08-08] MEDS: LACTATED RINGERS SOLUTION 1,000 ML/1,000 ML INFUS.BAG IV SCH (14:16)
[2020-08-09] MEDS: INSULIN SLIDING SCALE (NOVOLOG) 1 VIAL SQ SCH ×5 (00:22→21:57)
[2020-08-09] MEDS ORDERED: DEXTROSE 5%-WATER - 50 ML IVPB ONE ×3 (00:25→16:52)
[2020-08-09] MEDS ORDERED: PIPERACILLIN/TAZOBACTAM 2.25 GM VIAL IVPB ONE ×3 (00:25→16:52)
[2020-08-09] MEDS: PIPERACILLIN/TAZOB 2.25 GM 2.25 GM in DEXTROSE 5%-WATER - 50 ML IVPB SCH ×3 (01:11→17:28)
[2020-08-09] MEDS: HEPARIN NA (PORCINE) 5,000 UNITS/ML 1ML VIAL SQ SCH ×3 (07:13→21:56)
[2020-08-09] MEDS: NITROGLYCERIN 2% OINTMENT - 1GM PACKET TD SCH ×3 (07:16→17:29)
[2020-08-09] MEDS: INSULIN (LEVEMIR) 100 UNITS/ML UNITS SQ SCH (07:17)
[2020-08-09 10:12] LABS: MAGNESIUM 2.4 mg/dL (1.8-2.4)
[2020-08-09] MEDS: LABETALOL HCL 200 MG TABLET (FP) PO SCH ×2 (10:23→21:56)
[2020-08-09] MEDS: LACTATED RINGERS SOLUTION 1,000 ML/1,000 ML INFUS.BAG IV SCH ×2 (13:23→22:01)
[2020-08-09] MEDS: MORPHINE SULFATE 2 MG/ML VIAL IVPUSH PRN (14:02)
[2020-08-09] MEDS ORDERED: DOXYCYCLINE HYCLATE 100 MG VIAL ONE (16:51)
[2020-08-09] MEDS ORDERED: DEXTROSE 5%-WATER 100 ML IVPB ONE (16:52)
[2020-08-09] MEDS: DOXYCYCLINE INJECTION 100 MG in DEXTROSE 5%-WATER 100 ML IVPB SCH (17:29)
[2020-08-10] MEDS: PIPERACILLIN/TAZOB 2.25 GM 2.25 GM in DEXTROSE 5%-WATER - 50 ML IVPB SCH (02:00)
[2020-08-10] MEDS: NITROGLYCERIN 2% OINTMENT - 1GM PACKET TD SCH ×2 (02:10→06:11)
[2020-08-10 05:37] VITALS: BP 127/42; PULSE 88; TEMP 99.7
[2020-08-10] MEDS ORDERED: PT OWN MED DRAWER 7, Y5N ONE (05:52)
[2020-08-10] MEDS: MORPHINE SULFATE 2 MG/ML VIAL IVPUSH PRN (06:10)
[2020-08-10] MEDS: HEPARIN NA (PORCINE) 5,000 UNITS/ML 1ML VIAL SQ SCH (06:12)
[2020-08-10] MEDS: DOXYCYCLINE INJECTION 100 MG in DEXTROSE 5%-WATER 100 ML IVPB SCH (06:12)
[2020-08-10] MEDS: INSULIN (LEVEMIR) 100 UNITS/ML UNITS SQ SCH (06:24)
[2020-08-10] MEDS: INSULIN SLIDING SCALE (NOVOLOG) 1 VIAL SQ SCH (06:25)
== END 2020-08-10 06:45 | disposition expired | DRG 177 ==
LOC: JER 13:48 → JERBED 18:17 → J4W 20:46 → J5WEST-2 07-30 00:45 → J4W 07-30 00:57
PROVIDERS: ADMIT Internal Medicine; ATTEND Internal Medicine
PROC: 5A09557 Assistance with Respiratory Ventilation, Greater than 96 Consecutive Hours, Continuous Positive Airway Pressure (ICD-10-PCS; principal; 2020-07-24)
DX: U07.1 COVID-19 (principal); G93.41 Metabolic encephalopathy; J12.82 Pneumonia due to coronavirus disease 2019; I50.33 Acute on chronic diastolic (congestive) heart failure; J96.01 Acute respiratory failure with hypoxia; I13.0 Hypertensive heart and chronic kidney disease with heart failure and stage 1 through stage 4 chronic kidney disease, or unspecified chronic kidney disease; I24.8 Other forms of acute ischemic heart disease; E87.0 Hyperosmolality and hypernatremia; N17.9 Acute kidney failure, unspecified; I47.1 Supraventricular tachycardia; N18.4 Chronic kidney disease, stage 4 (severe); E87.2 Acidosis; Z74.01 Bed confinement status; Z79.4 Long term (current) use of insulin; J45.909 Unspecified asthma, uncomplicated; K04.7 Periapical abscess without sinus; E11.22 Type 2 diabetes mellitus with diabetic chronic kidney disease; R62.7 Adult failure to thrive; I25.10 Atherosclerotic heart disease of native coronary artery without angina pectoris; Z98.61 Coronary angioplasty status; K11.21 Acute sialoadenitis; I48.0 Paroxysmal atrial fibrillation; E11.65 Type 2 diabetes mellitus with hyperglycemia; E86.0 Dehydration; E83.51 Hypocalcemia; D64.9 Anemia, unspecified; K02.9 Dental caries, unspecified
CPT/HCPCS: 36415; 36600; 70450-TC; 70490-TC; 71045-TC-FY; 71250-TC; 80048; 80053; 81003; 82565; 82728; 82803; 82962; 83605; 83615; 83735; 83880; 84100; 84156; 84300; 84443; 84484; 85025; 85027; 85379; 85610; 85651; 85730; 86140; 86769; 87040; 87804; 93005; 93010; 94660; 99285-25; C9399; C9803; J0131; J1100; J1644; J3480; U0003